=== PATIENT | male | born 1965 | race Caucasian/White ===

== ENCOUNTER → 2016-07-16 | Outpatient (CLI) | payer OTHER, MEDICARE ==
--- NOTE | 2016-07-16 16:39 | CT ---
EXAMINATION TYPE: CT abdomen w con DATE OF EXAM: 07/16/2016 4:11 PM COMPARISON: 02/06/2016 HISTORY: Pt states of cysts on liver. CT DLP: 3450.5 mGycm CONTRAST: CT scan of the abdomen and pelvis is performed without Oral Contrast and with IV Contrast, patient in jected with 100 mL of Omnipaque 300. FINDINGS: LUNG BASES-: No visible nodule. No infiltrate. LIVER/GB: 3 stable hepatic cysts are noted ranging in size from 1.2 cm to approximately 4 mm. No steve d lesions are detected. The gallbladder is contracted. Biliary tree is unremarkable. PANCREAS: No inflammation. No distinct mass. SPLEEN: No splenic enlargement. No lesion seen. ADRENALS: No nodule. No thickening. KIDNEYS/BLADDER: No hydronephrosis. No nephrolithiasis. No disctinct renal mass. Urinary bladder g rossly unremarkable. BOWEL: Normal appendix. Normal bowel caliber. No inflammation. LYMPH NODES: No greater than 1cm abdominal or pelvic lymph nodes are appreciated. AORTA: No significant abnormality. OSSEOUS STRUCTURES: No significant abnormality is seen. OTHER: No significant additional abnormality is seen. IMPRESSION: 1. Stable hepatic cysts.
== END | disposition home or self-care (01) ==
LOC: RADCTMAIN 15:39
PROVIDERS: ATTEND Pediatrics
DX: K76.89 Other specified diseases of liver (principal)
CPT/HCPCS: 74160; Q9967

== ENCOUNTER 2018-07-31 08:56 | Observation (INO) | payer OTHER, MEDICARE ==
[2018-07-31] MEDS ORDERED: SODIUM CHLORIDE 0.9% 1,000 ML IV STA (08:58)
--- NOTE | 2018-07-31 08:59 | ED ---
Weakness HPI - General Stated complaint: weakness/rash Time Seen by Provider: 07/31/18 08:57 Source: RN notes reviewed, old records reviewed - History of Present Illness Initial comments: This is a 52-year-old male the ER for evaluation. Patient presents ER for evaluation of rash. Patient is rash on his buttocks and some fever and chills. Also admits to secondary rash over rest of body. Symptoms began yesterday. Buttox rash is been going on for a few days. No travel history no sick contacts no history of similar presentation. No history of diabetes MD Complaint: generalized weakness -: days(s) Location: generalized Severity: mild Severity scale (1-10): 3 Consistency: constant Context: recent illness Associated Symptoms: other (Significant buttocks rash) - Related Data Home Medications Medication Instructions Recorded Confirmed Clopidogrel [Plavix] 75 mg PO DAILY 02/06/16 07/31/18 Aspirin [Adult Low Dose Aspirin EC] 81 mg PO DAILY 02/17/16 07/31/18 Atenolol 25 mg PO QAM 02/17/16 07/31/18 Lisinopril [Zestril] 10 mg PO DAILY 02/17/16 07/31/18 Atorvastatin Calcium [Lipitor] 10 mg PO HS 07/31/18 07/31/18 Cyclobenzaprine [Flexeril] 10 mg PO TID PRN 07/31/18 07/31/18 Loratadine [Claritin] 10 mg PO DAILY 07/31/18 07/31/18 Naproxen [Naprosyn] 500 mg PO Q12HR PRN 07/31/18 07/31/18 Allergies Allergy/AdvReac Type Severity Reaction Status Date / Time No Known Allergies Allergy Verified 07/31/18 09:34 Review of Systems ROS Statement: Those systems with pertinent positive or pertinent negative responses have been documented in the HPI. ROS Other: All systems not noted in ROS Statement are negative. Past Medical History Past Medical History: Atrial Fibrillation, CVA/TIA, Hyperlipidemia, Hypertension, Memory Impairment, Myocardial Infarction ([place]) Additional Past Medical History / Comment(s): STROKE APPROX 2011 AFFECTED RT SIDE HAS SOME WEAKNESS TO LEG USES A CANE WHEN UP AND WRITING A BIT SHAKY. ALSO HAS SHORT TERM MEMEORY PROBLEMS SINCE THEN. Last Myocardial Infarction Date:: 2005 History of Any Multi-Drug Resistant Organisms: None Reported Past Surgical History: Adenoidectomy, Cardiac Ablation, Heart Catheterization, Tonsillectomy Additional Past Surgical History / Comment(s): Cardiac ablation. LOOP RECORDER- SINCE REMOVED Past Anesthesia/Blood Transfusion Reactions: Previous Problems w/ Anesthesia Additional Past Anesthesia/Blood Transfusion Reaction / Comment(s): WOKE UP A BIT MEAN AFTER (MANY YRS AGO). CLAUSTERPHOBIA. Past Psychological History: No Psychological Hx Reported Smoking Status: Former smoker Past Alcohol Use History: Occasional Additional Past Alcohol Use History / Comment(s): SMOKED SINCE AGE 19 1 PACK PER WEK, QUIT 2005 Past Drug Use History: None Reported - Past Family History Father Family Medical History: COPD, Hyperlipidemia, Hypertension, Myocardial Infarction ([place]) Mother Family Medical History: Cancer, Dementia, Thyroid Disorder Additional Family Medical History / Comment(s): BREAST CANCER,DIVERTICULITIS General Exam - General Exam Comments Initial Comments: Significant fungal demarcated rash with cellulitis and surrounding erythema on buttocks no drainage no abscess General appearance: alert, in no apparent distress Head exam: Present: atraumatic, normocephalic, normal inspection Eye exam: Present: normal appearance, PERRL, EOMI. Absent: scleral icterus, conjunctival injection, periorbital swelling ENT exam: Present: normal exam, mucous membranes moist Neck exam: Present: normal inspection. Absent: tenderness, meningismus, lymphadenopathy Respiratory exam: Present: normal lung sounds bilaterally. Absent: respiratory distress, wheezes, rales, rhonchi, stridor Cardiovascular Exam: Present: regular rate, normal rhythm, normal heart sounds. Absent: systolic murmur, diastolic murmur, rubs, gallop, clicks GI/Abdominal exam: Present: soft, normal bowel sounds. Absent: distended, tenderness, guarding, rebound, rigid Extremities exam: Present: normal inspection, full ROM, normal capillary refill. Absent: tenderness, pedal edema, joint swelling, calf tenderness Back exam: Present: normal inspection Neurological exam: Present: alert, oriented X3, CN II-XII intact Psychiatric exam: Present: normal affect, normal mood Skin exam: Present: warm, dry, intact, normal color. Absent: rash Course Vital Signs 07/31/18 07/31/18 08:59 09:03 Temperature 98.4 F Pulse Rate 83 81 Respiratory 18 18 Rate Blood Pressure 164/110 163/87 O2 Sat by Pulse 98 97 Oximetry - Reevaluation(s) Reevaluation #1: 07/31/18 10:50 Medical record Reviewed Medical Decision Making - Medical Decision Making 52 male the ER for evaluation of rash rash on face as well as blood tox rash. Patient's pulse ox stressors appear to be East infection betsy infection with overlying secondary bacterial infection. We'll admit for IV antibiotics and treatment of cellulitis - Lab Data Result diagrams: 07/31/18 09:18 Lab Results 07/31/18 07/31/18 07/31/18 Range/Units 09:18 09:18 09:18 WBC 7.6 (3.8-10.6) k/uL RBC 5.62 (4.30-5.90) m/uL Hgb 16.5 (13.0-17.5) gm/dL Hct 49.3 (39.0-53.0) % MCV 87.8 (80.0-100.0) fL MCH 29.4 (25.0-35.0) pg MCHC 33.5 (31.0-37.0) g/dL RDW 13.8 (11.5-15.5) % Plt Count 266 (150-450) k/uL Neutrophils % 83 % Lymphocytes % 10 % Monocytes % 4 % Eosinophils % 2 % Basophils % 0 % Neutrophils # 6.3 (1.3-7.7) k/uL Lymphocytes # 0.7 L (1.0-4.8) k/uL Monocytes # 0.3 (0-1.0) k/uL Eosinophils # 0.1 (0-0.7) k/uL Basophils # 0.0 (0-0.2) k/uL PT 9.7 (9.0-12.0) sec INR 0.9 (<1.2) APTT 23.4 (22.0-30.0) sec Plasma Lactic Acid Mp 1.7 (0.7-2.0) mmol/L Troponin I (0.000-0.034) ng/mL 07/31/18 Range/Units 09:18 WBC (3.8-10.6) k/uL RBC (4.30-5.90) m/uL Hgb (13.0-17.5) gm/dL Hct (39.0-53.0) % MCV (80.0-100.0) fL MCH (25.0-35.0) pg MCHC (31.0-37.0) g/dL RDW (11.5-15.5) % Plt Count (150-450) k/uL Neutrophils % % Lymphocytes % % Monocytes % % Eosinophils % % Basophils % % Neutrophils # (1.3-7.7) k/uL Lymphocytes # (1.0-4.8) k/uL Monocytes # (0-1.0) k/uL Eosinophils # (0-0.7) k/uL Basophils # (0-0.2) k/uL PT (9.0-12.0) sec INR (<1.2) APTT (22.0-30.0) sec Plasma Lactic Acid Mp (0.7-2.0) mmol/L Troponin I <0.012 (0.000-0.034) ng/mL Disposition Clinical Impression: Cellulitis of buttock, Betsy infection Disposition: ADMITTED IP TO THIS HOSP Condition: Good Is patient prescribed a controlled substance at d/c from ED?: No Referrals: Jayme Baron MD [Primary Care Provider] - 1-2 days
[2018-07-31 09:40] LABS: Basophils % (A) 0 %; Eosinophils # (A) 0.1 k/uL (0-0.7); Eosinophils % (A) 2 %; HCT 49.3 % (39.0-53.0); HGB 16.5 gm/dL (13.0-17.5); Lymphocytes # (A) 0.7 k/uL (1.0-4.8); Lymphocytes % (A) 10 %; MCH 29.4 pg (25.0-35.0); MCHC 33.5 g/dL (31.0-37.0); MCV 87.8 fL (80.0-100.0); Mean Platelet Volume 7.5; Monocytes # (A) 0.3 k/uL (0-1.0); Monocytes % (A) 4 %; Neutrophils # (A) 6.3 k/uL (1.3-7.7); Neutrophils % (A) 83 %; Platelet Count 266 k/uL (150-450); RBC 5.62 m/uL (4.30-5.90); RDW 13.8 % (11.5-15.5); WBC 7.6 k/uL (3.8-10.6)
[2018-07-31] MEDS ORDERED: KETOROLAC 30 MG/ML 1 ML VIAL IVP STA (10:02)
[2018-07-31] MEDS ORDERED: VANCOMYCIN IV PER PHARMACY 1 EACH MISC MISCELLANE PRN (10:02)
[2018-07-31] MEDS ORDERED: methylPREDNISolone SOD SUCCI 125 MG/2 ML VIAL IV STA (10:02)
[2018-07-31] MEDS ORDERED: FAMOTIDINE 20 MG/2 ML VIAL IV STA (10:02)
[2018-07-31] MEDS ORDERED: diphenhydrAMINE 50 MG/ML 1 ML VIAL IVP STA (10:02)
[2018-07-31] MEDS ORDERED: VANCOMYCIN 2,500 MG in SODIUM CHLORIDE 0.9% 500 ML 500 ML IVPB STA (10:07)
[2018-07-31 10:26] LABS: INR 0.9 (<1.2); Partial Thromboplastin Time 23.4 sec (22.0-30.0); Prothrombin Time 9.7 sec (9.0-12.0)
[2018-07-31 10:26] LABS: Appearance,Urine Clear (Clear); Bilirubin,Urine Negative (Negative); Blood,Urine Negative (Negative); Color,Urine Yellow; Glucose,Urine (UA) Negative (Negative); Ketones,Urine Negative (Negative); Leukocyte Esterase,Urine Negative (Negative); Nitrite,Urine Negative (Negative); Protein,Urine Negative (Negative); Urobilinogen,Urine <2.0 mg/dL (<2.0)
[2018-07-31 11:02] LABS: ALT 41 U/L (21-72); AST 24 U/L (17-59); Alkaline Phosphatase 54 U/L (38-126); Anion Gap 9 mmol/L; Blood Urea Nitrogen 17 mg/dL (9-20); Calcium 9.3 mg/dL (8.4-10.2); Carbon Dioxide 25 mmol/L (22-30); Chloride 105 mmol/L (98-107); Glucose 135 mg/dL (74-99); Magnesium 1.8 mg/dL (1.6-2.3); Phosphorus 3.2 mg/dL (2.5-4.5); Potassium 4.6 mmol/L (3.5-5.1); Sodium 139 mmol/L (137-145); Total Bilirubin 0.6 mg/dL (0.2-1.3); Total Protein 6.8 g/dL (6.3-8.2)
[2018-07-31] MEDS ORDERED: SODIUM CHLORIDE 0.9% 1,000 ML IV ONE (11:34)
[2018-07-31] MEDS: KETOROLAC 30 MG/ML 1 ML VIAL IVP PRN (17:51)
[2018-07-31] MEDS ORDERED: CYCLOBENZAPRINE 10 MG TAB PO PRN (18:20)
[2018-07-31] MEDS ORDERED: NAPROXEN 250 MG TAB PO PRN (18:20)
[2018-07-31] MEDS ORDERED: MAG HYDROX/AL HYDROX/SIMETH 30 ML CUP PO PRN (18:23)
[2018-07-31] MEDS ORDERED: ONDANSETRON 4 MG/2 ML VIAL IVP PRN (18:23)
[2018-07-31] MEDS ORDERED: MAGNESIUM HYDROXIDE 2,400 MG/10 ML CUP PO PRN (18:23)
[2018-07-31] MEDS ORDERED: ACETAMINOPHEN TAB 325 MG TAB PO PRN (18:23)
[2018-07-31] MEDS ORDERED: NALOXONE 0.4 MG/ML 1 ML VIAL IV PRN (18:23)
[2018-07-31] MEDS ORDERED: CALCIUM CARBONATE 500 MG CHEWABLE PO PRN (18:23)
[2018-07-31] MEDS ORDERED: LACTULOSE 20 GM/30 ML CUP PO PRN (18:23)
[2018-07-31] MEDS ORDERED: VANCOMYCIN 2,000 MG in SODIUM CHLORIDE 0.9% 500 ML 500 ML IVPB SCH (21:00)
[2018-07-31] MEDS: NYSTATIN 100,000 UNIT/GM POWD 15 GM TOPICAL SCH ×2 (21:07→22:12)
[2018-07-31] MEDS: ATORVASTATIN 10 MG TAB PO SCH (21:07)
[2018-07-31] MEDS: ENOXAPARIN 40 MG/0.4 ML SYRINGE SQ SCH (21:08)
[2018-07-31] MEDS: ceFAZolin (PMX-bag) 1,000 MG in DEXTROSE/WATER 1 50ML.BAG IVPB SCH (21:20)
--- NOTE | 2018-07-31 21:43 | HP ---
HISTORY AND PHYSICAL DATE OF ADMISSION: 07/31/2018 DATE OF SERVICE: 07/31/2018. PRESENTING COMPLAINT: Severe rash, redness in the buttock. HISTORY OF PRESENTING COMPLAINT: This is a pleasant 52-year-old patient who follows with Dr. Baron. Chronic stable medical conditions include hypertension, hyperlipidemia, obstructive sleep apnea, previous ID, stroke with right-sided weakness, diverticulosis. Baseline uses a cane. The patient noted a rash in the butt cheek area just over 4 days ago, progressively getting worse, and it has spread quite a bit and he has also had noted some rash on the body forehead, itching. No fever. No chills. Also somewhat painful in the buttock area. The patient given IV antibiotics in the ER. Admitted for the same. REVIEW OF SYSTEMS: CONSTITUTIONAL: None. HEENT: None. RESPIRATORY: None. CARDIOVASCULAR: None. GASTROINTESTINAL: None. GENITOURINARY: None. MUSCULOSKELETAL: Arthritic pain in joints. DERMATOLOGICAL: As above. LYMPHATICS none. PSYCHIATRY none. NEUROLOGICAL: Right-sided weakness from prior stroke. PAST MEDICAL HISTORY: Hypertension, hyperlipidemia, obstructive sleep apnea, coronary artery disease with a ID, stroke with right-sided weakness, diverticulosis. Past medical history also numbness in the right and short-term memory loss, chronic low back pain, right shoulder and right ankle pain, seasonal allergies. PAST SURGICAL HISTORY: Adenoidectomy, cardiac ablation, cardiac cath, loop recorder x2, cyst removed from buttock anal area. SOCIAL HISTORY: . Does use a cane. The patient did smoke from age of 19, 1 pack a day till 2005. Alcohol occasionally. 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 FAMILY HISTORY: COPD, DVT, hypertension, hyperlipidemia, coronary artery disease. HOME MEDICATIONS: 1. Naproxen 500 mg q.12h p.r.n. 2. Flexeril 10 mg t.i.d. p.r.n. 3. Claritin 10 mg p.o. daily. 4. Lipitor 10 mg p.o. at bedtime. 5. Zestril 10 mg p.o. daily. 6. Plavix 25 p.o. daily. 7. Atenolol 25 p.o. daily. 8. Aspirin 81 mg p.o. daily. ALLERGIES: None. PHYSICAL EXAMINATION: VITAL SIGNS: Temperature 98.4. Pulse 82, respiratory 18, blood pressure 164/110, repeat , pulse ox 98% on room air. GENERAL APPEARANCE: Well built, BMI 38.7, sitting up, awake. EYES: Pupils equal. Conjunctivae normal. HEENT: External appearance of nose and ears normal. Oral cavity normal. NECK: JVD not raised. Mass not palpable. RESPIRATORY: Effort normal. LUNGS: Fair air entry. CARDIOVASCULAR: First and second sounds normal. No edema. ABDOMEN: Soft, nontender. Liver and spleen not palpable. LYMPHATICS: No lymph nodes palpable in the neck and axilla. PSYCHIATRY: Alert and oriented times three. Mood and affect normal. NEUROLOGICAL: Weakness on the right side. Power is 3 to 4 x 5 with decreased sensation. DERMATOLOGICAL: Patient has got an area of redness in the contiguous area of the buttock cheek with some satellite areas of redness around with some weeping. The patient also got a superficial red rash on the forehead and upper back. INVESTIGATIONS: White count 7.6, hemoglobin 16.5, potassium 4.6, BUN and creatinine is normal. UA negative. ASSESSMENT: 1. Acute severe contiguous Betsy infection of the buttock area with secondary severe cellulitis. 2. Essential hypertension. 3. Hyperlipidemia. 4. Obstructive sleep apnea. 5. Coronary artery disease with prior history of myocardial infarction. 6. Right hemiparesis secondary to prior stroke. 7. Chronic diverticulosis. 8. Chronic gait dysfunction uses a cane. 9. Obesity; BMI 38.7. PLAN: Home medications are resumed. We will add nystatin powder topically in the contiguous area and start the patient on IV Ancef. We will add some Benadryl for pruritus. Care was discussed with the patient's . Questions were answered. Copy to Dr. Baron. MMODL / IJN: [id number] /
[2018-08-01] MEDS: ceFAZolin (PMX-bag) 1,000 MG in DEXTROSE/WATER 1 50ML.BAG IVPB SCH ×3 (04:27→19:43)
[2018-08-01] MEDS: NYSTATIN 100,000 UNIT/GM POWD 15 GM TOPICAL SCH (08:00)
[2018-08-01] MEDS: LISINOPRIL 10 MG TAB PO SCH (08:01)
[2018-08-01] MEDS: ENOXAPARIN 40 MG/0.4 ML SYRINGE SQ SCH (08:01)
[2018-08-01] MEDS: CLOPIDOGREL 75 MG TAB PO SCH (08:01)
[2018-08-01] MEDS: ATENOLOL 25 MG TAB PO SCH (08:02)
[2018-08-01] MEDS: ASPIRIN 81 MG PO SCH (08:02)
[2018-08-01] MEDS: KETOROLAC 30 MG/ML 1 ML VIAL IVP PRN ×3 (08:04→19:33)
[2018-08-01] MEDS ORDERED: ENOXAPARIN 40 MG/0.4 ML SYRINGE SQ SCH (09:00)
[2018-08-01] MEDS ORDERED: NYSTAT-TRIAMCIN 100,000-0.1 UNIT/GM-% CREAM 30 GM TUBE TOPICAL SCH (15:17)
[2018-08-01] MEDS: NYSTATIN 100,000UNIT/GM CREAM 30 GM TUBE TOPICAL SCH ×2 (16:03→21:32)
[2018-08-01] MEDS: TRIAMCINOLONE 0.1% CREAM 80 GM TUBE TOPICAL SCH ×2 (16:03→21:32)
[2018-08-01] MEDS: ATORVASTATIN 10 MG TAB PO SCH (21:31)
--- NOTE | 2018-08-01 22:32 | CONS ---
CONSULTATION DATE OF SERVICE: DATE OF SERVICE: 08/01/2018. REASON FOR CONSULTATION: Gluteal flap cellulitis. HISTORY OF PRESENT ILLNESS: The patient is a 52 with male who apparently gave a history of a cyst removed from his sacral area. However, not specifically it was a pilonidal cyst. He did not have any ulcer. The patient did say occasionally he did have some drainage in the gluteal cleft area. Sometime it is smelly, some times it is not smelly. However, the last few days the patient has been having a extensive itching and irritation to the gluteal cleft area with progressive worsening of his symptoms with some dull aching pain 2-3 out of 10 and no radiation, he denies having any fever or chills. With these symptoms, the patient presented to the [facility] ER. The patient was evaluated by the ER physician. He was diagnosed with cellulitis, started on cefazolin. Infectious disease was consulted for further recommendations regarding antibiotic therapy. Currently with no rash any other part of the body. Denies any respiratory symptoms. No abdominal pain. No nausea, vomiting and no diarrhea. REVIEW OF SYSTEMS: Positive points have been mentioned in HPI. Rest of the systems are negative. PAST MEDICAL HISTORY: Atrial fibrillation, CVA, TIA, hyperlipidemia, hypertension, memory impairment, [place], stroke. PAST SURGICAL HISTORY: Adenoidectomy, cardiac ablation, heart catheterization, tonsillectomy, loop recorder placement and removal. SOCIAL HISTORY: Remote history of smoking. Rarely drinks. No drug use. FAMILY HISTORY: Mother with history of dementia, breast cancer and diverticulitis. ALLERGIES: No known drug allergies. MEDICATIONS: The patient is currently on Tylenol, Maalox, Xanax, Aspirin, Tenormin, Lipitor, Tums, cefazolin 1 g q.8h, Plavix, Flexeril, Lovenox, Toradol, lactulose, Zestril, Narcan, Zofran. PHYSICAL EXAMINATION: Blood pressure 131/80 with a pulse of 75, temperature 98.7. He is 97% on room air. General description: The patient is a middle-aged male lying in bed in no distress. No tachypnea or accessory muscles of respiration use. HEENT: Shows no pallor or scleral icterus. Oral mucosa membranes are dry. No pharyngeal erythema or thrush. NECK: Trachea central. No thyromegaly. Lungs unlabored breathing. Clear to auscultation anteriorly. No wheeze or crackles. Heart S1, S2. Regular rate and rhythm. ABDOMEN: Soft, no tenderness. Extremities are no edema of the feet. Examination of the gluteal cleft area: The patient did have a rash in the gluteal cleft with some superficial ulceration. No foul smelling drainage. No induration. Neurologically, the patient is awake, alert, oriented times three. Mood and affect normal. LABS: Hemoglobin is 16.5, white count 7.6 with a BUN of 13, creatinine 0.83. UA has been negative. DIAGNOSTIC IMPRESSION AND PLAN: Patient with gluteal cleft area fungal dermatitis plus-minus component of secondary bacterial cellulitis currently with no suspicious for underlying abscess or deep infection. PLAN: 1. Local care to the gluteal cleft rash area with Mycolog cream twice a day. 2. Continue with cefazolin 1 g q.8 hours. 3. Luis the area of redness. 4. We will follow up on clinical condition and culture to further adjust medication if needed. Thank you for this consultation. Will follow this patient along with you. MMODL / IJN: [id number] /
[2018-08-01] MEDS: MELATONIN 3 MG TABLET PO PRN (22:56)
[2018-08-01] MEDS: ALPRAZolam 0.25 MG TAB PO PRN (22:56)
--- NOTE | 2018-08-01 23:41 | PN ---
PROGRESS NOTE DATE OF SERVICE: 08/01/2018. PRESENTING COMPLAINT: Rash. INTERVAL HISTORY: This patient presented with severe fungal infection of the buttock area with secondary severe cellulitis. Still a bit painful, is on antifungals and IV antibiotics. Otherwise, tolerating a diet. Rather itchy. REVIEW OF SYSTEMS: Done for constitutional, cardiovascular, GI, pulmonary, dermatological; relevant findings as above. CURRENT MEDICATIONS: Reviewed, that include IV Ancef, nystatin cream and Kenalog. PHYSICAL EXAMINATION: Temperature 98.7, pulse 75, respirations 20, blood pressure 130/80, pulse ox 97% on room air. GENERAL APPEARANCE: Sitting up, awake. EYES: Pupils equal. Conjunctivae normal. NECK: JVD not raised. Mass not palpable. Respiratory effort normal. LUNGS: Lungs fair. CARDIOVASCULAR: 1st and 2nd heart sounds normal. No edema. ABDOMEN: Soft, nontender. Liver and spleen not palpable. PSYCHIATRY: Alert and oriented x3. Mood and affect normal. DERMATOLOGIC: Area of redness and bogginess and inflammation in the buttock cheek in the contiguous area. INVESTIGATIONS: No blood work from today. ASSESSMENT: 1. Acute severe contiguous Betsy infection of the buttock area with secondary severe cellulitis slow to respond. 2. Essential hypertension. 3. Hyperlipidemia. 4. Obstructive sleep apnea. 5. Coronary artery disease prior history of myocardial infarction. 6. Right hemiparesis secondary to prior stroke. 7. Chronic diverticulosis. 8. Chronic gait dysfunction uses a cane. 9. Obesity, BMI 38.7. PLAN: Care was discussed with the patient's at the bedside. Continue the antifungals, antibiotics. The patient told to put pillow support on the lateral half of the buttock to keep the pressure off the area. MMODL / IJN: [id number] /
[2018-08-02] MEDS: ceFAZolin (PMX-bag) 1,000 MG in DEXTROSE/WATER 1 50ML.BAG IVPB SCH ×3 (04:40→21:53)
[2018-08-02] MEDS: ATENOLOL 25 MG TAB PO SCH (09:19)
[2018-08-02] MEDS: LISINOPRIL 10 MG TAB PO SCH (09:19)
[2018-08-02] MEDS: ASPIRIN 81 MG PO SCH (09:19)
[2018-08-02] MEDS: CLOPIDOGREL 75 MG TAB PO SCH (09:19)
[2018-08-02] MEDS: NYSTATIN 100,000UNIT/GM CREAM 30 GM TUBE TOPICAL SCH ×2 (09:19→21:55)
[2018-08-02] MEDS: TRIAMCINOLONE 0.1% CREAM 80 GM TUBE TOPICAL SCH ×2 (09:19→21:55)
[2018-08-02] MEDS: KETOROLAC 30 MG/ML 1 ML VIAL IVP PRN ×3 (09:19→22:04)
[2018-08-02] MEDS: ENOXAPARIN 40 MG/0.4 ML SYRINGE SQ SCH (09:20)
--- NOTE | 2018-08-02 17:05 | PN ---
PROGRESS NOTE DATE OF SERVICE: 08/02/2018. REASON FOR FOLLOW UP: Gluteal cleft candidiasis with secondary bacterial cellulitis. INTERVAL HISTORY: The patient is currently afebrile. He is breathing comfortably. Overall drainage to the has decreased. The patient denies having any chest pain. No shortness of breath or cough. No abdominal pain. No diarrhea. PHYSICAL EXAMINATION: Blood pressure 127/77 with a pulse of 55, temperature 97.5. He is 98% on room air. General description is a middle-aged male lying in bed in no distress. Respiratory system: Unlabored breathing. Clear to auscultation anteriorly. Heart is S1, S2. Regular rate and rhythm. Abdomen soft, no tenderness. The sacral wound overall redness the gluteal cleft area rash has decreased intensity. No drainage. LABS: No new labs have been obtained today. DIAGNOSTIC IMPRESSION AND PLAN: Patient with gluteal cleft candidiasis with secondary bacterial cellulitis. Local care to continue with Mycolog cream, Cefazolin. Re-evaluate the patient tomorrow. If have overall improvement, hopefully finish therapy with oral antibiotics. Continue supportive care. MMODL / IJN: [id number] /
[2018-08-02] MEDS: ATORVASTATIN 10 MG TAB PO SCH (21:55)
[2018-08-02] MEDS: MELATONIN 3 MG TABLET PO PRN (21:55)
[2018-08-02] MEDS: ALPRAZolam 0.25 MG TAB PO PRN (21:55)
[2018-08-03] MEDS: ceFAZolin (PMX-bag) 1,000 MG in DEXTROSE/WATER 1 50ML.BAG IVPB SCH ×2 (06:12→12:53)
[2018-08-03] MEDS: CLOPIDOGREL 75 MG TAB PO SCH (08:55)
[2018-08-03] MEDS: LISINOPRIL 10 MG TAB PO SCH (08:55)
[2018-08-03] MEDS: ASPIRIN 81 MG PO SCH (08:55)
[2018-08-03] MEDS: ATENOLOL 25 MG TAB PO SCH (08:55)
[2018-08-03] MEDS: ENOXAPARIN 40 MG/0.4 ML SYRINGE SQ SCH (08:55)
[2018-08-03] MEDS: NYSTATIN 100,000UNIT/GM CREAM 30 GM TUBE TOPICAL SCH (08:56)
[2018-08-03] MEDS: TRIAMCINOLONE 0.1% CREAM 80 GM TUBE TOPICAL SCH (08:56)
[2018-08-03 09:36] LABS: Anion Gap 5 mmol/L; Blood Urea Nitrogen 19 mg/dL (9-20); Calcium 8.3 mg/dL (8.4-10.2); Carbon Dioxide 27 mmol/L (22-30); Chloride 107 mmol/L (98-107); Glucose 155 mg/dL (74-99); Potassium 4.3 mmol/L (3.5-5.1); Sodium 139 mmol/L (137-145)
[2018-08-03 09:43] LABS: Basophils % (A) 1 %; Eosinophils # (A) 0.3 k/uL (0-0.7); Eosinophils % (A) 4 %; HCT 43.8 % (39.0-53.0); HGB 14.2 gm/dL (13.0-17.5); Lymphocytes # (A) 0.9 k/uL (1.0-4.8); Lymphocytes % (A) 12 %; MCH 28.7 pg (25.0-35.0); MCHC 32.4 g/dL (31.0-37.0); MCV 88.6 fL (80.0-100.0); Mean Platelet Volume 7.5; Monocytes # (A) 0.4 k/uL (0-1.0); Monocytes % (A) 6 %; Neutrophils # (A) 5.7 k/uL (1.3-7.7); Neutrophils % (A) 77 %; Platelet Count 232 k/uL (150-450); RBC 4.94 m/uL (4.30-5.90); RDW 13.2 % (11.5-15.5); WBC 7.4 k/uL (3.8-10.6)
--- NOTE | 2018-08-03 11:41 | P.PN ---
Subjective Progress Note Date: 08/02/18 Principal diagnosis: Buttock cellulitis Covering for Dr. Calderón over the weekend 52-year-old male admitted for buttock cellulitis along with significant fungal infection. He states that the buttock area when he has the rash is still painful and Toradol is helping him with his pain. On ROS - Patient denies having any fevers chills or rigors. No cough or difficulty in breathing no chest pain or palpitations. No abdominal pain nausea vomiting or diarrhea. Previous labs reviewed. No new labs from this morning. Active Medications Acetaminophen (Tylenol Tab) 650 mg PO Q6HR PRN PRN Reason: Mild Pain or Fever > 100.5 Al Hydroxide/Mg Hydroxide (Maalox) 15 ml PO Q6HR PRN PRN Reason: Indigestion Alprazolam (Xanax) 0.25 mg PO Q6HR PRN PRN Reason: Anxiety Last Admin: 08/01/18 22:56 Dose: 0.25 mg Documented by: Aspirin (Aspirin) 81 mg PO DAILY [facility] Last Admin: 08/02/18 09:19 Dose: 81 mg Documented by: Atenolol (Tenormin) 25 mg PO QAM [facility] Last Admin: 08/02/18 09:19 Dose: 25 mg Documented by: Atorvastatin Calcium (Lipitor) 10 mg PO HS [facility] Last Admin: 08/01/18 21:31 Dose: 10 mg Documented by: Calcium Carbonate/Glycine (Tums) 1,000 mg PO Q4HR PRN PRN Reason: Dyspepsia Clopidogrel Bisulfate (Plavix) 75 mg PO DAILY [facility] Last Admin: 08/02/18 09:19 Dose: 75 mg Documented by: Cyclobenzaprine HCl (Flexeril) 10 mg PO TID PRN PRN Reason: Muscle Spasm Last Admin: 07/31/18 21:39 Dose: 10 mg Documented by: Enoxaparin Sodium (Lovenox) 40 mg SQ DAILY [facility] Last Admin: 08/02/18 09:20 Dose: 40 mg Documented by: Cefazolin Sodium/Dextrose 1, (000 mg/ IV Solution) 50 mls @ 100 mls/hr IVPB Q8H [facility] Last Admin: 08/02/18 04:40 Dose: 100 mls/hr Documented by: Ketorolac Tromethamine (Toradol) 30 mg IVP Q6HR PRN PRN Reason: pain Stop: 08/04/18 17:21 Last Admin: 08/02/18 09:19 Dose: 30 mg Documented by: Lactulose (Cephulac) 20 gm PO DAILY PRN PRN Reason: Constipation Lisinopril (Zestril) 10 mg PO DAILY [facility] Last Admin: 08/02/18 09:19 Dose: 10 mg Documented by: Magnesium Hydroxide (Milk Of Magnesia) 2,400 mg PO DAILY PRN PRN Reason: Constipation Melatonin (Melatonin) 3 mg PO HS PRN PRN Reason: Insomnia Last Admin: 08/01/18 22:56 Dose: 3 mg Documented by: Naloxone HCl (Narcan) 0.2 mg IV Q2M PRN PRN Reason: Opioid Reversal Nystatin (Mycostatin Cream) 1 applic TOPICAL BID [facility] Last Admin: 08/02/18 09:19 Dose: 1 applic Documented by: Ondansetron HCl (Zofran) 4 mg IVP Q8HR PRN PRN Reason: Nausea And Vomiting Triamcinolone Acetonide (Kenalog) 1 applic TOPICAL BID [facility] Last Admin: 08/02/18 09:19 Dose: 1 applic Documented by: Objective - Vital Signs Vital signs: Vital Signs Temp 97.9 F 08/02/18 05:00 Pulse 71 08/02/18 05:00 Resp 18 08/02/18 05:00 BP 108/68 08/02/18 05:00 Pulse Ox 100 08/02/18 05:00 Intake & Output 08/01/18 08/02/18 08/02/18 18:59 06:59 18:59 Other: Voiding Method Toilet Toilet # Voids 3 2 # Bowel Movements 0 - Exam On physical exam Gen. appearance-lying in bed comfortably Eyes-pupils equal and reactive to light. No pallor. Neck no JVD Respiratory-bilateral breath sounds are positive. No wheezes or crackles [id number] heard Abdomen-soft nontender. Examination of the back-patient has area of redness and bogginess with inflammation in between his buttock cheeks. The area still looks angry. 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 We will order labs for tomorrow morning. Continue with the current medication regimen. Advised the patient to take the pressure off the infected area, to change positions frequently every 2 hours, for better healing. Further recommendations depending on the progress of the patient.
[2018-08-03 13:23] VITALS: BP 124/71; PULSE 67; RESP 16; TEMP 97.6
--- NOTE | 2018-08-03 16:51 | PN ---
PROGRESS NOTE DATE OF SERVICE: 08/03/2018. REASON FOR FOLLOWUP: Gluteal cleft candidiasis and secondary cellulitis. INTERVAL HISTORY: The patient is currently afebrile. He is breathing comfortably. The patient's burning pain to the gluteal cleft area has decreased. Drainage has resolved. No chest pain, shortness of breath. No cough. No abdominal pain. No diarrhea. Anxious to go home. PHYSICAL EXAMINATION: Blood pressure 124/71 with a pulse of 57. Temperature 97.6. He is 97% on room air. General description is a middle-aged male lying in bed in no distress. Respiratory system: Unlabored breathing. Clear to auscultation anteriorly. Heart S1, S2. Regular rate and rhythm. Abdomen soft, no tenderness. Examination of the gluteal cleft rash redness has decreased in intensity. No drainage. LABS: Hemoglobin is 14, white count 7.4 with a BUN of 19, creatinine 0.83. DIAGNOSTIC IMPRESSION AND PLAN: Patient with gluteal cleft candidacies with secondary cellulitis local care to continue Mycolog cream twice a day for about a week followed by powder which the patient has. short course of oral Keflex and follow up in the office in 1 week. All questions, concerns were answered. MMODL / IJN: [id number] /
--- NOTE | 2018-08-03 23:10 | P.DS ---
Providers Date of admission: 07/31/18 11:34 Expected date of discharge: 08/03/18 Attending physician: William Calderón Consults: 07/31/18 18:24 Consult Physician Routine Consulting Provider: Marcio Connell Consult Reason/Comments: cellulitis Do you want consulting provider notified?: Yes Primary care physician: [facility] Course: 52-year-old male with history of a cyst removed from his sacral area coming in with a chief complaint of drainage from the gluteal Cleft for the past few days. Patient was also having extensive itching and irritation in the glut eal cleft area with progressive worsening of symptoms. Patient denied having any fevers or chills. On presentation to [facility] ER patient was diagnosed to have cellulitis and started on cefazolin. During the hospital stay the patient was continued on cefazolin along with Mycolog cream applied locally to the infected area as he was having fungal dermatitis. Patient showed significant improvement to the treatment and this morning he feels that he is ready to go home. Patient reports his pain is 0 out of 10. On physical exam Vital Signs - 24 hr 08/03/18 08/03/18 08/03/18 05:00 13:04 15:05 Temperature 96.8 F L 97.6 F Pulse Rate [ 75 67 Right] Respiratory 18 16 16 Rate Blood Pressure 123/77 124/71 [Right Arm] O2 Sat by Pulse 98 97 Oximetry Gen. appearance-lying in bed comfortably Eyes-pupils equal and reactive to light. No pallor. Neck no JVD Respiratory-bilateral breath sounds are positive. No wheezes or crackles [id number] heard Abdomen-soft nontender. Examination of the back-patient has area of redness and bogginess with inflammation in between his buttock cheeks. The area still looks angry. Extremities-no edema Laboratory Results - Last 24 Hours 08/03/18 08/03/18 08:37 08:37 WBC 7.4 RBC 4.94 Hgb 14.2 Hct 43.8 MCV 88.6 MCH 28.7 MCHC 32.4 RDW 13.2 Plt Count 232 Neutrophils % 77 Lymphocytes % 12 Monocytes % 6 Eosinophils % 4 Basophils % 1 Neutrophils # 5.7 Lymphocytes # 0.9 L Monocytes # 0.4 Eosinophils # 0.3 Basophils # 0.0 Sodium 139 Potassium 4.3 Chloride 107 Carbon Dioxide 27 Anion Gap 5 BUN 19 Creatinine 0.83 Est GFR (CKD-EPI)AfAm >90 Est GFR (CKD-EPI)NonAf >90 Glucose 155 H Calcium 8.3 L DISCHARGE DIAGNOSIS Acute severe cellulitis of the buttock area along with candidal infection Essential hypertension Obstructive sleep apnea Hyperlipidemia Coronary artery disease with history of FL in the past Right hemiparesis secondary to prior stroke Chronic diverticulosis 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 Connell to be discharged home on Keflex 500 mg every 8 hours for 7 days and Mycolog cream for topical application. He is advised to follow-up with his PCP in 3-4 days. More than 35 minutes spent was a discharge of the patient. Patient Condition at Discharge: Good Plan - Discharge Summary Discharge Rx Participant: No New Discharge Prescriptions: New Cephalexin [Keflex] 500 mg PO Q8HR #21 cap Nystatin/Triamcin Cream [Mycolog 100,000-0.1 Unit/gm-% Cream] 1 applic TOPICAL BID #30 gm Continue Clopidogrel [Plavix] 75 mg PO DAILY Aspirin [Adult Low Dose Aspirin EC] 81 mg PO DAILY Lisinopril [Zestril] 10 mg PO DAILY Atenolol 25 mg PO QAM Cyclobenzaprine [Flexeril] 10 mg PO TID PRN PRN Reason: Muscle Spasm Naproxen [Naprosyn] 500 mg PO Q12HR PRN PRN Reason: Pain Loratadine [Claritin] 10 mg PO DAILY Atorvastatin Calcium [Lipitor] 10 mg PO HS Discharge Medication List Clopidogrel [Plavix] 75 mg PO DAILY 02/06/16 [History] Aspirin [Adult Low Dose Aspirin EC] 81 mg PO DAILY 02/17/16 [History] Atenolol 25 mg PO QAM 02/17/16 [History] Lisinopril [Zestril] 10 mg PO DAILY 02/17/16 [History] Atorvastatin Calcium [Lipitor] 10 mg PO HS 07/31/18 [History] Cyclobenzaprine [Flexeril] 10 mg PO TID PRN 07/31/18 [History] Loratadine [Claritin] 10 mg PO DAILY 07/31/18 [History] Naproxen [Naprosyn] 500 mg PO Q12HR PRN 07/31/18 [History] Cephalexin [Keflex] 500 mg PO Q8HR #21 cap 08/03/18 [Rx] Nystatin/Triamcin Cream [Mycolog 100,000-0.1 Unit/gm-% Cream] 1 applic TOPICAL BID #30 gm 08/03/18 [Rx] Follow up Appointment(s)/Referral(s): Jayme Baron MD [Primary Care Provider] - 1-2 days Marcio Connell MD [STAFF PHYSICIAN] - 1 Week Patient Instructions/Handouts: Skin Yeast Infection (GEN)
== END 2018-08-03 16:33 ==
LOC: EC 08:56 → 4MS4W 11:34 → INTOOBSV 11:34 → 4MS4W 14:09
PROVIDERS: ADMIT Hospitalist; ATTEND Hospitalist
DX: L03.317 Cellulitis of buttock (principal); I10 Essential (primary) hypertension; G47.33 Obstructive sleep apnea (adult) (pediatric); E78.5 Hyperlipidemia, unspecified; I25.10 Atherosclerotic heart disease of native coronary artery without angina pectoris; I25.2 Old myocardial infarction; I69.351 Hemiplegia and hemiparesis following cerebral infarction affecting right dominant side; K57.90 Diverticulosis of intestine, part unspecified, without perforation or abscess without bleeding; Z68.38 Body mass index [BMI] 38.0-38.9, adult; E66.9 Obesity, unspecified; R26.9 Unspecified abnormalities of gait and mobility; B37.9 Candidiasis, unspecified; I69.398 Other sequelae of cerebral infarction; B37.2 Candidiasis of skin and nail; I48.91 Unspecified atrial fibrillation; R41.3 Other amnesia; M19.90 Unspecified osteoarthritis, unspecified site; G89.29 Other chronic pain; M54.9 Dorsalgia, unspecified; M25.511 Pain in right shoulder; M25.571 Pain in right ankle and joints of right foot; J30.2 Other seasonal allergic rhinitis; L29.9 Pruritus, unspecified; F41.9 Anxiety disorder, unspecified; G47.00 Insomnia, unspecified; K59.00 Constipation, unspecified; Z79.02 Long term (current) use of antithrombotics/antiplatelets; Z79.82 Long term (current) use of aspirin; Z79.899 Other long term (current) drug therapy; Z87.891 Personal history of nicotine dependence; Z80.3 Family history of malignant neoplasm of breast; Z82.5 Family history of asthma and other chronic lower respiratory diseases; Z81.8 Family history of other mental and behavioral disorders; Z83.49 Family history of other endocrine, nutritional and metabolic diseases
CPT/HCPCS: 96376 ×3; 96361 ×3; 96365 ×2; 96366 ×5; 96367 ×2; 96372 ×4; 96375; 99285; 36415; 94760; 80053; 80048; 83605; 83735; 84100; 84443; 84484; 85025 ×2; 85610; 85730; 81003; 87086; G0378 ×4; J3370; J2930; J0696; J1650 ×4; J1885 ×3; J0690 ×4

== ENCOUNTER 2018-12-23 19:32 | Inpatient (IN) | payer OTHER, MEDICARE ==
[2018-12-23] MEDS ORDERED: NALOXONE 0.4 MG/ML 1 ML VIAL IV PRN (21:08)
--- NOTE | 2018-12-23 21:08 | ED ---
Neuro HPI - General Chief Complaint: Neuro Symptoms/Deficit Stated Complaint: Poss CVA Time Seen by Provider: 12/23/18 19:45 Source: patient, EMS Mode of arrival: EMS Limitations: no limitations - History of Present Illness Is the patient presenting with stroke symptoms?: Yes Last Known Well Date: 12/23/18 Last Known Well Time: 11:30 Initial Comments: The patient is a 53-year-old male who presents to the emergency department as a transfer from [facility]. The patient does have a history of A. fib, CVA with residual right upper and lower extremity weakness. He reports that around noon today he began having loss of his peripheral vision in his right eye. His called the eye doctor and they did drive to his office. The patient's was seen and evaluated by the intake nurse. After he told her his symptoms, she called the doctor. The doctor then recommended that the patient go in to the emergency room for evaluation. He was near [facility] where his initial evaluation was performed. Transferring doctor states that his NIH was 6. This included his chronic deficits of right upper and lower extremity weakness. The patient also was positive for visual field deficit. He was immediately sent over for CT of his brain which demonstrated a hypodensity in the left THRESHING DEPARTMENT SUPERVISOR region. Neuro claim auditor who was involved recommended transfer to [place]. The patient was outside the TPA window. The patient did refuse transfer to [place]. He was made aware that he would not be able to undergo intervention if he was transferred to [place]. He states that he did follow with Dr. Sykes for his previous stroke. And therefore continued to refuse transfer to [place]. During EMS ride to our facility the patient did have complete resolution of this visual disturbance. He does arrive to me and has an NIH of 2, remarkable for his right-sided weakness which is baseline. Patient does not take any blood thinners. He is on Plavix. He denies any headaches, neck pain or stiffness. No fevers or chills. No chest pain or difficulty breathing. No new neurologic deficits. There are no other alleviating, precipitating or modifying factors - Related Data Home Medications: Home Medications Medication Instructions Recorded Confirmed Aspirin [Adult Low Dose Aspirin EC] 81 mg PO DAILY 02/17/16 12/23/18 Atenolol 25 mg PO DAILY 02/17/16 12/23/18 Lisinopril [Zestril] 10 mg PO DAILY 02/17/16 12/23/18 Cyclobenzaprine [Flexeril] 10 mg PO TID PRN 07/31/18 12/23/18 Ergocalciferol (Vitamin D2) 50,000 unit PO WICK 12/23/18 12/23/18 [Vitamin D2] Previous Rx's Medication Instructions Recorded Acetaminophen Tab [Tylenol] 650 mg PO Q6HR PRN tab 12/25/18 Apixaban [Eliquis] 5 mg PO BID #60 tab 12/25/18 Atorvastatin [Lipitor] 80 mg PO HS #30 tab 12/25/18 Allergies/Adverse Reactions: Allergies Allergy/AdvReac Type Severity Reaction Status Date / Time No Known Allergies Allergy Verified 12/23/18 20:02 Review of Systems ROS Statement: Those systems with pertinent positive or pertinent negative responses have been documented in the HPI. ROS Other: All systems not noted in ROS Statement are negative. General Exam General appearance: alert, in no apparent distress Head exam: Present: atraumatic, normocephalic, normal inspection Eye exam: Present: normal appearance, PERRL, EOMI. Absent: scleral icterus, conjunctival injection, periorbital swelling ENT exam: Present: normal exam, mucous membranes moist Neck exam: Present: normal inspection. Absent: tenderness, meningismus, lymphadenopathy Respiratory exam: Present: normal lung sounds bilaterally. Absent: respiratory distress, wheezes, rales, rhonchi, stridor Cardiovascular Exam: Present: regular rate, normal rhythm, normal heart sounds. Absent: systolic murmur, diastolic murmur, rubs, gallop, clicks GI/Abdominal exam: Present: soft, normal bowel sounds. Absent: distended, tenderness, guarding, rebound, rigid Extremities exam: Present: full ROM, normal capillary refill, other (4/5 muscle strength in the right arm and leg). Absent: tenderness, pedal edema, joint swelling, calf tenderness Back exam: Present: normal inspection Neurological exam: Present: alert, oriented X3, CN II-XII intact Psychiatric exam: Present: normal affect, normal mood Skin exam: Present: warm, dry, intact, normal color. Absent: rash Stroke MDM - Lab Data Result diagrams: 12/25/18 05:52 12/25/18 05:52 - Medical Decision Making Upon arrival the patient is placed in room 15. A thorough history and physical exam was performed. NIH was 2. I did review the patient's record. I did complete a thorough history and physical exam. I did call discuss case with Dr. Calderón who did accept admission for the patient. He recommend placement on the telemetry floor. I did call discuss case with Dr. Ribera who states that she will see the patient tomorrow. I informed the patient of this. He was in agreement with the treatment plan he was transferred to the floor in stable condition 12/23/18 22:22 EKG demonstrates a normal sinus rhythm with a ventricular rate of 86. HI interval 144. QRS 100. QTC of 428. There are no acute ST segment elevations Past Medical History Past Medical History: Atrial Fibrillation, CVA/TIA, Hyperlipidemia, Hypertension, Memory Impairment, Myocardial Infarction (ID) Additional Past Medical History / Comment(s): 2011 CVA with R sided weakness and numbness upper and lower extremities and short term memory loss, MIs x 2, chronic low back pain and R shoulder and R ankle pain, seasonal allergies, sinus problems. Last Myocardial Infarction Date:: 2005 History of Any Multi-Drug Resistant Organisms: None Reported Past Surgical History: Adenoidectomy, Cardiac Ablation, Heart Catheterization, Tonsillectomy Additional Past Surgical History / Comment(s): Cardiac ablation-unsuccessful per pt, loop recorders x2, colonoscopy/benign polypectomy, cyst removed from buttock/anal area. Past Anesthesia/Blood Transfusion Reactions: Previous Problems w/ Anesthesia Additional Past Anesthesia/Blood Transfusion Reaction / Comment(s): WOKE UP A BIT MEAN AFTER (MANY YRS AGO). CLAUSTERPHOBIA. Smoking Status: Former smoker - Past Family History Father Family Medical History: COPD, Deep Vein Thrombosis (DVT), Hyperlipidemia, Hypertension, Myocardial Infarction (ID) Additional Family Medical History / Comment(s): Father had MIs with the first one being when he was about 65 yrs old. He had coronary stents. He at the age of 83 yrs. Mother Family Medical History: Cancer, Dementia, Thyroid Disorder Additional Family Medical History / Comment(s): Mother had breast cancer, diverticulitis, thyroid disease and from dementia at the age of 80 yrs. Course Vital Signs 12/23/18 12/23/18 19:39 22:13 Temperature 98.6 F 98 F Pulse Rate 84 79 Respiratory 18 18 Rate Blood Pressure 155/83 133/84 O2 Sat by Pulse 94 L 96 Oximetry Disposition Clinical Impression: Cerebrovascular accident Disposition: ADMITTED IP TO THIS HOSP Condition: Stable Is patient prescribed a controlled substance at d/c from ED?: No Decision to Admit Reason: Admit from EC Decision Date: 12/23/18 Decision Time: 21:07
[2018-12-24 07:16] LABS: Basophils # (A) 0.1 k/uL (0-0.2); Basophils % (A) 2 %; Eosinophils # (A) 0.1 k/uL (0-0.7); Eosinophils % (A) 2 %; HCT 45.7 % (39.0-53.0); HGB 15.5 gm/dL (13.0-17.5); Lymphocytes % (A) 15 %; MCH 29.9 pg (25.0-35.0); MCHC 33.9 g/dL (31.0-37.0); MCV 88.2 fL (80.0-100.0); Mean Platelet Volume 7.4; Monocytes # (A) 0.4 k/uL (0-1.0); Monocytes % (A) 7 %; Neutrophils # (A) 4.9 k/uL (1.3-7.7); Neutrophils % (A) 74 %; Platelet Count 255 k/uL (150-450); RBC 5.18 m/uL (4.30-5.90); RDW 12.6 % (11.5-15.5); WBC 6.7 k/uL (3.8-10.6)
[2018-12-24 07:27] LABS: African American GFR (CKD) >90 (>60 ml/min/1.73 sqM); Anion Gap 8 mmol/L; Blood Urea Nitrogen 15 mg/dL (9-20); Calcium 9.2 mg/dL (8.4-10.2); Carbon Dioxide 29 mmol/L (22-30); Chloride 103 mmol/L (98-107); Glucose 130 mg/dL (74-99); Potassium 4.3 mmol/L (3.5-5.1); Sodium 140 mmol/L (137-145)
[2018-12-24] MEDS: ATENOLOL 25 MG TAB PO SCH (07:55)
[2018-12-24] MEDS: ACETAMINOPHEN TAB 325 MG TAB PO PRN ×2 (08:25→15:57)
[2018-12-24] MEDS ORDERED: LISINOPRIL 10 MG TAB PO SCH (09:00)
[2018-12-24] MEDS ORDERED: CYCLOBENZAPRINE 10 MG TAB PO PRN (10:13)
[2018-12-24] MEDS ORDERED: NAPROXEN 250 MG TAB PO PRN (10:13)
[2018-12-24] MEDS: CLOPIDOGREL 75 MG TAB PO SCH ×2 (12:40→12:47)
[2018-12-24] MEDS: ASPIRIN 81 MG PO SCH (12:47)
--- NOTE | 2018-12-24 13:36 | P.CNNES ---
History of Present Illness Consult date: 12/24/18 Reason for Consult: Possible Stroke Chief complaint: Right upper and lower weakness History of Present Illness: REFERRING PHYSICIAN: Dr. Lizabeth Sanon HISTORY OF PRESENT ILLNESS: Thank you for allowing me to evaluate Mr. Bony Hollingsworth. Mr. Hollingsworth is a 53 year-old man with PMhx of atrial fibrillation, stroke (in 2012 with right-sided weakness and numbness and short-term memory loss), hyperlipidemia, hypertension, memory impairment, WA x2, chronic back pain, who presented to an outside hospital for heavy loss of peripheral vision in his right eye. At that time patient's NIH stroke scale was 6 including his previous residual right-sided weakness. Patient had a CT brain that showed a hypodensity in the left PUBLIC ACCOUNTANT region. Patient's pain may have been offered a thrombectomy, but patient did not want to be transferred to the hospital than [facility]. Patient states that he was watching TV when he suddenly felt "off " and felt that his vision was not normal. He he could shake it off, but he continued to feel off, and he went to the closest hospital. Patient states that his vision has improved but still having vision deficits. He cannot see much of the right upper field in both eyes. Patient also reports that his head feels little full but not actually having a headache. Patient did get Tylenol this morning and it did help him some with his discomfort. Regarding patient's history of stroke, patient had a stroke to cause right-sided weakness and numbness and short-term memory loss, at which time patient was told it was due to A. fib. Patient states that he was never on any anticoagulating medications such as Coumadin, Rivaraxaban or Apixaban, but he has been on both aspirin and Plavix since his stroke in 2012. It appears the patient has gone through a review recorder placement twice since his stroke. There is no record here, and patient is not really able to provide exact result of the loop recorder and the reason for getting to place twice. Patient states that he had a heart attack at the time of his stroke. Patient does not have any stents PAST MEDICAL HISTORY: Atrial fibrillation, stroke (in 2012 with right-sided weakness and numbness and short-term memory loss), hyperlipidemia, hypertension, memory impairment, WA x2, chronic back pain PAST SURGICAL HISTORY: Adenoidectomy, cardiac ablation, heart catheterization, tonsillectomy, cyst removal from both took area, loop recorder 2 HOME MEDICATIONS: Plavix 75 mg daily, aspirin 81 mg daily, lisinopril 10 mg daily, atenolol 25 g daily, Flexeril when necessary, naproxen when necessary, loratadine 10 minutes daily, atorvastatin tablets daily at bedtime ALLERGIES: NO KNOWN DRUG ALLERGIES SOCIAL HISTORY: Former smoker FAMILY HISTORY: Father with COPD, DVT, hyperlipidemia, hypertension, WA. Mother with dementia, thyroid disorder, breast cancer, diverticulitis REVIEW OF SYSTEMS: The 14 systems are reviewed and no additional points are identified compared to the review of systems documented history and physical PHYSICAL EXAMINATION: VITAL SIGNS: Temperature 98.2 pulse rate 77 respiratory rate 16 blood pressure 120/80 O2 saturation 96% on room air GEN.: NAD, pleasant and cooperative HEENT: NCAT, sclera without icterus NECK: Supple SKIN AND EXTREMITIES: Warm to touch, no edema NEURO: MENTAL STATUS: Patient alert and oriented to self, place, time. Able to name the current president. Speech fluent, able to name and repeat, following all commands readily. Some word finding difficulty. No right and left disorientation, neglect. CRANIAL NERVES II THROUGH XII: II: Pupils are equal and reactive to light symmetrically. No afferent pupillary defect. Visual mukherjee deficit in the right upper quadrant in both eyes. Visual field III, IV, : No ptosis. Ext raocular movements full. No nystagmus. V: Facial sensation decreased in right V1-3. VII. right facial droop. VIII. hearing intact to finger rub bilaterally. IX, X: Symmetric palate elevation. XI: Shoulder shrug is symmetric, difficulty raising his right shoulder. XII: Tongue midline without fasciculation or atrophy. MOTOR: decreased tone in his left upper and lower extremity. Patient is able to lift his shoulder, proximal arm and distal arm against gravity but minimally. Right leg, patient is able to lift it up against gravity but minimally. Left upper extremity and lower extremity are 5/5 in strength. SENSORY: decreased to light touch, temperature, pinprick in right upper and lower extremities. Intact in left upper nausea bruits. REFLEXES: 2+ throughout. Toes are mute. COORDINATION: Finger to nose intact. No dysmetria. Rapid Tinel's limited by weakness but still no dysmetria GAIT: patient is able to walk with his cane.. DIAGNOSTIC TESTING: LABORATORY: WBC 6.7 hemoglobin 15.5 platelet 255 sodium 140 potassium 4.3 chloride 103 bi carb 29 BUN 15, Cr 0.83 glucose 130 IMAGING: CT head from outside hospital 12/23/2018: Showed left PUBLIC ACCOUNTANT hypodensity. Imaging none available at this time no other head imaging performed at this facility. ASSESSMENT/RECOMMENDATIONS: Mr. Hollingsworth is a 53 year-old man with PMhx of atrial fibrillation, stroke (in 2012 with right-sided weakness and numbness and short-term memory loss), hyperlipidemia, hypertension, memory impairment, WA x2, chronic back pain, who presented to an outside hospital for heavy loss of peripheral vision in his right eye, found with CT has finding of left PUBLIC ACCOUNTANT stroke, which most likely is causing patient's visual field deficit. EKG and cardiac monitoring so far with no A. fib. Patient states that he most definitely will not be going through a "tube" for imaging. He says he almost "" in the CT machine. It is unusual that patient is on dual antiplatelet therapy and not on anticoagulation. Patient's CHADsVASC score is at least 4 (even at the time of patient's initial stroke in 2012), so patient should be on anticoagulation. However, the size of patient's stroke unknown at this time, and patient at this time refusing to get another head imaging. There's definitely risk of hemorrhagic conversion for recent stroke getting started on anticoagulation, especially considering that there is no imaging available at this time. Spoke in depth with patient about telling his to obtain CT Head from the OSH and other medical records and to be seen by outpatient neurologist and correctional guard about getting started on anticoagulation. For now, patient should continue ASA and plavix (although this is not standard of care, patient has been on this regimen for years), and patient needs to be started on anticoagulation in the near future. Patient must be seen by an outpatient neurologist and correctional guard in the next 1-2 weeks. Will get TTE and Carotid US for now along with lab work. If TTE and carotid US done today with no significant findings, okay to be discharged from neuro perspective with the assumptions that patient will have established appointments with Neurology and Cardiology Past Medical History Past Medical History: Atrial Fibrillation, CVA/TIA, Hyperlipidemia, Hypertension, Memory Impairment, Myocardial Infarction (WA) Additional Past Medical History / Comment(s): 2011 CVA with R sided weakness and numbness upper and lower extremities and short term memory loss, MIs x 2, chronic low back pain and R shoulder and R ankle pain, seasonal allergies, sinus problems. Last Myocardial Infarction Date:: 2005 History of Any Multi-Drug Resistant Organisms: None Reported Past Surgical History: Adenoidectomy, Cardiac Ablation, Heart Catheterization, Tonsillectomy Additional Past Surgical History / Comment(s): Cardiac ablation-unsuccessful per pt, loop recorders x2, colonoscopy/benign polypectomy, cyst removed from buttock/anal area. Past Anesthesia/Blood Transfusion Reactions: Previous Problems w/ Anesthesia Additional Past Anesthesia/Blood Transfusion Reaction / Comment(s): WOKE UP A BIT MEAN AFTER (MANY YRS AGO). CLAUSTERPHOBIA. Smoking Status: Former smoker - Past Family History Father Family Medical History: COPD, Deep Vein Thrombosis (DVT), Hyperlipidemia, Hypertension, Myocardial Infarction (WA) Additional Family Medical History / Comment(s): Father had MIs with the first one being when he was about 65 yrs old. He had coronary stents. He at the age of 83 yrs. Mother Family Medical History: Cancer, Dementia, Thyroid Disorder Additional Family Medical History / Comment(s): Mother had breast cancer, diverticulitis, thyroid disease and from dementia at the age of 80 yrs. Medications and Allergies Home Medications Medication Instructions Recorded Confirmed Type Clopidogrel [Plavix] 75 mg PO DAILY 02/06/16 12/23/18 History Aspirin [Adult Low Dose Aspirin EC] 81 mg PO DAILY 02/17/16 12/23/18 History Atenolol 25 mg PO DAILY 02/17/16 12/23/18 History Lisinopril [Zestril] 10 mg PO DAILY 02/17/16 12/23/18 History Atorvastatin Calcium [Lipitor] 10 mg PO HS 07/31/18 12/23/18 History Cyclobenzaprine [Flexeril] 10 mg PO TID PRN 07/31/18 12/23/18 History Loratadine [Claritin] 10 mg PO DAILY 07/31/18 12/23/18 History Naproxen [Naprosyn] 500 mg PO Q12HR PRN 07/31/18 12/23/18 History Ergocalciferol (Vitamin D2) 50,000 unit PO WICK 12/23/18 12/23/18 History [Vitamin D2] Allergies Allergy/AdvReac Type Severity Reaction Status Date / Time No Known Allergies Allergy Verified 12/23/18 20:02 Physical Examination - Vital Signs Vital Signs: Vital Signs Temp Pulse Pulse Resp BP BP Pulse Ox 12/24/18 07:55 98.2 F 77 16 128/80 96 12/24/18 04:00 93 16 150/96 97 12/24/18 00:00 83 17 124/61 99 12/23/18 22:31 97.9 F 79 17 155/86 96 12/23/18 22:13 98 F 79 18 133/84 96 12/23/18 19:39 98.6 F 84 18 155/83 94 L Intake and Output 12/23/18 12/24/18 12/24/18 22:59 06:59 14:59 Intake Total 360 Balance 360 Intake: Oral 360 Other: # Voids 2 Weight 129.274 kg 138 kg Results - Laboratory Findings CBC and BMP: 12/24/18 06:29 12/24/18 06:29 Abnormal Lab Findings: Abnormal Labs 12/24/18 06:29 Glucose 130 H
--- NOTE | 2018-12-24 15:57 | US ---
EXAMINATION TYPE: US carotid duplex BILAT DATE OF EXAM: 12/24/2018 COMPARISON: CT head , US CLINICAL HISTORY: stroke. Right eye loss of vision EXAM MEASUREMENTS: RIGHT: Peak Systolic Velocity (PSV) cm/sec ----- Right CCA: 80.7 ----- Right ICA: 87.3 ----- Right ECA: 101.6 ICA/CCA ratio: 1.1 RIGHT: End Diastole cm/sec ----- Right CCA: 16.8 ----- Right ICA: 10.3 ----- Right ECA: 15.5 LEFT: Peak Systolic Velocity (PSV) cm/sec ----- Left CCA: 57.0 ----- Left ICA: 69.7 ----- Left ECA: 111.3 ICA/CCA ratio: 1.2 LEFT: End Diastole cm/sec ----- Left CCA: 14.2 ----- Left ICA: 13.0 ----- Left ECA: 24.1 VERTEBRALS (direction of flow): Right Vertebral: Antegrade Left Vertebral: Antegrade Rhythm: Normal Mild intimal wall thickening is noted at bilateral ICA, and PSV is wnl bilaterally. Applications Consultant notes difficulty of the examination secondary to neck habitus and claustrophobia. IMPRESSION: Mild degree of grayscale atheromatous plaquing with no sonographically evident hemodynam ically significant stenosis within either visualized carotid arterial system. Criteria for Assigning % of Stenosis / Diameter reduction (Estimation based on the indirect measurements of the internal carotid artery velocities (ICA PSV). 1. Normal (no stenosis)=ICA PSV < 125 cm/s: ratio < 2.0: ICA EDV<40 cm/s. 2. Less than 50% stenosis=ICA PSV < 125 cm/s: ratio < 2.0: ICA EDV<40 cm/s. 3. 50 to 69% stenosis=ICA PSV of 125 to 230 cm/s: ration 2.0 ? 4.0: ICA EDV 40-100 cm/s. 4. Greater than 70% stenosis to near occlusion= ICA PSV > 230 cm/s: ratio > 4.0: ICA EDV > 100 cm/s. 5. Near occlusion= ICA PSV velocities may be low or undetectable: variable ratio and ICA EDV. 6. Total occlusion=unable to detect flow.
--- NOTE | 2018-12-24 18:52 | P.HPIM ---
History of Present Illness H&P Date: 12/24/18 Chief Complaint: Decreased vision on the right side History of presenting complaint: This is a 53-year-old patient of Dr. Baron. 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 Patient stopped smoking 2005. Yesterday after lunch when he is sitting down to watch television he suddenly noticed that she was unable to see on the right side of the vision field. Does no headache. No change in speech. No change in swallowing. No change in weakness on the right side which is her baseline from prior stroke. Patient went to the local hospital where he was told to go to a tertiary center for intervention. Patient declined the same and wanted to come to [facility] variant seen his neurologist Dr. Sykes previously. Patient did go out of the stroke window for intervention. When I saw this patient this afternoon does some improvement. Was still significant deficit on the right side. Patient did have a computed tomography scan at the outside facility that did show hypodensity in the left NIPPING MACHINE OPERATOR region. Initial NIH stroke scale was 6. His has a loop recorder placed. And doesn't seem to be in any anticoagulation. is at the bedside. Review of systems: GEN.: None EYES: As above HEENT: None NECK: None RESPIRATORY: None CARDIOVASCULAR: None GASTROINTESTINAL: None GENITOURINARY: None MUSCULOSKELETAL: Some pain in the joints LYMPHATICS: None HEMATOLOGICAL: None PSYCHIATRY: None NEUROLOGICAL: As above Past medical history: Atrophic fibrillation, hypertension, hyperlipidemia, chronic right-sided weakness from a prior stroke, by 2, crit low back pain and right shoulder and right ankle pain. Social history: Patient was a light smoker in the past. . Does use a cane. He is on disability. Alcohol occasionally. Family history: DVT, COPD, hyperlipidemia, hypertension, heart attack. Physical examination: VITAL SIGNS: 98.6, 84, 18, 1 5583, 94% room air GENERAL: BMI 42.4, laying in bed awake. EYES: Pupils equal. Conjunctiva normal. HEENT: External appearance of nose and ears normal, oral cavity grossly normal. NECK: JVD not raised; masses not palpable. HEART: First and second heart sounds are normal; no edema. LUNGS: Respiratory rate normal; clear to auscultation. ABDOMEN: Soft, nontender, liver spleen not palpable, no masses palpable. PSYCH: Alert and oriented x3; mood and affect normal. NEUROLOGICAL: Decreased field of vision on the right side, weakness in both the right upper and lower extremity.. LYMPHATICS: No lymph nodes palpable in the axilla and neck Investigations: White count 6.7 hemoglobin 15.5 platelets 255 potassium 4.3 creatinine 0.83 LDL 68 TSH 1.5 Computed tomography scan brain from the outside facility showed left NIPPING MACHINE OPERATOR territory infarct Carotid Doppler-no evidence of any significant stenosis EKG tracing-personally reviewed by me shows normal sinus rhythm Assessment: -Acute stroke in the left posterior cerebral artery circulation, causing right field of vision deficit. -Chronic right hemiparesis from an old stroke -History of atrial fibrillation but currently patient is normal sinus rhythm. -Essential hypertension -Hyperlipidemia -Obstructive sleep apnea -Coronary artery disease with a prior history of NV -Chronic colonic down to closer -Morbid obesity BMI 42.4 -Chronic gait dysfunction from stroke uses a cane Plan: Patient is on aspirin and Plavix. Also was started patient on Lipitor 80 mg daily at bedtime. Home medications resumed. Lovenox for DVT prophylaxis. Care was discussed with the patient and . Neurology is following the patient. We'll do a coronary G consultation to get a LYNSEY to rule out cardiac embolic source for a stroke. Past Medical History Past Medical History: Atrial Fibrillation, CVA/TIA, Hyperlipidemia, Hypertension, Memory Impairment, Myocardial Infarction (NV) Additional Past Medical History / Comment(s): 2011 CVA with R sided weakness and numbness upper and lower extremities and short term memory loss, MIs x 2, chronic low back pain and R shoulder and R ankle pain, seasonal allergies, sinus problems. Last Myocardial Infarction Date:: 2005 History of Any Multi-Drug Resistant Organisms: None Reported Past Surgical History: Adenoidectomy, Cardiac Ablation, Heart Catheterization, Tonsillectomy Additional Past Surgical History / Comment(s): Cardiac ablation-unsuccessful per pt, loop recorders x2, colonoscopy/benign polypectomy, cyst removed from buttock/anal area. Past Anesthesia/Blood Transfusion Reactions: Previous Problems w/ Anesthesia Additional Past Anesthesia/Blood Transfusion Reaction / Comment(s): WOKE UP A BIT MEAN AFTER (MANY YRS AGO). CLAUSTERPHOBIA. Smoking Status: Former smoker - Past Family History Father Family Medical History: COPD, Deep Vein Thrombosis (DVT), Hyperlipidemia, Hypertension, Myocardial Infarction (NV) Additional Family Medical History / Comment(s): Father had MIs with the first one being when he was about 65 yrs old. He had coronary stents. He at the age of 83 yrs. Mother Family Medical History: Cancer, Dementia, Thyroid Disorder Additional Family Medical History / Comment(s): Mother had breast cancer, diverticulitis, thyroid disease and from dementia at the age of 80 yrs. Medications and Allergies Home Medications Medication Instructions Recorded Confirmed Type Clopidogrel [Plavix] 75 mg PO DAILY 02/06/16 12/23/18 History Aspirin [Adult Low Dose Aspirin EC] 81 mg PO DAILY 02/17/16 12/23/18 History Atenolol 25 mg PO DAILY 02/17/16 12/23/18 History Lisinopril [Zestril] 10 mg PO DAILY 02/17/16 12/23/18 History Atorvastatin Calcium [Lipitor] 10 mg PO HS 07/31/18 12/23/18 History Cyclobenzaprine [Flexeril] 10 mg PO TID PRN 07/31/18 12/23/18 History Loratadine [Claritin] 10 mg PO DAILY 07/31/18 12/23/18 History Naproxen [Naprosyn] 500 mg PO Q12HR PRN 07/31/18 12/23/18 History Ergocalciferol (Vitamin D2) 50,000 unit PO WICK 12/23/18 12/23/18 History [Vitamin D2] Allergies Allergy/AdvReac Type Severity Reaction Status Date / Time No Known Allergies Allergy Verified 12/23/18 20:02 Physical Exam Vitals: Vital Signs Temp Pulse Pulse Resp BP BP Pulse Ox 12/24/18 11:49 16 12/24/18 08:00 16 12/24/18 07:55 98.2 F 77 16 128/80 96 12/24/18 04:00 93 16 150/96 97 12/24/18 00:00 83 17 124/61 99 12/23/18 22:31 97.9 F 79 17 155/86 96 12/23/18 22:13 98 F 79 18 133/84 96 12/23/18 19:39 98.6 F 84 18 155/83 94 L Intake and Output 12/24/18 12/24/18 12/24/18 06:59 14:59 22:59 Intake Total 360 Balance 360 Intake: Oral 360 Other: # Voids 2 Weight 138 kg Results CBC & Chem 7: 12/24/18 06:29 12/24/18 06:29 Labs: Abnormal Lab Results - Last 24 Hours (Table) 12/24/18 12/24/18 Range/Units 06:29 06:29 Glucose 130 H (74-99) mg/dL Triglycerides 230 H (<150) mg/dL Thrombosis Risk Factor Assmnt - Choose All That Apply Each Factor Represents 1 point: Age 41-60 years, Obesity (BMI >25) Thrombosis Risk Factor Assessment Total Risk Factor Score: 2 Thrombosis Risk Factor Assessment Level: Low Risk
[2018-12-24] MEDS: ENOXAPARIN 40 MG/0.4 ML SYRINGE SQ SCH (20:36)
[2018-12-24] MEDS: ATORVASTATIN 80 MG TAB PO SCH (20:36)
[2018-12-24] MEDS ORDERED: ATORVASTATIN 10 MG TAB PO SCH (21:00)
[2018-12-25 00:14] LABS: Appearance,Urine Clear (Clear); Bilirubin,Urine Negative (Negative); Blood,Urine Negative (Negative); Color,Urine Light Yellow; Glucose,Urine (UA) Negative (Negative); Ketones,Urine Negative (Negative); Leukocyte Esterase,Urine Negative (Negative); Nitrite,Urine Negative (Negative); Protein,Urine Negative (Negative); Specific Gravity,Urine 1.008 (1.001-1.035); Urobilinogen,Urine <2.0 mg/dL (<2.0)
[2018-12-25 06:33] LABS: HCT 47.7 % (39.0-53.0); HGB 15.6 gm/dL (13.0-17.5); MCH 29.2 pg (25.0-35.0); MCHC 32.7 g/dL (31.0-37.0); MCV 89.4 fL (80.0-100.0); Mean Platelet Volume 7.5; Platelet Count 245 k/uL (150-450); RBC 5.34 m/uL (4.30-5.90); RDW 14.4 % (11.5-15.5); WBC 6.3 k/uL (3.8-10.6)
[2018-12-25 06:45] LABS: African American GFR (CKD) >90 (>60 ml/min/1.73 sqM); Anion Gap 9 mmol/L; Blood Urea Nitrogen 17 mg/dL (9-20); Carbon Dioxide 28 mmol/L (22-30); Chloride 104 mmol/L (98-107); Glucose 134 mg/dL (74-99); Potassium 4.5 mmol/L (3.5-5.1); Sodium 141 mmol/L (137-145)
--- NOTE | 2018-12-25 07:31 | ECHOF ---
Referral Reason:new stroke MEASUREMENTS -------- HEIGHT: 180.3 cm WEIGHT: 137.9 kg BP: 128/80 RVIDd: 3.4 cm (< 3.3) IVSd: 1.6 cm (0.6 - 1.1) LVIDd: 3.8 cm (3.9 - 5.3) LVPWd: 1.9 cm (0.6 - 1.1) IVSs: 2.4 cm LVIDs: 2.0 cm LVPWs: 2.3 cm LAESV Index (A-L): 31.74 ml/m Ao Diam: 3.8 cm (2.0 - 3.7) AV Cusp: 2.3 cm (1.5 - 2.6) LA Diam: 3.0 cm (2.7 - 3.8) MV E Rmasey: 0.83 m/s MV DecT: 253 ms MV A Ramsey: 0.75 m/s MV E/A Ratio: 1.12 RAP: 5.00 mmHg RVSP: 20.18 mmHg FINDINGS -------- Sinus rhythm. This was a technically difficult study with suboptimal views. The left ventricular size is normal. There is moderate concentric left ventricular hypertrophy. O verall left ventricular systolic function is low-normal with, an EF between 50 - 55 %. The diastoli c filling pattern is normal for the age of the patient 10.24. The right ventricle is mildly enlarged. LA is midly dilated 29-33ml/m2. RA appears enlarged. xx ml of Lumason was utilized for enhancement of images. Interatrial and interventricular septum intact. The aortic valve was not well visualized. There is no evidence of aortic regurgitation. There is no evidence of aortic stenosis. Mild mitral regurgitation is present. Mild tricuspid regurgitation present. There is no evidence of pulmonary hypertension. The right v entricular systolic pressure, as measured by Doppler, is 20.18mmHg. There is no pulmonic regurgitation present. The aortic root size is normal. IVC Not well visulized. There is no pericardial effusion. CONCLUSIONS -------- 1. Sinus rhythm. 2. This was a technically difficult study with suboptimal views. 3. The left ventricular size is normal. 4. There is moderate concentric left ventricular hypertrophy. 5. Overall left ventricular systolic function is low-normal with, an EF between 50 - 55 %. 6. The right ventricle is mildly enlarged. 7. LA is midly dilated 29-33ml/m2. 8. RA appears enlarged. 9. xx ml of Lumason was utilized for enhancement of images. 10. Interatrial and interventricular septum intact. 11. The aortic valve was not well visualized. 12. There is no evidence of aortic regurgitation. 13. There is no evidence of aortic stenosis. 14. Mild mitral regurgitation is present. 15. Mild tricuspid regurgitation present. 16. There is no evidence of pulmonary hypertension. 17. The right ventricular systolic pressure, as measured by Doppler, is 20.18mmHg. 18. There is no pulmonic regurgitation present. 19. The aortic root size is normal. 20. IVC Not well visulized. 21. There is no pericardial effusion. STAFF NURSE ANESTHETIST: Maria Antonia Au RDCS
[2018-12-25] MEDS: ACETAMINOPHEN TAB 325 MG TAB PO PRN ×2 (08:54→18:08)
[2018-12-25] MEDS: CLOPIDOGREL 75 MG TAB PO SCH (08:54)
--- NOTE | 2018-12-25 08:54 | P.CRDCN ---
History of Present Illness Consult date: 12/25/18 Requesting physician: William Calderón Reason for Consult (text): cva Chief complaint: Right sided visual disturbance History of present illness: This is a 53-year-old gentleman with history of hypertension, hyperlipidemia, prior CVA, prior myocardial infarction, exact details unclear, he states he used to follow with Dr. Chandler in the office. He also has a history of prior atrial fibrillation and ablation procedure according to him. Patient was not on anticoagulation in spite of the fact that he has a history of A. fib as well as history of stroke. He was taking aspirin and Plavix at home. Patient presents to the hospital on this occasion with symptoms of visual disturbance in the right eye where he states he could not see out of his right eye at all, he does have right arm and right leg weakness which is residual from his prior stroke. The patient also states that on Saturday he had a fall as he was walking out of the barn, he tripped and fell, no syncope, he did hurt his left ankle which became very swollen and bruised at that time. He has peripheral edema in that left lower extremity this morning. A cardiology consultation was requested to perform a LYNSEY. Patient however did have a full breakfast this morning. His EKG on presentation here showed a normal sinus rhythm with inferior Q waves noted. An echocardiogram with Doppler study was also performed which revealed an ejection fraction of 50-55%. Carotid Doppler study revealed a mild degree of kam scale atheromatous plaquing with no sonographically evident hemodynamically significant stenosis in either carotid. Blood pressure on arrival here 155/83, heart rate in the 80s, 94% on room air. Laboratory data, white blood cell count 6.3, hemoglobin 15.6, platelet count 245. Sodium 141, potassium 4.5, BUN 17, creatinine 0.8. Cholesterol 154, LDL 68, HDL 40, TSH 1.5. Past Medical History Past Medical History: Atrial Fibrillation, CVA/TIA, Hyperlipidemia, Hypertension, Memory Impairment, Myocardial Infarction (OR) Additional Past Medical History / Comment(s): 2011 CVA with R sided weakness and numbness upper and lower extremities and short term memory loss, MIs x 2, chronic low back pain and R shoulder and R ankle pain, seasonal allergies, sinus problems. Last Myocardial Infarction Date:: 2005 History of Any Multi-Drug Resistant Organisms: None Reported Past Surgical History: Adenoidectomy, Cardiac Ablation, Heart Catheterization, Tonsillectomy Additional Past Surgical History / Comment(s): Cardiac ablation-unsuccessful per pt, loop recorders x2, colonoscopy/benign polypectomy, cyst removed from buttock/anal area. Past Anesthesia/Blood Transfusion Reactions: Previous Problems w/ Anesthesia Additional Past Anesthesia/Blood Transfusion Reaction / Comment(s): WOKE UP A BIT MEAN AFTER (MANY YRS AGO). CLAUSTERPHOBIA. Smoking Status: Former smoker - Past Family History Father Family Medical History: COPD, Deep Vein Thrombosis (DVT), Hyperlipidemia, Hypertension, Myocardial Infarction (OR) Additional Family Medical History / Comment(s): Father had MIs with the first one being when he was about 65 yrs old. He had coronary stents. He at the age of 83 yrs. Mother Family Medical History: Cancer, Dementia, Thyroid Disorder Additional Family Medical History / Comment(s): Mother had breast cancer, diverticulitis, thyroid disease and from dementia at the age of 80 yrs. Medications and Allergies Home Medications Medication Instructions Recorded Confirmed Type Clopidogrel [Plavix] 75 mg PO DAILY 02/06/16 12/23/18 History Aspirin [Adult Low Dose Aspirin EC] 81 mg PO DAILY 02/17/16 12/23/18 History Atenolol 25 mg PO DAILY 02/17/16 12/23/18 History Lisinopril [Zestril] 10 mg PO DAILY 02/17/16 12/23/18 History Atorvastatin Calcium [Lipitor] 10 mg PO HS 07/31/18 12/23/18 History Cyclobenzaprine [Flexeril] 10 mg PO TID PRN 07/31/18 12/23/18 History Loratadine [Claritin] 10 mg PO DAILY 07/31/18 12/23/18 History Naproxen [Naprosyn] 500 mg PO Q12HR PRN 07/31/18 12/23/18 History Ergocalciferol (Vitamin D2) 50,000 unit PO WICK 12/23/18 12/23/18 History [Vitamin D2] Allergies Allergy/AdvReac Type Severity Reaction Status Date / Time No Known Allergies Allergy Verified 12/23/18 20:02 Physical Exam Vitals: Vital Signs Temp Pulse Resp BP Pulse Ox 12/25/18 07:28 97.4 F L 83 17 129/81 12/25/18 04:00 82 17 128/80 95 12/25/18 00:00 79 16 122/68 99 12/24/18 20:00 71 16 122/70 97 12/24/18 16:00 69 16 129/85 96 12/24/18 12:00 70 16 136/90 98 12/24/18 11:49 16 Intake and Output 12/24/18 12/25/18 12/25/18 22:59 06:59 14:59 Intake Total 480 360 Balance 480 360 Intake: Oral 480 360 Other: # Voids 1 1 1 Weight 136.8 kg PHYSICAL EXAMINATION: GENERAL: 53-year-old gentleman in no acute distress at the time of my examination HEENT: Head is atraumatic, normocephalic. Pupils equal, round. Sclera anict beto. Conjunctiva are clear. Mucous membranes of the mouth are moist. Neck is supple. There is no elevated jugular venous pressure. No carotid bruit is heard. HEART EXAMINATION: Heart S1, S2 normal. No murmur or gallop heard. CHEST EXAMINATION: Lungs are clear to auscultation and precussion. No chest wall tenderness is noted on palpation or with deep breathing. ABDOMEN: Soft, nontender. Bowel sounds are heard. No organomegaly noted. EXTREMITIES: 2+ peripheral pulses with evidence of peripheral edema in the left lower extremity, bruising noted to the left ankle . no calf tenderness noted]. NEUROLOGIC [paient is awake, alert and oriented X3. Patient does have noted weakness in his right arm and right leg . Results 12/25/18 05:52 12/25/18 05:52 Lipids 12/24/18 Range/Units 06:29 Triglycerides 230 H (<150) mg/dL Cholesterol 154 (<200) mg/dL HDL Cholesterol 40 (40-60) mg/dL CBC 12/25/18 Range/Units 05:52 WBC 6.3 (3.8-10.6) k/uL RBC 5.34 (4.30-5.90) m/uL Hgb 15.6 (13.0-17.5) gm/dL Hct 47.7 (39.0-53.0) % Plt Count 245 (150-450) k/uL Comprehensive Metabolic Panel 12/25/18 Range/Units 05:52 Sodium 141 (137-145) mmol/L Potassium 4.5 (3.5-5.1) mmol/L Chloride 104 (98-107) mmol/L Carbon Dioxide 28 (22-30) mmol/L BUN 17 (9-20) mg/dL Creatinine 0.86 (0.66-1.25) mg/dL Glucose 134 H (74-99) mg/dL Calcium 9.0 (8.4-10.2) mg/dL Current Medications Generic Name Dose Route Start Last Admin Trade Name Freq PRN Reason Stop Dose Admin Acetaminophen 650 mg 12/24/18 08:11 12/24/18 15:57 Tylenol Tab PO 650 mg Q6HR PRN Administration Fever and/ or Mild Pain Aspirin 81 mg 12/24/18 10:15 12/24/18 12:47 Aspirin PO 81 mg DAILY YUE Administration Atenolol 25 mg 12/24/18 09:00 12/24/18 07:55 Tenormin PO 25 mg DAILY YUE Administration Atorvastatin Calcium 80 mg 12/24/18 21:00 12/24/18 20:36 Lipitor PO 80 mg HS YUE Administration Clopidogrel Bisulfate 75 mg 12/24/18 10:15 12/24/18 12:47 Plavix PO 75 mg DAILY YUE Administration Cyclobenzaprine HCl 10 mg 12/24/18 10:13 Flexeril PO TID PRN Muscle Spasm Enoxaparin Sodium 40 mg 12/24/18 19:00 12/24/18 20:36 Lovenox SQ 40 mg DAILY YUE Administration Naloxone HCl 0.2 mg 12/23/18 21:08 Narcan IV Q2M PRN Opioid Reversal Naproxen 500 mg 12/24/18 10:13 Naprosyn PO Q12HR PRN Pain Intake and Output 12/24/18 12/25/18 12/25/18 22:59 06:59 14:59 Intake Total 480 360 Balance 480 360 Intake: Oral 480 360 Other: # Voids 1 1 1 Weight 136.8 kg 12/25/18 05:52 12/25/18 05:52 EKG Interpretations (text) EKG shows normal sinus rhythm with inferior Q waves. Assessment and Plan Plan: Assessment and plan #1 symptoms of right eye visual disturbance, rule out TIA , patient did have a CAT scan at [facility] however the report is not available 8 is documented however that the radiologist confirmed an acute infarct in the left occipital/temporal region clinically symptoms were consistent with a left CVA #2 history of CVA with residual right arm and right leg weakness 2006 #3 hypertension #4 history of atrial fibrillation #5 hyperlipidemia #6 sleep apnea #7 recent fall with left ankle ecchymosis and leg swelling Plan An echocardiogram with Doppler study was performed which revealed an ejection fraction of 50-55%, we will continue the patient's statin, we will order a venous duplex study of the left lower extremity to rule out the possibility of DVT. Patient does have history of atrial fibrillation in the past as well as prior stroke, hypertension, we would recommend the patient to be on anticoagulation for stroke prevention. We will discontinue the patient's Plavix and aspirin and start the patient on Eliquis if okay with neurology. I did speak with Dr. Ribera who agreed for the patient was started on anticoagulation today. The rationale as well as the risks and benefits were explained to the patient in detail. We have been requested also to perform a LYNSEY, neurology does not feel that at LYNSEY is necessary at this time, the plan is to discharge the patient home and have an outpatient open MRI. We will make him a follow-up appointment with post discharge. DNP note has been reviewed, I agree with a documented findings and plan of care. Patient was seen and examined.
[2018-12-25] MEDS: ENOXAPARIN 40 MG/0.4 ML SYRINGE SQ SCH (08:55)
[2018-12-25] MEDS: ASPIRIN 81 MG PO SCH (08:55)
[2018-12-25] MEDS: ATENOLOL 25 MG TAB PO SCH (08:55)
[2018-12-25] MEDS: APIXABAN 5 MG TAB PO SCH ×2 (10:34→20:02)
[2018-12-25 11:40] LABS: Glucose,Whole Blood 111 mg/dL (75-99)
--- NOTE | 2018-12-25 12:26 | P.PN ---
Progress Note - Text Progress Note Date: 12/25/18 SUBJECTIVE/INTERVAL EVENTS: No acute overnight events. No significant change since vision. Spoke to patient about how his vision can affect his driving. 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 Spoke in length about how he will put himself and others around him in danger on the road with his vision deficit. PHYSICAL EXAMINATION: VITAL SIGNS: Temperature 97.4 pulse rate 83 respiratory 17 blood pressure 129/81 O2 saturation 97% on room air GEN.: NAD, pleasant and cooperative HEENT: NCAT, sclera without icterus NECK: Supple SKIN AND EXTREMITIES: Warm to touch, no edema NEURO: MENTAL STATUS: Patient alert and oriented to self, place, time. Able to name the current president. Speech fluent, able to name and repeat, following all commands readily. Some word finding difficulty. No right and left disorientation, neglect. CRANIAL NERVES II THROUGH XII: II: Pupils are equal and reactive to light symmetrically. No afferent pupillary defect. Visual mukherjee deficit in the right upper quadrant in both eyes. Visual field III, IV, : No ptosis. Extraocular movements full. No nystagmus. V: Facial sensation decreased in right V1-3. VII. right facial droop. VIII. hearing intact to finger rub bilaterally. IX, X: Symmetric palate elevation. XI: Shoulder shrug is symmetric, difficulty raising his right shoulder. XII: Tongue midline without fasciculation or atrophy. MOTOR: decreased tone in his left upper and lower extremity. Patient is able to lift his shoulder, proximal arm and distal arm against gravity but minimally. Right leg, patient is able to lift it up against gravity but minimally. Left upper extremity and lower extremity are 5/5 in strength. SENSORY: decreased to light touch, temperature, pinprick in right upper and lower extremities. Intact in left upper nausea bruits. An open MRI as we start anticoagulation for not as she wants seeking REFLEXES: 2+ throughout. Toes are mute. COORDINATION: Finger to nose intact. No dysmetria. Rapid Tinel's limited by weakness but still no dysmetria GAIT: patient is able to walk with his cane. DIAGNOSTIC TESTING: LABORATORY: WBC 6.7 hemoglobin 15.5 platelet 255 sodium 140 potassium 4.3 chloride 103 bicarb 29 BUN 15, Cr 0.83 glucose 130 Total cholesterol 154 LDL 68 HDL 40 TSH 1.590 triglycerides 2:30 A1c 6.0 IMAGING: CT head from outside hospital 12/23/2018: Showed left QUALITY CONTROL CHECKER hypodensity. Imaging none available at this time no other head imaging performed at this facility. Transthoramic Echocardiogram 12/24/2018: LV size normal. RV is mildly enlarged. LA is mildly dilated. RA appears enlarged. Ejection fraction 50-55%. Carotid ultrasound 12/24/2018: Mild degree of kam scale atheromatous plaquing with no practically evident hemodynamically significant stenosis within either visualized carotid arterial system. ASSESSMENT/RECOMMENDATIONS: Mr. Hollingsworth is a 53 year-old man with PMhx of atrial fibrillation, stroke (in 2012 with right-sided weakness and numbness and short-term memory loss), hyperlipidemia, hypertension, memory impairment, [place] x2, chronic back pain, who presented to an outside hospital for heavy loss of peripheral vision in his right eye, found with CT has finding of left QUALITY CONTROL CHECKER stroke, which most likely is causing patient's visual field deficit. EKG and cardiac monitoring so far with no A. fib. Patient states that he most definitely will not be going through a "tube" for imaging. He says he almost "" in the CT machine. It is unusual that patient is on dual antiplatelet therapy and not on anticoagulation. Patient's CHADsVASC score is at least 4 (even at the time of patient's initial stroke in 2011), so patient should be on anticoagulation. However, the size of patient's stroke unknown at this time, and patient at this time refusing to get another head imaging. There's definitely risk of hemorrhagic conversion for recent stroke getting started on anticoagulation, especially considering that there is no imaging available at this time. CT head from [facility] is available in our system. Showing left QUALITY CONTROL CHECKER stroke. Transthoracic echocardiogram and carotid ultrasound unremarkable. Patient must be seen by an outpatient neurologist and operations forester in the next 1-2 weeks. Appreciate Cardiology recs. Okay to start Eliquis for stroke prevention. Discussed with patient about stroke prevention guidelines. Medication compliance, hypertension/diabetes control, lifestyle changes including no smoking, drinking in moderation, losing weight, exercising, eating healthier. Patient with a right upper visual deficit, which is concerning for when he is driving. His vision deficit will need to be reported to the health department. Patient also needs to be formally evaluated by ophthalmology for vision test. Neurology will sign off at this time. Please feel free to contact Neurology again if with additional questions or concerns.
--- NOTE | 2018-12-25 12:41 | US ---
EXAMINATION TYPE: US venous doppler duplex LE LT DATE OF EXAM: 12/25/2018 10:30 AM COMPARISON: NONE CLINICAL HISTORY: r/o dvt. SIDE PERFORMED: Left TECHNIQUE: The lower extremity deep venous system is examined utilizing real time linear array sonog tomy with graded compression, doppler sonography and color-flow sonography. VESSELS IMAGED: External Iliac Vein (EIV) Common Femoral Vein Deep Femoral Vein Greater Saphenous Vein * Femoral Vein Popliteal Vein Small Saphenous Vein * Proximal Calf Veins (* superficial vessels) Patient of large body habitus, technically difficult. Left Leg: Negative for DVT. Grayscale, color doppler, spectral doppler imaging performed of the deep veins of the left lower extr emity. There is normal flow, compressibility, vascular waveforms. IMPRESSION: No sonographic evidence of deep venous thrombosis within the left lower extremity.
[2018-12-25 17:36] LABS: Glucose,Whole Blood 138 mg/dL (75-99)
[2018-12-25] MEDS: ATORVASTATIN 80 MG TAB PO SCH (20:02)
--- NOTE | 2018-12-25 22:58 | P.PN ---
Progress Note - Text Progress Note Date: 12/25/18 Chief Complaint: Decreased vision on the right side Interval history: This is a 53-year-old patient of Dr. Baron. 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 Patient stopped smoking 2005. Yesterday after lunch when he is sitting down to watch television he suddenly noticed that she was unable to see on the right side of the vision field. Does no headache. No change in speech. No change in swallowing. No change in weakness on the right side which is her baseline from prior stroke. Patient went to the local hospital where he was told to go to a tertiary center for intervention. Patient declined the same and wanted to come to [facility] variant seen his neurologist Dr. Sykes previously. Patient did go out of the stroke window for intervention. When I saw this patient this afternoon does some improvement. Was still significant deficit on the right side. Patient did have a computed tomography scan at the outside facility that did show hypodensity in the left [employer] region. Initial NIH stroke scale was 6. His has a loop recorder placed. And doesn't seem to be in any anticoagulation. is at the bedside. Today-some improvement in the right side field of vision. No other new issues. I had ordered a LYNSEY yesterday. I was informed by the nurse that cardiology and neurology is discussed and felt there is no need for the same. As the most of the patient eliquis. Patient was a bit upset when he was informed by neurologist that he should not be able to drive. I did explain to him that was about his safety and he needs to get that ophthalmology clearance as an outpatient. Review of systems: Was done for constitutional, cardiovascular, GI, pulmonary. Neurology relevant finding as above Active Medications Acetaminophen (Tylenol Tab) 650 mg PO Q6HR PRN PRN Reason: Fever and/ or Mild Pain Last Admin: 12/25/18 18:08 Dose: 650 mg Documented by: Apixaban (Eliquis) 5 mg PO BID [facility] Last Admin: 12/25/18 20:02 Dose: 5 mg Documented by: Atenolol (Tenormin) 25 mg PO DAILY [facility] Last Admin: 12/25/18 08:55 Dose: 25 mg Documented by: Atorvastatin Calcium (Lipitor) 80 mg PO [facility] Last Admin: 12/25/18 20:02 Dose: 80 mg Documented by: Cyclobenzaprine HCl (Flexeril) 10 mg PO TID PRN PRN Reason: Muscle Spasm Naloxone HCl (Narcan) 0.2 mg IV Q2M PRN PRN Reason: Opioid Reversal Naproxen (Naprosyn) 500 mg PO Q12HR PRN PRN Reason: Pain Physical examination: VITAL SIGNS: 97.9, 65, 17, 122/80, 96% on room air GENERAL: Sitting up in a chair comfortable EYES: Pupils equal. Conjunctiva normal. HEENT: External appearance of nose and ears normal, oral cavity grossly normal. NECK: JVD not raised; masses not palpable. HEART: First and second heart sounds are normal; no edema. LUNGS: Respiratory rate normal; clear to auscultation. ABDOMEN: Soft, nontender, liver spleen not palpable, no masses palpable. PSYCH: Alert and oriented x3; mood and affect normal. NEUROLOGICAL: Decreased field of vision on the right side, weakness in both the right upper and lower extremity.. Investigations: White count 6.7 hemoglobin 15.5 platelets 255 potassium 4.3 creatinine 0.83 LDL 68 TSH 1.5 Computed tomography scan brain from the outside facility showed left [employer] territory infarct Carotid Doppler-no evidence of any significant stenosis EKG tracing-personally reviewed by me shows normal sinus rhythm Assessment: -Acute stroke in the left posterior cerebral artery circulation, causing right field of vision deficit. -Chronic right hemiparesis from an old stroke -History of atrial fibrillation but currently patient is normal sinus rhythm. -Essential hypertension -Hyperlipidemia -Obstructive sleep apnea -Coronary artery disease with a prior history of [place] -Chronic colonic down to closer -Morbid obesity BMI 42.4 -Chronic gait dysfunction from stroke uses a cane Plan: Cardiology and neurology decided not to proceed with a LYNSEY. This started the patient eliquis. I discussed with Dr. Ribera afterwards. Also discussed with the patient. Did explain the importance of not driving until his vision is improved he will seen ophthalmology as an outpatient. Discussed with the nurse at length. Total time spent today was about 40 minutes with over 25 minutes of discussion.
[2018-12-26 05:25] VITALS: RESP 16; TEMP 97.7
[2018-12-26] MEDS: APIXABAN 5 MG TAB PO SCH (09:01)
[2018-12-26] MEDS: ATENOLOL 25 MG TAB PO SCH (09:01)
[2018-12-26 09:06] VITALS: BP 135/74; PULSE 84
--- NOTE | 2018-12-26 23:00 | P.DS ---
Providers Date of admission: 12/23/18 21:08 Expected date of discharge: 12/26/18 Attending physician: William Calderón Consults: 12/23/18 21:09 Consult Physician Urgent Consulting Provider: Courtney Ribera Consult Reason/Comments: aute cva Do you want consulting provider notified?: Yes 12/24/18 18:52 Consult Physician Routine Consulting Provider: Fernando Vo Consult Reason/Comments: LYNSEY to rule out cardiac embolic source Do you want consulting provider notified?: Yes Primary care physician: Jayme Baron Hospital Course: Chief Complaint: Decreased vision on the right side Hospital course: This is a 53-year-old patient of Dr. aBron. 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 Patient stopped smoking 2005. Yesterday after lunch when he is sitting down to watch television he suddenly noticed that she was unable to see on the right side of the vision field. Does no headache. No change in speech. No change in swallowing. No change in weakness on the right side which is her baseline from prior stroke. Patient went to the local hospital where he was told to go to a tertiary center for intervention. Patient declined the same and wanted to come to [facility] variant seen his neurologist Dr. Sykes previously. Patient did go out of the stroke window for intervention. When I saw this patient this afternoon does some improvement. Was still significant deficit on the right side. Patient did have a computed tomography scan at the outside facility that did show hypodensity in the left [employer]END[employer] region. Initial NIH stroke scale was 6. His has a loop recorder placed. And doesn't seem to be in any anticoagulation. is at the bedside. Significant improvement in the right side field of vision. No other new issues. I had ordered a LYNSEY yesterday. I was informed by the nurse that cardiology and neurology is discussed and felt there is no need for the same. Patient was started on eliquis. Discussed with the patient today. He'll follow-up with ophthalmology today. He needs to get a clearance from him before he can drive. Discussed with the to. Consultation: Dr. VC Vo from cardiology Dr. Ribera from neurology Physical examination: VITAL SIGNS: 97.7, 70, 16, 125/73, 98% room air GENERAL: Sitting up in a chair comfortable EYES: Pupils equal. Conjunctiva normal. HEENT: External appearance of nose and ears normal, oral cavity grossly normal. NECK: JVD not raised; masses not palpable. HEART: First and second heart sounds are normal; no edema. LUNGS: Respiratory rate normal; clear to auscultation. ABDOMEN: Soft, nontender, liver spleen not palpable, no masses palpable. PSYCH: Alert and oriented x3; mood and affect normal. NEUROLOGICAL: Chronic weakness in both the right upper and lower extremity.. I mproving right field vision Investigations: White count 6.7 hemoglobin 15.5 platelets 255 potassium 4.3 creatinine 0.83 LDL 68 TSH 1.5 Computed tomography scan brain from the outside facility showed left [employer] territory infarct Carotid Doppler-no evidence of any significant stenosis EKG tracing-personally reviewed by me shows normal sinus rhythm Discharge diagnosis: -Acute stroke in the left posterior cerebral artery circulation, causing right field of vision deficit. Improving -Chronic right hemiparesis from an old stroke -History of atrial fibrillation but currently patient is normal sinus rhythm. -Essential hypertension -Hyperlipidemia -Obstructive sleep apnea -Coronary artery disease with a prior history of PR -Chronic colonic down to closer -Morbid obesity BMI 42.4 -Chronic gait dysfunction from stroke uses a cane Disposition: Home Patient Condition at Discharge: Stable Plan - Discharge Summary Discharge Rx Participant: No New Discharge Prescriptions: New Apixaban [Eliquis] 5 mg PO BID #60 tab Atorvastatin [Lipitor] 80 mg PO HS #30 tab Acetaminophen Tab [Tylenol] 650 mg PO Q6HR PRN tab PRN Reason: Fever and/ or Mild Pain Continue Aspirin [Adult Low Dose Aspirin EC] 81 mg PO DAILY Lisinopril [Zestril] 10 mg PO DAILY Atenolol 25 mg PO DAILY Cyclobenzaprine [Flexeril] 10 mg PO TID PRN PRN Reason: Muscle Spasm Ergocalciferol (Vitamin D2) [Vitamin D2] 50,000 unit PO WICK Discontinued Clopidogrel [Plavix] 75 mg PO DAILY Naproxen [Naprosyn] 500 mg PO Q12HR PRN PRN Reason: Pain Loratadine [Claritin] 10 mg PO DAILY Atorvastatin Calcium [Lipitor] 10 mg PO HS Discharge Medication List Aspirin [Adult Low Dose Aspirin EC] 81 mg PO DAILY 02/17/16 [History] Atenolol 25 mg PO DAILY 02/17/16 [History] Lisinopril [Zestril] 10 mg PO DAILY 02/17/16 [History] Cyclobenzaprine [Flexeril] 10 mg PO TID PRN 07/31/18 [History] Ergocalciferol (Vitamin D2) [Vitamin D2] 50,000 unit PO WICK 12/23/18 [History] Acetaminophen Tab [Tylenol] 650 mg PO Q6HR PRN tab 12/25/18 [Rx] Apixaban [Eliquis] 5 mg PO BID #60 tab 12/25/18 [Rx] Atorvastatin [Lipitor] 80 mg PO HS #30 tab 12/25/18 [Rx] Follow up Appointment(s)/Referral(s): Danyel Arreaga MD [STAFF PHYSICIAN] - 01/02/19 9:00 am (Saturday with RN MANAGER) All Salinas MD [STAFF PHYSICIAN] - 1 Week (Per office, please call and schedule appoointment yourself) Vladimir Johnson MD [STAFF PHYSICIAN] - 12/26/18 2:45 pm (Saturday please bring ID and insurance information. Dr. Johnson is out of state, you will be seeing his associate) Jayme Baron MD [Primary Care Provider] - 12/29/18 4:30 pm (Saturday) Fernando Vo MD [STAFF PHYSICIAN] - 01/05/19 10:00 am (Saturday) Patient Instructions/Handouts: Ischemic Stroke (DC), Safe Use of Anticoagulants (DC) Activity/Diet/Wound Care/Special Instructions: no driving till cleared by opthalmology - pt informed Discharge Disposition: HOME SELF-CARE
== END 2018-12-26 13:19 | disposition home or self-care (01) | DRG 65 ==
LOC: EC 19:32 → 3SCARD 21:08
PROVIDERS: ADMIT Hospitalist; ATTEND Hospitalist
DX: I63.532 Cerebral infarction due to unspecified occlusion or stenosis of left posterior cerebral artery (principal); I69.351 Hemiplegia and hemiparesis following cerebral infarction affecting right dominant side; Z68.41 Body mass index [BMI] 40.0-44.9, adult; E66.01 Morbid (severe) obesity due to excess calories; H53.40 Unspecified visual field defects; R29.702 NIHSS score 2; R40.2362 Coma scale, best motor response, obeys commands, at arrival to emergency department; R40.2142 Coma scale, eyes open, spontaneous, at arrival to emergency department; R40.2252 Coma scale, best verbal response, oriented, at arrival to emergency department; I10 Essential (primary) hypertension; I25.10 Atherosclerotic heart disease of native coronary artery without angina pectoris; G47.33 Obstructive sleep apnea (adult) (pediatric); E78.5 Hyperlipidemia, unspecified; G89.29 Other chronic pain; M54.5 Low back pain; I25.2 Old myocardial infarction; S90.02XA Contusion of left ankle, initial encounter; Z79.82 Long term (current) use of aspirin; Z79.02 Long term (current) use of antithrombotics/antiplatelets; Z79.899 Other long term (current) drug therapy; Z87.891 Personal history of nicotine dependence; Z86.010 Personal history of colon polyps; Z98.890 Other specified postprocedural states; Z91.048 Other nonmedicinal substance allergy status; W01.0XXA Fall on same level from slipping, tripping and stumbling without subsequent striking against object, initial encounter; Y93.01 Activity, walking, marching and hiking; Z82.5 Family history of asthma and other chronic lower respiratory diseases; Z82.49 Family history of ischemic heart disease and other diseases of the circulatory system; Z83.49 Family history of other endocrine, nutritional and metabolic diseases; Z83.2 Family history of diseases of the blood and blood-forming organs and certain disorders involving the immune mechanism; Z80.3 Family history of malignant neoplasm of breast; Z81.8 Family history of other mental and behavioral disorders; Z83.79 Family history of other diseases of the digestive system
CPT/HCPCS: 80048; 80061; 81003; 83036; 84443; 85025; 85027; 93005; 93306; 93880; 99285

== ENCOUNTER → 2019-01-15 | Day surgery (SDC) | payer OTHER, MEDICARE ==
[2019-01-13 14:36] VITALS: BMI 38.3
[~2019-01-15] MED LIST: LIDOCAINE 1% INJ 10MG/ML (20 ML MDV) SQ ONE; MIDAZOLAM (PF) 2 MG/2 ML VIAL IV ONE; SODIUM CHLORIDE 0.9% 1,000 ML IV ONE; SODIUM CHLORIDE 0.9% 1,000 ML IV SCH
[2019-01-15 12:12] VITALS: BP 140/75; PULSE 67; RESP 16; TEMP 97.6
--- NOTE | 2019-01-15 14:39 | P.PCN ---
Preoperative Diagnosis: Loop monitor implant Primary physicians: Jayme Baron Junior Analyst: Dr. Arreaga Operators: Dr. rAreaga and Diane Doherty PA-C Indication: Recurrent infrequent syncope, cryptogenic stroke Patient was brought to the EP lab in a fasting state. Written informed consent was obtained prior to the procedure. The left pectoral area was prepped and draped per protocol. Intravenous antibiotic was administered preoperatively. A subcutaneous Loop monitor was implanted successfully and the wound was closed per protocol. The device was programmed to detect significant paul- arrhythmic and tachy-arrhythmic events, per protocol. Device and programming details: Programmed syncope protocol
--- NOTE | 2019-01-15 14:40 | P.PCN ---
Preoperative Diagnosis: Patient underwent EP procedure under conscious sedation/moderate sedation under Dr. Arreaga's supervision, monitoring of the level of consciousness and physiologic parameters including but not limited to vital signs and oxygenation. Patient tolerated the procedure well without any acute complications. Start time: 1414 Stop time: 1433
== END ==
LOC: CATHEP 11:18
PROVIDERS: ATTEND Internal Medicine Clinical Cardiac Electrophysiology
DX: R55 Syncope and collapse (principal); I63.9 Cerebral infarction, unspecified; I45.4 Nonspecific intraventricular block; I10 Essential (primary) hypertension; E78.5 Hyperlipidemia, unspecified; Z79.82 Long term (current) use of aspirin; Z79.899 Other long term (current) drug therapy; Z79.01 Long term (current) use of anticoagulants; Z79.02 Long term (current) use of antithrombotics/antiplatelets
CPT/HCPCS: 33285; C1764; J0690; J2001; J2250

== ENCOUNTER 2019-02-22 09:06 | Inpatient (IN) | payer OTHER, MEDICARE ==
[2019-02-22] MEDS ORDERED: LORazepam 2 MG/ML INJ IV STA (09:50)
--- NOTE | 2019-02-22 09:53 | ED ---
General Adult HPI - General Chief complaint: Weakness Stated complaint: Weak, Syncope Time Seen by Provider: 02/22/19 09:10 Source: patient, RN notes reviewed, old records reviewed Mode of arrival: wheelchair Limitations: no limitations - History of Present Illness Initial comments: This is a 52-year-old male who presents emergency Department complaining of increased weakness bilaterally in his legs and slight increased weakness bilaterally in his arms. Patient also states he's had some more muffled speech and a little bit of expressive aphasia which the agreed with. Patient states she's had a stroke before and had right-sided residual weakness and he states that weakness is now greater since this occurred. Patient states that started last night about 6:30 PM at which point in time he tried to stand and was unable without assistance which is unusual for him. Patient states he normally has no weakness on the left side. Patient states he thought he would go home and sleep it off his CO2 did not morning but he states the weakness pe rsists. Patient states his weakness on the right is worse than normal and this weakness on the left is completely new. Patient states his upper extremity is also feels slightly weak but nowhere near to the degree the lower extremities are. Patient's states his speech is different than normal. Patient denies any fever chills or cough per patient denies any chest pain palpitations difficulty breathing shortness of breath per patient denies any headache. Patient denies abdominal pain patient denies nausea vomiting diarrhea. Patient denies any recent injury or trauma. - Related Data Home Medications Medication Instructions Recorded Confirmed Aspirin [Adult Low Dose Aspirin EC] 81 mg PO DAILY 02/17/16 02/22/19 Atenolol 25 mg PO DAILY 02/17/16 02/22/19 Lisinopril [Zestril] 10 mg PO DAILY 02/17/16 02/22/19 Ergocalciferol (Vitamin D2) 50,000 unit PO WICK 12/23/18 02/22/19 [Vitamin D2] ALPRAZolam [Xanax] 0.5 - 1 mg PO ONCE PRN 02/22/19 02/22/19 Acetaminophen Tab [Tylenol] 650 mg PO Q8H PRN 02/22/19 02/22/19 Gabapentin [Neurontin] 100 mg PO TID 02/22/19 02/22/19 Lorcaserin HCl [Belviq] 10 mg PO BID 02/22/19 02/22/19 Previous Rx's Medication Instructions Recorded Apixaban [Eliquis] 5 mg PO BID #60 tab 12/25/18 Atorvastatin [Lipitor] 80 mg PO HS #30 tab 12/25/18 Allergies Allergy/AdvReac Type Severity Reaction Status Date / Time No Known Allergies Allergy Verified 02/22/19 10:04 Review of Systems ROS Statement: Those systems with pertinent positive or pertinent negative responses have been documented in the HPI. ROS Other: All systems not noted in ROS Statement are negative. Past Medical History Past Medical History: Atrial Fibrillation, CVA/TIA, Hearing Disorder / Deafness, Hyperlipidemia, Hypertension, Memory Impairment, Myocardial Infarction (AK), Pneumonia Additional Past Medical History / Comment(s): 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 "?Sleep Apnea, needs to have a Sleep Study." Hx Pneumonia X3. Slightly Hard of Hearing. Last Myocardial Infarction Date:: 2005, 2010,2011 History of Any Multi-Drug Resistant Organisms: None Reported Past Surgical History: Adenoidectomy, Cardiac Ablation, Heart Catheterization, Tonsillectomy Additional Past Surgical History / Comment(s): Cardiac ablation-unsuccessful per pt, loop recorders X2, colonoscopy/benign polypectomy, cyst removed from buttock/anal area. Past Anesthesia/Blood Transfusion Reactions: Previous Problems w/ Anesthesia Additional Past Anesthesia/Blood Transfusion Reaction / Comment(s): WOKE UP A BIT MEAN AFTER (MANY YRS AGO). CLAUSTERPHOBIA. Past Psychological History: No Psychological Hx Reported Smoking Status: Former smoker Past Alcohol Use History: Occasional Past Drug Use History: None Reported - Past Family History Father Family Medical History: COPD, Deep Vein Thrombosis (DVT), Hyperlipidemia, Hypertension, Myocardial Infarction ([place]) Additional Family Medical History / Comment(s): Father had MIs with the first one being when he was about 65 yrs old. He had coronary stents. He at the age of 83 yrs. Mother Family Medical History: Cancer, Dementia, Thyroid Disorder Additional Family Medical History / Comment(s): Mother had breast cancer, diverticulitis, thyroid disease and from dementia at the age of 80 yrs. Sister(s) Family Medical History: Cancer Additional Family Medical History / Comment(s): Pancreatic cancer. General Exam - General Exam Comments Initial Comments: GENERAL: Patient is well-developed and well-nourished. Patient is nontoxic and well-hydrated and is in mild distress. ENT: Neck is soft and supple. No significant lymphadenopathy is noted. Oropharynx is clear. Moist mucous membranes. Neck has full range of motion without eliciting any pain. EYES: The sclera were anicteric and conjunctiva were pink and moist. Extraocular movements were intact and pupils were equal round and reactive to light. Eyelids were unremarkable. PULMONARY: Unlabored respirations. Good breath sounds bilaterally. No audible rales rhonchi or wheezing was noted. CARDIOVASCULAR: There is a regular rate and rhythm without any murmurs gallops or rubs. ABDOMEN: Soft and nontender with normal bowel sounds. SKIN: Skin is clear with no lesions or rashes and otherwise unremarkable. NEUROLOGIC: Patient is alert and oriented x3. Cranial nerves II through XII are grossly intact. Patient has significant weakness in the right and left leg. Patient has no plantar or dorsiflexion. Patient can only lift the left leg off the bed about an inch and cannot lift the right leg off the bed at all. Patient had no decreased sensation in the legs or perineum. MUSCULOSKELETAL: Normal extremities with adequate strength and full range of motion. No lower extremity swelling or edema. No calf tenderness. LYMPHATICS: No significant lymphadenopathy is noted PSYCHIATRIC: Normal psychiatric evaluation. Limitations: no limitations Course Vital Signs 02/22/19 02/22/19 02/22/19 09:10 09:34 09:49 Temperature 99.1 F Pulse Rate 85 80 80 Respiratory 16 18 19 Rate Blood Pressure 131/85 101/90 142/111 O2 Sat by Pulse 98 97 96 Oximetry 02/22/19 02/22/19 02/22/19 10:04 10:15 10:30 Temperature Pulse Rate 76 71 72 Respiratory 16 17 24 Rate Blood Pressure 130/71 135/86 119/68 O2 Sat by Pulse 97 95 95 Oximetry 02/22/19 10:45 Temperature Pulse Rate 67 Respiratory 20 Rate Blood Pressure 124/75 O2 Sat by Pulse 94 L Oximetry Medical Decision Making - Medical Decision Making Patient was sent for CAT scan and CT of the head neck however patient refused to get on the CAT scan table. So he had to get some Ativan to calm him down so he can do the scans. EKG shows a normal sinus rhythm at 69 bpm MD interval 158 QRS is 96 QT interval 382 QTC is 49. Patient's EKG shows no ST segment elevation or depression or T wave abnormalities are noted. After evaluating the patient I called a code stroke I spoke with the neurointerventionalist . Patient was well outside the TPA window so no TPA was considered. CT of the brain shows no acute abnormality. CTA head and neck shows no significant stenosis. I will back into the room to speak with the family and the patient and told him that we had no neurology coverage and to get neurology coverage today we would need to transfer them out they did not want to be transferred they wanted to sta y here even though we do not have neurology and they would see a neurologist tomorrow. I told him there was risks to them stinging without neurology and they were fine taking those risks they did not want to be transferred under no circumstances. I spoke with Dr. Calderón agreed to accept the patient. I wrote admitting orders. - Lab Data Result diagrams: 02/22/19 10:00 02/22/19 10:00 Lab Results 02/22/19 02/22/19 02/22/19 Range/Units 10:00 10:00 10:00 WBC 7.4 (3.8-10.6) k/uL RBC 5.29 (4.30-5.90) m/uL Hgb 15.7 (13.0-17.5) gm/dL Hct 45.4 (39.0-53.0) % MCV 86.0 (80.0-100.0) fL MCH 29.6 (25.0-35.0) pg MCHC 34.5 (31.0-37.0) g/dL RDW 12.1 (11.5-15.5) % Plt Count 288 (150-450) k/uL Neutrophils % 73 % Lymphocytes % 16 % Monocytes % 6 % Eosinophils % 2 % Basophils % 1 % Neutrophils # 5.4 (1.3-7.7) k/uL Lymphocytes # 1.2 (1.0-4.8) k/uL Monocytes # 0.5 (0-1.0) k/uL Eosinophils # 0.1 (0-0.7) k/uL Basophils # 0.1 (0-0.2) k/uL PT 10.1 (9.0-12.0) sec INR 0.9 (<1.2) APTT 27.9 (22.0-30.0) sec Sodium 140 (137-145) mmol/L Potassium 4.6 (3.5-5.1) mmol/L Chloride 103 (98-107) mmol/L Carbon Dioxide 28 (22-30) mmol/L Anion Gap 9 mmol/L BUN 19 (9-20) mg/dL Creatinine 1.05 (0.66-1.25) mg/dL Est GFR (CKD-EPI)AfAm >90 (>60 ml/min/1.73 sqM) Est GFR (CKD-EPI)NonAf 81 (>60 ml/min/1.73 sqM) Glucose 127 H (74-99) mg/dL Calcium 9.3 (8.4-10.2) mg/dL Total Bilirubin 0.8 (0.2-1.3) mg/dL AST 32 (17-59) U/L ALT 45 (21-72) U/L Alkaline Phosphatase 68 (38-126) U/L Troponin I (0.000-0.034) ng/mL Total Protein 7.2 (6.3-8.2) g/dL Albumin 4.1 (3.5-5.0) g/dL 02/22/19 Range/Units 10:00 WBC (3.8-10.6) k/uL RBC (4.30-5.90) m/uL Hgb (13.0-17.5) gm/dL Hct (39.0-53.0) % MCV (80.0-100.0) fL MCH (25.0-35.0) pg MCHC (31.0-37.0) g/dL RDW (11.5-15.5) % Plt Count (150-450) k/uL Neutrophils % % Lymphocytes % % Monocytes % % Eosinophils % % Basophils % % Neutrophils # (1.3-7.7) k/uL Lymphocytes # (1.0-4.8) k/uL Monocytes # (0-1.0) k/uL Eosinophils # (0-0.7) k/uL Basophils # (0-0.2) k/uL PT (9.0-12.0) sec INR (<1.2) APTT (22.0-30.0) sec Sodium (137-145) mmol/L Potassium (3.5-5.1) mmol/L Chloride (98-107) mmol/L Carbon Dioxide (22-30) mmol/L Anion Gap mmol/L BUN (9-20) mg/dL Creatinine (0.66-1.25) mg/dL Est GFR (CKD-EPI)AfAm (>60 ml/min/1.73 sqM) Est GFR (CKD-EPI)NonAf (>60 ml/min/1.73 sqM) Glucose (74-99) mg/dL Calcium (8.4-10.2) mg/dL Total Bilirubin (0.2-1.3) mg/dL AST (17-59) U/L ALT (21-72) U/L Alkaline Phosphatase (38-126) U/L Troponin I <0.012 (0.000-0.034) ng/mL Total Protein (6.3-8.2) g/dL Albumin (3.5-5.0) g/dL Critical Care Time Critical Care Time: Yes Total Critical Care Time: 35 Disposition Clinical Impression: Cerebrovascular accident Disposition: ADMITTED IP TO THIS HOSP Referrals: Jayme Baron MD [Primary Care Provider] - 1-2 days Time of Disposition: 11:40
[2019-02-22] MEDS ORDERED: HYDROmorphone 1 MG/ML 1 ML SYRINGE IVP STA (09:59)
[2019-02-22] MEDS ORDERED: ONDANSETRON 4 MG/2 ML VIAL IVP STA (09:59)
[2019-02-22 10:14] LABS: Basophils # (A) 0.1 k/uL (0-0.2); Basophils % (A) 1 %; Eosinophils # (A) 0.1 k/uL (0-0.7); Eosinophils % (A) 2 %; HCT 45.4 % (39.0-53.0); HGB 15.7 gm/dL (13.0-17.5); Lymphocytes # (A) 1.2 k/uL (1.0-4.8); Lymphocytes % (A) 16 %; MCH 29.6 pg (25.0-35.0); MCHC 34.5 g/dL (31.0-37.0); Mean Platelet Volume 6.6; Monocytes # (A) 0.5 k/uL (0-1.0); Monocytes % (A) 6 %; Neutrophils # (A) 5.4 k/uL (1.3-7.7); Neutrophils % (A) 73 %; Platelet Count 288 k/uL (150-450); RBC 5.29 m/uL (4.30-5.90); RDW 12.1 % (11.5-15.5); WBC 7.4 k/uL (3.8-10.6)
--- NOTE | 2019-02-22 10:20 | CT ---
EXAMINATION TYPE: CT brain wo con for TPA DATE OF EXAM: 02/22/2019 COMPARISON: NONE HISTORY: Right-sided weakness. Automated exposure control for dose reduction was used. FINDINGS: Central structures are midline. There is no evidence of hydrocephalus. No acute focal lesion, mass ef fect or midline shift is seen. I do not see evidence of intracranial blood. There is mucoperiosteal thickening involving the right maxillary and ethmoidal air cells. The mastoid s are clear. The bony calvarium is intact. IMPRESSION: 1. NO ACUTE INTRACRANIAL ABNORMALITY. 2. CHRONIC MUCOPERIOSTEAL THICKENING INVOLVING THE RIGHT MAXILLARY AND ETHMOID AIR CELLS.
[2019-02-22 10:24] LABS: ALT 45 U/L (21-72); AST 32 U/L (17-59); African American GFR (CKD) >90 (>60 ml/min/1.73 sqM); Albumin 4.1 g/dL (3.5-5.0); Alkaline Phosphatase 68 U/L (38-126); Anion Gap 9 mmol/L; Blood Urea Nitrogen 19 mg/dL (9-20); Calcium 9.3 mg/dL (8.4-10.2); Carbon Dioxide 28 mmol/L (22-30); Chloride 103 mmol/L (98-107); Glucose 127 mg/dL (74-99); INR 0.9 (<1.2); Partial Thromboplastin Time 27.9 sec (22.0-30.0); Potassium 4.6 mmol/L (3.5-5.1); Prothrombin Time 10.1 sec (9.0-12.0); Sodium 140 mmol/L (137-145); Total Bilirubin 0.8 mg/dL (0.2-1.3); Total Protein 7.2 g/dL (6.3-8.2)
--- NOTE | 2019-02-22 10:52 | CT ---
EXAMINATION TYPE: CT angio head neck DATE OF EXAM: 02/22/2019 HISTORY: Right sided weakness COMPARISON: Previous study of earlier today. CT DLP: 1832 mGycm. Automated Exposure Control for Dose Reduction was Utilized. TECHNIQUE: CTA scan of the neck is performed with IV Contrast, patient injected with 65 mL of Isovue 370, axial images are obtained, coronal and sagittal reformatted images are reviewed. Three-D recons tructed images are created on an independent workstation and reviewed. FINDINGS: Visualized portions of the lungs are clear. There is chronic mucoperiosteal thickening involving the right maxillary and ethmoid air cells. The m astoid air cells are clear. Vertebral body height and alignment are maintained. Atlantoaxial relationships are normal. There is d iffuse disc space loss and hypertrophic spondylosis with relative sparing of C2-C3. There is uncovert ebral joint disease throughout the visualized skeleton. The facets are reasonably well-maintained. There is asymmetry in the parapharyngeal soft tissues with slight prominence on the left. There lara nues be some prominence in the oropharynx on the left. Prevertebral soft tissues are otherwise unrema rkable. There is a normal origin of the great vessels. The vertebral arteries are codominant. There is no significant atheromatous calcification at the carotid bulbs. There is no significant sten osis in either proximal internal carotid artery. Posterior to indicating arteries are present bilaterally. Both anterior cerebral arteries are present . There is normal arborization of the middle cerebral arteries noted definite occlusions are seen. No sizable aneurysm is demonstrated. IMPRESSION: 1. NO SIGNIFICANT STENOSIS IN EITHER CAROTID SYSTEM. 2. NORMAL MRA OF THE [place].
[2019-02-22] MEDS ORDERED: ASPIRIN 325 MG TAB PO STA (11:41)
[2019-02-22] MEDS ORDERED: ERGOCALCIFEROL 50,000 UNIT CAP PO SCH (18:00)
[2019-02-22] MEDS: ATORVASTATIN 80 MG TAB PO SCH (20:46)
[2019-02-22] MEDS: APIXABAN 5 MG TAB PO SCH (20:46)
[2019-02-22] MEDS: LORCASERIN HCL 10 MG PO SCH (20:46)
[2019-02-22] MEDS: ACETAMINOPHEN TAB 325 MG TAB PO PRN (20:46)
[2019-02-22] MEDS ORDERED: GABAPENTIN 100 MG CAP PO SCH (21:00)
--- NOTE | 2019-02-22 22:48 | P.HPIM ---
History of Present Illness H&P Date: 02/22/19 Chief Complaint: Left-sided weakness Chief Complaint: Decreased vision on the right side History of presenting complaint: This is a 53-year-old patient of Dr. Baron. 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 Patient was here in January of this year and suffered an acute stroke in the left posterior cerebral artery circulation. Patient was at her family dinner sitting on a chair. Last night. When he tried to get up his legs felt weak. He already has right leg weakness and right arm weakness at the bedside. He will the left leg in the left often week. He also noticed that his speech was slowed cane. He had to be helped to his jeep. There was taken a hotel the and to the floor got all the clothes came down and the patient came home. Patient had to be helped from the garage to the room. Patient only uses cane to get about. Patient still weak on the left side. Patient's computed tomography scan of the brain and CT angiogram of the brain both unremarkable this morning. No change in vision. No change in swallowing. Review of systems: GEN.: None EYES: As above HEENT: None NECK: None RESPIRATORY: None CARDIOVASCULAR: None GASTROINTESTINAL: None GENITOURINARY: None MUSCULOSKELETAL: Some pain in the joints LYMPHATICS: None HEMATOLOGICAL: None PSYCHIATRY: None NEUROLOGICAL: As above Past medical history: Atrophic fibrillation, hypertension, hyperlipidemia, chronic right-sided weakness from a prior stroke, by 2, crit low back pain and right shoulder and right ankle pain. Stroke in January 2019 in the left posterior cerebral artery circulation Social history: Patient was a light smoker in the past. . Does use a cane. He is on disability. Alcohol occasionally. Family history: DVT, COPD, hyperlipidemia, hypertension, heart attack. Physical examination: VITAL SIGNS: 97.6, 70, 18, 96/56, 96% room air GENERAL: BMI 38.2, sitting upon a chair, EYES: Pupils equal. Conjunctiva normal. HEENT: External appearance of nose and ears normal, oral cavity grossly normal. NECK: JVD not raised; masses not palpable. HEART: First and second heart sounds are normal; no edema. LUNGS: Respiratory rate normal; clear to auscultation. ABDOMEN: Soft, nontender, liver spleen not palpable, no masses palpable. PSYCH: Alert and oriented x3; mood and affect normal. NEUROLOGICAL: No facial asymmetry. Speech is slightly slow. Power in both the arms and both the leg is 4/5. LYMPHATICS: No lymph nodes palpable in the axilla and neck Investigations: White count 7.4 hemoglobin 15.7 platelets 288 potassium 4.6 creatinine 1.05 Troponin I less than 0.012 CT brain-nil acute CT angiogram of the brain-no significant stenosis in the carotid system, normal MRA of the [place] EKG tracing personally reviewed by me-normal sinus rhythm Assessment: -Clinically suspect stroke in the right middle cerebral artery area, affecting the speech in the left side, with a negative computed tomography scan. -Chronic right hemiparesis from an old stroke -History of atrial fibrillation but currently patient is normal sinus rhythm. -Essential hypertension -Hyperlipidemia -Obstructive sleep apnea -Coronary artery disease with a prior history of VT -Chronic colonic down to closer -Morbid obesity BMI 42.4 -Chronic gait dysfunction from stroke uses a cane Plan: Patient will need a MRI of the brain. He is claustrophobic. We'll give Valium before the study. Discussed with the patient. Patient will also need a LYNSEY has the strokes are in different hemisphere. This was also entertained on the last admission. We'll consult cardiology for the same. Patient already eliquis, aspirin, Lipitor. PTOT to be consulted. Neurology is consulted. Accu-Cheks in place. Past Medical History Past Medical History: Atrial Fibrillation, CVA/TIA, Hearing Disorder / Deafness, Hyperlipidemia, Hypertension, Memory Impairment, Myocardial Infarction (VT), Pneumonia Additional Past Medical History / Comment(s): 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 "Sleep Apnea, needs to have a Sleep Study." Slightly Hard of Hearing. Last Myocardial Infarction Date:: 2005, 2010,2011 History of Any Multi-Drug Resistant Organisms: None Reported Past Surgical History: Adenoidectomy, Cardiac Ablation, Heart Catheterization, Tonsillectomy Additional Past Surgical History / Comment(s): Cardiac ablation-unsuccessful per pt, loop recorders X3 one in currenty-02/22/2019, colonoscopy/benign polypectomy, cyst removed from buttock/anal area. Past Anesthesia/Blood Transfusion Reactions: Previous Problems w/ Anesthesia Additional Past Anesthesia/Blood Transfusion Reaction / Comment(s): WOKE UP A BIT MEAN AFTER (MANY YRS AGO). CLAUSTERPHOBIA. Past Psychological History: No Psychological Hx Reported Additional Psychological History / Comment(s): Pt resides with his spouse. He uses a cane to ambulate. He drives. Smoking Status: Former smoker Past Alcohol Use History: Occasional Additional Past Alcohol Use History / Comment(s): SMOKED SINCE AGE 19 1 PACK PER WEEK, QUIT IN 2005. Past Drug Use History: None Reported - Past Family History Father Family Medical History: COPD, Deep Vein Thrombosis (DVT), Hyperlipidemia, Hypertension, Myocardial Infarction (VT) Additional Family Medical History / Comment(s): Father had MIs with the first one being when he was about 65 yrs old. He had coronary stents. He at the age of 83 yrs. Mother Family Medical History: Cancer, Dementia, Thyroid Disorder Additional Family Medical History / Comment(s): Mother had breast cancer, diverticulitis, thyroid disease and from dementia at the age of 80 yrs. Sister(s) Family Medical History: Cancer Additional Family Medical History / Comment(s): Pancreatic cancer. Medications and Allergies Home Medications Medication Instructions Recorded Confirmed Type Aspirin [Adult Low Dose Aspirin EC] 81 mg PO DAILY 02/17/16 02/22/19 History Atenolol 25 mg PO DAILY 02/17/16 02/22/19 History Lisinopril [Zestril] 10 mg PO DAILY 02/17/16 02/22/19 History Ergocalciferol (Vitamin D2) 50,000 unit PO WICK 12/23/18 02/22/19 History [Vitamin D2] Apixaban [Eliquis] 5 mg PO BID #60 tab 12/25/18 02/22/19 Rx Atorvastatin [Lipitor] 80 mg PO HS #30 tab 12/25/18 02/22/19 Rx ALPRAZolam [Xanax] 0.5 - 1 mg PO ONCE PRN 02/22/19 02/22/19 History Acetaminophen Tab [Tylenol] 650 mg PO Q8H PRN 02/22/19 02/22/19 History Gabapentin [Neurontin] 200 mg PO HS 02/22/19 02/22/19 History Lorcaserin HCl [Belviq] 10 mg PO BID 02/22/19 02/22/19 History Allergies Allergy/AdvReac Type Severity Reaction Status Date / Time No Known Allergies Allergy Verified 02/22/19 10:04 Physical Exam Vitals: Vital Signs Temp Pulse Pulse Resp BP BP Pulse Ox 02/22/19 20:03 98 02/22/19 15:08 97.6 F 70 18 96/56 96 02/22/19 12:58 98.3 F 67 18 115/73 98 02/22/19 12:30 68 10 L 104/72 97 02/22/19 12:15 64 18 115/72 96 02/22/19 12:00 69 15 112/71 97 02/22/19 11:45 68 16 121/67 95 02/22/19 11:30 73 22 128/83 97 02/22/19 11:15 70 22 102/67 96 02/22/19 11:00 73 22 121/79 94 L 02/22/19 10:45 67 20 124/75 94 L 02/22/19 10:30 72 24 119/68 95 02/22/19 10:15 71 17 135/86 95 02/22/19 10:04 76 16 130/71 97 02/22/19 09:49 80 19 142/111 96 02/22/19 09:34 80 18 101/90 97 02/22/19 09:10 99.1 F 85 16 131/85 98 Intake and Output 02/22/19 02/22/19 02/22/19 06:59 14:59 22:59 Intake Total 360 580 Balance 360 580 Intake: Oral 360 580 Other: Voiding Method Toilet Weight 127.7 kg Results CBC & Chem 7: 02/22/19 10:00 02/22/19 10:00 Labs: Abnormal Lab Results - Last 24 Hours (Table) 02/22/19 Range/Units 10:00 Glucose 127 H (74-99) mg/dL Thrombosis Risk Factor Assmnt - Choose All That Apply Any of the Below Risk Factors Present?: Yes Each Factor Represents 1 point: Age 41-60 years, Obesity (BMI >25) Other Risk Factors: No Other congenital or acquired thrombophilia - If yes, enter type in comment: No Thrombosis Risk Factor Assessment Total Risk Factor Score: 2 Thrombosis Risk Factor Assessment Level: Low Risk
[2019-02-22] MEDS ORDERED: DIAZEPAM 5 MG/ML 2 ML INJ IM ONE (22:49)
[2019-02-23 06:30] LABS: Cholesterol 103 mg/dL (<200); HDL Cholesterol 28 mg/dL (40-60); LDL Cholesterol,Calculated 22 mg/dL (0-99); Triglycerides 263 mg/dL (<150)
[2019-02-23] MEDS ORDERED: ASPIRIN 325 MG TAB PO SCH (09:00)
[2019-02-23] MEDS ORDERED: ASPIRIN 81 MG PO SCH (09:00)
[2019-02-23] MEDS: LISINOPRIL 10 MG TAB PO SCH (09:46)
[2019-02-23] MEDS: ATENOLOL 25 MG TAB PO SCH (09:46)
[2019-02-23] MEDS: APIXABAN 5 MG TAB PO SCH ×2 (09:46→21:01)
[2019-02-23] MEDS: LORCASERIN HCL 10 MG PO SCH (09:48)
--- NOTE | 2019-02-23 11:48 | CONS ---
CONSULTATION CHIEF COMPLAINT: Weakness of the legs. REASON FOR CONSULTATION: To perform LYNSEY. HISTORY OF PRESENT ILLNESS: Bony is a 53-year-old gentleman with history of paroxysmal atrial fibrillation, hypertension, dyslipidemia, prior CVA, history of ablation, who had not been taking any anticoagulation at home prior to December of 2018. Came in with an episode of visual disturbance at that time. He also had weakness of the right arm and right leg. It was thought to be secondary to a TIA and patient was started on Eliquis and underwent extensive workup including a neurological evaluation and was discharged home. He had an echo that showed normal LV systolic function. A carotid duplex study that revealed mild carotid stenosis and he also had a loop recorder inserted. He comes back into hospital complaining of sudden weakness involving actually both his lower extremities. 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 He again comes back in and this time we were asked to consider a transesophageal echo on him. The patient had a CT scan of the brain that was negative for any intracranial abnormality had a CT angiogram that was negative for any abnormality and the EKG shows normal sinus rhythm. LDL cholesterol is 22, hemoglobin is 15.7 at his last admission. The neurologist did not feel patient needed a transesophageal echo and I am going to wait until the neurologist evaluates the patient. If they think a LYNSEY is necessary, we will go ahead and perform one. If not, we can continue with the rest of his workup. PAST MEDICAL HISTORY: Significant for paroxysmal atrial fibrillation, hypertension and dyslipidemia. CURRENT MEDICATIONS: Include Neurontin, Lipitor 80 daily, Xanax, Zestril 10 daily, atenolol 25 daily, aspirin and Eliquis. ALLERGIES: There are no known drug allergies. FAMILY HISTORY: Negative for premature coronary artery disease. SOCIAL HISTORY: Negative for current smoking, EtOH abuse, or drug abuse. REVIEW OF SYSTEMS: HEENT is unremarkable. Cardiac as described above. Respiratory as described above. GI negative. Genitourinary negative. Allergy/Immunology: Negative. SKIN: Negative. MUSCULOSKELETAL: Significant for arthritis. Psychosocial negative. Endocrine none. Derm negative. Constitutional negative. Oncological negative. CIRCULATION ANALYST as described above. Rest of the system review is not relevant. EXAM: Afebrile. Heart rate is 69 beats per minute. Blood pressure is 104/72. Respirations 18. O2 sat is 95% on room air. There is no jugular venous distention. Carotid upstroke is normal. There is no bruit. Chest exam reveals good air entry bilaterally. Heart exam reveals first and second heart sounds. No gallop. No murmur. Abdomen is soft, nontender. Exam of extremities did not reveal any edema. Peripheral pulses are felt. CIRCULATION ANALYST exam: Detailed CIRCULATION ANALYST exam had not been performed. ASSESSMENT: 1. Recurrent transient ischemic attack, rule out cardiac source of thromboembolic phenomenon. 2. Paroxysmal atrial fibrillation. 3. Hypertension. 4. Dyslipidemia. PLAN: So far further cardiac workup is negative. His prior stroke workup had been negative. I am going to wait for neurologist's input. If they need a LYNSEY, I will be happy to perform one and we will schedule and do it tomorrow. ZEINAB / ISMA: [id number] /
--- NOTE | 2019-02-23 13:37 | P.CNNES ---
History of Present Illness Consult date: 02/23/19 Reason for Consult: Stroke/TIA Chief complaint: Increased weakness bilaterally in his legs and arms and muffled speech History of Present Illness: HISTORY OF PRESENT ILLNESS: Thank you for allowing me to evaluate Mr. Bony Hollingsworth. Mr. Hollingsworth is a 53-year-old male with past medical history of atrial fibrillation, stroke (in December 2018 with right-sided weakness and vision loss and in 2009 with numbness and right and lower extremities and weakness), hearing deficit, hyperlipidemia, hypertension, memory impairment, [place], who presented to [facility] for lower extremity weakness. patient is with his at bedside. 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 He states that ever since he was started on gabapentin about 1 week ago for peripheral neuropathy (given by a Neurologist who did EEG and EMG/NCS that showed peripheral neuropathy). Patient reports that he feels significantly better today than yesterday in terms of his LE weakness, but patient feels that he has more weakness in his trunk area where he has difficult sitting up from a lying down position although once he sits down, he is stable, able to stand up on his own with a walker and able to walk. patient was also able to walk with a cane which patient usually walks with at home and drags his R leg. Pt denies any recent sickness, fever, headache, n ausea, vomiting, numbness/tingling, double/blurry vision. Patient has been compliant with all his meds. Pt was admitted here in early December, but he has not gotten his open MRI yet. Patient has difficult with extreme claustrophia where CT Head is intolerable to the patient. PAST MEDICAL HISTORY: atrial fibrillation, stroke (in December 2018 with right-sided weakness and v ision loss and in 2009 with numbness and right and lower extremities and weakness), hearing deficit, hyperlipidemia, hypertension, memory impairment, [place] PAST SURGICAL HISTORY: Adenoidectomy, cardiac ablation, heart catheterization, tonsillectomy, loop recorder placement HOME MEDICATIONS: Aspirin, lisinopril, atenolol, vitamin D, atorvastatin, gabapentin, Lorcaserin, Eliquis ALLERGIES: NKDA SOCIAL HISTORY: Former Smoker. Social drinker FAMILY HISTORY: Father with COPD, DVT, hyperlipidemia, hypertension, NE. Mother with breast cancer, thyroid disease, dementia. Sister with pancreatic cancer REVIEW OF SYSTEMS: The 14 systems are reviewed and no additional points are identified compared to the review of systems documented history and physical PHYSICAL EXAMINATION: VITAL SIGNS: T 98.3 HR 69 RR 18 BP 104/70 O2 sat 95% on RA GEN.: NAD, pleasant and cooperative HEENT: NCAT, sclera without icterus NECK: Supple SKIN AND EXTREMITIES: Warm to touch, no edema NEURO: MENTAL STATUS: Patient alert and oriented to self, place, time. Able to name the current president. Speech fluent, able to name and repeat, following all commands readily. Some word finding difficulty. No right and left disorientation, neglect. CRANIAL NERVES II THROUGH XII: II: Pupils are equal and reactive to light symmetrically. No afferent pupillary defect. Visual mukherjee deficit in the right upper quadrant in both eyes. Visual field III, IV, : No ptosis. Extraocular movements full. No nystagmus. V: Facial sensation intact V1-3. VII. no facial asymmetry. VIII. hearing intact to finger rub bilaterally. IX, X: Symmetric palate elevation. XI: Shoulder shrug is symmetric, difficulty raising his right shoulder. XII: Tongue midline without fasciculation or atrophy. MOTOR: Normal tone. Patient is able to lift his R shoulder, proximal arm and distal arm against gravity. Right leg, patient is able to lift it up against gravity but drops almost immediately. Left upper extremity and lower extremity are 5/5 in strength. SENSORY: Intact to light touch in all 4 extremities. Intact in left upper nausea bruits. REFLEXES: 2+ throughout. Toes are mute. COORDINATION: Finger to nose intact. No dysmetria. GAIT: patient is able to walk with his cane.. DIAGNOSTIC TESTING: LABORATORY: WBC 7.4 hemoglobin 15.7 platelets 288 PTT 10.1 INR 0.9 sodium 140 potassium 4.6 chloride 103 bicarb 28 BUN 19 creatinine 1.05 glucose 127 AST 32 ALT 45 alk phos 68 troponin <0.012 Total cholesterol 103 LDL 22 HDL 28 triglycerides 263 IMAGING: CT head without contrast 02/22/2019: No acute intracranial pathology. Chronic mucoperiosteal thickening involving the right maxillary and ethmoid air cells. Possible old infarct in L Basal Ganglia area. CTA head and neck with contrast 02/22/2019: No significant stenosis in either carotid system. Normal CTA of the [place] Echocardiogram transthoracic 90 09/08/2018: Sinus rhythm. Left ventricular size normal. Right ventricle is mildly enlarged. Left atrium is mildly dilated. Right atrium appears enlarged. Ejection fraction 50-55%. Intra-atrial intraventricular septum intact ASSESSMENT: 53-year-old male with past medical history of atrial fibrillation, stroke (in December 2018 with right-sided weakness and vision loss and in 2009 with numbness and right and lower extremities and weakness), hearing deficit, hyperlipidemia, hypertension, memory impairment, [place], who presented to [facility] for lower extremity weakness. CT Head showing hypodensity in L BG area. Patient with no worsening focal deficit although it's unusual that he has difficulty sitting up and with truncal strength. Patient was recently started on gabapentin and since last visit, patient was also started on lorcaserin for weight loss. I would recommend discontinuing both medications. There is no specific side effect profile of truncal or extremity weakness in either medication, but there's no other etiology of this recent weakness patient is reporting. Not concerned about a new stroke, and patient is already on Eliquis. RECOMMENDATIONS: 1. c/w Eliquis 2. Patient needs to get an MRI brain (needs open MRI as patient unable to tolerate normal MRI; pt has never gotten an MRI) 3. Patient should bring records of his loop recorder result to confirm diagnosis of atrial fibrillation 4. Discontinue Gabapentin and Lorcaserin 5. Follow-up with outpatient Neurologist within 2-3 weeks of discharge 6. Neurology will sign off at this time. Please call with additional questions or concerns. Past Medical History Past Medical History: Atrial Fibrillation, CVA/TIA, Hearing Disorder / Deafness, Hyperlipidemia, Hypertension, Memory Impairment, Myocardial Infarction (NE), Pneumonia Additional Past Medical History / Comment(s): 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 "Sleep Apnea, needs to have a Sleep Study." Slightly Hard of Hearing. Last Myocardial Infarction Date:: 2005, 2010,2011 History of Any Multi-Drug Resistant Organisms: None Reported Past Surgical History: Adenoidectomy, Cardiac Ablation, Heart Catheterization, Tonsillectomy Additional Past Surgical History / Comment(s): Cardiac ablation-unsuccessful per pt, loop recorders X3 one in currenty-02/22/2019, colonoscopy/benign polypectomy, cyst removed from buttock/anal area. Past Anesthesia/Blood Transfusion Reactions: Previous Problems w/ Anesthesia Additional Past Anesthesia/Blood Transfusion Reaction / Comment(s): WOKE UP A BIT MEAN AFTER (MANY YRS AGO). CLAUSTERPHOBIA. Past Psychological History: No Psychological Hx Reported Additional Psychological History / Comment(s): Pt resides with his spouse. He uses a cane to ambulate. He drives. Smoking Status: Former smoker Past Alcohol Use History: Occasional Additional Past Alcohol Use History / Comment(s): SMOKED SINCE AGE 19 1 PACK PER WEEK, QUIT IN 2005. Past Drug Use History: None Reported - Past Family History Father Family Medical History: COPD, Deep Vein Thrombosis (DVT), Hyperlipidemia, Hypertension, Myocardial Infarction (NE) Additional Family Medical History / Comment(s): Father had MIs with the first one being when he was about 65 yrs old. He had coronary stents. He at the age of 83 yrs. Mother Family Medical History: Cancer, Dementia, Thyroid Disorder Additional Family Medical History / Comment(s): Mother had breast cancer, diverticulitis, thyroid disease and from dementia at the age of 80 yrs. Sister(s) Family Medical History: Cancer Additional Family Medical History / Comment(s): Pancreatic cancer. Medications and Allergies Home Medications Medication Instructions Recorded Confirmed Type Aspirin [Adult Low Dose Aspirin EC] 81 mg PO DAILY 02/17/16 02/22/19 History Atenolol 25 mg PO DAILY 02/17/16 02/22/19 History Lisinopril [Zestril] 10 mg PO DAILY 02/17/16 02/22/19 History Ergocalciferol (Vitamin D2) 50,000 unit PO WICK 12/23/18 02/22/19 History [Vitamin D2] Apixaban [Eliquis] 5 mg PO BID #60 tab 12/25/18 02/22/19 Rx Atorvastatin [Lipitor] 80 mg PO HS #30 tab 12/25/18 02/22/19 Rx ALPRAZolam [Xanax] 0.5 - 1 mg PO ONCE PRN 02/22/19 02/22/19 History Acetaminophen Tab [Tylenol] 650 mg PO Q8H PRN 02/22/19 02/22/19 History Gabapentin [Neurontin] 200 mg PO HS 02/22/19 02/22/19 History Lorcaserin HCl [Belviq] 10 mg PO BID 02/22/19 02/22/19 History Allergies Allergy/AdvReac Type Severity Reaction Status Date / Time No Known Allergies Allergy Verified 02/23/19 10:00 Physical Examination - Vital Signs Vital Signs: Vital Signs Temp Pulse Pulse Resp BP BP BP 02/23/19 04:00 98.3 F 69 18 104/70 02/22/19 23:39 98.1 F 71 18 112/76 02/22/19 23:34 71 18 02/22/19 20:03 02/22/19 20:00 98.2 F 74 18 117/61 02/22/19 15:08 97.6 F 70 18 96/56 02/22/19 12:58 98.3 F 67 18 115/73 02/22/19 12:30 68 10 L 104/72 02/22/19 12:15 64 18 115/72 02/22/19 12:00 69 15 112/71 02/22/19 11:45 68 16 121/67 02/22/19 11:30 73 22 128/83 02/22/19 11:15 70 22 102/67 02/22/19 11:00 73 22 121/79 02/22/19 10:45 67 20 124/75 02/22/19 10:30 72 24 119/68 02/22/19 10:15 71 17 135/86 02/22/19 10:04 76 16 130/71 02/22/19 09:49 80 19 142/111 02/22/19 09:34 80 18 101/90 Pulse Ox 02/23/19 04:00 95 02/22/19 23:39 96 02/22/19 23:34 02/22/19 20:03 98 02/22/19 20:00 97 02/22/19 15:08 96 02/22/19 12:58 98 02/22/19 12:30 97 02/22/19 12:15 96 02/22/19 12:00 97 02/22/19 11:45 95 02/22/19 11:30 97 02/22/19 11:15 96 02/22/19 11:00 94 L 02/22/19 10:45 94 L 02/22/19 10:30 95 02/22/19 10:15 95 02/22/19 10:04 97 02/22/19 09:49 96 02/22/19 09:34 97 Intake and Output 02/22/19 02/23/19 02/23/19 22:59 06:59 14:59 Intake Total 580 480 Balance 580 480 Intake: Oral 580 480 Other: Voiding Method Toilet Toilet Urinal Urinal # Voids 1 # Bowel Movements 1 1 Weight 128.3 kg Results - Laboratory Findings CBC and BMP: 02/22/19 10:00 02/22/19 10:00 Abnormal Lab Findings: Abnormal Labs 02/22/19 02/22/19 10:00 10:00 Glucose 127 H Triglycerides 263 H HDL Cholesterol 28 L
[2019-02-23] MEDS: ACETAMINOPHEN TAB 325 MG TAB PO PRN (21:01)
[2019-02-23] MEDS: ATORVASTATIN 80 MG TAB PO SCH (21:01)
--- NOTE | 2019-02-23 22:09 | P.PN ---
Progress Note - Text Progress Note Date: 02/23/19 Chief Complaint: Slurred speech and weakness on the left side. History of presenting complaint: This is a 53-year-old patient of Dr. Baron. 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 Patient was here in January of this year and suffered an acute stroke in the left posterior cerebral artery circulation. Patient was at her family dinner sitting on a chair. Last night. When he tried to get up his legs felt weak. He already has right leg weakness and right arm weakness at the bedside. He will the left leg in the left often week. He also noticed that his speech was slowed cane. He had to be helped to his jeep. There was taken a hotel the and to the floor got all the clothes came down and the patient came home. Patient had to be helped from the garage to the room. Patient only uses cane to get about. Patient still weak on the left side. Patient's computed tomography scan of the brain and CT angiogram of the brain both unremarkable this morning. No change in vision. No change in swallowing. Today-speech is improved but not palpable baseline per the and patient's extension service specialist in charge who the room. Left-sided weakness much improved. LYNSEY was canceled by neurology. Review of systems: Was done for constitutional, cardiovascular, GI, pulmonary. Neurological, relevant finding as above Active Medications Acetaminophen (Tylenol Tab) 650 mg PO Q8H PRN PRN Reason: Fever and/ or Mild Pain Last Admin: 02/23/19 21:01 Dose: 650 mg Documented by: Apixaban (Eliquis) 5 mg PO BID [facility] Last Admin: 02/23/19 21:01 Dose: 5 mg Documented by: Atenolol (Tenormin) 25 mg PO DAILY [facility] Last Admin: 02/23/19 09:46 Dose: 25 mg Documented by: Atorvastatin Calcium (Lipitor) 80 mg PO HS [facility] Last Admin: 02/23/19 21:01 Dose: 80 mg Documented by: Ergocalciferol (Vitamin D2) 50,000 unit PO WICK [facility] Last Admin: 02/22/19 16:52 Dose: Not Given Documented by: Lisinopril (Zestril) 10 mg PO DAILY [facility] Last Admin: 02/23/19 09:46 Dose: 10 mg Documented by: Non-Formulary Medication (Lorcaserin Hcl [Belviq]) 10 mg PO BID [facility] Last Admin: 02/23/19 09:48 Dose: Not Given Documented by: Physical examination: VITAL SIGNS: 96.3, 60, 16, 93/51, 100% room air GENERAL: Sitting up in a chair, comfortable, EYES: Pupils equal. Conjunctiva normal. HEENT: External appearance of nose and ears normal, oral cavity grossly normal. NECK: JVD not raised; masses not palpable. HEART: First and second heart sounds are normal; no edema. LUNGS: Respiratory rate normal; clear to auscultation. ABDOMEN: Soft, nontender, liver spleen not palpable, no masses palpable. PSYCH: Alert and oriented x3; mood and affect normal. NEUROLOGICAL: No facial asymmetry. Speech is improved with minimal slowness. Power in both the arms and both the leg is 4/5. Investigations: LDL 22 White count 7.4 hemoglobin 15.7 platelets 288 potassium 4.6 creatinine 1.05 Troponin I less than 0.012 CT brain-nil acute CT angiogram of the brain-no significant stenosis in the carotid system, normal MRA of the [place] EKG tracing personally reviewed by me-normal sinus rhythm Assessment: -Clinically suspect stroke in the right middle cerebral artery area, affecting the speech and weakness in the left side, -Chronic right hemiparesis from an old stroke -History of atrial fibrillation but currently patient is normal sinus rhythm. -Essential hypertension -Hyperlipidemia -Obstructive sleep apnea -Coronary artery disease with a prior history of [place] -Chronic colonic down to closer -Morbid obesity BMI 42.4 -Chronic gait dysfunction from stroke uses a cane Plan: -Dr. spicer neurologist is arranging for an outpatient open MRI. Symptoms have significantly improved. Though not completely resolved. We'll do repeat computed tomography scan of the morning. Without contrast. Care was discussed the patient.
[2019-02-24] MEDS: LORCASERIN HCL 10 MG PO SCH ×2 (02:14→10:15)
[2019-02-24] MEDS: ACETAMINOPHEN TAB 325 MG TAB PO PRN ×2 (05:33→09:17)
[2019-02-24] MEDS: LISINOPRIL 10 MG TAB PO SCH (09:17)
[2019-02-24] MEDS: APIXABAN 5 MG TAB PO SCH (09:17)
[2019-02-24] MEDS: ATENOLOL 25 MG TAB PO SCH (09:17)
[2019-02-24 10:12] VITALS: BP 115/64; PULSE 80; RESP 18; TEMP 99
--- NOTE | 2019-02-24 12:05 | P.PN ---
Subjective Progress Note Date: 02/24/19 This is a 53-year-old gentleman with history of paroxysmal atrial fibrillation, hypertension, hyperlipidemia, prior CVA, history of prior ablation, presented to the hospital on this occasion with symptoms of visual disturbance as well as some weakness in the right arm and right leg. Patient has been on anticoagulation because of the paroxysmal atrial fibrillation and history of prior stroke. Initially cardiology consultation was requested for possible a LYNSEY. I did have a discussion with Dr. Ribera yesterday who is a neurologist, she does not recommend a LYNSEY at this time and does not feel that it is necessary. Her recommendation is that the patient be discharged home and have an outpatient open MRI. Patient is quite claustrophobic and is refusing to have any closed type of scans performed. Overall this morning the patient feels well, he has no complaints. Blood pressure 116/64, heart rate 80, 95% on room air. Objective - Vital Signs Vital signs: Vital Signs Temp 99 F 02/24/19 08:00 Pulse 80 02/24/19 08:00 Resp 18 02/24/19 08:00 BP 115/64 02/24/19 08:00 Pulse Ox 95 02/24/19 08:00 Intake & Output 02/23/19 02/24/19 02/24/19 18:59 06:59 18:59 Intake Total 1080 360 Balance 1080 360 Weight 136.8 kg Intake: Oral 1080 360 Other: Voiding Method Toilet Toilet Urinal Urinal # Voids 3 1 2 # Bowel Movements 1 - Exam PHYSICAL EXAMINATION: GENERAL: 53-year-old gentleman in no acute distress at the time of my examination HEENT: Head is atraumatic, normocephalic. Pupils equal, round. Sclera an icteric. Conjunctiva are clear. Mucous membranes of the mouth are moist. Neck is supple. There is no elevated jugular venous pressure. No carotid bruit is heard. HEART EXAMINATION: Heart S1, S2 normal. No murmur or gallop heard. CHEST EXAMINATION: Lungs are clear to auscultation and precussion. No chest wall tenderness is noted on palpation or with deep breathing. ABDOMEN: Soft, nontender. Bowel sounds are heard. No organomegaly noted. EXTREMITIES: 2+ peripheral pulses with no evidence of peripheral edema and no calf tenderness noted. NEUROLOGIC patient is awake, alert and oriented 3 . . - Labs CBC & Chem 7: 02/22/19 10:00 02/22/19 10:00 Assessment and Plan Plan: Assessment and plan #1 recurrent TIA, history of CVA and TIAs in the past #2 paroxysmal atrial fibrillation, on anticoagulation #3 hypertension #4 hyperlipidemia Plan From cardiology's perspective, it is felt by neurology that the patient does not require having a LYNSEY at this time, he is on anticoagulation for his atrial f ibrillation for stroke prevention. Recommendation from neurology the patient is scheduled for an outpatient open MRI. He will likely be discharged home today. DNP note has been reviewed, I agree with a documented findings and plan of care. Patient was seen and examined.
--- NOTE | 2019-02-24 23:29 | P.DS ---
Providers Date of admission: 02/22/19 11:41 Expected date of discharge: 02/24/19 Attending physician: William Calderón Consults: 02/22/19 11:41 Consult Physician Routine Consulting Provider: Courtney Ribera Consult Reason/Comments: CVA Do you want consulting provider notified?: Yes 02/22/19 22:51 Consult Physician Routine Consulting Provider: Merna Hoover Consult Reason/Comments: LYNSEY for embolic strokes suspected underlying A. fib Do you want consulting provider notified?: Yes Primary care physician: Jayme Walkermley [facility] Course: Chief Complaint: Slurred speech and weakness on the left side. Interval history: This is a 53-year-old patient of Dr. Baron. 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 Patient was here in January of this year and suffered an acute stroke in the left posterior cerebral artery circulation. Patient was at her family dinner sitting on a chair. Last night. When he tried to get up his legs felt weak. He already has right leg weakness and right arm weakness at the bedside. He will the left leg in the left often week. He also noticed that his speech was slowed cane. He had to be helped to his jeep. There was taken a hotel the and to the floor got all the clothes came down and the patient came home. Patient had to be helped from the garage to the room. Patient only uses cane to get about. Patient still weak on the left side. Patient's computed tomography scan of the brain and CT angiogram of the brain both unremarkable this morning. No change in vision. No change in swallowing. Patient's symptoms greatly improved. Discussed with Dr. ribera from neurology. She did not feel the need for LYNSEY. It was canceled. Because of claustrophobia patient have an open MRI as an outpatient. Patient did not want to get a repeat computed tomography scan this morning. Otherwise doing well. Discussion and discharge planning more than 35 minutes Consultation: Dr. ribera from neurology Dr. Kameron Goff from cardiology Physical examination: VITAL SIGNS: 99, 80, 18, 11 5/64, 95% room air GENERAL: Sitting up in a chair, comfortable, EYES: Pupils equal. Conjunctiva normal. HEENT: External appearance of nose and ears normal, oral cavity grossly normal. NECK: JVD not raised; masses not palpable. HEART: First and second heart sounds are normal; no edema. LUNGS: Respiratory rate normal; clear to auscultation. ABDOMEN: Soft, nontender, liver spleen not palpable, no masses palpable. PSYCH: Alert and oriented x3; mood and affect normal. NEUROLOGICAL: No facial asymmetry. Speech is back to baseline. Patient is c hronically weak on the right side. Left side, nearly back to normal. Investigations: LDL 22 White count 7.4 hemoglobin 15.7 platelets 288 potassium 4.6 creatinine 1.05 Troponin I less than 0.012 CT brain-nil acute CT angiogram of the brain-no significant stenosis in the carotid system, normal MRA of the [place] EKG tracing personally reviewed by me-normal sinus rhythm Assessment: -Possible TIA, affecting the speech and and the left side of the body. -Chronic right hemiparesis from an old stroke -History of atrial fibrillation but currently patient is normal sinus rhythm. -Essential hypertension -Hyperlipidemia -Obstructive sleep apnea -Coronary artery disease with a prior history of [place] -Chronic colonic down to closer -Morbid obesity BMI 42.4 -Chronic gait dysfunction from stroke uses a cane Disposition: Home Patient Condition at Discharge: Stable Plan - Discharge Summary Discharge Rx Participant: Yes New Discharge Prescriptions: Continue Aspirin [Adult Low Dose Aspirin EC] 81 mg PO DAILY Atenolol 25 mg PO DAILY Ergocalciferol (Vitamin D2) [Vitamin D2] 50,000 unit PO WICK Apixaban [Eliquis] 5 mg PO BID #60 tab Atorvastatin [Lipitor] 80 mg PO HS #30 tab Lorcaserin HCl [Belviq] 10 mg PO BID Gabapentin [Neurontin] 200 mg PO HS ALPRAZolam [Xanax] 0.5 - 1 mg PO ONCE PRN PRN Reason: PRIOR TO PROCEDURE/TESTING Acetaminophen Tab [Tylenol] 650 mg PO Q8H PRN PRN Reason: Fever and/ or Mild Pain Changed Lisinopril [Zestril] 10 mg PO HS #0 Discharge Medication List Aspirin [Adult Low Dose Aspirin EC] 81 mg PO DAILY 02/17/16 [History] Atenolol 25 mg PO DAILY 02/17/16 [History] Ergocalciferol (Vitamin D2) [Vitamin D2] 50,000 unit PO WICK 12/23/18 [History] Apixaban [Eliquis] 5 mg PO BID #60 tab 12/25/18 [Rx] Atorvastatin [Lipitor] 80 mg PO HS #30 tab 12/25/18 [Rx] ALPRAZolam [Xanax] 0.5 - 1 mg PO ONCE PRN 02/22/19 [History] Acetaminophen Tab [Tylenol] 650 mg PO Q8H PRN 02/22/19 [History] Gabapentin [Neurontin] 200 mg PO HS 02/22/19 [History] Lorcaserin HCl [Belviq] 10 mg PO BID 02/22/19 [History] Lisinopril [Zestril] 10 mg PO HS #0 02/24/19 [Rx] Follow up Appointment(s)/Referral(s): Danyel Arreaga MD [STAFF PHYSICIAN] - 03/10/19 10:00 am (Saturday with PA) Jayme Baron MD [Primary Care Provider] - 03/03/19 9:00 am (Saturday) Eric Oliveros MD [STAFF PHYSICIAN] - 1 Week (Spoke to secretary receptionist. Office to call with appointment time. ) Patient Instructions/Handouts: Ischemic Stroke (DC) Activity/Diet/Wound Care/Special Instructions: SET UP OUT PATIENT OPEN MRI PRIOR TO DISCHARGE - I will fax paperwork and order (when received) to [facility]. However, a prior auth is needed. Dr. Oliveros/PCP will have to handle this for you to establish an appointment time Discharge Disposition: HOME SELF-CARE
== END 2019-02-24 13:00 | disposition home or self-care (01) | DRG 69 ==
LOC: EC 09:06 → 3SCARD 11:41
PROVIDERS: ADMIT Hospitalist; ATTEND Hospitalist
DX: G45.9 Transient cerebral ischemic attack, unspecified (principal); I69.351 Hemiplegia and hemiparesis following cerebral infarction affecting right dominant side; Z68.41 Body mass index [BMI] 40.0-44.9, adult; R47.01 Aphasia; I65.29 Occlusion and stenosis of unspecified carotid artery; I10 Essential (primary) hypertension; E66.01 Morbid (severe) obesity due to excess calories; I48.0 Paroxysmal atrial fibrillation; H91.90 Unspecified hearing loss, unspecified ear; E78.5 Hyperlipidemia, unspecified; G47.33 Obstructive sleep apnea (adult) (pediatric); F40.240 Claustrophobia; I25.10 Atherosclerotic heart disease of native coronary artery without angina pectoris; Z95.818 Presence of other cardiac implants and grafts; Z79.82 Long term (current) use of aspirin; Z79.01 Long term (current) use of anticoagulants; Z79.899 Other long term (current) drug therapy; I25.2 Old myocardial infarction; Z87.01 Personal history of pneumonia (recurrent); Z90.89 Acquired absence of other organs; Z98.890 Other specified postprocedural states; Z87.891 Personal history of nicotine dependence; Z82.49 Family history of ischemic heart disease and other diseases of the circulatory system; Z82.5 Family history of asthma and other chronic lower respiratory diseases; Z80.0 Family history of malignant neoplasm of digestive organs; Z80.3 Family history of malignant neoplasm of breast
CPT/HCPCS: 36415; 70450; 70496; 70498; 80053; 80061; 84484; 85025; 85610; 85730; 93005; 94760; 96374; 99291

== ENCOUNTER → 2021-09-13 | Outpatient (CLI) | payer OTHER, MEDICARE ==
--- NOTE | 2021-09-13 13:31 | US ---
EXAMINATION TYPE: US venous doppler duplex LE RT DATE OF EXAM: 09/13/2021 1:13 PM COMPARISON: NONE CLINICAL HISTORY: Pain in right knee M25.561, I80.9 PHLEBITIS AND TH. pain and edema right leg. patie nt on blood thinner, history of A-FIB and CVA SIDE PERFORMED: right TECHNIQUE: The lower extremity deep venous system is examined utilizing real time linear array sonog tomy with graded compression, doppler sonography and color-flow sonography. VESSELS IMAGED: Common Femoral Vein Deep Femoral Vein Greater Saphenous Vein * Femoral Vein Popliteal Vein Small Saphenous Vein * Proximal Calf Veins (* superficial vessels) Right Leg: no evidence of DVT IMPRESSION: 1. Right lower extremity ultrasound negative for deep venous thrombosis.
== END | disposition home or self-care (01) ==
LOC: RADUSWWP 12:46
PROVIDERS: ATTEND Orthopaedic Surgery Sports Medicine
DX: M25.561 Pain in right knee (principal); I80.9 Phlebitis and thrombophlebitis of unspecified site; I48.91 Unspecified atrial fibrillation; Z86.73 Personal history of transient ischemic attack (TIA), and cerebral infarction without residual deficits

== ENCOUNTER 2022-04-03 05:45 | Day surgery (SDC) | payer OTHER, MEDICARE ==
[2022-03-29 15:30] VITALS: BMI 37.3
[2022-04-03] MEDS: SODIUM CHLORIDE 0.9% 1,000 ML IV SCH (06:23)
[2022-04-03 06:54] LABS: Potassium 4.6 mmol/L (3.5-5.1)
[2022-04-03 06:57] LABS: ALT 38 U/L (4-49); AST 29 U/L (17-59); African American GFR (CKD) >90 (>60 ml/min/1.73 sqM); Albumin 3.9 g/dL (3.5-5.0); Alkaline Phosphatase 73 U/L (38-126); Anion Gap 6 mmol/L; Blood Urea Nitrogen 20 mg/dL (9-20); Calcium 8.6 mg/dL (8.4-10.2); Carbon Dioxide 29 mmol/L (22-30); Chloride 104 mmol/L (98-107); Glucose 161 mg/dL (74-99); Non-African American GFR(CKD) >90 (>60 ml/min/1.73 sqM); Sodium 139 mmol/L (137-145); Total Bilirubin 0.8 mg/dL (0.2-1.3); Total Protein 6.5 g/dL (6.3-8.2)
[2022-04-03] MEDS ORDERED: fentaNYL (PF) 50 MCG/ML 2 ML AMP ONE (07:18)
[2022-04-03] MEDS ORDERED: PHENYLEPHRINE-0.9% NACL SYG 1,000 MCG/10 ML SYRINGE ONE (07:18)
[2022-04-03] MEDS ORDERED: MIDAZOLAM 2 MG/2 ML VIAL ONE (07:18)
[2022-04-03] MEDS ORDERED: ePHEDrine 50 MG/ML 1 ML VIAL ONE (07:18)
[2022-04-03] MEDS ORDERED: PROPOFOL 10 MG/ML 20 ML VIAL IV ONE (07:18)
[2022-04-03] MEDS ORDERED: ISOPROTERENOL 250 MCG/1.25 ML SYR IV ONE (07:18)
[2022-04-03] MEDS ORDERED: HYDROmorphone (PF) 1 MG/ML ONE (07:18)
[2022-04-03] MEDS ORDERED: PROTAMINE SULFATE 10 MG/ML 5 ML VIAL IV ONE (07:18)
[2022-04-03] MEDS ORDERED: SUCCINYLCHOLINE CHLORIDE 200 MG/10 ML VIAL IV ONE (07:18)
[2022-04-03] MEDS ORDERED: WATER FOR INJECTION, STERILE 10 ML VIAL IV ONE (07:18)
[2022-04-03] MEDS ORDERED: HEPARIN SODIUM,PORCINE 10,000 UNIT/ML 1 ML VIAL ONE (07:18)
[2022-04-03] MEDS ORDERED: HEPARIN SOD,PORK IN 0.45% NACL 25,000 UNIT in 0.45% NACL 1 250ML.BAG IV ONE (08:03)
[2022-04-03] MEDS ORDERED: LIDOCAINE 1% INJ 10MG/ML (30 ML VIAL-PF) SQ ONE ×2 (08:06→08:07)
[2022-04-03] MEDS ORDERED: ISOPROTERENOL 200 MCG/ML 5 ML AMP IV ONE (10:04)
[2022-04-03] MEDS ORDERED: IOPAMIDOL-370 100ML BTL INJ ONE (10:05)
[2022-04-03] MEDS ORDERED: ACETAMINOPHEN TAB 325 MG TAB PO PRN (11:03)
--- NOTE | 2022-04-03 11:09 | P.HPCAR ---
History of Present Illness This is Dr. Arreaga dictating an H/P on this patient The patient was interviewed and examined IMPRESSION / ASSESSMENT: Paroxysmal atrial fibrillation, symptomatic Hypertension Increased BMI Dyslipidemia PLAN: A. fib ablation with pulmonary vein isolation and linear ablation of left atrial septum HPI Patient experiences recurrent episodes of palpitations He is documented atrial fibrillation with RVR He is a loop monitor inserted which shows increased frequency of atrial fibrillation ROS: No fever chills or rigors, no cough, phlegm or expectoration, no nausea, vomiting or diarrhea, no hematuria, dysuria, no musculoskeletal complaints, no strokes or seizures, no skin lesions. EXAMINATION: Blood pressure 142/67 mmHg afebrile 98.9F pulse rate in the 60s Normal heart sounds no murmurs or gallop Clear lungs to rhonchi no crackles No JVD No lower extremity edema Increased BMI REVIEW OF LABS, ECG & MEDICAL DATA Medications include lisinopril atorvastatin atenolol aspirin ELIQUIS Physical Exam Vitals: Vital Signs Temp Pulse Pulse Resp BP BP Pulse Ox 04/03/22 11:00 78 18 103/63 96 04/03/22 10:45 97.0 F L 81 16 103/63 99 04/03/22 06:22 98.9 F 67 18 142/67 99 Intake and Output 04/02/22 04/03/22 04/03/22 22:59 06:59 14:59 Intake Total 20 813 Balance 20 813 Intake: IV 20 813 Past Medical History Past Medical History: Atrial Fibrillation, CVA/TIA, Hearing Disorder / Deafness, Hyperlipidemia, Hypertension, Memory Impairment, Myocardial Infarction ([place]), Pneumonia Additional Past Medical History / Comment(s): 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 "Sleep Apnea, needs to have a Sleep Study." Slightly Hard of Hearing. Last Myocardial Infarction Date:: 2005, 2010,2011 History of Any Multi-Drug Resistant Organisms: None Reported Past Surgical History: Adenoidectomy, Cardiac Ablation, Heart Catheterization, Tonsillectomy Additional Past Surgical History / Comment(s): Cardiac ablation-unsuccessful per pt, loop recorders X3 one in currenty-02/22/2019, colonoscopy/benign polypectomy, cyst removed from buttock/anal area. Past Anesthesia/Blood Transfusion Reactions: Previous Problems w/ Anesthesia Additional Past Anesthesia/Blood Transfusion Reaction / Comment(s): WOKE UP A BIT MEAN AFTER (MANY YRS AGO). CLAUSTERPHOBIA. Smoking Status: Former smoker - Past Family History Father Family Medical History: COPD, Deep Vein Thrombosis (DVT), Hyperlipidemia, Hypertension, Myocardial Infarction ([place]) Additional Family Medical History / Comment(s): Father had MIs with the first one being when he was about 65 yrs old. He had coronary stents. He at the age of 83 yrs. Mother Family Medical History: Cancer, Dementia, Thyroid Disorder Additional Family Medical History / Comment(s): Mother had breast cancer, diverticulitis, thyroid disease and from dementia at the age of 80 yrs. Sister(s) Family Medical History: Cancer Additional Family Medical History / Comment(s): Pancreatic cancer. Physical Examination Vital Signs Temp Pulse Pulse Resp BP BP Pulse Ox 04/03/22 11:00 78 18 103/63 96 04/03/22 10:45 97.0 F L 81 16 103/63 99 04/03/22 06:22 98.9 F 67 18 142/67 99 Intake and Output 04/02/22 04/03/22 04/03/22 22:59 06:59 14:59 Intake Total 20 813 Balance 20 813 Intake: IV 20 813 Results 04/03/22 06:25 Cardiac Enzymes 04/03/22 Range/Units 06:25 AST 29 (17-59) U/L Comprehensive Metabolic Panel 04/03/22 Range/Units 06:25 Sodium 139 (137-145) mmol/L Potassium 4.6 (3.5-5.1) mmol/L Chloride 104 (98-107) mmol/L Carbon Dioxide 29 (22-30) mmol/L BUN 20 (9-20) mg/dL Creatinine 0.85 (0.66-1.25) mg/dL Glucose 161 H (74-99) mg/dL Calcium 8.6 (8.4-10.2) mg/dL AST 29 (17-59) U/L ALT 38 (4-49) U/L Alkaline Phosphatase 73 (38-126) U/L Total Protein 6.5 (6.3-8.2) g/dL Albumin 3.9 (3.5-5.0) g/dL Current Medications Generic Name Dose Route Start Last Admin Trade Name Sal PRN Reason Stop Dose Admin Acetaminophen 650 mg 04/03/22 11:03 Acetaminophen Tab 325 Mg Tab PO 05/03/22 11:04 Q6HR PRN Mild Pain (Scale 1 to 3) Apixaban 5 mg 04/03/22 21:00 Apixaban 5 Mg Tab PO 05/03/22 21:01 BID [facility] Protocol Atenolol 50 mg 04/04/22 09:00 Atenolol 50 Mg Tab PO 05/04/22 09:01 DAILY [facility] Atorvastatin Calcium 80 mg 04/03/22 21:00 Atorvastatin 80 Mg Tab PO 05/03/22 21:01 HS [facility] Gabapentin 200 mg 04/03/22 16:00 Gabapentin 100 Mg Cap PO 05/03/22 16:01 TID YUE Lactated Ringer's 1,000 mls @ 20 mls/hr 04/03/22 05:54 Lactated Ringers IV 05/03/22 05:55 .Q24H [facility] Sodium Chloride 1,000 mls @ 20 mls/hr 04/03/22 05:54 04/03/22 06:23 Saline 0.9% IV 05/03/22 05:55 800 mls .Q24H YUE Administration Acetaminophen 1,000 mg/ IV 100 mls @ 400 mls/hr 04/03/22 11:03 Solution IVPB 04/03/22 11:17 ONCE ONE Lisinopril 10 mg 04/03/22 21:00 Lisinopril 10 Mg Tab PO 05/03/22 21:01 HS [facility] Non-Formulary Medication 81 mg 04/04/22 09:00 Aspirin [Adult Low Dose Aspirin Ec] PO 05/04/22 09:01 DAILY YUE Sodium Chloride 12 ml 04/03/22 11:03 Sodium Chloride 0.9% Flush 10 Ml Syringe IV 05/03/22 11:04 Q12HR PRN Line Flush Intake and Output 04/02/22 04/03/22 04/03/22 22:59 06:59 14:59 Intake Total 20 813 Balance 20 813 Intake: IV 20 813 04/03/22 06:25
--- NOTE | 2022-04-03 11:28 | P.EPPROC ---
- EP Procedure Note Electrophysiology Procedure Note: PROCEDURE A. fib ablation DIAGNOSIS Paroxysmal Atrial fibrillation, symptomatic, refractory to therapy History of Mobitz 2 AV block, hence avoid class I antiarrhythmic drugs Hypertension, preserved systolic function RESULT No left atrial appendage mass seen on intracardiac echo Increased echogenicity of the pericardium consistent with chronic pericarditis, on intracardiac echo Successful A. fib ablation/pulmonary vein isolation of all veins using cryo- ablation Complete entrance block in all 4 veins confirmed Left atrial septal ablation, successful Phrenic nerve function normal Esophageal deflection YES, left-sided esophagus, difficult to deflected PROCEDURE DETAILS Patient was brought to the EP lab in a fasting state after obtaining written informed consent. Procedure performed under general anesthesia Esophagus was intubated. Esophageal temperature monitoring with circa catheter. Esophageal deflection with an endoscope to avoid hypothermia of the esophagus. After initial muscle relaxant use, muscle relaxants were not given thereafter in order to assess phrenic nerve during procedure. Patient prepped and draped as per protocol Cryo ablation-set up with standard preparation of the cryoablation tools done. Femoral Venous access obtained on the right and left groins and sheaths placed Diagnostic catheters for the high right atrium, phrenic nerve stimulation and pacing, His bundle, coronary sinus placed Intracardiac echo catheter placed. Long sheath placed in the right atrium Left and right transseptal catheterization performed under intracardiac echo guidance. Intravenous heparin with aCT above 300 Later, catheter positioning and balloon positioning in the left atrium and pulmonary veins, under intracardiac echo guidance Diagnostic EP study with coronary sinus pacing and recording Baseline measurements: Sinus cycle length 851 ms, RI interval 106 ms, QRS 108 and QT interval 434 ms AH 67 ms and HV interval 35 ms Sinus node recovery times at 600, 504 100 ms were 1199, 1258 and 1231 ms. Corrected sinus recovery times normal Burst stimulation in the coronary sinus from 400 ms down to 200 ms No atrial fibrillation Transseptal catheterization performed RA pressure 13/7/10 LA pressure 22/11/8 Transseptal catheterization performed with standard sheath. The cryoablation sheath was then placed with an over the wire exchange without any acute complications. The cryoablation balloon was placed in the office of each pulmonary vein and all 4 pulmonary veins were isolated. IV dye was injected to confirm occlusion. Goal: achieve complete occlusion of the pulmonary vein, achieve -30 degrees C at 30 seconds and achieve -40 degrees C at 60 seconds and a time to effect of less than 60 seconds. If not, the balloon was repositioned to obtain this result After completion of Cryoblation with durations from 180-240 seconds, entrance block was confirmed with the Attain circular catheter in a roving fashion around the antrum of the pulmonary veins Phrenic nerve pacing was performed from the SVC, right innominate vein area and diaphragm voltage was monitored. Diaphragmatic contractions were also monitored manually for strength of contraction. Left atrial septal ablation performed with complete ablation of electrograms Ablation in the area of the left atrial septum resulted in very subtle weakness of the phrenic nerve. Positive phrenic nerve stimulation within the lower branch of the RS PV This lesion was terminated, the balloon was repositioned and a complete lesion was delivered for 3 minutes with ablation of the electrograms in the septum Stimulation positive in the lower branch of the right superior pulmonary vein At the end of the procedure the Achieve catheter was once again used to check for entrance block Phrenic nerve stimulation was performed to confirm diaphragmatic stimulation the end of the procedure Cine fluoroscopy was performed at the very end of the procedure to confirm movement of both diaphragms with inspiration and expiration At the end of the procedure the patient was extubated Venous sheaths were removed and hemostasis assured with a closure device PROCEDURES PERFORMED Diagnostic EP study CS pacing and recording Left and right transseptal catheterization Catheter the mapping of the tachycardia Intracardiac echocardiography Pulmonary vein isolation with transseptal and comprehensive EPS, [id number] Drug infusion, +[id number] Linear ablation, left atrium, +[id number]
[2022-04-03] MEDS ORDERED: ACETAMINOPHEN IV (For NPO) 1,000 MG in EMPTY BAG 1 BAG IVPB ONE (13:30)
[2022-04-03] MEDS: LACTATED RINGERS 1,000 ML IV SCH (13:59)
[2022-04-03] MEDS: GABAPENTIN 100 MG CAP PO SCH ×2 (15:27→20:08)
[2022-04-03 17:24] LABS: Basophils % (A) 0 %; Eosinophils # (A) 0.1 k/uL (0-0.7); Eosinophils % (A) 1 %; HCT 40.7 % (39.0-53.0); HGB 14.2 gm/dL (13.0-17.5); Lymphocytes # (A) 1.2 k/uL (1.0-4.8); Lymphocytes % (A) 11 %; MCHC 34.8 g/dL (31.0-37.0); MCV 88.9 fL (80.0-100.0); Mean Platelet Volume 8.1; Monocytes # (A) 0.4 k/uL (0-1.0); Monocytes % (A) 3 %; Neutrophils # (A) 8.7 k/uL (1.3-7.7); Neutrophils % (A) 83 %; Platelet Count 223 k/uL (150-450); RBC 4.57 m/uL (4.30-5.90); RDW 12.8 % (11.5-15.5); WBC 10.5 k/uL (3.8-10.6)
[2022-04-03] MEDS: HYDROcodone/APAP 5-325MG 1 EACH TAB PO PRN (20:08)
[2022-04-03] MEDS: APIXABAN 5 MG TAB PO SCH (20:08)
[2022-04-03] MEDS ORDERED: lisinopriL 10 MG TAB PO SCH (21:00)
[2022-04-03] MEDS ORDERED: ATORVASTATIN 80 MG TAB PO SCH (21:00)
[2022-04-04] MEDS: HYDROcodone/APAP 5-325MG 1 EACH TAB PO PRN (03:37)
[2022-04-04] MEDS: LACTATED RINGERS 1,000 ML IV SCH (04:49)
[2022-04-04] MEDS: SODIUM CHLORIDE 0.9% 1,000 ML IV SCH (04:49)
--- NOTE | 2022-04-04 07:55 | P.DS ---
Providers Attending physician: Danyel Arreaga Primary care physician: Jayme Walkermley [place] [facility] Course: Patient is resting comfortably in bed. He's been ambulating around the room He had low back pain yesterday and given some pain medications for that He also has a sore throat No chest pain no undue shortness of breath Right groin is mildly tender but there is no hematoma On examination But pressure on examination is within normal range Afebrile Normal heart rates Heart sounds are normal and regular no murmurs Breath sounds are clear Twelve-lead EKG shows sinus mechanism normal ST segments Impression Paroxysmal atrial fibrillation, symptomatic Status post pulmonary vein isolation/A. fib ablation, with complete isolation of all pulmonary veins and left atrial septum History of Mobitz 2 AV block in the past, patient has a loop monitor inserted Avoid antiarrhythmic drug therapy especially sodium channel blockers Dyslipidemia Normal TSH Increased BMI BMI 37 Hypertension Dyslipidemia Plan Ambulate If hemodynamic stable then discharged home Follow Dr. Arreaga in 1 week Reduce atenolol to 50 mg by mouth daily Continue all other medications including anticoagulation Follow-up with Dr. Baron Patient Condition at Discharge: Stable Plan - Discharge Summary Discharge Rx Participant: Yes New Discharge Prescriptions: Continue Aspirin [Adult Low Dose Aspirin EC] 81 mg PO DAILY atenoloL 25 mg PO DAILY Ergocalciferol (Vitamin D2) [Vitamin D2] 50,000 unit PO WICK Apixaban [Eliquis] 5 mg PO BID #60 tab Atorvastatin [Lipitor] 80 mg PO HS #30 tab Gabapentin [Neurontin] 200 mg PO TID ALPRAZolam [Xanax] 0.5 - 1 mg PO ONCE PRN PRN Reason: PRIOR TO PROCEDURE/TESTING Acetaminophen Tab [Tylenol] 650 mg PO Q8H PRN PRN Reason: Fever and/ or Mild Pain lisinopriL [Zestril] 10 mg PO HS #0 atenoloL [Tenormin] 50 mg PO DAILY Discharge Medication List Aspirin [Adult Low Dose Aspirin EC] 81 mg PO DAILY 02/17/16 [History] atenoloL 25 mg PO DAILY 02/17/16 [History] Ergocalciferol (Vitamin D2) [Vitamin D2] 50,000 unit PO WICK 12/23/18 [History] Apixaban [Eliquis] 5 mg PO BID #60 tab 12/25/18 [Rx] Atorvastatin [Lipitor] 80 mg PO HS #30 tab 12/25/18 [Rx] ALPRAZolam [Xanax] 0.5 - 1 mg PO ONCE PRN 02/22/19 [History] Acetaminophen Tab [Tylenol] 650 mg PO Q8H PRN 02/22/19 [History] Gabapentin [Neurontin] 200 mg PO TID 02/22/19 [History] lisinopriL [Zestril] 10 mg PO HS #0 02/24/19 [Rx] atenoloL [Tenormin] 50 mg PO DAILY 03/29/22 [History] Follow up Appointment(s)/Referral(s): Danyel Arreaga MD [STAFF PHYSICIAN] - 1 Week Patient Instructions/Handouts: Cardiac Ablation (DC) Activity/Diet/Wound Care/Special Instructions: Post EP study - Ablation instructions 1. Keep access sites dry for 2 days. 2. No heavy lifting or straining for 2 days. 3. Avoid bending the hips repeatedly for 2 days. 4. You may go up and down stairs slowly Call if the following is noted 1. Bleeding, increasing swelling or pain at the access sites. 2. Increasing chest discomfort, especially upon taking a deep breath. 3. Increasing shortness of breath, at rest or with exertion. 4. Undue cough / phlegm 5. Difficulty or pain while swallowing. 6. Pain or change in color in the extremities. 7. Fever, chills, rigors. 8. Increasing headache or neurologic symptoms. 9. Dizziness, fainting, palpitations Continue ELIQUIS all other cardiac medications unchanged Follow-up with Dr. Arreaga/Soo Brennan in 7 days Discharge Disposition: HOME SELF-CARE
[2022-04-04] MEDS ORDERED: atenoloL 50 MG TAB PO SCH (09:00)
[2022-04-04] MEDS ORDERED: ASPIRIN 81 MG PO SCH (09:00)
[2022-04-04 09:07] VITALS: BP 102/67; PULSE 83; RESP 16; TEMP 98.4
[2022-04-04] MEDS: APIXABAN 5 MG TAB PO SCH (09:18)
[2022-04-04] MEDS: GABAPENTIN 100 MG CAP PO SCH (09:18)
== END 2022-04-04 10:28 | disposition home or self-care (01) ==
LOC: CATHEP 05:45 → 6NMEDSUR 10:15 → CATHEP 04-04 10:28
PROVIDERS: ATTEND Internal Medicine Clinical Cardiac Electrophysiology
DX: I48.0 Paroxysmal atrial fibrillation (principal); E78.5 Hyperlipidemia, unspecified; G47.30 Sleep apnea, unspecified; I10 Essential (primary) hypertension; I25.2 Old myocardial infarction; R07.89 Other chest pain; Z68.37 Body mass index [BMI] 37.0-37.9, adult; Z79.01 Long term (current) use of anticoagulants; Z79.82 Long term (current) use of aspirin; Z79.899 Other long term (current) drug therapy; Z80.3 Family history of malignant neoplasm of breast; Z82.49 Family history of ischemic heart disease and other diseases of the circulatory system; Z83.49 Family history of other endocrine, nutritional and metabolic diseases; Z83.79 Family history of other diseases of the digestive system; Z86.73 Personal history of transient ischemic attack (TIA), and cerebral infarction without residual deficits; Z87.891 Personal history of nicotine dependence
CPT/HCPCS: 80053; 84443; 85025; 93657; C1894 ×2; C1769 ×4; C1760; C1730 ×2; C1759; C1893; C1733; C1766; J2001; J0131; Q9967; J1644; 93656; 93662

== ENCOUNTER 2022-04-05 09:22 | Emergency (ER) | payer OTHER, MEDICARE ==
--- NOTE | 2022-04-05 09:43 | ED ---
General Adult HPI - General Chief complaint: Recheck/Abnormal Lab/Rx Stated complaint: incision bleeding Time Seen by Provider: 04/05/22 09:27 Source: EMS, RN notes reviewed Mode of arrival: EMS Limitations: no limitations - History of Present Illness Initial comments: 56-year-old male with significant past medical history of attrial fibrillation, [place], hypertension presenting to the emergency department via EMS for postop problem. Patient had cardiac ablation at this facility on Saturday04/03/2022. She was discharged and instructed that is noted any bleeding at the incision site to return to the emergency department. Morning he woke up and noticed a small amount of blood on the bandage which prompted him to call EMS. He denies any activities that could've provoked this. Denies chest pain, palpitations, shortness of breath, weakness, dizziness. Pt admits to taking eliquis. - Related Data Home Medications Medication Instructions Recorded Confirmed Aspirin [Adult Low Dose Aspirin EC] 81 mg PO DAILY 02/17/16 03/29/22 Gabapentin [Neurontin] 200 mg PO TID 02/22/19 03/29/22 atenoloL [Tenormin] 50 mg PO DAILY 03/29/22 03/29/22 Ergocalciferol (Vitamin D2) 1,250 mcg PO WICK 04/05/22 04/05/22 [Drisdol (50,000 Iu)] Fluticasone Nasal [place] [Flonase 1 spray EA NOSTRIL DAILY 04/05/22 04/05/22 Nasal [place]] Saw Uehling 500 mg PO BID 04/05/22 04/05/22 Previous Rx's Medication Instructions Recorded Apixaban [Eliquis] 5 mg PO BID #60 tab 12/25/18 Atorvastatin [Lipitor] 80 mg PO HS #30 tab 12/25/18 lisinopriL [Zestril] 10 mg PO HS #0 02/24/19 Allergies Allergy/AdvReac Type Severity Reaction Status Date / Time No Known Allergies Allergy Verified 04/05/22 10:59 Review of Systems ROS Statement: Those systems with pertinent positive or pertinent negative responses have been documented in the HPI. ROS Other: All systems not noted in ROS Statement are negative. 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 "Sleep Apnea, needs to have a Sleep Study." Slightly Hard of Hearing. Last Myocardial Infarction Date:: 2005, 2010,2011 History of Any Multi-Drug Resistant Organisms: None Reported Past Surgical History: Adenoidectomy, Cardiac Ablation, Heart Catheterization, Tonsillectomy Additional Past Surgical History / Comment(s): Cardiac ablation-unsuccessful per pt, loop recorders X3 one in currenty-02/22/2019, colonoscopy/benign polypectomy, cyst removed from buttock/anal area. Past Anesthesia/Blood Transfusion Reactions: Previous Problems w/ Anesthesia Additional Past Anesthesia/Blood Transfusion Reaction / Comment(s): WOKE UP A BIT MEAN AFTER (MANY YRS AGO). CLAUSTERPHOBIA. Past Psychological History: Anxiety Smoking Status: Former smoker Past Alcohol Use History: Occasional Past Drug Use History: None Reported - Past Family History Father Family Medical History: COPD, Deep Vein Thrombosis (DVT), Hyperlipidemia, Hypertension, Myocardial Infarction ([place]) Additional Family Medical History / Comment(s): Father had MIs with the first one being when he was about 65 yrs old. He had coronary stents. He at the age of 83 yrs. Mother Family Medical History: Cancer, Dementia, Thyroid Disorder Additional Family Medical History / Comment(s): Mother had breast cancer, diverticulitis, thyroid disease and from dementia at the age of 80 yrs. Sister(s) Family Medical History: Cancer Additional Family Medical History / Comment(s): Pancreatic cancer. General Exam Limitations: no limitations Course Vital Signs 04/05/22 04/05/22 09:23 10:56 Temperature 98.1 F Pulse Rate 71 69 Respiratory 19 20 Rate Blood Pressure 131/78 106/64 O2 Sat by Pulse 97 97 Oximetry - Reevaluation(s) Reevaluation #1: 04/05/22 11:45: Spoke with Dr. Pool animal biologist on-call who believes patient is okay for discharge. He advised to have patient follow-up with Dr. Arreaga in the office. Medical Decision Making - Medical Decision Making 56-year-old male 2 days status post endometrial ablation for postoperative problem. PT was seen and evaluated in the emergency department. Physical exam is essentially unremarkable, R groin an incision without active bleeding throughout the course of his evaluation in the ED. Ultrasound negative for pseudoaneurysm. Discussed in detail the results with the patient patient verbalized understanding and discharged in stable condition. Return precautions discussed in detail. Patient verbalized understanding. I discussed the case with Dr. Trujillo who agrees plan to discharge. Disposition Clinical Impression: Encounter for wound re-check Disposition: HOME SELF-CARE Condition: Stable Instructions (If sedation given, give patient instructions): Hematoma (ED), Heart Catheterization (DC) Additional Instructions: Return to the nearest ER if worsening symptoms, uncontrolled bleeding increased, swelling at the surgical site, increased pain. Is patient prescribed a controlled substance at d/c from ED?: No Referrals: Jayme Baron MD [Primary Care Provider] - 1-2 days
[2022-04-05 10:57] VITALS: BP 106/64; PULSE 69; RESP 20
--- NOTE | 2022-04-05 11:44 | US ---
EXAMINATION TYPE: US lower ext pseudo artery RT DATE OF EXAM: 04/05/2022 COMPARISON: NONE CLINICAL HISTORY: bleeding at site. Rt groin pain with bleeding had ablation done on Saturday. EXAM PERFORMED: Grayscale and color Doppler duplex imaging performed of the groin, post cardiac lucia ter to assess for pseudoaneurysm. SIDE PERFORMED: Right Color and Waveform Doppler performed to assess for the presence of pseudoaneurysm; Is there ultrasound evidence of a pseudoaneurysm: no Is there evidence of AV shunting: no Is there a fluid collection present: no IMPRESSION: 1. No pseudocyst formation evident at this time in the right inguinal region
[2022-04-05 11:58] VITALS: TEMP 98.2
== END 2022-04-05 11:52 | disposition home or self-care (01) ==
LOC: EC 09:22
DX: Z48.00 Encounter for change or removal of nonsurgical wound dressing (principal); I48.91 Unspecified atrial fibrillation; G45.9 Transient cerebral ischemic attack, unspecified; I10 Essential (primary) hypertension; I25.2 Old myocardial infarction; F41.9 Anxiety disorder, unspecified; Z87.891 Personal history of nicotine dependence; Z79.82 Long term (current) use of aspirin; Z79.899 Other long term (current) drug therapy; Z79.01 Long term (current) use of anticoagulants
CPT/HCPCS: 93975; 99284

== ENCOUNTER 2022-07-15 07:51 | Emergency (ER) | payer OTHER, MEDICARE ==
[2022-07-15 07:56] VITALS: TEMP 98.1
[2022-07-15] MEDS ORDERED: SODIUM CHLORIDE 0.9% 500 ML 500 ML IV STA (08:09)
[2022-07-15] MEDS ORDERED: MORPHINE SULFATE 4 MG/ML SYRINGE IV STA (08:09)
--- NOTE | 2022-07-15 08:13 | ED ---
Skin/Abscess/FB HPI - General Chief complaint: Skin/Abscess/Foreign Body Stated complaint: Perianal Abscess Time Seen by Provider: 07/15/22 08:03 Source: patient, family, RN notes reviewed, old records reviewed Mode of arrival: ambulatory Limitations: no limitations - History of Present Illness Initial comments: This is a nontoxic-appearing 56-year-old male who presents to the emergency room with complaints of a perianal abscess that started on . States developed fever and chills last night with temperature of 101 with generalized malaise. Does have a history of perianal abscess 6 years ago, was hospitalized and incised and drained by Dr. Rivero. complaint: abscess/boil -: days(s) (4) Tetanus Up to Date: yes Location: buttocks Severity scale (1-10): 10 Quality: constant Consistency: constant Improves with: none Associated symptoms: fever, chills - Related Data Home Medications Medication Instructions Recorded Confirmed Aspirin [Adult Low Dose Aspirin EC] 81 mg PO DAILY 02/17/16 04/05/22 Gabapentin [Neurontin] 200 mg PO TID 02/22/19 04/05/22 atenoloL [Tenormin] 50 mg PO DAILY 03/29/22 04/05/22 Ergocalciferol (Vitamin D2) 1,250 mcg PO WICK 04/05/22 04/05/22 [Drisdol (50,000 Iu)] Fluticasone Nasal [place] [Flonase 1 spray EA NOSTRIL DAILY 04/05/22 04/05/22 Nasal [place]] [place] 500 mg PO BID 04/05/22 04/05/22 Previous Rx's Medication Instructions Recorded Apixaban [Eliquis] 5 mg PO BID #60 tab 12/25/18 Atorvastatin [Lipitor] 80 mg PO HS #30 tab 12/25/18 lisinopriL [Zestril] 10 mg PO HS #0 02/24/19 Ciprofloxacin HCl [Cipro] 500 mg PO Q12HR #20 tablet 07/15/22 metroNIDAZOLE [Flagyl] 500 mg PO TID 10 Days #30 tab 07/15/22 Allergies Allergy/AdvReac Type Severity Reaction Status Date / Time No Known Allergies Allergy Verified 07/15/22 07:56 Review of Systems ROS Statement: Those systems with pertinent positive or pertinent negative responses have been documented in the HPI. ROS Other: All systems not noted in ROS Statement are negative. 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 "Sleep Apnea, needs to have a Sleep Study." Slightly Hard of Hearing. Last Myocardial Infarction Date:: 2005, 2010,2011 History of Any Multi-Drug Resistant Organisms: None Reported Past Surgical History: Adenoidectomy, Cardiac Ablation, Heart Catheterization, Tonsillectomy Additional Past Surgical History / Comment(s): Cardiac ablation-unsuccessful per pt, loop recorders X3 one in currenty-02/22/2019, colonoscopy/benign polypectomy, cyst removed from buttock/anal area. Past Anesthesia/Blood Transfusion Reactions: Previous Problems w/ Anesthesia Additional Past Anesthesia/Blood Transfusion Reaction / Comment(s): WOKE UP A BIT MEAN AFTER (MANY YRS AGO). CLAUSTERPHOBIA. Past Psychological History: Anxiety Smoking Status: Former smoker Past Alcohol Use History: Occasional Past Drug Use History: None Reported - Past Family History Father Family Medical History: COPD, Deep Vein Thrombosis (DVT), Hyperlipidemia, Hypertension, Myocardial Infarction ([place]) Additional Family Medical History / Comment(s): Father had MIs with the first one being when he was about 65 yrs old. He had coronary stents. He at the age of 83 yrs. Mother Family Medical History: Cancer, Dementia, Thyroid Disorder Additional Family Medical History / Comment(s): Mother had breast cancer, diverticulitis, thyroid disease and from dementia at the age of 80 yrs. Sister(s) Family Medical History: Cancer Additional Family Medical History / Comment(s): Pancreatic cancer. General Exam Limitations: no limitations General appearance: alert, in no apparent distress Head exam: Present: atraumatic Eye exam: Absent: scleral icterus, conjunctival injection, periorbital swelling Neck exam: Absent: tenderness, meningismus Respiratory exam: Absent: respiratory distress, accessory muscle use GI/Abdominal exam: Present: soft. Absent: rigid Rectal exam: Present: tenderness (right of anus, no drainable abscess noted , previous excision scar noted). Absent: mass Extremities exam: Present: normal capillary refill Neurological exam: Present: alert, oriented X3 Psychiatric exam: Present: normal affect, normal mood Skin exam: Present: warm, dry, normal color. Absent: cyanosis, diaphoretic, petechiae, pallor Course Vital Signs 07/15/22 07/15/22 07:52 11:35 Temperature 98.1 F Pulse Rate 114 H 77 Respiratory 20 18 Rate Blood Pressure 141/79 130/88 O2 Sat by Pulse 97 96 Oximetry Medical Decision Making - Medical Decision Making Previous incision and drainage performed 02/06/[address] Rivero. States t his is his third recurrence in this area. Today on physical exam there is no evidence of a abscess. There is perianal tenderness near previous incision site. No evidence of rectal mass. Patient is afebrile. Patient was given pain medication Labs show no evidence of leukocytosis. CT performed showing a subtle thickening along the left perianal region of the perineum. Phlegmon could be considered. I did speak with Dr. Roberts who recommended if stable, outpatient antibiotics and follow up this week with surgeon. Patient is agreeable to this plan of care. Patient was prescribed Cipro and Flagyl directed to use sitz baths and follow-up with Dr. Yo tomorrow. Return with any new or concerning symptoms. He is agreeable to this plan of care. Case discussed with Dr. Sanon. Was pt. sent in by a medical professional or institution (, PA, SCIENTIFIC LINGUIST, urgent care, hospital, or [facility]...) When possible be specific @ -No Did you speak to anyone other than the patient for history (EMS, parent, family, police, friend...)? What history was obtained from this source @ -No Did you review nursing and triage notes (agree or disagree)? Why? @ -I reviewed and agree with nursing and triage notes Were old charts reviewed (outside hosp., previous admission, EMS record, old EKG, old radiological studies, urgent care reports/EKG's, [facility] records)? Report findings @ -yes previous CT report from perianal abscess Differential Diagnosis (chest pain, altered mental status, abdominal pain women, abdominal pain men, vaginal bleeding, weakness, fever, dyspnea, syncope, headache, dizziness, GI bleed, back pain, seizure, CVA, palpatations, mental health, musculoskeletal)? @ -Perianal abscess, hemorrhoid, pilonidal cyst, rectal prolapse this is not an all inclusive list EKG interpreted by me (3pts min.). @ -n/a X-rays interpreted by me (1pt min.). @ -None done CT interpreted by me (1pt min.). @ -yes evidence of perianal lesion left U/S interpreted by me (1pt. min.). @ -None done What testing was considered but not performed or refused? (CT, X-rays, U/S, labs)? Why? @ -None What meds were considered but not given or refused? Why? @ -None Did you discuss the management of the patient with other professionals (professionals i.e. , PA, SCIENTIFIC LINGUIST, lab, RT, psych nurse, director of social media marketing, pawn broker, teacher, accounts officer, director case)? Give summary @ -Dr. Roberts with surgery Was smoking cessation discussed for >3mins.? @ -No Was critical care preformed (if so, how long)? @ -No Were there social determinants of health that impacted care today? How? (Homelessness, low income, unemployed, alcoholism, drug addiction, milan sportation, low edu. Level, literacy, decrease access to med. care, senior living, rehab)? @ -No Was there de-escalation of care discussed even if they declined (Discuss DNR or withdrawal of care, Hospice)? DNR status @ -No What co-morbidities impacted this encounter? (DM, HTN, Smoking, COPD, CAD, Cancer, CVA, ARF, Chemo, Hep., AIDS, mental health diagnosis, sleep apnea, morbid obesity)? @ -A. fib, CVA, hypertension, obesity, CAD Was patient admitted / discharged? Hospital course, mention meds given and route, prescriptions, significant lab abnormalities, going to OR and other pertinent info. @ -discharged Undiagnosed new problem with uncertain prognosis? @ -No Drug Therapy requiring intensive monitoring for toxicity (Heparin, Nitro, Insulin, Cardizem)? @ -No Were any procedures done? @ -No Diagnosis/symptom? @ - perianal mass, phlegmon Acute, or Chronic, or Acute on Chronic? @ -acute on chronic Uncomplicated (without systemic symptoms) or Complicated (systemic symptoms)? @ -Uncomplicated Side effects of treatment? @ -No Exacerbation, Progression, or Severe Exacerbation? @ -No Poses a threat to life or bodily function? How? (Chest pain, [place], [place], pneumonia, PE, COPD, DKA, ARF, appy, cholecystitis, CVA, Diverticulitis, Homicidal, Suic idal, threat to staff... and all critical care pts) @ -No - Lab Data Result diagrams: 07/15/22 08:20 07/15/22 08:20 Lab Results 07/15/22 07/15/22 Range/Units 08:20 08:20 WBC 8.5 (3.8-10.6) k/uL RBC 5.45 (4.30-5.90) m/uL Hgb 16.1 (13.0-17.5) gm/dL Hct 46.7 (39.0-53.0) % MCV 85.6 (80.0-100.0) fL MCH 29.6 (25.0-35.0) pg MCHC 34.6 (31.0-37.0) g/dL RDW 12.1 (11.5-15.5) % Plt Count 271 (150-450) k/uL MPV 7.4 Neutrophils % 78 % Lymphocytes % 12 % Monocytes % 7 % Eosinophils % 2 % Basophils % 0 % Neutrophils # 6.6 (1.3-7.7) k/uL Lymphocytes # 1.0 (1.0-4.8) k/uL Monocytes # 0.6 (0-1.0) k/uL Eosinophils # 0.1 (0-0.7) k/uL Basophils # 0.0 (0-0.2) k/uL Sodium 137 (137-145) mmol/L Potassium 4.9 (3.5-5.1) mmol/L Chloride 103 (98-107) mmol/L Carbon Dioxide 28 (22-30) mmol/L Anion Gap 6 mmol/L BUN 18 (9-20) mg/dL Creatinine 0.84 (0.66-1.25) mg/dL Est GFR (CKD-EPI)AfAm >90 (>60 ml/min/1.73 sqM) Est GFR (CKD-EPI)NonAf >90 (>60 ml/min/1.73 sqM) Glucose 149 H (74-99) mg/dL Calcium 8.7 (8.4-10.2) mg/dL Total Bilirubin 0.8 (0.2-1.3) mg/dL AST 38 (17-59) U/L ALT 32 (4-49) U/L Alkaline Phosphatase 68 (38-126) U/L Total Protein 7.2 (6.3-8.2) g/dL Albumin 4.0 (3.5-5.0) g/dL Disposition Clinical Impression: Phlegmon Disposition: HOME SELF-CARE Condition: Good Instructions (If sedation given, give patient instructions): Abscess (ED) Additional Instructions: Sitz baths, antibiotics and pain medications as prescribed. Follow-up with Dr. Rivero tomorrow. Return to the emergency room with any new or concerning symptoms. Prescriptions: Ciprofloxacin HCl [Cipro] 500 mg PO Q12HR #20 tablet metroNIDAZOLE [Flagyl] 500 mg PO TID 10 Days #30 tab Is patient prescribed a controlled substance at d/c from ED?: No Referrals: Jayme Baron MD [Primary Care Provider] - 1-2 days Dylan Rivero MD [STAFF PHYSICIAN] - 1-2 days Renee Arguello DO [Doctor of Osteopathic Medicine] - 1-2 days Time of Disposition: 11:22
[2022-07-15 08:45] LABS: Basophils % (A) 0 %; Eosinophils # (A) 0.1 k/uL (0-0.7); Eosinophils % (A) 2 %; HCT 46.7 % (39.0-53.0); HGB 16.1 gm/dL (13.0-17.5); Lymphocytes % (A) 12 %; MCH 29.6 pg (25.0-35.0); MCHC 34.6 g/dL (31.0-37.0); MCV 85.6 fL (80.0-100.0); Mean Platelet Volume 7.4; Monocytes # (A) 0.6 k/uL (0-1.0); Monocytes % (A) 7 %; Neutrophils # (A) 6.6 k/uL (1.3-7.7); Neutrophils % (A) 78 %; Platelet Count 271 k/uL (150-450); RBC 5.45 m/uL (4.30-5.90); RDW 12.1 % (11.5-15.5); WBC 8.5 k/uL (3.8-10.6)
[2022-07-15 09:21] LABS: ALT 32 U/L (4-49); African American GFR (CKD) >90 (>60 ml/min/1.73 sqM); Anion Gap 6 mmol/L; Blood Urea Nitrogen 18 mg/dL (9-20); Calcium 8.7 mg/dL (8.4-10.2); Carbon Dioxide 28 mmol/L (22-30); Chloride 103 mmol/L (98-107); Glucose 149 mg/dL (74-99); Non-African American GFR(CKD) >90 (>60 ml/min/1.73 sqM); Sodium 137 mmol/L (137-145); Total Bilirubin 0.8 mg/dL (0.2-1.3)
[2022-07-15 09:27] LABS: AST 38 U/L (17-59); Potassium 4.9 mmol/L (3.5-5.1); Total Protein 7.2 g/dL (6.3-8.2)
[2022-07-15 09:28] LABS: Alkaline Phosphatase 68 U/L (38-126)
--- NOTE | 2022-07-15 10:41 | CT ---
EXAMINATION TYPE: CT abdomen pelvis w con DATE OF EXAM: 07/15/2022 COMPARISON: 07/16/2016 INDICATION: Left sided perianal pain. DLP: 3411.4 mGycm, Automated exposure control for dose reduction was used. CONTRAST: 100ml mL of Isovue 300. Study performed without Oral Contrast TECHNIQUE: Axial images were obtained from above the diaphragm to the pubic rami in the axial plane a t 5 mm thick sections. Reconstructed images are reviewed on the computer in the coronal plane. FINDINGS: Limited CT sections are obtained the lung bases. The lung bases are clear. CT ABDOMEN: Liver: There is a hepatic cyst right lobe liver. Spleen: Normal Pancreas: Normal Adrenal glands: The adrenal glands are normal. Gallbladder: Normal Kidneys: No masses are evident. No hydronephrosis is present. No cysts are present. Delayed images were obtained through the kidneys, which remain unremarkable. Aorta: Normal Inferior vena cava: Normal. CT PELVIS: At the level of the anus some subtle thickening may be present. This is estimated to measu re thickness of 1.7 cm. Example image 201 and 2007. No underlying abscess is identified. Minimal infl ammatory change may be adjacent. Loops of bowel within the abdomen and pelvis are normal. The study is lateral contrast limiting b owel evaluation. Appendix: Normal as visualized. Urinary bladder: Normal. Genitourinary structures: Prostate is normal. Osseous structures: No suspicious lytic or sclerotic lesions. IMPRESSIONS: 1. Subtle thickening along the left perianal region in the perineum. Phlegmon could be considered. F ollow-up is recommended.
[2022-07-15] MEDS ORDERED: traMADol 50 MG STARTER PACK 3 TAB BTL PO STA (11:22)
[2022-07-15] MEDS ORDERED: HYDROcodone/APAP 5-325MG 1 EACH TAB PO STA (11:23)
[2022-07-15 11:36] VITALS: BP 130/88; PULSE 77; RESP 18
== END 2022-07-15 11:36 | disposition home or self-care (01) ==
LOC: EC 07:51
DX: L02.91 Cutaneous abscess, unspecified (principal); I48.91 Unspecified atrial fibrillation; I10 Essential (primary) hypertension; I25.2 Old myocardial infarction; F41.9 Anxiety disorder, unspecified; Z87.891 Personal history of nicotine dependence; Z86.73 Personal history of transient ischemic attack (TIA), and cerebral infarction without residual deficits; Z79.82 Long term (current) use of aspirin; Z79.899 Other long term (current) drug therapy
CPT/HCPCS: 36415; 80053; 85025; 87040; 74177; 99284; 96374; 96361; J2270; Q9967

== ENCOUNTER 2022-08-13 11:13 | Day surgery (SDC) | payer OTHER, MEDICARE ==
[~2022-08-13 11:13] MED LIST changes: +LACTATED RINGERS 1,000 ML IV SCH; +LIDOCAINE 1% (10MG/ML) FOR IV START INTRADERMA PRN; -LIDOCAINE 1% INJ 10MG/ML (20 ML MDV) SQ ONE; -MIDAZOLAM (PF) 2 MG/2 ML VIAL IV ONE; -SODIUM CHLORIDE 0.9% 1,000 ML IV ONE; -SODIUM CHLORIDE 0.9% 1,000 ML IV SCH
[2022-08-13 11:58] VITALS: TEMP 97.4
[2022-08-13] MEDS ORDERED: PROPOFOL 10 MG/ML 20 ML VIAL IV ONE (12:21)
--- NOTE | 2022-08-13 12:35 | P.OP ---
Date of Procedure: 08/13/22 Preoperative Diagnosis: History of colon polyps Postoperative Diagnosis: External hemorrhoids Diverticulosis Procedure(s) Performed: Colonoscopy Anesthesia: MAC Surgeon: Dylan Rivero Pathology: none sent Condition: stable Disposition: PACU Description of Procedure: The patient's placed on the endoscopy table in the lateral position. She received IV sedation. The digital rectal exam performed which revealed a few external hemorrhoids. Possible colonoscope was then placed patient anus and passed throughout the entire colon. The ileocecal valve was visualized. The cecum, ascending and transverse colon pleural. In the descending; there is mild diverticular changes. The scope was then brought back the rectum this appeared normal. Scope withdrawn to anus. There were some minimal internal hemorrhoids. Scope withdrawn for patient.
[2022-08-13 13:36] VITALS: BP 129/71; PULSE 55; RESP 95
== END 2022-08-13 13:35 | disposition home or self-care (01) ==
LOC: ORWHC2ENDO 11:13
PROVIDERS: ATTEND Surgery
DX: Z12.11 Encounter for screening for malignant neoplasm of colon (principal); K57.30 Diverticulosis of large intestine without perforation or abscess without bleeding; K64.4 Residual hemorrhoidal skin tags; K64.8 Other hemorrhoids; I25.10 Atherosclerotic heart disease of native coronary artery without angina pectoris; I10 Essential (primary) hypertension; E78.5 Hyperlipidemia, unspecified; I48.91 Unspecified atrial fibrillation; G47.33 Obstructive sleep apnea (adult) (pediatric); F41.9 Anxiety disorder, unspecified; I69.351 Hemiplegia and hemiparesis following cerebral infarction affecting right dominant side; H91.90 Unspecified hearing loss, unspecified ear; K61.0 Anal abscess; Z79.01 Long term (current) use of anticoagulants; Z79.899 Other long term (current) drug therapy; Z79.82 Long term (current) use of aspirin
CPT/HCPCS: 45378; J2704

== ENCOUNTER 2022-12-05 13:52 | Observation (INO) | payer OTHER, MEDICARE ==
[2022-12-05] MEDS ORDERED: SODIUM CHLORIDE 0.9% 1,000 ML IV STA (14:21)
--- NOTE | 2022-12-05 14:22 | ED ---
Weakness HPI - General Chief complaint: Weakness Stated complaint: post op comp Time Seen by Provider: 12/05/22 14:16 Source: patient, EMS Mode of arrival: EMS Limitations: no limitations - History of Present Illness Initial comments: This is a 56-year-old male to the emergency department for evaluation of fever today. Patient developed fever after abscess incision and drainage yesterday. Left upper back abscess with active drainage was opened patient was sent home. Patient developed fever today with worsening symptoms. Patient has no complex medical history and history of recurrent abscess, nondiabetic but does have high blood pressure high cholesterol. MD Complaint: generalized weakness (Fever back pain) -: days(s) Location: other (Severe shoulder pain left with history of abscess removal in that area) Consistency: constant Improves with: none Worsens with: none Context: recent illness, recent surgery, history of similar Associated Symptoms: shortness of breath - Related Data Home Medications Medication Instructions Recorded Confirmed Aspirin [Adult Low Dose Aspirin EC] 81 mg PO DAILY 02/17/16 12/05/22 Gabapentin [Neurontin] 200 mg PO BID@0800,1400 02/22/19 12/05/22 Ergocalciferol (Vitamin D2) 1,250 mcg PO WICK 04/05/22 12/05/22 [Drisdol (50,000 Iu)] Saw [place] 500 mg PO BID 04/05/22 12/05/22 lisinopriL [Zestril] 15 mg PO DAILY 08/08/22 12/05/22 Atorvastatin [Lipitor] 80 mg PO DAILY 12/05/22 12/05/22 Gabapentin [Neurontin] 300 mg PO HS@2000 12/05/22 12/05/22 Sulfamethox-Tmp 800-160Mg [Bactrim 1 tab PO DIRECTED 12/05/22 12/05/22 DS 800-160 mg] atenoloL [Tenormin] 25 mg PO DAILY 12/05/22 12/05/22 Previous Rx's Medication Instructions Recorded Apixaban [Eliquis] 5 mg PO BID #60 tab 12/25/18 Cephalexin [Keflex] 500 mg PO Q8HR 7 Days #21 cap 12/07/22 Allergies Allergy/AdvReac Type Severity Reaction Status Date / Time No Known Allergies Allergy Verified 12/05/22 17:14 Review of Systems ROS Statement: Those systems with pertinent positive or pertinent negative responses have been documented in the HPI. ROS Other: All systems not noted in ROS Statement are negative. 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 VISION LOSS RESOLVED. Hx CVA 2009 with R sided weakness and numbness upper and lower extremities and short term memory loss, MIs X3, chronic low back pain, R shoulder and R ankle pain, seasonal allergies, sinus problems. "Sleep Apnea, needs to have a Sleep Study." Slightly Hard of Hearing. Last Myocardial Infarction Date:: 2005, 2010,2011 History of Any Multi-Drug Resistant Organisms: None Reported Past Surgical History: Adenoidectomy, Cardiac Ablation, Heart Catheterization, Tonsillectomy Additional Past Surgical History / Comment(s): Cardiac ablation-unsuccessful per pt, loop recorders X3 one in currenty-02/22/2019, colonoscopy/benign polypectomy, cyst removed from buttock/anal area 2018;left shoulder 12/04/2022. Past Anesthesia/Blood Transfusion Reactions: Previous Problems w/ Anesthesia Additional Past Anesthesia/Blood Transfusion Reaction / Comment(s): WOKE UP A BIT MEAN AFTER (MANY YRS AGO). CLAUSTERPHOBIA. Past Psychological History: No Psychological Hx Reported Smoking Status: Former smoker Past Alcohol Use History: Occasional Past Drug Use History: None Reported - Past Family History Father Family Medical History: COPD, Deep Vein Thrombosis (DVT), Hyperlipidemia, Hypertension, Myocardial Infarction (SC) Additional Family Medical History / Comment(s): Father had MIs with the first one being when he was about 65 yrs old. He had coronary stents. He at the age of 83 yrs. Mother Family Medical History: Cancer, Dementia, Thyroid Disorder Additional Family Medical History / Comment(s): Mother had breast cancer, diverticulitis, thyroid disease and from dementia at the age of 80 yrs. Sister(s) Family Medical History: Cancer Additional Family Medical History / Comment(s): Pancreatic cancer. General Exam - General Exam Comments Initial Comments: Patient does have healed abscess with 2 sutures placed on his left back Limitations: no limitations General appearance: alert, in no apparent distress Head exam: Present: atraumatic, normocephalic, normal inspection Eye exam: Present: normal appearance, PERRL, EOMI. Absent: scleral icterus, conjunctival injection, periorbital swelling ENT exam: Present: normal exam, mucous membranes moist Neck exam: Present: normal inspection. Absent: tenderness, meningismus, lymphadenopathy Respiratory exam: Present: normal lung sounds bilaterally. Absent: respiratory distress, wheezes, rales, rhonchi, stridor Cardiovascular Exam: Present: regular rate, normal rhythm, normal heart sounds. Absent: systolic murmur, diastolic murmur, rubs, gallop, clicks GI/Abdominal exam: Present: soft, normal bowel sounds. Absent: distended, tenderness, guarding, rebound, rigid Extremities exam: Present: normal inspection, full ROM, normal capillary refill. Absent: tenderness, pedal edema, joint swelling, calf tenderness Back exam: Present: normal inspection Neurological exam: Present: alert, oriented X3, CN II-XII intact Psychiatric exam: Present: normal affect, normal mood Skin exam: Present: warm, dry, intact, normal color. Absent: rash Course Vital Signs 12/05/22 12/05/22 12/05/22 13:54 15:22 16:36 Temperature 99.7 F H 98.8 F 99.1 F Pulse Rate 83 84 80 Respiratory 18 18 16 Rate Blood Pressure 134/70 131/77 130/75 O2 Sat by Pulse 97 96 97 Oximetry 12/05/22 18:10 Temperature 99.7 F H Pulse Rate 78 Respiratory 19 Rate Blood Pressure 133/83 O2 Sat by Pulse 98 Oximetry - Reevaluation(s) Reevaluation #1: 12/05/22 15:44 Medical records reviewed Reevaluation #2: 12/05/22 15:45 Patient symptoms relatively unchanged Still with fever, again sutures are removed here in the ER Reevaluation #3: 12/05/22 18:24 Sutures for abscess were removed Patient informed of results and questions answered patient still feels lightheaded dizzy and weak and can be admitted for hydration monitoring of sepsis Reevaluation #4: 12/05/22 15:45 Was pt. sent in by a medical professional or institution (, PA, LICENSING ANALYST, urgent care, hospital, or long term...) When possible be specific @ -no Did you speak to anyone other than the patient for history (EMS, parent, family, police, friend...)? What history was obtained from this source @ -no Did you review nursing and triage notes (agree or disagree)? Why? @ -agree Are old charts reviewed (outside hosp., previous admission, EMS record, old EKG, old radiological studies, urgent care reports/EKG's, long term records)? Report findings @ -yes Differential Diagnosis (chest pain, altered mental status, abdominal pain women, abdominal pain men, vaginal bleeding, weakness, fever, dyspnea, syncope, headache, dizziness, GI bleed, back pain, seizure, CVA, palpatations, mental health, musculoskeletal)? @ -prior EKG interpreted by me (3pts min.). @ -yes X-rays interpreted by me (1pt min.). @ -no CT interpreted by me (1pt min.). @ -no U/S interpreted by me (1pt. min.). @ -no What testing was considered but not performed or refused? (CT, X-rays, U/S, labs)? Why? @ -none What meds were considered but not given or refused? Why? @ -none Did you discuss the management of the patient with other professionals (professionals i.e. , PA, LICENSING ANALYST, lab, RT, psych nurse, social worker masters, hog cutter, teacher, amphibious operations officer, rn case manager)? Give summary @ -no Was smoking cessation discussed for >3mins.? @ -no Was critical care preformed (if so, how long)? @ -no Were there social determinants of health that impacted care today? How? (Homelessness, low income, unemployed, alcoholism, drug addiction, transpo rtation, low edu. Level, literacy, decrease access to med. care, intermediate, rehab)? @ -none Was there de-escalation of care discussed even if they declined (Discuss DNR or withdrawal of care, Hospice)? DNR status @ -no What co-morbidities impacted this encounter? (DM, HTN, Smoking, COPD, CAD, Cancer, CVA, ARF, Chemo, Hep., AIDS, mental health diagnosis, sleep apnea, morbid obesity)? @ -none Was patient admitted / discharged? Hospital course, mention meds given and route, prescriptions, significant lab abnormalities, going to OR and other pertinent info. @ - 56 male to the emergency department for evaluation of abscess back abscess which was I&D in patient is placed on antibiotics. Patient initially had abscesses opened and drained and closed with 2 sutures which are removed here in the ER, Patient is having persistent fever here in the ER severe pain he will be admitted for IV antibiotics and surgical evaluation of wound Admitted Undiagnosed new problem with uncertain prognosis? @ -no Drug Therapy requiring intensive monitoring for toxicity (Heparin, Nitro, Insulin, Cardizem)? @ -no Were any procedures done? @ -no Diagnosis/symptom? @ -Recurrent abscess rule out sepsis Acute, or Chronic, or Acute on Chronic? @ -Acute Uncomplicated (without systemic symptoms) or Complicated (systemic symptoms)? @ -Complicated Side effects of treatment? @ -no Exacerbation, Progression, or Severe Exacerbation? @ -exacerbation Poses a threat to life or bodily function? How? (Chest pain, USA, SC, pneumonia, PE, COPD, DKA, ARF, appy, cholecystitis, CVA, Diverticulitis, Homicidal, Suicidal, threat to staff... and all critical care pts) @ -yes with sepsis Reevaluation #5: 12/05/22 15:45 Differential Fever: Pneumonia, viral URI, endocarditis, myocarditis, pericarditis, otitis, sinusitis, peritonsillar Abscess, retropharyngeal Abscess, epiglottitis, peritonitis, appendicitis, [place] cystitis, diverticulitis, hepatitis, colitis, UTI, PID, TOA, pyelonephritis, prostatitis, epididymitis, meningitis, encephalitis, pulmonary embolism, CVA, thyroid storm, pancreatitis, adrenal crisis, cavernous sinus thrombosis, this is not meant to be an all-inclusive list. EKG Findings - EKG Comments: EKG Findings:: EKG sinus 80 OK 161 QRS 92 QTC 391 - EKG Results: EKG: interpreted by MORIAH Medical Decision Making - Medical Decision Making 56 male to the emergency department for evaluation of abscess back abscess which was I&D in patient is placed on antibiotics. Patient initially had abscesses opened and drained and closed with 2 sutures which are removed here in the ER, Patient is having persistent fever here in the ER severe pain he will be admitted for IV antibiotics and surgical evaluation of wound - Lab Data Result diagrams: 12/07/22 06:37 12/07/22 06:37 Lab Results 12/05/22 12/05/22 12/05/22 Range/Units 14:30 14:30 14:30 WBC 6.1 (3.8-10.6) k/uL RBC 4.99 (4.30-5.90) m/uL Hgb 15.2 (13.0-17.5) gm/dL Hct 43.5 (39.0-53.0) % MCV 87.1 (80.0-100.0) fL MCH 30.4 (25.0-35.0) pg MCHC 34.9 (31.0-37.0) g/dL RDW 12.2 (11.5-15.5) % Plt Count 185 (150-450) k/uL MPV 8.5 Neutrophils % 81 % Lymphocytes % 11 % Monocytes % 5 % Eosinophils % 3 % Basophils % 0 % Neutrophils # 5.0 (1.3-7.7) k/uL Lymphocytes # 0.7 L (1.0-4.8) k/uL Monocytes # 0.3 (0-1.0) k/uL Eosinophils # 0.2 (0-0.7) k/uL Basophils # 0.0 (0-0.2) k/uL PT 9.9 (9.0-12.0) sec INR 0.9 (<1.2) APTT 23.0 (22.0-30.0) sec Sodium 133 L (137-145) mmol/L Potassium 4.3 (3.5-5.1) mmol/L Chloride 102 (98-107) mmol/L Carbon Dioxide 23 (22-30) mmol/L Anion Gap 8 mmol/L BUN 15 (9-20) mg/dL Creatinine 0.68 (0.66-1.25) mg/dL Est GFR (CKD-EPI)AfAm >90 (>60 ml/min/1.73 sqM) Est GFR (CKD-EPI)NonAf >90 (>60 ml/min/1.73 sqM) Glucose 125 H (74-99) mg/dL Plasma Lactic Acid Mp (0.7-2.0) mmol/L Calcium 8.4 (8.4-10.2) mg/dL Phosphorus 3.6 (2.5-4.5) mg/dL Magnesium 1.8 (1.6-2.3) mg/dL Total Bilirubin 0.6 (0.2-1.3) mg/dL AST 27 (17-59) U/L ALT 28 (4-49) U/L Alkaline Phosphatase 81 (38-126) U/L Troponin I (0.000-0.034) ng/mL NT-Pro-B Natriuret Pep 176 pg/mL Total Protein 6.5 (6.3-8.2) g/dL Albumin 3.6 (3.5-5.0) g/dL TSH 0.510 (0.465-4.680) mIU/L Urine Color Urine Appearance (Clear) Urine pH (5.0-8.0) Ur Specific [place] (1.001-1.035) Urine Protein (Negative) Urine Glucose (UA) (Negative) Urine Ketones (Negative) Urine Blood (Negative) Urine Nitrite (Negative) Urine Bilirubin (Negative) Urine Urobilinogen (<2.0) mg/dL Ur Leukocyte Esterase (Negative) 12/05/22 12/05/22 12/05/22 Range/Units 14:30 14:30 16:00 WBC (3.8-10.6) k/uL RBC (4.30-5.90) m/uL Hgb (13.0-17.5) gm/dL Hct (39.0-53.0) % MCV (80.0-100.0) fL MCH (25.0-35.0) pg MCHC (31.0-37.0) g/dL RDW (11.5-15.5) % Plt Count (150-450) k/uL MPV Neutrophils % % Lymphocytes % % Monocytes % % Eosinophils % % Basophils % % Neutrophils # (1.3-7.7) k/uL Lymphocytes # (1.0-4.8) k/uL Monocytes # (0-1.0) k/uL Eosinophils # (0-0.7) k/uL Basophils # (0-0.2) k/uL PT (9.0-12.0) sec INR (<1.2) APTT (22.0-30.0) sec Sodium (137-145) mmol/L Potassium (3.5-5.1) mmol/L Chloride (98-107) mmol/L Carbon Dioxide (22-30) mmol/L Anion Gap mmol/L BUN (9-20) mg/dL Creatinine (0.66-1.25) mg/dL Est GFR (CKD-EPI)AfAm (>60 ml/min/1.73 sqM) Est GFR (CKD-EPI)NonAf (>60 ml/min/1.73 sqM) Glucose (74-99) mg/dL Plasma Lactic Acid Mp 1.4 (0.7-2.0) mmol/L Calcium (8.4-10.2) mg/dL Phosphorus (2.5-4.5) mg/dL Magnesium (1.6-2.3) mg/dL Total Bilirubin (0.2-1.3) mg/dL AST (17-59) U/L ALT (4-49) U/L Alkaline Phosphatase (38-126) U/L Troponin I <0.012 (0.000-0.034) ng/mL NT-Pro-B Natriuret Pep pg/mL Total Protein (6.3-8.2) g/dL Albumin (3.5-5.0) g/dL TSH (0.465-4.680) mIU/L Urine Color Yellow Urine Appearance Clear (Clear) Urine pH 6.0 (5.0-8.0) Ur Specific [place] 1.024 (1.001-1.035) Urine Protein Negative (Negative) Urine Glucose (UA) Negative (Negative) Urine Ketones Negative (Negative) Urine Blood Negative (Negative) Urine Nitrite Negative (Negative) Urine Bilirubin Negative (Negative) Urine Urobilinogen <2.0 (<2.0) mg/dL Ur Leukocyte Esterase Negative (Negative) - EKG Data -: EKG Interpreted by Me Disposition Clinical Impression: Fever, Dehydration, Abscess, Abscess of left shoulder Disposition: ADMITTED IP TO THIS HOSP Condition: Fair Is patient prescribed a controlled substance at d/c from ED?: No Time of Disposition: 17:00
[2022-12-05] MEDS ORDERED: VANCOMYCIN IV PER PHARMACY 1 EACH MISC MISCELLANE PRN (14:46)
[2022-12-05 14:54] LABS: Basophils % (A) 0 %; Eosinophils # (A) 0.2 k/uL (0-0.7); Eosinophils % (A) 3 %; HCT 43.5 % (39.0-53.0); HGB 15.2 gm/dL (13.0-17.5); Lymphocytes # (A) 0.7 k/uL (1.0-4.8); Lymphocytes % (A) 11 %; MCH 30.4 pg (25.0-35.0); MCHC 34.9 g/dL (31.0-37.0); MCV 87.1 fL (80.0-100.0); Mean Platelet Volume 8.5; Monocytes # (A) 0.3 k/uL (0-1.0); Monocytes % (A) 5 %; Neutrophils % (A) 81 %; Platelet Count 185 k/uL (150-450); RBC 4.99 m/uL (4.30-5.90); RDW 12.2 % (11.5-15.5); WBC 6.1 k/uL (3.8-10.6)
[2022-12-05 15:02] LABS: INR 0.9 (<1.2); Prothrombin Time 9.9 sec (9.0-12.0)
[2022-12-05 15:13] LABS: ALT 28 U/L (4-49); AST 27 U/L (17-59); African American GFR (CKD) >90 (>60 ml/min/1.73 sqM); Albumin 3.6 g/dL (3.5-5.0); Alkaline Phosphatase 81 U/L (38-126); Anion Gap 8 mmol/L; Blood Urea Nitrogen 15 mg/dL (9-20); Calcium 8.4 mg/dL (8.4-10.2); Carbon Dioxide 23 mmol/L (22-30); Chloride 102 mmol/L (98-107); Glucose 125 mg/dL (74-99); Magnesium 1.8 mg/dL (1.6-2.3); Non-African American GFR(CKD) >90 (>60 ml/min/1.73 sqM); Potassium 4.3 mmol/L (3.5-5.1); Sodium 133 mmol/L (137-145); Total Bilirubin 0.6 mg/dL (0.2-1.3); Total Protein 6.5 g/dL (6.3-8.2)
[2022-12-05 15:22] LABS: NT-Pro-B-Type Natriuretic Pept 176 pg/mL
[2022-12-05] MEDS ORDERED: VANCOMYCIN 2,500 MG in SODIUM CHLORIDE 0.9% 500 ML 500 ML IVPB ONE (15:30)
[2022-12-05 15:36] LABS: Phosphorus 3.6 mg/dL (2.5-4.5)
[2022-12-05 16:15] LABS: Appearance,Urine Clear (Clear); Bilirubin,Urine Negative (Negative); Blood,Urine Negative (Negative); Color,Urine Yellow; Glucose,Urine (UA) Negative (Negative); Ketones,Urine Negative (Negative); Leukocyte Esterase,Urine Negative (Negative); Nitrite,Urine Negative (Negative); Protein,Urine Negative (Negative); Specific Gravity,Urine 1.024 (1.001-1.035); Urobilinogen,Urine <2.0 mg/dL (<2.0)
[2022-12-05] MEDS ORDERED: ACETAMINOPHEN TAB 325 MG TAB PO PRN (16:58)
[2022-12-05] MEDS ORDERED: NALOXONE 0.4 MG/ML 1 ML VIAL IV PRN (16:58)
[2022-12-05] MEDS ORDERED: IBUPROFEN 400 MG TAB PO PRN (16:58)
[2022-12-05] MEDS: SODIUM CHLORIDE 0.9% 1,000 ML IV SCH (18:08)
[2022-12-05] MEDS: APIXABAN 5 MG TAB PO SCH (22:26)
[2022-12-05] MEDS: GABAPENTIN 300 MG CAP PO SCH (22:26)
[2022-12-05] MEDS: VANCOMYCIN 2,000 MG in SODIUM CHLORIDE 0.9% 500 ML 500 ML IVPB SCH (23:55)
[2022-12-06] MEDS: SODIUM CHLORIDE 0.9% 1,000 ML IV SCH ×2 (03:47→11:30)
[2022-12-06 06:27] LABS: African American GFR (CKD) >90 (>60 ml/min/1.73 sqM); Non-African American GFR(CKD) >90 (>60 ml/min/1.73 sqM)
[2022-12-06] MEDS: ASPIRIN 81 MG PO SCH (08:15)
[2022-12-06] MEDS: VANCOMYCIN 2,000 MG in SODIUM CHLORIDE 0.9% 500 ML 500 ML IVPB SCH ×2 (08:15→15:19)
[2022-12-06] MEDS: ATORVASTATIN 80 MG TAB PO SCH (08:15)
[2022-12-06] MEDS: lisinopriL 5 MG TAB PO SCH (08:15)
[2022-12-06] MEDS: GABAPENTIN 100 MG CAP PO SCH ×2 (08:15→13:58)
[2022-12-06] MEDS: atenoloL 25 MG TAB PO SCH (08:15)
[2022-12-06] MEDS: APIXABAN 5 MG TAB PO SCH ×2 (08:15→20:42)
[2022-12-06] MEDS: MORPHINE SULFATE 4 MG/ML SYRINGE IV PRN ×2 (13:58→20:42)
--- NOTE | 2022-12-06 14:04 | P.GSCN ---
History of Present Illness Consult date: 12/06/22 Reason for Consult: Infected sebaceous cyst History of present illness: 56-year-old male here for complaints of fevers and left upper back pain. Patient was seen by his primary care doctor 2 days ago and had a sebaceous cyst that was infected lanced. Apparently 2 sutures were left in place. These were removed by the ER physicians yesterday. Patient came back into the ER complaining of pain and difficulty with fevers and redness. T-max 100.0. White blood cell count normal. Apparently has not been draining for the last day or so. 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 VISION LOSS RESOLVED. Hx CVA 2009 with R sided weakness and numbness upper and lower extremities and short term memory loss, MIs X3, chronic low back pain, R shoulder and R ankle pain, seasonal allergies, sinus problems. "Sleep Apnea, needs to have a Sleep Study." Slightly Hard of Hearing. Last Myocardial Infarction Date:: 2005, 2010,2011 History of Any Multi-Drug Resistant Organisms: None Reported Past Surgical History: Adenoidectomy, Cardiac Ablation, Heart Catheterization, Tonsillectomy Additional Past Surgical History / Comment(s): Cardiac ablation-unsuccessful per pt, loop recorders X3 one in currenty-02/22/2019, colonoscopy/benign polypectomy, cyst removed from buttock/anal area 2018;left shoulder 12/04/2022. Past Anesthesia/Blood Transfusion Reactions: Previous Problems w/ Anesthesia Additional Past Anesthesia/Blood Transfusion Reaction / Comm: WOKE UP A BIT MEAN AFTER (MANY YRS AGO). CLAUSTERPHOBIA. Past Psychological History: No Psychological Hx Reported Additional Psychological History / Comment(s): Pt resides with his spouse. He uses a cane to ambulate. He drives. Smoking Status: Former smoker Past Alcohol Use History: Occasional Additional Past Alcohol Use History / Comment(s): SMOKED SINCE AGE 19 1 PACK PER WEEK, QUIT IN 2005. Past Drug Use History: None Reported - Past Family History Father Family Medical History: COPD, Deep Vein Thrombosis (DVT), Hyperlipidemia, Hypertension, Myocardial Infarction (MD) Additional Family Medical History / Comment(s): Father had MIs with the first one being when he was about 65 yrs old. He had coronary stents. He at the age of 83 yrs. Mother Family Medical History: Cancer, Dementia, Thyroid Disorder Additional Family Medical History / Comment(s): Mother had breast cancer, diverticulitis, thyroid disease and from dementia at the age of 80 yrs. Sister(s) Family Medical History: Cancer Additional Family Medical History / Comment(s): Pancreatic cancer. Medications and Allergies Home Medications Medication Instructions Recorded Confirmed Type Aspirin [Adult Low Dose Aspirin EC] 81 mg PO DAILY 02/17/16 12/05/22 History Apixaban [Eliquis] 5 mg PO BID #60 tab 12/25/18 12/05/22 Rx Gabapentin [Neurontin] 200 mg PO BID@0800,1400 02/22/19 12/05/22 History Ergocalciferol (Vitamin D2) 1,250 mcg PO WICK 04/05/22 12/05/22 History [Drisdol (50,000 Iu)] Saw [place] 500 mg PO BID 04/05/22 12/05/22 History lisinopriL [Zestril] 15 mg PO DAILY 08/08/22 12/05/22 History Atorvastatin [Lipitor] 80 mg PO DAILY 12/05/22 12/05/22 History Gabapentin [Neurontin] 300 mg PO HS@199912/05/22 12/05/22 History Sulfamethox-Tmp 800-160Mg [Bactrim 1 tab PO DIRECTED 12/05/22 12/05/22 History DS 800-160 mg] atenoloL [Tenormin] 25 mg PO DAILY 12/05/22 12/05/22 History Allergies Allergy/AdvReac Type Severity Reaction Status Date / Time No Known Allergies Allergy Verified 12/05/22 17:14 Surgical - Exam Vital Signs Temp Pulse Resp BP Pulse Ox 99.7 F H 83 18 134/70 97 12/05/22 13:54 12/05/22 13:54 12/05/22 13:54 12/05/22 13:54 12/05/22 13:54 Physical exam: General: Well-developed, well-nourished HEENT: Normocephalic, sclerae nonicteric Abdomen: Nontender, nondistended Extremities edema, left upper back with induration and erythema measuring 5 x 6 cm, small 1 cm incision vertically in the center which is closed, some fluctuance present, mild tenderness Neuro: Alert and oriented Results - Labs 12/05/22 14:30 12/06/22 05:43 Abnormal Lab Results - Last 24 Hours (Table) 12/05/22 12/05/22 Range/Units 14:30 14:30 Lymphocytes # 0.7 L (1.0-4.8) k/uL Sodium 133 L (137-145) mmol/L Glucose 125 H (74-99) mg/dL Diabetes panel 12/05/22 12/06/22 Range/Units 14:30 05:43 Sodium 133 L (137-145) mmol/L Potassium 4.3 (3.5-5.1) mmol/L Chloride 102 (98-107) mmol/L Carbon Dioxide 23 (22-30) mmol/L BUN 15 (9-20) mg/dL Creatinine 0.68 0.75 (0.66-1.25) mg/dL Glucose 125 H (74-99) mg/dL Calcium 8.4 (8.4-10.2) mg/dL AST 27 (17-59) U/L ALT 28 (4-49) U/L Alkaline Phosphatase 81 (38-126) U/L Total Protein 6.5 (6.3-8.2) g/dL Albumin 3.6 (3.5-5.0) g/dL Thyroid panel 12/05/22 Range/Units 14:30 TSH 0.510 (0.465-4.680) mIU/L Calcium panel 12/05/22 Range/Units 14:30 Calcium 8.4 (8.4-10.2) mg/dL Phosphorus 3.6 (2.5-4.5) mg/dL Albumin 3.6 (3.5-5.0) g/dL Pituitary panel 12/05/22 12/06/22 Range/Units 14:30 05:43 Sodium 133 L (137-145) mmol/L Potassium 4.3 (3.5-5.1) mmol/L Chloride 102 (98-107) mmol/L Carbon Dioxide 23 (22-30) mmol/L BUN 15 (9-20) mg/dL Creatinine 0.68 0.75 (0.66-1.25) mg/dL Glucose 125 H (74-99) mg/dL Calcium 8.4 (8.4-10.2) mg/dL TSH 0.510 (0.465-4.680) mIU/L Adrenal panel 12/05/22 12/06/22 Range/Units 14:30 05:43 Sodium 133 L (137-145) mmol/L Potassium 4.3 (3.5-5.1) mmol/L Chloride 102 (98-107) mmol/L Carbon Dioxide 23 (22-30) mmol/L BUN 15 (9-20) mg/dL Creatinine 0.68 0.75 (0.66-1.25) mg/dL Glucose 125 H (74-99) mg/dL Calcium 8.4 (8.4-10.2) mg/dL Total Bilirubin 0.6 (0.2-1.3) mg/dL AST 27 (17-59) U/L ALT 28 (4-49) U/L Alkaline Phosphatase 81 (38-126) U/L Total Protein 6.5 (6.3-8.2) g/dL Albumin 3.6 (3.5-5.0) g/dL Assessment and Plan (1) Abscess Narrative/Plan: 56-year-old male with infected left upper back sebaceous cyst. Area where the scar was from the previous I&D was reopened at the bedside with blunt dissection. Serous sanguinous fluid was evacuated. Wound will be packed with iodophor gauze. Continue antibiotics. Current Visit: Yes Status: Acute Code(s): L02.91 - CUTANEOUS ABSCESS, UNSPECIFIED SNOMED Code(s): 703479193
[2022-12-06] MEDS: GABAPENTIN 300 MG CAP PO SCH (20:42)
[2022-12-06] MEDS ORDERED: SODIUM CHLORIDE 0.9% 1,000 ML IV SCH (23:45)
[2022-12-07] MEDS: VANCOMYCIN 2,000 MG in SODIUM CHLORIDE 0.9% 500 ML 500 ML IVPB SCH ×2 (00:05→08:19)
--- NOTE | 2022-12-07 00:06 | P.HPIM ---
History of Present Illness H&P Date: 12/06/22 Chief Complaint: Back abscess Patient is a 56-year-old man with a known history of hypertension, hyperlipidemia, hearing disorder/deafness, memory impairment, history of [place] s/p cardiac cath and atrial fibrillation on anticoagulation with Eliquis and history of cardiac ablation and prior history of smoking as well as chronic back pain presents to ER with complaints of fever, worsening pain in the I&D site. Patient states that he was seen by his primary care physician due to left upper back abscess with active drainage. I&D was done by his primary care physician and 2 sutures were placed. Patient was still having increasing pain and also developed a fever and presented to ER. Patient was Bactrim at home. On admission Tmax 100 F. Pulse ox 97% on room air. EKG showed sinus rhythm. Laboratory data showed WBC 6.1, hemoglobin 15.1 platelets 185 Sodium 133 potassium 4.3 chloride 102 bicarb is 23 BUN 59 creatinine 0.68 and blood sugar 125 magnesium 1.8 and liver Elevated and troponin x1 negative and proBNP 176 Urinalysis is negative for infection. Review of Systems Constitutional: Patient does have fever at home. No chills . no Generalized weakness. Abdomen: Patient denied any nausea or vomiting or abd. pain Cardiovascular: Patient denies any chest pain or short of breath no palpitations. Respiratory: patient denied any cough . no sputum production. No shortness of breath Neurologic: Patient denied any numbness or tingling headache. Musculoskeletal: Patient denies any complaints of joint swelling or deformity. Back abscess and pain. Skin: No rash Psychiatric: Negative Endocrine: No heat or cold intolerance. No recent weight gain. Genitourinary: No dysuria or hematuria. 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 VISION LOSS RESOLVED. Hx CVA 2009 with R sided weakness and numbness upper and lower extremities and short term memory loss, MIs X3, chronic low back pain, R shoulder and R ankle pain, seasonal allergies, sinus problems. "Sleep Apnea, needs to have a Sleep Study." Slightly Hard of Hearing. Last Myocardial Infarction Date:: 2005, 2010 History of Any Multi-Drug Resistant Organisms: None Reported Past Surgical History: Adenoidectomy, Cardiac Ablation, Heart Catheterization, T onsillectomy Additional Past Surgical History / Comment(s): Cardiac ablation-unsuccessful per pt, loop recorders X3 one in currenty-02/22/2019, colonoscopy/benign polypectomy, cyst removed from buttock/anal area 2018;left shoulder 12/04/2022. Past Anesthesia/Blood Transfusion Reactions: Previous Problems w/ Anesthesia Additional Past Anesthesia/Blood Transfusion Reaction / Comment(s): WOKE UP A BIT MEAN AFTER (MANY YRS AGO). CLAUSTERPHOBIA. Past Psychological History: No Psychological Hx Reported Additional Psychological History / Comment(s): Pt resides with his spouse. He uses a cane to ambulate. He drives. Smoking Status: Former smoker Past Alcohol Use History: Occasional Additional Past Alcohol Use History / Comment(s): SMOKED SINCE AGE 19 1 PACK PER WEEK, QUIT IN 2005. Past Drug Use History: None Reported - Past Family History Father Family Medical History: COPD, Deep Vein Thrombosis (DVT), Hyperlipidemia, Hypertension, Myocardial Infarction ([place]) Additional Family Medical History / Comment(s): Father had MIs with the first one being when he was about 65 yrs old. He had coronary stents. He at the age of 83 yrs. Mother Family Medical History: Cancer, Dementia, Thyroid Disorder Additional Family Medical History / Comment(s): Mother had breast cancer, diverticulitis, thyroid disease and from dementia at the age of 80 yrs. Sister(s) Family Medical History: Cancer Additional Family Medical History / Comment(s): Pancreatic cancer. Medications and Allergies Home Medications Medication Instructions Recorded Confirmed Type Aspirin [Adult Low Dose Aspirin EC] 81 mg PO DAILY 02/17/16 12/05/22 History Apixaban [Eliquis] 5 mg PO BID #60 tab 12/25/18 12/05/22 Rx Gabapentin [Neurontin] 200 mg PO BID@0800,1400 02/22/19 12/05/22 History Ergocalciferol (Vitamin D2) 1,250 mcg PO WICK 04/05/22 12/05/22 History [Drisdol (50,000 Iu)] Saw [place] 500 mg PO BID 04/05/22 12/05/22 History lisinopriL [Zestril] 15 mg PO DAILY 08/08/22 12/05/22 History Atorvastatin [Lipitor] 80 mg PO DAILY 12/05/22 12/05/22 History Gabapentin [Neurontin] 300 mg PO HS@2000 12/05/22 12/05/22 History Sulfamethox-Tmp 800-160Mg [Bactrim 1 tab PO DIRECTED 12/05/22 12/05/22 History DS 800-160 mg] atenoloL [Tenormin] 25 mg PO DAILY 12/05/22 12/05/22 History Allergies Allergy/AdvReac Type Severity Reaction Status Date / Time No Known Allergies Allergy Verified 12/05/22 17:14 Physical Exam Vitals: Vital Signs Temp Pulse Resp BP Pulse Ox 12/06/22 19:04 99.5 F 84 18 116/75 96 12/06/22 11:32 98.4 F 71 18 126/78 97 12/06/22 07:10 98.7 F 85 18 138/78 97 12/06/22 02:00 99 F 84 16 133/81 97 Intake and Output 12/06/22 12/06/22 12/07/22 14:59 22:59 06:59 Other: Voiding Method Toilet # Voids 1 PHYSICAL EXAMINATION: Patient is lying in the bed comfortably, no acute distress, awake alert and oriented.. HEENT: Normocephalic. Neck is supple. Pupils reactive. Nostrils clear. Oral cavity is moist. Neck reveals no JVD, carotid bruits, or thyromegaly. CHEST EXAMINATION: Trachea is central. Symmetrical expansion. Lung mukherjee clear to auscultation and percussion. CARDIAC: Normal S1, S2 with no gallops. No murmurs ABDOMEN: Soft. Bowel sounds present. Nontender. No organomegaly. No abdominal bruits. Extremities: reveal no edema. No clubbing or cyanosis Neurologically awake, alert, oriented x3 with well-coordinated movements. No focal deficits noted Skin: Left upper back abscess site is bandaged. No purulent discharge noted.. Psychiatric: Coperative. Nonsuicidal, Musculoskeletal: No joint swelling or deformity. Normal range of motion. Results CBC & Chem 7: 12/05/22 14:30 12/06/22 05:43 Thrombosis Risk Factor Assmnt - DVT/VTE Prophylaxis DVT/VTE Prophylaxis: Pharmacologic Prophylaxis ordered Assessment and Plan Assessment: Left upper back abscess with worsening pain and fever. Status post I&D 1 week ago.. Failed outpatient antibiotic therapy. Hypertension Hyperlipidemia History of CVA in 2009 with right-sided weakness and numbness and short-term memory loss. Paroxysmal atrial fibrillation on anticoagulation with Eliquis History of ablation History of [place] Hearing disorder/deafness Prior history of smoking Obesity with BMI 39.6 DVT prophylaxis patient is already on Eliquis Plan: Patient will be continued on antibiotics vancomycin. Was given dose of ceftriaxone in the ER. Patient was seen by general surgery and sutures were removed at bedside and noted to have serosanguineous discharge. Continue with home medications and follow-up closely. Time with Patient: Greater than 30
[2022-12-07] MEDS: MORPHINE SULFATE 4 MG/ML SYRINGE IV PRN ×2 (00:46→08:27)
[2022-12-07] MEDS: SODIUM CHLORIDE 0.9% 1,000 ML IV SCH ×2 (03:48→03:49)
[2022-12-07] MEDS ORDERED: VANCOMYCIN TROUGH DUE 1 EACH MISC MISCELLANE ONE (07:00)
[2022-12-07 07:08] LABS: African American GFR (CKD) >90 (>60 ml/min/1.73 sqM); Anion Gap 11 mmol/L; Blood Urea Nitrogen 8 mg/dL (9-20); Calcium 7.9 mg/dL (8.4-10.2); Carbon Dioxide 20 mmol/L (22-30); Chloride 104 mmol/L (98-107); Glucose 177 mg/dL (74-99); Non-African American GFR(CKD) >90 (>60 ml/min/1.73 sqM); Potassium 4.1 mmol/L (3.5-5.1); Sodium 135 mmol/L (137-145)
[2022-12-07] MEDS: GABAPENTIN 100 MG CAP PO SCH ×2 (08:18→13:55)
[2022-12-07] MEDS: lisinopriL 5 MG TAB PO SCH (08:18)
[2022-12-07] MEDS: APIXABAN 5 MG TAB PO SCH (08:19)
[2022-12-07] MEDS: ASPIRIN 81 MG PO SCH (08:19)
[2022-12-07] MEDS: atenoloL 25 MG TAB PO SCH (08:19)
[2022-12-07] MEDS: ATORVASTATIN 80 MG TAB PO SCH (08:19)
[2022-12-07 08:41] VITALS: RESP 16
[2022-12-07 11:04] LABS: Basophils # (A) 0.04 X 10*3/uL (0.00-0.10); Basophils % (A) 0.5 %; Eosinophils # (A) 0.18 X 10*3/uL (0.04-0.35); Eosinophils % (A) 2.3 %; HGB 14.5 d/dL (13.0-17.0); Lymphocytes # (A) 0.89 X 10*3/uL (0.90-5.00); Lymphocytes % (A) 11.5 %; MCH 29.5 pg (27.0-32.0); MCHC 33.7 d/dL (32.0-37.0); MCV 87.6 FL (80.0-97.0); Mean Platelet Volume 10.3 FL (9.5-12.2); Monocytes # (A) 0.57 X 10*3/uL (0.20-1.00); Monocytes % (A) 7.4 %; NRBC Per 100 WBC 0 X 10*3/uL (0.00-0.01); Neutrophils % (A) 77.9 %; Platelet Count 222 X 10*3/uL (140-440); RBC 4.91 X 10*6/uL (4.40-5.60); WBC 7.71 X 10*3/uL (4.50-10.00)
--- NOTE | 2022-12-07 12:08 | P.PN ---
Progress Note - Text Progress Note Date: 12/07/22 The patient feels well. He wishes to go home. He denies any significant pain in his back. His back abscesses has been drains 1. There is less output. On exam there is minimal cellulitis of his posterior left upper back abscess. There is minimal purulent drainage. Patient appears to be stable for outpatient treatment with antibiotics. He'll follow-up in the office in one week.
[2022-12-07 14:43] VITALS: BP 108/73; PULSE 87; TEMP 98.9
[2022-12-07] MEDS ORDERED: VANCOMYCIN 2,000 MG in SODIUM CHLORIDE 0.9% 500 ML 500 ML IVPB SCH (21:00)
== END 2022-12-07 15:25 | disposition home or self-care (01) ==
LOC: EC 13:52 → 4SSUR 16:58 → INTOOBSV 16:58 → 5NMEDONC 17:15
PROVIDERS: ADMIT Hospitalist; ATTEND Hospitalist
DX: L02.212 Cutaneous abscess of back [any part, except buttock and flank] (principal); E86.0 Dehydration; L02.31 Cutaneous abscess of buttock; R50.9 Fever, unspecified; I48.0 Paroxysmal atrial fibrillation; I10 Essential (primary) hypertension; E78.00 Pure hypercholesterolemia, unspecified; G89.29 Other chronic pain; M54.50 Low back pain, unspecified; H91.90 Unspecified hearing loss, unspecified ear; E66.9 Obesity, unspecified; I25.2 Old myocardial infarction; I69.351 Hemiplegia and hemiparesis following cerebral infarction affecting right dominant side; Z68.39 Body mass index [BMI] 39.0-39.9, adult; Z87.891 Personal history of nicotine dependence; Z79.01 Long term (current) use of anticoagulants; Z79.82 Long term (current) use of aspirin; Z79.899 Other long term (current) drug therapy
CPT/HCPCS: 96376 ×2; 96366 ×4; 96375; 96361; 96365; 96367; 99285; 36415; 94760; 93005; 83880; 80053; 80048; 82565; 83605; 83735; 84100; 84443; 84484; 85025 ×2; 80202; 85610; 85730; 81003; 87040; G0378 ×4; J3370 ×3; J2270 ×2; J0696

== ENCOUNTER 2023-01-01 08:19 | Emergency (ER) | payer OTHER, MEDICARE ==
[2023-01-01] MEDS ORDERED: LORazepam 2 MG/ML INJ IV STA (08:36)
[2023-01-01] MEDS ORDERED: SODIUM CHLORIDE 0.9% 1,000 ML IV STA (08:36)
--- NOTE | 2023-01-01 09:14 | ED ---
General Adult HPI - General Chief complaint: Syncope Stated complaint: Syncope Time Seen by Provider: 01/01/23 08:21 Source: patient, RN notes reviewed, old records reviewed Mode of arrival: EMS - History of Present Illness Initial comments: Patient is a 57-year-old male with past medical history remarkable for atrial fibrillation on blood thinners, multiple strokes with residual right-sided numbness and weakness ambulatory to the cane at baseline, hypertension who presents emergency Department following a syncopal episode. Pain the patient had a witnessed syncopal episode where he believes he was caught and lowered to the ground. He was feeling warm and lightheaded and then fainted. States he was standing when he was feeling warm. He knows he was on the ground and told to stay in the ground. Has been feeling weak lately. Has mildly increased overall fatigue. States symptoms are somewhat chronic but worse over the last few days. Denies any headaches. Denies any cough, fevers, chills, chest pain, shortness of breath, abdominal pain, nausea, vomiting, diarrhea. Presents for further evaluation of this time.Patient states he does chronically feel dizzy intermittently but seems to be a little bit more frequent over the last few days. Also feels lightheaded. States he stood up from a seated position and walked into the kitchen and's office where he then suffered his fainting spell after feeling warm while standing. He was within a few minutes after standing. - Related Data Home Medications Medication Instructions Recorded Confirmed Aspirin [Adult Low Dose Aspirin EC] 81 mg PO DAILY 02/17/16 01/01/23 Gabapentin [Neurontin] 200 mg PO BID@0800,1400 02/22/19 01/01/23 Ergocalciferol (Vitamin D2) 1,250 mcg PO WICK 04/05/22 01/01/23 [Drisdol (50,000 Iu)] Saw [place] 500 mg PO BID 04/05/22 01/01/23 lisinopriL [Zestril] 15 mg PO DAILY 08/08/22 01/01/23 Atorvastatin [Lipitor] 80 mg PO DAILY 12/05/22 01/01/23 Gabapentin [Neurontin] 300 mg PO HS@2000 12/05/22 01/01/23 atenoloL [Tenormin] 25 mg PO DAILY 12/05/22 01/01/23 metFORMIN HCL ER [Glucophage XR] 500 mg PO HS 01/01/23 01/01/23 Previous Rx's Medication Instructions Recorded Apixaban [Eliquis] 5 mg PO BID #60 tab 12/25/18 Allergies Allergy/AdvReac Type Severity Reaction Status Date / Time No Known Allergies Allergy Verified 01/01/23 10:57 Review of Systems ROS Statement: Those systems with pertinent positive or pertinent negative responses have been documented in the HPI. Review of Systems: CONST: Denies fever EYES: Denies blurry vision ENT: Denies nasal congestion C/V: Denies Chest pain RESP: Denies shortness of breath GI: Denies abdominal pain : Denies dysuria SKIN: Denies rash. MSK: Denies joint pain. NEURO: Denies headache ROS Other: All systems not noted in ROS Statement are negative. 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 VISION LOSS RESOLVED. Hx CVA 2009 with R sided weakness and numbness upper and lower extremities and short term memory loss, MIs X3, chronic low back pain, R shoulder and R ankle pain, seasonal allergies, sinus problems. "Sleep Apnea, needs to have a Sleep Study." Slightly Hard of Hearing. Last Myocardial Infarction Date:: 2005, 2010,2011 History of Any Multi-Drug Resistant Organisms: None Reported Past Surgical History: Adenoidectomy, Cardiac Ablation, Heart Catheterization, Tonsillectomy Additional Past Surgical History / Comment(s): Cardiac ablation-unsuccessful per pt, loop recorders X3 one in currenty-02/22/2019, colonoscopy/benign polypectomy, cyst removed from buttock/anal area 2018;left shoulder 12/04/2022. Past Anesthesia/Blood Transfusion Reactions: Previous Problems w/ Anesthesia Additional Past Anesthesia/Blood Transfusion Reaction / Comment(s): WOKE UP A BI T MEAN AFTER (MANY YRS AGO). CLAUSTERPHOBIA. Past Psychological History: No Psychological Hx Reported Smoking Status: Former smoker Past Alcohol Use History: Occasional Past Drug Use History: None Reported - Past Family History Father Family Medical History: COPD, Deep Vein Thrombosis (DVT), Hyperlipidemia, Hypertension, Myocardial Infarction ([place]) Additional Family Medical History / Comment(s): Father had MIs with the first one being when he was about 65 yrs old. He had coronary stents. He at the age of 83 yrs. Mother Family Medical History: Cancer, Dementia, Thyroid Disorder Additional Family Medical History / Comment(s): Mother had breast cancer, diverticulitis, thyroid disease and from dementia at the age of 80 yrs. Sister(s) Family Medical History: Cancer Additional Family Medical History / Comment(s): Pancreatic cancer. General Exam - General Exam Comments Initial Comments: General: Appears in no acute distress. HEAD: Normal with no signs of head trauma. EYES: PERRLA, EOMI, conjunctiva normal, no discharge. Pupils 3 mm and equal bilaterally. ENT: Hearing grossly intact, normal oropharynx. RESPIRATORY: Clear breath sounds bilaterally. No wheezes, rales, or rhonchi. C/V: Regular rate and rhythm. S1 and S2 auscultated, no edema, peripheral pulses 2+ and intact throughout ABD: Abd is soft, nontender, nondistended EXT: Normal range of motion, no obvious deformity SKIN: No rashes or lesions observed on exposed skin. NEURO: Alert and oriented x 4. Cranial nerves II-XII intact. GCS of 15. Nature 0 for new symptoms. Patient has residual strength and sensory deficits of the right upper and right lower extremities from prior stroke, which are baseline. Ambulates with a cane at baseline. Course Vital Signs 01/01/23 01/01/23 01/01/23 08:22 08:24 08:30 Temperature 99.1 F Pulse Rate 91 92 94 Respiratory 18 13 13 Rate Blood Pressure 131/95 131/95 O2 Sat by Pulse 97 98 Oximetry 01/01/23 01/01/23 01/01/23 09:00 09:57 10:00 Temperature Pulse Rate 76 75 75 Respiratory 11 L 20 Rate Blood Pressure 110/74 113/84 O2 Sat by Pulse 97 95 Oximetry 01/01/23 01/01/23 01/01/23 10:40 11:00 11:30 Temperature 97.9 F Pulse Rate 74 68 71 Respiratory 18 14 21 Rate Blood Pressure 134/80 134/80 O2 Sat by Pulse 98 Oximetry Medical Decision Making - Medical Decision Making Was pt. sent in by a medical professional or institution (, PA, SALES OPERATIONS, urgent care, hospital, or senior care...) When possible be specific @ -No Did you speak to anyone other than the patient for history (EMS, parent, family, police, friend...)? What history was obtained from this source @ -No Did you review nursing and triage notes (agree or disagree)? Why? @ -I reviewed and agree with nursing and triage notes Were old charts reviewed (outside hosp., previous admission, EMS record, old EKG, old radiological studies, urgent care reports/EKG's, senior care records)? Report findings @ -Old charts were reviewed. Differential Diagnosis (chest pain, altered mental status, abdominal pain women, abdominal pain men, vaginal bleeding, weakness, fever, dyspnea, syncope, headache, dizziness, GI bleed, back pain, seizure, CVA, palpatations, mental health, musculoskeletal)? @ -Differential Syncope: Valvular disease, hypertrophic cardiomyopathy, pulmonary embolism, tamponade, tachycardia, bradycardia, [place], hypovolemia, hemorrhage, dissection, anemia, intracranial hemorrhage, seizure, hypoglycemia, carbon monoxide poisoning, this is not meant to be an all-inclusive list. EKG interpreted by me (3pts min.). @ -As above X-rays interpreted by me (1pt min.). @ -Chest x-ray reveals no obvious acute cardiopulmonary process. CT interpreted by me (1pt min.). @ -Brain CT reveals no obvious acute intracranial injury or process at this time. U/S interpreted by me (1pt. min.). @ -None done What testing was considered but not performed or refused? (CT, X-rays, U/S, labs)? Why? @ -None What meds were considered but not given or refused? Why? @ -None Did you discuss the management of the patient with other professionals (professionals i.e. , PA, SALES OPERATIONS, lab, RT, psych nurse, social research assistant, reinforced steel placing supervisor, teacher, major gifts officer, family independence case manager)? Give summary @ -No Was smoking cessation discussed for >3mins.? @ -No Was critical care preformed (if so, how long)? @ -No Were there social determinants of health that impacted care today? How? (Homelessness, low income, unemployed, alcoholism, drug addiction, transportation, low edu. Level, literacy, decrease access to med. care, [facility], rehab)? @ -No Was there de-escalation of care discussed even if they declined (Discuss DNR or withdrawal of care, Hospice)? DNR status @ -No What co-morbidities impacted this encounter? (DM, HTN, Smoking, COPD, CAD, Cancer, CVA, ARF, Chemo, Hep., AIDS, mental health diagnosis, sleep apnea, morbid obesity)? @ -None Was patient admitted / discharged? Hospital course, mention meds given and route, prescriptions, significant lab abnormalities, going to OR and other p ertinent info. @ -Based on the patient's presentation and physical exam, I'm concerned for what sounds like vasovagal versus orthostatic syncopal episode earlier today. Currently asymptomatic. Has residual deficits from prior stroke. Exam otherwise unremarkable. Vital signs within acceptable limits. Does not sound like the patient had an head injury however he is on blood thinners and he syncopized and was not awake during the fall and therefore we will obtain CT brain. Patient was in agreement with this plan. We'll also obtain basic labs. Cardiac workup will be done. Patient was in agreement with this plan. He'll be given a 1 L fluid bolus at this time. EKG showed no signs of acute ischemia.Imaging unremarkable. Patient's labs are also unremarkable including undetectable troponin. I discussed results with the patient. Orthostatic vital signs within normal limits. He is feeling improved. No further syncopal episodes. Can ambulate at her baseline with cane without issue. We discussed his workup. I believe it is safe for him to be discharged home. We did discuss possible admission the patient also like to go home. Strict return precautions were discussed. Discussed he may have a viral syndrome but recommended follow-up with PCP jesus figueroa. He was in agreement with the plan. I instructed the patient to follow up with their PCP in the next 1-3 days. I explained that the patient should return to the emergency department if they experience any worsening symptoms. Strict return precautions were discussed with the patient. The patient expressed understanding of these instructions. I answered all questions that the patient had. The patient was discharged home in good condition with their prescriptions and follow up information. Undiagnosed new problem with uncertain prognosis? @ -No Drug Therapy requiring intensive monitoring for toxicity (Heparin, Nitro, Insulin, Cardizem)? @ -No Were any procedures done? @ -No Diagnosis/symptom? @ -Syncope, suspect vasovagal Acute, or Chronic, or Acute on Chronic? @ -Acute Uncomplicated (without systemic symptoms) or Complicated (systemic symptoms)? @ -Uncomplicated Side effects of treatment? @ -none Exacerbation, Progression, or Severe Exacerbation] @ -no Poses a threat to life or bodily function? @ -no - Lab Data Result diagrams: 01/01/23 09:02 01/01/23 10:19 Lab Results 01/01/23 01/01/23 01/01/23 Range/Units 09:02 09:02 09:44 WBC 7.9 (3.8-10.6) k/uL RBC 5.48 (4.30-5.90) m/uL Hgb 16.2 (13.0-17.5) gm/dL Hct 47.9 (39.0-53.0) % MCV 87.4 (80.0-100.0) fL MCH 29.6 (25.0-35.0) pg MCHC 33.9 (31.0-37.0) g/dL RDW 12.8 (11.5-15.5) % Plt Count 246 (150-450) k/uL MPV 8.5 Neutrophils % 79 % Lymphocytes % 12 % Monocytes % 6 % Eosinophils % 2 % Basophils % 0 % Neutrophils # 6.3 (1.3-7.7) k/uL Lymphocytes # 0.9 L (1.0-4.8) k/uL Monocytes # 0.4 (0-1.0) k/uL Eosinophils # 0.2 (0-0.7) k/uL Basophils # 0.0 (0-0.2) k/uL PT 9.9 (9.0-12.0) sec INR 0.9 (<1.2) APTT 26.9 (22.0-30.0) sec Sodium (137-145) mmol/L Potassium (3.5-5.1) mmol/L Chloride (98-107) mmol/L Carbon Dioxide (22-30) mmol/L Anion Gap mmol/L BUN (9-20) mg/dL Creatinine (0.66-1.25) mg/dL Est GFR (CKD-EPI)AfAm (>60 ml/min/1.73 sqM) Est GFR (CKD-EPI)NonAf (>60 ml/min/1.73 sqM) Glucose (74-99) mg/dL Calcium (8.4-10.2) mg/dL Magnesium (1.6-2.3) mg/dL Total Bilirubin (0.2-1.3) mg/dL AST (17-59) U/L ALT (4-49) U/L Alkaline Phosphatase (38-126) U/L Troponin I (0.000-0.034) ng/mL Total Protein (6.3-8.2) g/dL Albumin (3.5-5.0) g/dL Urine Color Urine Appearance (Clear) Urine pH (5.0-8.0) Ur Specific Mears (1.001-1.035) Urine Protein (Negative) Urine Glucose (UA) (Negative) Urine Ketones (Negative) Urine Blood (Negative) Urine Nitrite (Negative) Urine Bilirubin (Negative) Urine Urobilinogen (<2.0) mg/dL Ur Leukocyte Esterase (Negative) Influenza Type A (PCR) Not Detected (Not Detectd) Influenza Type B (PCR) Not Detected (Not Detectd) RSV (PCR) Not Detected (Not Detectd) SARS-CoV-2 (PCR) Not Detected (Not Detectd) 01/01/23 01/01/23 01/01/23 Range/Units 10:19 10:19 10:40 WBC (3.8-10.6) k/uL RBC (4.30-5.90) m/uL Hgb (13.0-17.5) gm/dL Hct (39.0-53.0) % MCV (80.0-100.0) fL MCH (25.0-35.0) pg MCHC (31.0-37.0) g/dL RDW (11.5-15.5) % Plt Count (150-450) k/uL MPV Neutrophils % % Lymphocytes % % Monocytes % % Eosinophils % % Basophils % % Neutrophils # (1.3-7.7) k/uL Lymphocytes # (1.0-4.8) k/uL Monocytes # (0-1.0) k/uL Eosinophils # (0-0.7) k/uL Basophils # (0-0.2) k/uL PT (9.0-12.0) sec INR (<1.2) APTT (22.0-30.0) sec Sodium 135 L (137-145) mmol/L Potassium 4.8 (3.5-5.1) mmol/L Chloride 106 (98-107) mmol/L Carbon Dioxide 24 (22-30) mmol/L Anion Gap 5 mmol/L BUN 23 H (9-20) mg/dL Creatinine 0.66 (0.66-1.25) mg/dL Est GFR (CKD-EPI)AfAm >90 (>60 ml/min/1.73 sqM) Est GFR (CKD-EPI)NonAf >90 (>60 ml/min/1.73 sqM) Glucose 125 H (74-99) mg/dL Calcium 8.4 (8.4-10.2) mg/dL Magnesium 1.6 (1.6-2.3) mg/dL Total Bilirubin 0.7 (0.2-1.3) mg/dL AST 35 (17-59) U/L ALT 32 (4-49) U/L Alkaline Phosphatase 60 (38-126) U/L Troponin I <0.012 (0.000-0.034) ng/mL Total Protein 6.5 (6.3-8.2) g/dL Albumin 3.5 (3.5-5.0) g/dL Urine Color Light Yellow Urine Appearance Clear (Clear) Urine pH 5.5 (5.0-8.0) Ur Specific Mears 1.019 (1.001-1.035) Urine Protein Negative (Negative) Urine Glucose (UA) Negative (Negative) Urine Ketones Negative (Negative) Urine Blood Negative (Negative) Urine Nitrite Negative (Negative) Urine Bilirubin Negative (Negative) Urine Urobilinogen <2.0 (<2.0) mg/dL Ur Leukocyte Esterase Negative (Negative) Influenza Type A (PCR) (Not Detectd) Influenza Type B (PCR) (Not Detectd) RSV (PCR) (Not Detectd) SARS-CoV-2 (PCR) (Not Detectd) - EKG Data -: EKG Interpreted by Me EKG Comments: 12-lead Electrocardiogram Interpretation Note EKG was reviewed and interpreted by myself. 12-lead ECG performed at 0829 is interpreted by me as revealing normal sinus rhythm at a rate of 89 beats per minute. Herman is normal. DC interval is 150 ms, QRS ration is 102 ms, QTc is 386 seconds.. There were no ST or T wave abnormalities to suggest myocardial ischemia or injury. R wave progression across the precordium was satisfactory. B y my interpretation this EKG is non-diagnostic for acute ischemia. Disposition Clinical Impression: Syncope Disposition: HOME SELF-CARE Condition: Good Instructions (If sedation given, give patient instructions): Syncope (ED) Is patient prescribed a controlled substance at d/c from ED?: No Referrals: Jayme Baron MD [Primary Care Provider] - 1-2 days Time of Disposition: 11:29
[2023-01-01 09:15] LABS: Basophils % (A) 0 %; Eosinophils # (A) 0.2 k/uL (0-0.7); Eosinophils % (A) 2 %; HCT 47.9 % (39.0-53.0); HGB 16.2 gm/dL (13.0-17.5); Lymphocytes # (A) 0.9 k/uL (1.0-4.8); Lymphocytes % (A) 12 %; MCH 29.6 pg (25.0-35.0); MCHC 33.9 g/dL (31.0-37.0); MCV 87.4 fL (80.0-100.0); Mean Platelet Volume 8.5; Monocytes # (A) 0.4 k/uL (0-1.0); Monocytes % (A) 6 %; Neutrophils # (A) 6.3 k/uL (1.3-7.7); Neutrophils % (A) 79 %; Platelet Count 246 k/uL (150-450); RBC 5.48 m/uL (4.30-5.90); RDW 12.8 % (11.5-15.5); WBC 7.9 k/uL (3.8-10.6)
--- NOTE | 2023-01-01 09:29 | CT ---
EXAMINATION TYPE: CT brain wo con DATE OF EXAM: 01/01/2023 COMPARISON: 02/22/2019 HISTORY: syncope CT DLP: 1248.[address] of the brain was performed. The ventricles, basal cisterns and sulci overlying the cerebral convexities demonstrate mild enlargem ent. There is no evidence for intracranial hemorrhage or sulcal effacement. There is decreased attenuation about the periventricular white matter and deep white matter of both c erebral hemispheres, compatible with chronic small vessel ischemia. Differential diagnosis does inclu de demyelination. No mass effects are seen.No midline shift. Osseous calvarium is intact. If symptoms persist consider MRI. IMPRESSION: 1. Age related atrophic and chronic small vessel ischemic change without acute intracranial process s een at this time.
[2023-01-01 09:33] LABS: INR 0.9 (<1.2); Partial Thromboplastin Time 26.9 sec (22.0-30.0); Prothrombin Time 9.9 sec (9.0-12.0)
--- NOTE | 2023-01-01 09:59 | XR ---
EXAMINATION TYPE: XR chest 2V DATE OF EXAM: 01/01/2023 COMPARISON: None HISTORY: 57 year old male syncope TECHNIQUE: PA and lateral views FINDINGS: Loop recorder device projecting over the left side of the heart. Heart upper limits of normal in size . Aorta and pulmonary vasculature within normal limits. No consolidation or pleural effusion. Endplat e spondylosis lower thoracic spine. IMPRESSION: No acute cardiopulmonary process.
[2023-01-01 10:42] VITALS: BP 134/80; TEMP 97.9
[2023-01-01 10:49] LABS: ALT 32 U/L (4-49); African American GFR (CKD) >90 (>60 ml/min/1.73 sqM); Albumin 3.5 g/dL (3.5-5.0); Anion Gap 5 mmol/L; Blood Urea Nitrogen 23 mg/dL (9-20); Calcium 8.4 mg/dL (8.4-10.2); Carbon Dioxide 24 mmol/L (22-30); Chloride 106 mmol/L (98-107); Glucose 125 mg/dL (74-99); Non-African American GFR(CKD) >90 (>60 ml/min/1.73 sqM); Sodium 135 mmol/L (137-145); Total Bilirubin 0.7 mg/dL (0.2-1.3); Total Protein 6.5 g/dL (6.3-8.2)
[2023-01-01 10:53] LABS: AST 35 U/L (17-59); Alkaline Phosphatase 60 U/L (38-126); Magnesium 1.6 mg/dL (1.6-2.3); Potassium 4.8 mmol/L (3.5-5.1)
[2023-01-01 10:54] LABS: Appearance,Urine Clear (Clear); Bilirubin,Urine Negative (Negative); Blood,Urine Negative (Negative); Color,Urine Light Yellow; Glucose,Urine (UA) Negative (Negative); Ketones,Urine Negative (Negative); Leukocyte Esterase,Urine Negative (Negative); Nitrite,Urine Negative (Negative); PH, Urine 5.5 (5.0-8.0); Protein,Urine Negative (Negative); Specific Gravity,Urine 1.019 (1.001-1.035); Urobilinogen,Urine <2.0 mg/dL (<2.0)
[2023-01-01 11:45] VITALS: PULSE 71; RESP 21
== END 2023-01-01 11:55 | disposition home or self-care (01) ==
LOC: EC 08:19
DX: R55 Syncope and collapse (principal); E78.5 Hyperlipidemia, unspecified; I48.91 Unspecified atrial fibrillation; I25.2 Old myocardial infarction; I10 Essential (primary) hypertension; Z86.73 Personal history of transient ischemic attack (TIA), and cerebral infarction without residual deficits; Z87.891 Personal history of nicotine dependence; Z79.82 Long term (current) use of aspirin; Z79.01 Long term (current) use of anticoagulants; Z79.84 Long term (current) use of oral hypoglycemic drugs; Z79.899 Other long term (current) drug therapy; Z20.822 Contact with and (suspected) exposure to COVID-19
CPT/HCPCS: 36415; 93005; 80053; 83735; 84484; 85025; 85610; 85730; 81003; 87636; 71046; 70450; 99285; 96374; J2060

== ENCOUNTER 2023-06-14 05:47 | Day surgery (SDC) | payer OTHER, MEDICARE ==
[2023-06-11 15:47] VITALS: BMI 37.1
[2023-06-14] MEDS ORDERED: SCOPOLAMINE 1 MG/72 HR PATCH TRANSDERM ONE (06:01)
[2023-06-14] MEDS: LACTATED RINGERS 1,000 ML IV SCH (06:58)
[2023-06-14] MEDS ORDERED: HYDROmorphone 0.5 MG/0.5 ML SYRINGE IVP PRN (07:00)
[2023-06-14] MEDS ORDERED: MIDAZOLAM 2 MG/2 ML VIAL IV PRN (07:00)
[2023-06-14] MEDS: ACETAMINOPHEN TAB 500 MG TAB PO PRN (07:03)
[2023-06-14] MEDS: ONDANSETRON 4 MG/2 ML VIAL IVP ONE (07:05)
[2023-06-14] MEDS: DEXAMETHASONE SOD PHOSPHATE 4 MG/ML 1 ML VIAL IV ONE (07:06)
[2023-06-14 07:07] LABS: Glucose,Whole Blood 141 mg/dL (70-110)
[2023-06-14] MEDS: HEPARIN SODIUM,PORCINE 5,000 UNIT/ML 1 ML VIAL SQ PRN (07:07)
[2023-06-14 07:14] VITALS: PULSE 76; TEMP 98.3
[2023-06-14] MEDS ORDERED: KETAMINE HCL IN 0.9 % NACL 50 MG/5 ML SYRINGE ONE (07:30)
[2023-06-14] MEDS ORDERED: LIDOCAINE 1% INJ 10MG/ML (20 ML MDV) ONE (07:30)
[2023-06-14] MEDS ORDERED: PROPOFOL 10 MG/ML 20 ML VIAL IV ONE (07:30)
[2023-06-14] MEDS ORDERED: MIDAZOLAM 2 MG/2 ML VIAL ONE (07:30)
[2023-06-14] MEDS ORDERED: fentaNYL (PF) 50 MCG/ML 2 ML AMP ONE (07:30)
[2023-06-14] MEDS: ceFAZolin 3 GM in SODIUM CHLORIDE 0.9% 100 ML IVPB PRN (07:35)
--- NOTE | 2023-06-14 07:38 | P.GSHP ---
History of Present Illness H&P Date: 06/14/23 Chief Complaint: Left back sebaceous cyst 57-year-old male with history of infected sebaceous cyst left upper back. In November underwent incision and drainage with wound packing. Gradually over time this area has improved and decreased in size. Still feels a small lump there. Sore at times. Patient is quite concerned this may happen again if not fully excised. 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 VISION LOSS RESOLVED. Hx CVA 2009 with R sided weakness and numbness upper and lower extremities and short term memory loss, MIs X3, chronic low back pain, R shoulder and R ankle pain, seasonal allergies, sinus problems. "Sleep Apnea, needs to have a Sleep Study." Slightly Hard of Hearing. CURRENTLY HAS SEBACEOUS CYST ON LT UPPER BACK AREA Last Myocardial Infarction Date:: 2005, 2010,2011 History of Any Multi-Drug Resistant Organisms: None Reported Past Surgical History: Adenoidectomy, Cardiac Ablation, Heart Catheterization, Tonsillectomy Additional Past Surgical History / Comment(s): Cardiac ablation-unsuccessful per pt, loop recorders X3 one in currenty-02/22/2019, colonoscopy/benign polypectomy, cyst removed from buttock/anal area 2018;left shoulder 12/04/2022. Past Anesthesia/Blood Transfusion Reactions: Previous Problems w/ Anesthesia Additional Past Anesthesia/Blood Transfusion Reaction / Comment(s): WOKE UP A BIT MEAN AFTER (MANY YRS AGO). CLAUSTROPHOBIA. Smoking Status: Former smoker - Past Family History Father Family Medical History: COPD, Deep Vein Thrombosis (DVT), Hyperlipidemia, Hypertension, Myocardial Infarction ([place]) Additional Family Medical History / Comment(s): Father had MIs with the first one being when he was about 65 yrs old. He had coronary stents. He at the age of 83 yrs. Mother Family Medical History: Cancer, Dementia, Thyroid Disorder Additional Family Medical History / Comment(s): Mother had breast cancer, diverticulitis, thyroid disease and from dementia at the age of 80 yrs. Sister(s) Family Medical History: Cancer Additional Family Medical History / Comment(s): Pancreatic cancer. Medications and Allergies Home Medications Medication Instructions Recorded Confirmed Type Aspirin [Adult Low Dose Aspirin EC] 81 mg PO DAILY 02/17/16 06/14/23 History Apixaban [Eliquis] 5 mg PO BID #60 tab 12/25/18 06/14/23 Rx Gabapentin [Neurontin] 200 mg PO BID@1400 02/22/19 06/14/23 History Ergocalciferol (Vitamin D2) 1,250 mcg PO WICK 04/05/22 06/14/23 History [Drisdol (50,000 Iu)] Saw [place] 500 mg PO BID 04/05/22 06/14/23 History lisinopriL [Zestril] 15 mg PO DAILY 08/08/22 06/14/23 History Atorvastatin [Lipitor] 80 mg PO DAILY 12/05/22 06/14/23 History Gabapentin [Neurontin] 300 mg PO DAILY@0800,2000 12/05/22 06/14/23 History atenoloL [Tenormin] 25 mg PO DAILY 12/05/22 06/14/23 History metFORMIN HCL ER [Glucophage XR] 500 mg PO HS 01/01/23 06/14/23 History Allergies Allergy/AdvReac Type Severity Reaction Status Date / Time No Known Allergies Allergy Verified 06/14/23 06:43 Surgical - Exam Vital Signs Temp Pulse Resp BP Pulse Ox 98.3 F 76 18 134/81 98 06/14/23 06:43 06/14/23 06:43 06/14/23 06:43 06/14/23 06:43 06/14/23 06:43 Physical exam: General: Well-developed, well-nourished HEENT: Normocephalic, sclerae nonicteric Abdomen: Nontender, nondistended Extremities: No edema, left upper back with 1 to 1.5 cm sebaceous cyst with adjacent scar Neuro: Alert and oriented Results - Labs Abnormal Lab Results - Last 24 Hours (Table) 06/14/23 Range/Units 07:05 POC Glucose (mg/dL) 141 H (70-110) mg/dL Assessment and Plan (1) Sebaceous cyst Narrative/Plan: 57-year-old male with sebaceous cyst left upper back. Will proceed with surgical excision left upper back sebaceous cyst. Follow-up in office 2 weeks. Current Visit: Yes Status: Acute Code(s): L72.3 - SEBACEOUS CYST SNOMED Code(s): 891863642
[2023-06-14] MEDS: BUPIVACAINE (PF) 0.25% 30 ML VIAL SQ ONE ×3 (07:54)
[2023-06-14] MEDS: BACITRACIN OINT 1 EACH PACKET TOPICAL ONE (08:13)
[2023-06-14 08:23] LABS: Glucose,Whole Blood 139 mg/dL (70-110)
[2023-06-14] MEDS ORDERED: NALOXONE 0.4 MG/ML 1 ML VIAL IV PRN (08:31)
--- NOTE | 2023-06-14 08:34 | P.OP ---
Date of Procedure: 06/14/23 Procedure(s) Performed: PREOPERATIVE DIAGNOSIS: Left upper back sebaceous cyst POSTOPERATIVE DIAGNOSIS: Same PROCEDURE: Excision left upper back sebaceous cyst with intermediate closure SURGEON: Jones EBL: 20 cc ANESTHESIA: Sedation and local COMPLICATIONS: None OPERATIVE PROCEDURE: Patient placed in the right decubitus position. The patient's left upper back was prepped and draped sterilely. An elliptical incision was made encompassing both the palpable cyst in the previous scar site. Dissection through the subcutaneous tissues to place mostly with sharp dissection. Scarring and residual cystic structures were included in our excision. No residual disease was left. Spot cautery was utilized. Area was irrigated with saline. Subcutaneous layer was closed using interrupted 3-0 Vicryl sutures. Length of intermediate closure 3 cm. Skin incision then closed using a running 4-0 nylon suture. Sterile dressings applied. DISPOSITION: Stable to recovery room
[2023-06-14 08:50] VITALS: BP 123/81; RESP 16
== END 2023-06-14 08:55 ==
LOC: OR 05:47
PROVIDERS: ATTEND Surgery
DX: L72.3 Sebaceous cyst (principal); E78.5 Hyperlipidemia, unspecified; G47.30 Sleep apnea, unspecified; G89.29 Other chronic pain; I10 Essential (primary) hypertension; I25.2 Old myocardial infarction; I48.91 Unspecified atrial fibrillation; Z79.01 Long term (current) use of anticoagulants; Z86.73 Personal history of transient ischemic attack (TIA), and cerebral infarction without residual deficits; Z87.891 Personal history of nicotine dependence; Z79.899 Other long term (current) drug therapy
CPT/HCPCS: 11403; 12032; J2250; J1644; J1100; J0690; J2405; J2001; J3010; J2704; J0665; 88304

== ENCOUNTER 2023-09-04 07:15 | Day surgery (SDC) | payer OTHER, MEDICARE ==
[2023-08-30 16:33] VITALS: BMI 38.0
[2023-09-04 08:20] LABS: Glucose,Whole Blood 124 mg/dL (70-110)
[2023-09-04] MEDS: SODIUM CHLORIDE 0.9% 500 ML 500 ML IV ONE (08:30)
[2023-09-04 08:58] VITALS: RESP 16; TEMP 98.1
[2023-09-04] MEDS ORDERED: fentaNYL (PF) 50 MCG/ML 2 ML AMP ONE ×2 (09:11→09:32)
[2023-09-04] MEDS: BENZOCAINE SPRAY 1 CAN TOPICAL ONE (09:22)
[2023-09-04] MEDS: fentaNYL (PF) 50 MCG/ML 2 ML AMP IVP ONE ×2 (09:24→09:32)
[2023-09-04] MEDS: MIDAZOLAM 2 MG/2 ML VIAL IVP ONE ×3 (09:24→09:32)
--- NOTE | 2023-09-04 10:16 | P.TEE ---
Description of Procedure(s): Procedure performed: Transesophageal Echocardiogram with color flow doppler, pulsed wave doppler and continuous wave doppler, moderate conscious sedation Moderate conscious sedation: Moderate conscious sedation was supplied with direct supervision of myself using Versed and Fentanyl. Complications: none Indications: CVA PROCEDURE: After the risks, benefits and alternatives of the above mentioned procedure was explained in detail with the patient, informed consent was obtained. Patient was brought to the lab in a fasting state. Patient was given IV Versed and Fentanyl for sedation. The throat was sprayed with Hurricane to anesthetize the throat. A lubricated Omni probe was then introduced into the esophagus and stomach and multiple views were obtained. 2D echo with color flow doppler, pulsed wave doppler and continuous wave doppler was utilized. Agitated saline bubbles were injected to assess for any intra-atrial shunt. The probe was then removed. Patient tolerated the procedure well. Patient was transferred to the post procedure area in stable and satisfactory condition. FINDINGS: 1. The aortic valve is bicuspid with fusion of the right and left cusp with no significant aortic stenosis and mild aortic regurgitation. 2. The mitral valve appears be normal with mild regurgitation. 3. Tricuspid valve appears to be normal. 4. The interatrial septum is intact. No evidence of PFO. 5. Left atrial appendage is free of clot. 6. Left ventricular ejection fraction 55% 7. Ascending aortic aneurysm measuring 4.1 cm
[2023-09-04 11:50] VITALS: BP 115/65; PULSE 55
== END 2023-09-04 11:23 | disposition home or self-care (01) ==
LOC: CATHCVL 07:15
PROVIDERS: ATTEND Internal Medicine
DX: I08.0 Rheumatic disorders of both mitral and aortic valves (principal); I71.21 Aneurysm of the ascending aorta, without rupture; I10 Essential (primary) hypertension; E78.5 Hyperlipidemia, unspecified; I48.0 Paroxysmal atrial fibrillation; Z98.890 Other specified postprocedural states; Z86.73 Personal history of transient ischemic attack (TIA), and cerebral infarction without residual deficits; Z79.01 Long term (current) use of anticoagulants; Z79.899 Other long term (current) drug therapy
CPT/HCPCS: 93312; 93320; 93325; J2250; J3010

== ENCOUNTER 2023-09-19 10:11 | Inpatient (IN) | payer OTHER, MEDICARE ==
--- NOTE | 2023-09-19 10:50 | ED ---
General Adult HPI - General Chief complaint: Neuro Symptoms/Deficit Stated complaint: Neuro Symptoms Time Seen by Provider: 09/19/23 10:34 Source: patient, family Mode of arrival: EMS - History of Present Illness Initial comments: Dictation was produced using [employer] dictation software. please excuse any grammatical, word or spelling errors. Chief Complaint: 57-year-old male with history of stroke and residual weakness to all of his extremities presents to the emergency department after waking up on the floor History of Present Illness: Patient 57-year-old male he has past medical history of A-fib stroke with chronic debility presents to the ER after he woke up on the floor. Patient states that he usually wakes up at around 5:00 to 5:30 AM. He had some orange juice and granola bar. He was playing with his pet all of a sudden he woke up on the floor. He has fallen nearby and called ambulance. Patient states he has a slight headache. Denies that his headache is worse headache of his life. Patient [place] any new weakness in his extremities. The ROS documented in this emergency department record has been reviewed and confirmed by me. Those systems with pertinent positive or negative responses have been documented in the HPI. All other systems are other negative and/or noncontributory. - Related Data Home Medications Medication Instructions Recorded Confirmed Ergocalciferol (Vitamin D2) 1,250 mcg PO WICK 04/05/22 09/19/23 [Drisdol (50,000 Iu)] Saw [place] 500 mg PO BID 04/05/22 09/19/23 lisinopriL [Zestril] 10 mg PO QAM 08/08/22 09/19/23 Atorvastatin [Lipitor] 80 mg PO QAM 12/05/22 09/19/23 Gabapentin [Neurontin] 300 mg PO TID 12/05/22 09/19/23 atenoloL [Tenormin] 25 mg PO QAM 12/05/22 09/19/23 metFORMIN HCL ER [Glucophage XR] 500 mg PO HS 01/01/23 09/19/23 Clopidogrel [Plavix] 75 mg PO QAM 08/30/23 09/19/23 Fenofibrate 145 mg PO QAM 08/30/23 09/19/23 EPINEPHrine (Auto Inject) [Epipen] 0.3 mg IM ONCE PRN 09/19/23 09/19/23 Tirzepatide [Mounjaro] 2.5 mg SQ WICK 09/19/23 09/19/23 Previous Rx's Medication Instructions Recorded Apixaban [Eliquis] 5 mg PO BID #60 tab 12/25/18 Allergies Allergy/AdvReac Type Severity Reaction Status Date / Time bee venom protein (honey bee) Allergy Swelling Verified 09/19/23 11:54 Review of Systems ROS Statement: Those systems with pertinent positive or pertinent negative responses have been documented in the HPI. ROS Other: All systems not noted in ROS Statement are negative. 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 VISION LOSS RESOLVED. Hx CVA 2009 with R sided weakness and numbness upper and lower extremities and short term memory loss, MIs X3, chronic low back pain, R shoulder and R ankle pain, seasonal allergies, sinus problems. "Sleep Apnea, needs to have a Sleep Study." Slightly Hard of Hearing. "I passed multiple times out years ago." Last Myocardial Infarction Date:: 2005, 2010,2011 History of Any Multi-Drug Resistant Organisms: None Reported Past Surgical History: Cardiac Ablation, Heart Catheterization, Tonsillectomy Additional Past Surgical History / Comment(s): Cardiac ablation-unsuccessful per pt, loop recorders X3 one in currenty-02/22/2019-pt states battery has , colonoscopy/benign polypectomy, cyst removed from buttock/anal area 2018;left shoulder cyst removed 12/04/2022. Had Sebaceous cyst removed from back. Last cardiac cath 2018. Past Anesthesia/Blood Transfusion Reactions: Previous Problems w/ Anesthesia Additional Past Anesthesia/Blood Transfusion Reaction / Comment(s): WOKE UP A BIT MEAN AFTER (MANY YRS AGO). VERY CLAUSTROPHOBIA. No hx of blood transfusion. Type of Cardiac Device: Loop Device Placement Date:: 03/10/2019 Past Psychological History: No Psychological Hx Reported Smoking Status: Former smoker Past Alcohol Use History: Occasional Past Drug Use History: None Reported - Past Family History Father Family Medical History: COPD, Deep Vein Thrombosis (DVT), Hyperlipidemia, H ypertension, Myocardial Infarction ([place]) Additional Family Medical History / Comment(s): Father had MIs with the first one being when he was about 65 yrs old. He had coronary stents. He at the age of 83 yrs. Mother Family Medical History: Cancer, Dementia, Thyroid Disorder Additional Family Medical History / Comment(s): Mother had breast cancer, diverticulitis, thyroid disease and from dementia at the age of 80 yrs. Sister(s) Family Medical History: Cancer Additional Family Medical History / Comment(s): Pancreatic cancer. General Exam - General Exam Comments Initial Comments: PHYSICAL EXAM: General Impression: Alert and oriented x3, not in acute distress HEENT: Normocephalic atraumatic, extra-ocular movements intact, pupils equal and reactive to light bilaterally, mucous membranes moist. Cardiovascular: Heart regular rate and rhythm Chest: Able to complete full sentences, no retractions, no tachypnea Abdomen: abdomen soft, non-tender, non-distended, no organomegaly Musculoskeletal: Pulses present and equal in all extremities, no peripheral edema Motor: no focal deficits noted Neurological: CN II-XII grossly intact, drift to all extremities worse on the right compared to the left Skin: Intact with no visualized rashes Psych: Normal affect and mood Course Vital Signs 09/19/23 09/19/23 10:19 10:31 Temperature 98.6 F Pulse Rate 73 74 Respiratory 18 18 Rate Blood Pressure 126/86 119/80 O2 Sat by Pulse 99 97 Oximetry Medical Decision Making - Medical Decision Making Was pt. sent in by a medical professional or institution (, [place], 411 DIRECTORY ASSISTANCE OPERATOR, urgent care, hospital, or shelter...) When possible be specific @ -No Did you speak to anyone other than the patient for history (EMS, parent, family, police, friend...)? What history was obtained from this source @ -No Did you review nursing and triage notes (agree or disagree)? Why? @ -I reviewed and agree with nursing and triage notes Were old charts reviewed (outside hosp., previous admission, EMS record, old EKG, old radiological studies, urgent care reports/EKG's, shelter records)? Report findings @ -No old charts were reviewed Differential Diagnosis (chest pain, altered mental status, abdominal pain women, abdominal pain men, vaginal bleeding, musculoskeletal, weakness, fever, dyspnea, syncope, headache, dizziness, GI bleed, back pain, seizure, CVA, palpatations, mental health)? @ -Differential Syncope: Valvular disease, hypertrophic cardiomyopathy, pulmonary embolism, tamponade, tachycardia, bradycardia, NE, hypovolemia, hemorrhage, dissection, anemia, intracranial hemorrhage, seizure, hypoglycemia, carbon monoxide poisoning, this is not meant to be an all-inclusive list. EKG interpreted by me (3pts min.). @ -See above X-rays interpreted by me (1pt min.). @ -X-ray shows no acute processes CT interpreted by me (1pt min.). @ -CT brain shows small area that appears new resembling watershed infarct U/S interpreted by me (1pt. min.). @ -None done What testing was considered but not performed or refused? (CT, X-rays, U/S, labs)? Why? @ -None What meds were considered but not given or refused? Why? @ -None Did you discuss the management of the patient with other professionals (professionals i.e. , PA, 411 DIRECTORY ASSISTANCE OPERATOR, lab, RT, psych nurse, social work administrator, sewing room supervisor, teacher, patrol officer, machine adjuster leader case trim)? Give summary @ -Case discussed with hospitalist for admission Was smoking cessation discussed for >3mins.? @ -No Was critical care preformed (if so, how long)? @ -No Were there social determinants of health that impacted care today? How? (Homelessness, low income, unemployed, alcoholism, drug addiction, transportation, low edu. Level, literacy, decrease access to med. care, residential, rehab)? @ -No Was there de-escalation of care discussed even if they declined (Discuss DNR or withdrawal of care, Hospice)? DNR status @ -No What co-morbidities impacted this encounter? (DM, HTN, Smoking, COPD, CAD, Cancer, CVA, ARF, Chemo, Hep., AIDS, mental health diagnosis, sleep apnea, morbid obesity)? @ -None Was patient admitted / discharged? Hospital course, mention meds given and route, prescriptions, significant lab abnormalities, going to OR and other pertinent info. @ -57-year-old male presents emergency department after fall versus syncope. Vital signs upon arrival are within acceptable limits. Patient extensive history of CVA. Signs upon arrival are within acceptable limits. Patient has a delta NIH of 0. Laboratory evaluation is unremarkable. CT imaging shows no area of watershed infarct. Patient be admitted with consultation to neurology. Undiagnosed new problem with uncertain prognosis? @ -No Drug Therapy requiring intensive monitoring for toxicity (Heparin, Nitro, Insulin, Cardizem)? @ -No Were any procedures done? @ -No Diagnosis/symptom? Acute, or Chronic, or Acute on Chronic? Uncomplicated (without systemic symptoms) or Complicated (systemic symptoms)? @ -Abnormal CT Side effects of treatment? @ -No Exacerbation, Progression, or Severe Exacerbation? @ -No Poses a threat to life or bodily function? How? (Chest pain, [place], NE, pneumonia, PE, COPD, DKA, ARF, appy, cholecystitis, CVA, Diverticulitis, Homicidal, Suicidal, threat to staff... and all critical care pts) @ -yes - Lab Data Result diagrams: 09/19/23 10:49 09/19/23 10:49 Lab Results 09/19/23 09/19/23 09/19/23 Range/Units 10:49 10:49 10:49 WBC 6.6 (3.8-10.6) k/uL RBC 5.44 (4.30-5.90) m/uL Hgb 15.7 (13.0-17.5) gm/dL Hct 48.2 (39.0-53.0) % MCV 88.5 (80.0-100.0) fL MCH 28.9 (25.0-35.0) pg MCHC 32.6 (31.0-37.0) g/dL RDW 12.4 (11.5-15.5) % Plt Count 265 (150-450) k/uL MPV 7.5 Neutrophils % 78 % Lymphocytes % 14 % Monocytes % 5 % Eosinophils % 1 % Basophils % 1 % Neutrophils # 5.2 (1.3-7.7) k/uL Lymphocytes # 0.9 L (1.0-4.8) k/uL Monocytes # 0.3 (0-1.0) k/uL Eosinophils # 0.1 (0-0.7) k/uL Basophils # 0.0 (0-0.2) k/uL PT 11.6 (10.0-12.5) sec INR 1.1 (<1.2) APTT 26.4 (22.0-30.0) sec Sodium 137 (137-145) mmol/L Potassium 4.2 (3.5-5.1) mmol/L Chloride 107 (98-107) mmol/L Carbon Dioxide 22 (22-30) mmol/L Anion Gap 8 mmol/L BUN 16 (9-20) mg/dL Creatinine 0.94 (0.66-1.25) mg/dL Est GFR (CKD-EPI)AfAm >90 (>60 ml/min/1.73 sqM) Est GFR (CKD-EPI)NonAf >90 (>60 ml/min/1.73 sqM) Glucose 129 H (74-99) mg/dL Plasma Lactic Acid Mp (0.7-2.0) mmol/L Calcium 8.8 (8.4-10.2) mg/dL Magnesium 1.9 (1.6-2.3) mg/dL Total Bilirubin 0.7 (0.2-1.3) mg/dL AST 36 (17-59) U/L ALT 39 (4-49) U/L Alkaline Phosphatase 43 (38-126) U/L Troponin I (0.000-0.034) ng/mL Total Protein 6.8 (6.3-8.2) g/dL Albumin 4.1 (3.5-5.0) g/dL 09/19/23 09/19/23 Range/Units 10:49 10:49 WBC (3.8-10.6) k/uL RBC (4.30-5.90) m/uL Hgb (13.0-17.5) gm/dL Hct (39.0-53.0) % MCV (80.0-100.0) fL MCH (25.0-35.0) pg MCHC (31.0-37.0) g/dL RDW (11.5-15.5) % Plt Count (150-450) k/uL MPV Neutrophils % % Lymphocytes % % Monocytes % % Eosinophils % % Basophils % % Neutrophils # (1.3-7.7) k/uL Lymphocytes # (1.0-4.8) k/uL Monocytes # (0-1.0) k/uL Eosinophils # (0-0.7) k/uL Basophils # (0-0.2) k/uL PT (10.0-12.5) sec INR (<1.2) APTT (22.0-30.0) sec Sodium (137-145) mmol/L Potassium (3.5-5.1) mmol/L Chloride (98-107) mmol/L Carbon Dioxide (22-30) mmol/L Anion Gap mmol/L BUN (9-20) mg/dL Creatinine (0.66-1.25) mg/dL Est GFR (CKD-EPI)AfAm (>60 ml/min/1.73 sqM) Est GFR (CKD-EPI)NonAf (>60 ml/min/1.73 sqM) Glucose (74-99) mg/dL Plasma Lactic Acid Mp 1.8 (0.7-2.0) mmol/L Calcium (8.4-10.2) mg/dL Magnesium (1.6-2.3) mg/dL Total Bilirubin (0.2-1.3) mg/dL AST (17-59) U/L ALT (4-49) U/L Alkaline Phosphatase (38-126) U/L Troponin I <0.012 (0.000-0.034) ng/mL Total Protein (6.3-8.2) g/dL Albumin (3.5-5.0) g/dL Disposition Clinical Impression: Syncope Disposition: ADMITTED IP TO THIS [facility] Condition: Fair Referrals: Jayme Baron MD [Primary Care Provider] - 1-2 days Decision Time: 13:14
[2023-09-19 11:23] LABS: INR 1.1 (<1.2); Partial Thromboplastin Time 26.4 sec (22.0-30.0); Prothrombin Time 11.6 sec (10.0-12.5)
[2023-09-19] MEDS: LORazepam 2 MG/ML INJ IV STA (11:23)
[2023-09-19 11:25] LABS: ALT 39 U/L (4-49); AST 36 U/L (17-59); African American GFR (CKD) >90 (>60 ml/min/1.73 sqM); Albumin 4.1 g/dL (3.5-5.0); Alkaline Phosphatase 43 U/L (38-126); Anion Gap 8 mmol/L; Blood Urea Nitrogen 16 mg/dL (9-20); Calcium 8.8 mg/dL (8.4-10.2); Carbon Dioxide 22 mmol/L (22-30); Chloride 107 mmol/L (98-107); Glucose 129 mg/dL (74-99); Magnesium 1.9 mg/dL (1.6-2.3); Non-African American GFR(CKD) >90 (>60 ml/min/1.73 sqM); Potassium 4.2 mmol/L (3.5-5.1); Sodium 137 mmol/L (137-145); Total Bilirubin 0.7 mg/dL (0.2-1.3); Total Protein 6.8 g/dL (6.3-8.2)
[2023-09-19 11:46] LABS: Basophils % (A) 1 %; Eosinophils # (A) 0.1 k/uL (0-0.7); Eosinophils % (A) 1 %; HCT 48.2 % (39.0-53.0); HGB 15.7 gm/dL (13.0-17.5); Lymphocytes # (A) 0.9 k/uL (1.0-4.8); Lymphocytes % (A) 14 %; MCH 28.9 pg (25.0-35.0); MCHC 32.6 g/dL (31.0-37.0); MCV 88.5 fL (80.0-100.0); Mean Platelet Volume 7.5; Monocytes # (A) 0.3 k/uL (0-1.0); Monocytes % (A) 5 %; Neutrophils # (A) 5.2 k/uL (1.3-7.7); Neutrophils % (A) 78 %; Platelet Count 265 k/uL (150-450); RBC 5.44 m/uL (4.30-5.90); RDW 12.4 % (11.5-15.5); WBC 6.6 k/uL (3.8-10.6)
--- NOTE | 2023-09-19 12:06 | CT ---
EXAMINATION TYPE: CT brain wo con DATE OF EXAM: 09/19/2023 COMPARISON: 01/01/2023 INDICATION: syncope, fall, hx of recent stroke DLP: 1154.4 mGycm, Automated exposure control for dose reduction was used. CONTRAST: None CT of the brain is performed utilizing 3 mm thick sections through the posterior fossa and 3 mm thick sections through the remaining calvarium. Study is performed within 24 hours of arrival to the hosp ital. No abnormal hyperdensity is present to suggest an acute intracranial hemorrhage. No mass lesion is evident. There is some hypodensity through the right watershed region. Correlate for acute infarct at this lev el. This is an interval change. Report was called to the emergency room physician at the time interpr etation. Ventricles and sulci are appropriate for the patient age. Paranasal sinuses and mastoid air cells within the [id number] are clear. IMPRESSION: 1. Hypodensity within the right watershed region. Correlate for acute infarct. Follow-up with MRI c an be performed as clinically indicated.
--- NOTE | 2023-09-19 12:14 | XR ---
EXAMINATION TYPE: XR chest 1V portable DATE OF EXAM: 09/19/2023 Comparison: 08/31/[address] 09/03/2023 Clinical History: 73-year-old male syncope, fall? Findings: Left heart margin obscured by adjacent pleural parenchymal opacity. There is now a moderate left pleu ral effusion. Trace on the right. Mild interstitial density. Right apical pleural parenchymal scarrin g unchanged from 08/31/2023. Impression: Increased now moderate left pleural effusion with adjacent atelectasis and/or consolidation. Trace ef fusion on the right. Right apical pleural-parenchymal scarring. See recommendation on CT of 09/03/2023. Known underlying adenopathy not well appreciated radiographically.
[2023-09-19] MEDS ORDERED: NALOXONE 0.4 MG/ML 1 ML VIAL IV PRN (13:11)
[2023-09-19] MEDS: ASPIRIN 81 MG PO STA (13:13)
[2023-09-19] MEDS: SODIUM CHLORIDE 0.9% 1,000 ML IV SCH (13:20)
[2023-09-19] MEDS: GABAPENTIN 300 MG CAP PO SCH (16:39)
[2023-09-19] MEDS ORDERED: DEXTROSE 50% SYRINGE 50 ML IVP PRN ×2 (17:23)
[2023-09-19 17:41] LABS: Glucose,Whole Blood 104 mg/dL (70-110)
[2023-09-19] MEDS: INSULIN ASPART (NovoLOG) 100 UNIT/ML VIAL SQ SCH (17:48)
[2023-09-19] MEDS ORDERED: LACTULOSE 20 GM/30 ML CUP PO PRN (18:06)
[2023-09-19] MEDS ORDERED: ONDANSETRON 4 MG/2 ML VIAL IVP PRN (18:06)
[2023-09-19] MEDS ORDERED: CALCIUM CARBONATE 500 MG CHEWABLE PO PRN (18:06)
[2023-09-19] MEDS ORDERED: MELATONIN 3 MG TABLET PO PRN (18:06)
--- NOTE | 2023-09-19 18:17 | P.HPIM ---
History of Present Illness H&P Date: 09/19/23 Chief Complaint: On the floor This is a pleasant 57-year-old patient who follows with Dr. Chad Baron. Chronic stable medical conditions include atrial fibrillation, hard of hearing, hypertension, hyperlipidemia some cognitive impairment. He has had loop recorde r's x 3 and also has had unsuccessful cardiac ablation. Patient had a stroke in 2009 that left him with some right arm and left leg weakness and some numbness. Some memory loss. Patient also had a stroke on July 24, 2023 where he was taken to [facility]. That left him with some weakness on the left side. Patient speech is also affected but had recovered to certain degree. Today at 5:30 in the morning patient got up took a shower had a great granola bar and some juice. Took the dog out and he went to the bathroom. Next thing he knew he found himself on the floor confused. His speech was worse than yesterday. He noticed some more weakness on the left arm which is already weak from recent stroke. The had recovered some. also noticed that mouth was drooping on the left side. Head felt foggy. Inside the house he holds onto things to walk or uses a cane. Outside he does use a rolling walker. Review of systems: GEN.: Tired EYES: None HEENT: Decreased hearing e NECK: None RESPIRATORY: None CARDIOVASCULAR: None GASTROINTESTINAL: None GENITOURINARY: None MUSCULOSKELETAL: Back and joint pains LYMPHATICS: None HEMATOLOGICAL: None PSYCHIATRY: None NEUROLOGICAL: As above Social history: Patient smoked since the age of 19, 1 pack a week stopped in 2005. Alcohol occasionally. Lives with . Physical examination: VITAL SIGNS: 98.6, 73, 18, 110/97, 98% room air GENERAL: BMI 38.3, reclining in bed awake a bit tired appearing. EYES: Pupils equal. Conjunctiva katharine l. HEENT: External appearance of nose and ears normal, oral cavity grossly normal. Decreased hearing NECK: JVD not raised; masses not palpable. HEART: First and second heart sounds are normal; no edema. LUNGS: Respiratory rate normal; distant breath sounds. ABDOMEN: Soft, nontender, liver spleen not palpable, no masses palpable. PSYCH: Alert and oriented x3; mood and affect katharine l. MUSCULOSKELETAL:No Clubbing/cyanosis;muscles-grossly intact NEUROLOGICAL: Some drooping of the left mouth angle. Decreased power both in the right arm and left arm. Power 4/5. Decreased parachute taper.. LYMPHATICS: No lymph nodes palpable in the axilla and neck INVESTIGATIONS, reviewed in the clinical context: September 19, 2023: White count 6.6 hemoglobin 15.7 platelets 265 sodium 137 potassium 4.2 creatinine 0.94 Troponin I less than 0.012 EKG tracing personally reviewed by me-normal sinus rhythm. Pulse 68 CT brain without contrast: Hypodensity within the right watershed region. Correlate for acute infarct. Chest x-ray film personally reviewed by me-some cardiomegaly Assessment plan: -Acute stroke manifesting with increased weakness on the left side. Affecting the speech. At baseline patient had a stroke in 2009 left him with some right-sided weakness both arm and leg some numbness. Also patient had a stroke on July 24, 2023 went to [facility]. With some residual left-sided weakness. The left-sided weakness especially in the arm is much weak now. Also patient speech is affected recently which is looking worse to the patient. Patient has been on Eliquis, Plavix. Will add baby aspirin PT OT, speech consult -Acute dysarthria from stroke Patient had a stroke in July. Speech was affected was getting better but not back to baseline. Now worsening of the same Consult speech therapy. Assess swallowing -Chronic right-sided weakness and chronic left-sided weakness from prior strokes At baseline uses a cane inside the house and four-wheel walker outside the house -Diabetes mellitus type 2 Metformin. Madiunpachecoro. -Hyperlipidemia Lipitor 80 mg a day fenofibrate. -Diabetic peripheral neuropathy and some chronic low back pain Neurontin 300 mg twice daily -Essential hypertension Zestril 10 mg a day atenolol 25 mg a day -Obesity BMI 38.3 Weight loss measures -Full code Care was discussed with the patient. Discussed. Neurology consulted. Past Medical History Past Medical History: Atrial Fibrillation, Chest Pain / Angina, CVA/TIA, Hearing Disorder / Deafness, Hyperlipidemia, Hypertension, Memory Impairment, Myocardial Infarction (NH), Pneumonia, Syncope Additional Past Medical History / Comment(s): Recent CVA- w/left sided weakness,weakness in hand and leg.CVA 12/23/18 with right side weakness. VISION LOSS RESOLVED. Hx CVA 2009 with R sided weakness and numbness upper and lower extremities and short term memory loss, MIs X3, chronic low back pain, R shoulder and R ankle pain, seasonal allergies, sinus problems. "Sleep Apnea, needs to have a Sleep Study." Slightly Hard of Hearing. "I passed multiple times out years ago." Last Myocardial Infarction Date:: 2005, 2010,2011 History of Any Multi-Drug Resistant Organisms: None Reported Past Surgical History: Cardiac Ablation, Heart Catheterization, Tonsillectomy Additional Past Surgical History / Comment(s): Cardiac ablation-unsuccessful per pt, loop recorders X3 one in currenty-02/22/2019-pt states battery has , colonoscopy/benign polypectomy, cyst removed from buttock/anal area 2018;left shoulder cyst removed 12/04/2022. Had Sebaceous cyst removed from back. Last cardiac cath 2018. Past Anesthesia/Blood Transfusion Reactions: Previous Problems w/ Anesthesia Additional Past Anesthesia/Blood Transfusion Reaction / Comment(s): WOKE UP A BIT MEAN AFTER (MANY YRS AGO). VERY CLAUSTROPHOBIA. No hx of blood transfusion. Type of Cardiac Device: Loop Device Placement Date:: 03/10/2019 Past Psychological History: No Psychological Hx Reported Smoking Status: Former smoker Past Alcohol Use History: Occasional Past Drug Use History: None Reported - Past Family History Father Family Medical History: COPD, Deep Vein Thrombosis (DVT), Hyperlipidemia, Hype rtension, Myocardial Infarction (NH) Additional Family Medical History / Comment(s): Father had MIs with the first one being when he was about 65 yrs old. He had coronary stents. He at the age of 83 yrs. Mother Family Medical History: Cancer, Dementia, Thyroid Disorder Additional Family Medical History / Comment(s): Mother had breast cancer, diverticulitis, thyroid disease and from dementia at the age of 80 yrs. Sister(s) Family Medical History: Cancer Additional Family Medical History / Comment(s): Pancreatic cancer. Medications and Allergies Home Medications Medication Instructions Recorded Confirmed Type Apixaban [Eliquis] 5 mg PO BID #60 tab 12/25/18 09/19/23 Rx Ergocalciferol (Vitamin D2) 1,250 mcg PO WICK 04/05/22 09/19/23 History [Drisdol (50,000 Iu)] Saw [place] 500 mg PO BID 04/05/22 09/19/23 History lisinopriL [Zestril] 10 mg PO QAM 08/08/22 09/19/23 History Atorvastatin [Lipitor] 80 mg PO QAM 12/05/22 09/19/23 History Gabapentin [Neurontin] 300 mg PO TID 12/05/22 09/19/23 History atenoloL [Tenormin] 25 mg PO QAM 12/05/22 09/19/23 History metFORMIN HCL ER [Glucophage XR] 500 mg PO HS 01/01/23 09/19/23 History Clopidogrel [Plavix] 75 mg PO QAM 08/30/23 09/19/23 History Fenofibrate 145 mg PO QAM 08/30/23 09/19/23 History EPINEPHrine (Auto Inject) [Epipen] 0.3 mg IM ONCE PRN 09/19/23 09/19/23 History Tirzepatide [Mounjaro] 2.5 mg SQ WICK 09/19/23 09/19/23 History Allergies Allergy/AdvReac Type Severity Reaction Status Date / Time bee venom protein (honey bee) Allergy Swelling Verified 09/19/23 11:54 Physical Exam Vitals: Vital Signs Temp Pulse Resp BP Pulse Ox 09/19/23 15:22 75 18 110/97 98 09/19/23 13:05 73 18 107/77 97 09/19/23 10:31 74 18 119/80 97 09/19/23 10:19 98.6 F 73 18 126/86 99 Intake and Output 09/19/23 09/19/23 09/19/23 06:59 14:59 22:59 Other: Weight 131.542 kg Results CBC & Chem 7: 09/19/23 10:49 09/19/23 10:49 Labs: Abnormal Lab Results - Last 24 Hours (Table) 09/19/23 09/19/23 Range/Units 10:49 10:49 Lymphocytes # 0.9 L (1.0-4.8) k/uL Glucose 129 H (74-99) mg/dL
[2023-09-19] MEDS: ASPIRIN 81 MG PO SCH (19:10)
[2023-09-19] MEDS: APIXABAN 5 MG TAB PO SCH (20:59)
[2023-09-19] MEDS: metFORMIN 500 MG TAB PO SCH (20:59)
[2023-09-19] MEDS: FAMOTIDINE 20 MG TAB PO SCH (20:59)
[2023-09-19] MEDS: ALPRAZolam 0.25 MG TAB PO PRN (20:59)
[2023-09-20 07:40] LABS: Glucose,Whole Blood 97 mg/dL (70-110)
[2023-09-20] MEDS: atenoloL 25 MG TAB PO SCH (08:19)
[2023-09-20] MEDS: lisinopriL 10 MG TAB PO SCH (08:19)
[2023-09-20] MEDS: ATORVASTATIN 80 MG TAB PO SCH (08:19)
[2023-09-20] MEDS: CLOPIDOGREL 75 MG TAB PO SCH (08:19)
[2023-09-20] MEDS: FENOFIBRATE 160 MG TAB PO SCH (08:20)
[2023-09-20] MEDS: ACETAMINOPHEN TAB 325 MG TAB PO PRN (10:15)
--- NOTE | 2023-09-20 12:22 | P.CNNES ---
History of Present Illness Consult date: 09/19/23 Requesting physician: Rehan Zarco Reason for Consult: Abnormal CT History of Present Illness: Patient is a 57-year-old right-handed male, with history of multiple strokes, came to the hospital by ambulance today at 10:11 AM. EMS flowsheet not available in the chart. Vital signs on arrival blood pressure 126/86, pulse of 73 temperature 98.6. Blood test shows normal CBC, PT PTT, normal CMP, troponin. CT head showed hypodensity within the right watershed region. Correlate for acute infarct. Follow-up MRI can be performed as clinically indicated. I personally reviewed CT head. Chest x-ray showed mild cardiomegaly and hypoventilatory change. Otherwise no definite acute process. EKG shows sinus rhythm. Neurology was consulted for abnormal CT head. I spoke to patient's on the phone as well and both of them provided with a history. Patient has history of stroke 15 years ago, which affected his eyes. He also had a small stroke in 2019, and was seen by Dr. Ribera at that time. Patient always had some weakness of the right side of the body. Patient had a third stroke on 07/24/2023 when he was admitted to [facility]. He had an MRI of the brain performed on 07/26/2023, which revealed acute area of ischemia involving the right posterior insular cortex, and also right posterior temporal region. Patient has a picture of DWI image from that MRI that was taken, and his neurologist in the hospital let him take picture of the MRI showing acute stroke. With the third stroke, he developed weakness of the left side as well, and is not as strong. 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 He did his normal routine after his went for work. He remembers that he did have some headache since the night prior, and also on waking up in the morning. He also was feeling slightly dizzy since he woke up in the morning. He was sitting in the chair watching TV. He wanted to take a pee, got up uses cane wobble to go to the bathroom and pass the urine. He turned around, heading to the living room when he without any warning, passed out. He woke up on the floor, unknown for how long he was out for. He states that he always carries his phone with him. The phone fell off next to him as well as his eyeglasses. He managed to call 911 and the next thing he remembers is being in the ambulance was brought to the hospital. Patient has noticed that his speech is slightly more worse since this event. Otherwise he denies any obvious new focal weakness numbness or tingling. He has significant focal findings related to his previous strokes. He denies any tongue bite, or loss of control of urine. No previous history of seizures. Patient states that he had undergone removal of the sebaceous cyst on 06/14/2023. He had stopped Eliquis for 2 days prior to the procedure, and he had a stroke on 07/24/2023. Patient states that he has been Eliquis for couple years. On 09/04/2023 he underwent LYNSEY. 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 Tilley had recommended to hold Eliquis for 1 day prior to the procedure. And now he has presented with this and he is expressing concerns, if holding Eliquis 2 weeks prior may have any contribution. Patient has history of diabetes, hypertension, hyperlipidemia. Patient has history of ascending aortic aneurysm 4.1 cm. Patient has smoked 1 pack/week for 5 years, quit 17 years ago. Denies any use of marijuana. No alcohol. Home medication clued Eliquis 5 mg twice daily, saw palmetto, vitamin D, lisinopril, atenolol, gabapentin 3 mg 3 times daily, Lipitor 80 mg, metformin, Plavix 75 mg, fenofibrate 145 mg every a.m. and Mounjaro. LYNSEY performed 09/04/2023 revealed aortic valve is bicuspid with fusion of the right and left cusp with no significant aortic stenosis and mild AR. Mitral valve appears normal. Interatrial septum is intact. No evidence of PFO. Left atrial appendage is free of clot. Left ventricular ejection fraction 55%. Ascending aortic aneurysm measuring 4.1 cm. He uses cane in the house for walking. Review of Systems Constitutional: Denies chills, Denies fever Eyes: bilateral loss of peripheral vision, denies diplopia Ears: right: tinnitus, bilateral: decreased hearing Ears, nose, mouth and throat: Reports headache (earler today not now), Denies vertigo Cardiovascular: Reports lightheadedness, Denies chest pain, Denies shortness of breath Respiratory: Denies cough, Denies excessive sputum Gastrointestinal: Denies abdominal pain, Denies diarrhea, Denies nausea, Denies vomiting Musculoskeletal: Denies low back pain, Denies neck pain Integumentary: Reports color changes, Reports darkening of skin, Denies pruritus, Denies rash Neurological: Reports as per HPI Psychiatric: Reports anxiety, Denies depression Hematologic/Lymphatic: Reports easy bleeding, Reports easy bruising Past Medical History Past Medical History: Atrial Fibrillation, Chest Pain / Angina, CVA/TIA, Hearing Disorder / Deafness, Hyperlipidemia, Hypertension, Memory Impairment, Myocardial Infarction (SD), Pneumonia, Syncope Additional Past Medical History / Comment(s): Recent CVA- w/left sided weakness,weakness in hand and leg.CVA 12/23/18 with right side weakness. VISION LOSS RESOLVED. Hx CVA 2009 with R sided weakness and numbness upper and lower extremities and short term memory loss, MIs X3, chronic low back pain, R shoulder and R ankle pain, seasonal allergies, sinus problems. "Sleep Apnea, needs to have a Sleep Study." Slightly Hard of Hearing. "I passed multiple times out years ago." Last Myocardial Infarction Date:: 2005, 2010,2011 History of Any Multi-Drug Resistant Organisms: None Reported Past Surgical History: Cardiac Ablation, Heart Catheterization, Tonsillectomy Additional Past Surgical History / Comment(s): Cardiac ablation-unsuccessful per pt, loop recorders X3 one in currenty-02/22/2019-pt states battery has , col onoscopy/benign polypectomy, cyst removed from buttock/anal area 2018;left shoulder cyst removed 12/04/2022. Had Sebaceous cyst removed from back. Last cardiac cath 2018. Past Anesthesia/Blood Transfusion Reactions: Previous Problems w/ Anesthesia Additional Past Anesthesia/Blood Transfusion Reaction / Comment(s): WOKE UP A BIT MEAN AFTER (MANY YRS AGO). VERY CLAUSTROPHOBIA. No hx of blood transfusion. Type of Cardiac Device: Loop Device Placement Date:: 03/10/2019 Past Psychological History: No Psychological Hx Reported Smoking Status: Former smoker Past Alcohol Use History: Occasional Past Drug Use History: None Reported - Past Family History Father Family Medical History: COPD, Deep Vein Thrombosis (DVT), Hyperlipidemia, Hypertension, Myocardial Infarction (SD) Additional Family Medical History / Comment(s): Father had MIs with the first one being when he was about 65 yrs old. He had coronary stents. He at the age of 83 yrs. Mother Family Medical History: Cancer, Dementia, Thyroid Disorder Additional Family Medical History / Comment(s): Mother had breast cancer, diverticulitis, thyroid disease and from dementia at the age of 80 yrs. Sister(s) Family Medical History: Cancer Additional Family Medical History / Comment(s): Pancreatic cancer. Medications and Allergies Home Medications Medication Instructions Recorded Confirmed Type Apixaban [Eliquis] 5 mg PO BID #60 tab 12/25/18 09/19/23 Rx Ergocalciferol (Vitamin D2) 1,250 mcg PO WICK 04/05/22 09/19/23 History [Drisdol (50,000 Iu)] Saw [place] 500 mg PO BID 04/05/22 09/19/23 History lisinopriL [Zestril] 10 mg PO QAM 08/08/22 09/19/23 History Atorvastatin [Lipitor] 80 mg PO QAM 12/05/22 09/19/23 History Gabapentin [Neurontin] 300 mg PO TID 12/05/22 09/19/23 History atenoloL [Tenormin] 25 mg PO QAM 12/05/22 09/19/23 History metFORMIN HCL ER [Glucophage XR] 500 mg PO HS 01/01/23 09/19/23 History Clopidogrel [Plavix] 75 mg PO QAM 08/30/23 09/19/23 History Fenofibrate 145 mg PO QAM 08/30/23 09/19/23 History EPINEPHrine (Auto Inject) [Epipen] 0.3 mg IM ONCE PRN 09/19/23 09/19/23 History Tirzepatide [Mounjaro] 2.5 mg SQ WICK 09/19/23 09/19/23 History Allergies Allergy/AdvReac Type Severity Reaction Status Date / Time bee venom protein (honey bee) Allergy Swelling Verified 09/19/23 11:54 Physical Examination - Vital Signs Vital Signs: Vital Signs Temp Pulse Resp BP Pulse Ox 09/19/23 19:15 82 18 139/70 96 09/19/23 15:22 75 18 110/97 98 09/19/23 13:05 73 18 107/77 97 05/30/24 10:31 74 18 119/80 97 09/19/23 10:19 98.6 F 73 18 126/86 99 Intake and Output 09/19/23 09/19/23 09/19/23 06:59 14:59 22:59 Other: Weight 131.542 kg Patient is a middle aged male, in no acute distress. Patient is alert awake oriented to time place and person. He knows it is August 2023 and that he is in [facility]. Speech is somewhat hesitant and some word finding problem. Questionable mild dysarthria. Patient can name and repeat very well, although with some hesitancy. Attention, concentration and fund of knowledge is slightly limited detailed cognitive function testing deferred.. On cranial nerve examination, pupils are equal, round and reacting to light. His visual mukherjee revealed bilateral lateral restricted visual mukherjee, almost like tunnel vision. Extraocular muscles are intact with no nystagmus. He has slight left-sided asymmetry of the face on active testing. His tongue protrudes to the midline. Palatal elevation and sensation normal, hearing is decreased and shoulder shrug normal, facial sensation normal. On muscle strength testing, he has prominent right pronator drift, and it hits the bed. On muscle strength testing (right/left) deltoid 3+/3+ biceps 3+/4, triceps 3+/4+, assistant account manager 3+/4. He has some jerky noticed in the arms. Weakness in the lower limbs hip flexion 3/3+4-, ankle dorsiflexion 1-2/3+ Deep tendon reflexes are symmetric 2 at the biceps, 2 brachioradialis, 2+ in the right knee, 2+3 left knee. Ankles are absent bilaterally and plantar is flat on the right, upgoing on the left. Sensory to touch is decreased in the entire right side of the body. Cerebellar function showed no ataxia for feukdm-io-fogn testing, although it was very difficult bilaterally, right more than left. Tone is slightly increased on the right and bulk of muscles normal. Gait deferred.. On general examination, there is no carotid bruit or murmur, S1-S2 audible. Chest is clear on consultation. Abdomen is soft nontender. No organomegaly, bowel sounds present. Patient has positive peripheral edema. Results - Laboratory Findings CBC and BMP: 09/19/23 10:49 05/30/24 10:49 Abnormal Lab Findings: Abnormal Labs 09/19/23 09/19/23 10:49 10:49 Lymphocytes # 0.9 L Glucose 129 H Assessment and Plan Assessment: * Acute syncopal spell, with difficulty getting up. Uncertain if vasovagal, orthostatic, seizure or CVA related. Patient has history of multiple strokes in the past, with evidence of residual focal deficits from previous CVA, therefore uncertain if new or old. Patient believes that his speech is slightly worse since this current event. Rule out stroke/TIA. * History of acute CVA, involving right posterior insular cortex and right po sterior temporal region 07/24/2023, treated at [facility]. * History of CVA 2018, with residual right-sided weakness. * History of left occipital CVA 2009, with residual right visual field deficit. * Atrial fibrillation, on anticoagulation. * Diabetes * Hypertension * Hyperlipidemia * Coronary artery disease Plan: * Patient will undergo full stroke workup as below. * MRI of the brain without contrast, evaluate for acute CVA * LYNSEY performed 09/04/2023 revealed aortic valve is bicuspid with fusion of the right and left cusp with no significant aortic stenosis and mild AR. Mitral valve appears normal. Interatrial septum is intact. No evidence of PFO. Left atrial appendage is free of clot. Left ventricular ejection fraction 55%. Ascending aortic aneurysm measuring 4.1 cm. * Obtain records of recent hospitalization at [facility]. * EEG rule out epileptiform activity * Orthostatics * B12, folate * Fasting a.m. lipid panel * Hemoglobin A1c * Permissive hypertension for next 24-48 hours * Continue Eliquis 5 mg twice daily and Plavix 75 mg daily. Avoid adding aspir in unless a new CVA confirmed. * Neuro checks every 2 hours * Telemetry monitoring rule out any arrhythmia * PT, OT, speech therapy * DVT prophylaxis: Patient on Eliquis. * Neurology will continue to follow. Thank you for the consult. Time with Patient: Greater than 30
[2023-09-20 16:19] LABS: Glucose,Whole Blood 96 mg/dL (70-110)
[2023-09-20 16:48] LABS: Chol/HDL Ratio 3.23 Ratio; LDL Cholesterol,Calculated 45.5 mg/dL (0.0-131.0)
--- NOTE | 2023-09-20 17:14 | P.PN ---
Progress Note - Text Progress Note Date: 09/20/23 Chief Complaint: On the floor This is a pleasant 57-year-old patient who follows with Dr. Chad Baron. Chronic stable medical conditions include atrial fibrillation, hard of hearing, hypertension, hyperlipidemia some cognitive impairment. He has had loop re angel's x 3 and also has had unsuccessful cardiac ablation. Patient had a stroke in 2009 that left him with some right arm and left leg weakness and some numbness. Some memory loss. Patient also had a stroke on July 24, 2023 where he was taken to [facility]. That left him with some weakness on the left side. Patient speech is also affected but had recovered to certain degree. Today at 5:30 in the morning patient got up took a shower had a great granola bar and some juice. Took the dog out and he went to the bathroom. Next thing he knew he found himself on the floor confused. His speech was worse than yesterday. He noticed some more weakness on the left arm which is already weak from recent stroke. The had recovered some. also noticed that mouth was drooping on the left side. Head felt foggy. Inside the house he holds onto things to walk or uses a cane. Outside he does use a rolling walker. September 19: Patient speech is slightly better left arm weakness slightly better than initial presentation. But still not back to where it was 2 days ago. Pending MRI to be done.. EEG results pending. Followed by PT OT. Active Medications Acetaminophen (Acetaminophen Tab 325 Mg Tab) 650 mg PO Q6HR PRN PRN Reason: Mild Pain or Fever > 100.5 Last Admin: 09/20/23 10:15 Dose: 650 mg Alprazolam (Alprazolam 0.25 Mg Tab) 0.25 mg PO Q6HR PRN PRN Reason: Anxiety Last Admin: 09/19/23 20:59 Dose: 0.25 mg Apixaban (Apixaban 5 Mg Tab) 5 mg PO BID [facility]; Protocol Last Admin: 09/20/23 08:19 Dose: 5 mg Aspirin (Aspirin 81 Mg) 81 mg PO DAILY [facility] Last Admin: 09/20/23 08:15 Dose: Not Given Atenolol (Atenolol 25 Mg Tab) 25 mg PO QAM [facility] Last Admin: 09/20/23 08:19 Dose: 25 mg Atorvastatin Calcium (Atorvastatin 80 Mg Tab) 80 mg PO [facility] Last Admin: 09/20/23 08:19 Dose: 80 mg Calcium Carbonate/Glycine (Calcium Carbonate 500 Mg Chewable) 1,000 mg PO Q4HR PRN PRN Reason: Dyspepsia Clopidogrel Bisulfate (Clopidogrel 75 Mg Tab) 75 mg PO [facility] Last Admin: 09/20/23 08:19 Dose: 75 mg Dextrose/Water (Dextrose 50% Syringe 50 Ml) 25 ml IVP PER PROTOCOL PRN; Protocol PRN Reason: Hypoglycemia Dextrose/Water (Dextrose 50% Syringe 50 Ml) 50 ml IVP PER PROTOCOL PRN; Protocol PRN Reason: Hypoglycemia Ergocalciferol (Ergocalciferol 1,250 Mcg (50,000 Iu) Capsule) 1,250 mcg PO [facility] Famotidine (Famotidine 20 Mg Tab) 20 mg PO BID [facility] Last Admin: 09/20/23 08:19 Dose: 20 mg Fenofibrate (Fenofibrate 160 Mg Tab) 160 mg PO [facility] Last Admin: 09/20/23 08:20 Dose: 160 mg Gabapentin (Gabapentin 300 Mg Cap) 300 mg PO TID [facility] Last Admin: 09/20/23 15:27 Dose: 300 mg Sodium Chloride (Saline 0.9%) 1,000 mls @ 20 mls/hr IV .Q24H [facility] Last Admin: 09/20/23 13:39 Dose: 20 mls/hr Insulin Aspart (Insulin Aspart (Novolog) 100 Unit/Ml Vial) 0 unit SQ AC-TID [facility]; Protocol Last Admin: 09/20/23 16:51 Dose: Not Given Lactulose (Lactulose 20 Gm/30 Ml Cup) 20 gm PO DAILY PRN PRN Reason: Constipation Lisinopril (Lisinopril 10 Mg Tab) 10 mg PO [facility] Last Admin: 09/20/23 08:19 Dose: 10 mg Melatonin (Melatonin 3 Mg Tablet) 3 mg PO HS PRN PRN Reason: Insomnia Metformin HCl (Metformin 500 Mg Tab) 500 mg PO HS [facility] Last Admin: 09/19/23 20:59 Dose: 500 mg Naloxone HCl (Naloxone 0.4 Mg/Ml 1 Ml Vial) 0.2 mg IV Q2M PRN PRN Reason: Opioid Reversal Tirzepatide [ Mounjaro] 2.5 Mg/0.5 Ml Pen.Injctr 2.5 mg SQ [facility] Ondansetron HCl (Ondansetron 4 Mg/2 Ml Vial) 4 mg IVP Q8HR PRN PRN Reason: Nausea And Vomiting Social history: Patient smoked since the age of 19, 1 pack a week stopped in 2005. Alcohol occasionally. Lives with . Physical examination: VITAL SIGNS: 98.2, 74, 20, 111/75, 98% room air GENERAL: BMI 38.3, reclining in bed EYES: Pupils equal. Conjunctiva katharine l. HEENT: External appearance of nose and ears normal, oral cavity grossly normal. Decreased hearing NECK: JVD not raised; masses not palpable. HEART: First and second heart sounds are normal; no edema. LUNGS: Respiratory rate normal; distant breath sounds. ABDOMEN: Soft, nontender, liver spleen not palpable, no masses palpable. PSYCH: Alert and oriented x3; mood and affect katharine l. MUSCULOSKELETAL:No Clubbing/cyanosis;muscles-grossly intact NEUROLOGICAL: Some drooping of the left mouth angle. Decreased power both in the right arm and left arm. Power 4/5. 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 Trouble finding words when speaking LYMPHATICS: No lymph nodes palpable in the axilla and neck INVESTIGATIONS, reviewed in the clinical context: LDL 45.5 September 19, 2023: White count 6.6 hemoglobin 15.7 platelets 265 sodium 137 potassium 4.2 creatinine 0.94 Troponin I less than 0.012 EKG tracing personally reviewed by me-normal sinus rhythm. Pulse 68 CT brain without contrast: Hypodensity within the right watershed region. Correlate for acute infarct. Chest x-ray film personally reviewed by me-some cardiomegaly Assessment plan: -Acute stroke manifesting with increased weakness on the left side. Affecting the speech. At baseline patient had a stroke in 2009 left him with some right-sided weakness both arm and leg some numbness. Also patient had a stroke on July 24, 2023 went to [facility]. With some residual left-sided weakness. The left-sided weakness especially in the arm is much weak now. Also patient speech is affected recently which is looking worse to the patient. Patient has been on Eliquis, Plavix. Will add baby aspirin PT OT, speech consult EEG results ending. MRI pending to be done -Acute dysarthria from stroke Patient had a stroke in July. Speech was affected was getting better but not back to baseline. Now worsening of the same Seen by peds therapist. Swallowing well. -Chronic right-sided weakness and chronic left-sided weakness from prior strokes At baseline uses a cane inside the house and four-wheel walker outside the house -Diabetes mellitus type 2 Metformin. Mounjaro. -Hyperlipidemia Lipitor 80 mg a day fenofibrate. -Diabetic peripheral neuropathy and some chronic low back pain Neurontin 300 mg twice daily -Essential hypertension Zestril 10 mg a day atenolol 25 mg a day -Obesity BMI 38.3 Weight loss measures -Full code Discussed with patient. Await results of EEG. MRI pending. Will need rehab. Past Medical History Past Medical History: Atrial Fibrillation, Chest Pain / Angina, CVA/TIA, Hearing Disorder / Deafness, Hyperlipidemia, Hypertension, Memory Impairment, Myocardial Infarction ([place]), Pneumonia, Syncope Additional Past Medical History / Comment(s): Recent CVA- w/left sided weakness,weakness in hand and leg.CVA 12/23/18 with right side weakness. VISION LOSS RESOLVED. Hx CVA 2009 with R sided weakness and numbness upper and lower extremities and short term memory loss, MIs X3, chronic low back pain, R shoulder and R ankle pain, seasonal allergies, sinus problems. "Sleep Apnea, needs to have a Sleep Study." Slightly Hard of Hearing. "I passed multiple times out years ago." Last Myocardial Infarction Date:: 2005, 2010,2011 History of Any Multi-Drug Resistant Organisms: None Reported Past Surgical History: Cardiac Ablation, Heart Catheterization, Tonsillectomy Additional Past Surgical History / Comment(s): Cardiac ablation-unsuccessful per pt, loop recorders X3 one in currenty-02/22/2019-pt states battery has , colonoscopy/benign polypectomy, cyst removed from buttock/anal area 2019;left shoulder cyst removed 12/04/2022. Had Sebaceous cyst removed from back. Last cardiac cath 2018. Past Anesthesia/Blood Transfusion Reactions: Previous Problems w/ Anesthesia Additional Past Anesthesia/Blood Transfusion Reaction / Comment(s): WOKE UP A BIT MEAN AFTER (MANY YRS AGO). VERY CLAUSTROPHOBIA. No hx of blood transfusion. Type of Cardiac Device: Loop Device Placement Date:: 03/10/2019 Past Psychological History: No Psychological Hx Reported Smoking Status: Former smoker Past Alcohol Use History: Occasional Past Drug Use History: None Reported
[2023-09-20] MEDS: LORazepam 1 MG/0.5 ML VIAL IV ONE (18:12)
[2023-09-20 20:09] LABS: Glucose,Whole Blood 122 mg/dL (70-110)
--- NOTE | 2023-09-21 02:53 | EEG ---
ELECTROENCEPHALOGRAM REPORT PREAMBLE: This is a 57-year-old male with history of multiple strokes, came with syncopal spell, rule out seizure. EEG FINDINGS: This is a 21-channel digital EEG recorded with video component, utilizing 10/20 international system with referential and bipolar montages. Background consists of well-developed, well-regulated moderate voltage activity in 9 hertz alpha. Background is posterior dominant and reactive to eye opening and closing. Photic driving response was seen with some flash frequencies. Hyperventilation was not done. Drowsiness was seen with appearance of some mixed theta frequency rhythm. Deeper stages of sleep were not seen. No focal or generalized epileptiform activity was seen. IMPRESSION: This is a normal awake and drowsy EEG. No focal, lateralized, or epileptiform activity was seen. MMODL / IJN: [id number] /
[2023-09-21 06:23] LABS: Glucose,Whole Blood 121 mg/dL (70-110)
[2023-09-21] MEDS: LORazepam 1 MG TAB PO STA (11:03)
[2023-09-21] MEDS: LORazepam 1 MG/0.5 ML VIAL IV STA (11:24)
[2023-09-21 11:40] LABS: Glucose,Whole Blood 145 mg/dL (70-110)
[2023-09-21] MEDS: diazePAM 5 MG TAB PO STA (11:41)
--- NOTE | 2023-09-21 12:35 | MR ---
MRI brain without contrast HISTORY: CVA. Comparison: None TECHNIQUE: Multiecho multiplanar images of brain were obtained without contrast. FINDINGS: On the T1-weighted sagittal images, the midline structures including the craniovertebral junction rel ationships are normal. The ventricles, basal cisterns and sulci over convexities are within normal limits and there is no ma ss effect or shift of the midline structures. On the FLAIR and T2-weighted images, there is moderate area of abnormal increased signal intensity in volving the cortex and subcortical white matter at the right temporoparietal junction/watershed regio n. There is mild increased signal intensity in this region on the diffusion-weighted image likely a c ombination of subacute infarct in T2 shine through. There is no mass effect or shift of the midline structures. The posterior fossa is normal. Intraorbital contents appear normal. There are mild inflammatory changes in the right maxillary sinus. There is a small amount of fluid in the mastoid air cells. IMPRESSION: 1. Subacute infarct in the right temporoparietal region as described above. 2. Mild fluid in the mastoid air cells and mild chronic inflammatory change in the right maxillary si nus. 3. No mass effect or shift of the midline structures.
--- NOTE | 2023-09-21 12:38 | P.PN ---
Subjective Progress Note Date: 09/20/23 Patient was seen for a follow-up. Patient is laying comfortably in the bed. He states that he walked a block and feeling good. Had headache in the morning on waking up but now gone. No new concerns. Objective - Vital Signs Vital signs: Vital Signs Temp 98.2 F 09/20/23 15:26 Pulse 74 09/20/23 15:26 Resp 20 09/20/23 15:26 BP 111/75 09/20/23 15:26 Pulse Ox 98 09/20/23 15:26 FiO2 Intake & Output 09/19/23 09/20/23 09/20/23 18:59 06:59 18:59 Weight 131.542 kg 131.542 kg Other: Voiding Method Toilet - Exam Unchanged. Detailed examination deferred. Mentation normal. Speech still hesitant. - Labs CBC & Chem 7: 09/19/23 10:49 09/19/23 10:49 Labs: Abnormal Lab Results - Last 24 Hours (Table) 09/20/23 09/20/23 Range/Units 10:27 10:27 Hemoglobin A1c 6.6 H (<=6.0) % Triglycerides 180.00 H (0.00-149.00) mg/dL HDL Cholesterol 36.50 L (40.00-60.00) mg/dL Assessment and Plan Assessment: * Acute syncopal spell, with difficulty getting up. Uncertain if vasovagal, orthostatic, seizure or CVA related. Patient has history of multiple strokes in the past, with evidence of residual focal deficits from previous CVA, therefore uncertain if new or old. Patient believes that his speech is slightly worse since this current event. Rule out stroke/TIA. * History of acute CVA, involving right posterior insular cortex and right posterior temporal region 07/24/2023, treated at [facility]. * History of CVA 2018, with residual right-sided weakness. * History of left occipital CVA 2009, with residual right visual field deficit. * Atrial fibrillation, on anticoagulation. * Diabetes * Hypertension * Hyperlipidemia * Coronary artery disease Plan: * Patient will undergo full stroke workup as below. * Await MRI of the brain without contrast, evaluate for acute CVA * LYNSEY performed 09/04/2023 revealed aortic valve is bicuspid with fusion of the right and left cusp with no significant aortic stenosis and mild AR. Mitral valve appears normal. Interatrial septum is intact. No evidence of PFO. Left atrial appendage is free of clot. Left ventricular ejection fraction 55%. Ascending aortic aneurysm measuring 4.1 cm. * Obtain records of recent hospitalization at [facility]. * EEG was normal awake and drowsy. No focal, lateralized or epileptiform activity was seen. * Orthostatics checked were negative. His supine blood pressure 1 /62, pulse rate 67, sitting up was 120/73 with pulse of 77 and standing 123/80 and pulse 72. * B12 five 2916.9, both normal, folate * Fasting a.m. lipid panel cholesterol 118, HDL 36, LDL 45, triglycerides 180. * Hemoglobin A1c 6.6. Diabetes controlled. * Optimize control of blood pressure. * Continue Eliquis 5 mg twice daily and Plavix 75 mg daily. Avoid adding aspirin unless a new CVA confirmed. * Neuro checks every 2 hours * Telemetry monitoring rule out any arrhythmia * PT, OT, speech therapy * DVT prophylaxis: Patient on Eliquis.
--- NOTE | 2023-09-21 12:57 | P.CRDCN ---
History of Present Illness Consult date: 09/21/23 Reason for Consult (text): Stroke, on anticoagulation History of present illness: This is Perry Aguilar NP, I'm dictating on behalf of Dr. Arreaga's H&P and A&P The patient was interviewed and examined. 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 Patient reports couple days ago he felt "funny" after getting up in the morning. Overall he states though he was normal otherwise. He states that his had left to go to the store, and after walking into the living room the next thing he remembers is waking up on the floor with his glasses and phone on the floor with him. He does not remember passing out or falling. He states at that time he called 911 and was transported to the hospital. CT scan of the brain at that time does show a acute infarct in the right watershed region. Patient has a significant history of multiple CVAs in the past. Patient has been on maximized anticoagulant therapy for some time now. Numerous amounts of workup have been done between neurology and cardiology without obvious reason for the patient having numerous strokes. Most recent evaluation by cardiology included a LYNSEY which did not demonstrate any abnormal findings including no left atrial appendage thrombus. The patient is well-known to us, and we requested to be consulted. This morning the patient reports that he feels okay. Per his he appears to be back to his usual baseline level of function, however he is experiencing an increase in expressive aphasia, stating that he is having a hard time getting his words out, and she reports that his memory is a little bit worse than normal. He otherwise denies chest pain, shortness of breath, heart palpitations, nausea, dizziness, syncope, or headache. The patient does report that he did have a headache a couple days ago, which was significant to him as he has had a headache with previous CVAs. ROS: [No fever, chills, or rigors] [no cough, phlegm, or expectoration] [no nausea, vomiting, or diarrhea] [no hematuria, dysuria] [no musculoskelatal complaints] [positive for acute stroke, no seizures] [no skin lesions] EXAMINATION: GENERAL: Well-appearing, well-nourished and in no acute distress. NECK: Supple without JVD or thyromegaly. LUNGS: Breath sounds clear to auscultation bilaterally. Respiration equal and unlabored. No wheezes, rales or rhonchi. HEART: Regular rate and rhythm without murmurs, rubs or gallops. S1 and S2 heard. EXTREMITIES: Normal range of motion, no edema. No clubbing or cyanosis. Peripheral pulses intact and strong. REVIEW OF LABS, ECG & MEDICAL DATA: LABS: White count 6.6, hemoglobin 15.7, platelets 265, sodium 137, potassium 4.2, BUN 16, creatinine 0.94, hemoglobin A1c 6.6, lactic acid 1.8, magnesium 1.9, troponin less than 0.012, triglycerides 180, cholesterol 118, LDL 45.5, HDL 36.5 EKG: IMAGING: CT scan of the brain without contrast dated 09/19/2023 demonstrates a hypodensity within the right watershed region, correlate for acute infarct, follow-up with MRI can be performed as clinically indicated. Chest x-ray dated 09/19/2023 demonstrates mild cardiomegaly and hypoventilatory changes, otherwise no definitive acute process. EEG dated 09/20/2023 demonstrates a normal awake and drowsy EEG, no focal, lateralized, or epileptiform activity was seen. MRI of the brain without contrast dated 09/21/2023 demonstrates a subacute infarct in the right temporoparietal region, mild fluid in the mastoid air cells and mild chronic inflammatory change in the right maxillary sinus, no mass effect or shift of the midline structures. VITALS: Temp 98.0, pulse 72, respirations 18, blood pressure 120/72, O2 saturation 97% on room air IMPRESSION: 1. Acute CVA, despite anticoagulation therapy PLAN: If no mechanism of stroke can be identified, we will change the patient's Eliquis to Pradaxa to change the mechanism of anticoagulation. Further recommendations based on patient's clinical course. Thank you for the consult and allowing us to participate in the care of this patient. Past Medical History Past Medical History: Atrial Fibrillation, Chest Pain / Angina, CVA/TIA, Hearing Disorder / Deafness, Hyperlipidemia, Hypertension, Memory Impairment, Myocardial Infarction (AR), Pneumonia, Syncope Additional Past Medical History / Comment(s): Recent CVA-July w/left sided weakness, weakness in hand and leg. CVA 12/23/18 with right side weakness. Hx CVA 2009 with R sided weakness and numbness upper and lower extremities and short term memory loss, MIs X3, chronic low back pain, R shoulder and R ankle pain, seasonal allergies, sinus problems. Slightly Hard of Hearing. "I passed multiple times out years ago." Last Myocardial Infarction Date:: 2005, 2010,2011 History of Any Multi-Drug Resistant Organisms: None Reported Past Surgical History: Cardiac Ablation, Heart Catheterization, Tonsillectomy Additional Past Surgical History / Comment(s): Cardiac ablation-unsuccessful per pt, loop recorders X3 one in currenty-02/22/2019-pt states battery has , colonoscopy/benign polypectomy, cyst removed from buttock/anal area 2018;left shoulder cyst removed 12/04/2022. Had Sebaceous cyst removed from back. Last cardiac cath 2018, LYNSEY August 2023 Past Anesthesia/Blood Transfusion Reactions: No Reported Reaction Additional Past Anesthesia/Blood Transfusion Reaction / Comment(s): No hx of transfusion. Type of Cardiac Device: Loop Device Placement Date:: 03/10/2019 Past Psychological History: Anxiety Smoking Status: Former smoker Past Alcohol Use History: Occasional Past Drug Use History: None Reported - Past Family History Father Family Medical History: COPD, Deep Vein Thrombosis (DVT), Hyperlipidemia, Hypertension, Myocardial Infarction (AR) Additional Family Medical History / Comment(s): Father had MIs with the first one being when he was about 65 yrs old. He had coronary stents. He at the age of 83 yrs. Mother Family Medical History: Cancer, Dementia, Thyroid Disorder Additional Family Medical History / Comment(s): Mother had breast cancer, diverticulitis, thyroid disease and from dementia at the age of 80 yrs. Sister(s) Family Medical History: Cancer Additional Family Medical History / Comment(s): Pancreatic cancer. Medications and Allergies Home Medications Medication Instructions Recorded Confirmed Type Apixaban [Eliquis] 5 mg PO BID #60 tab 12/25/18 09/19/23 Rx Ergocalciferol (Vitamin D2) 1,250 mcg PO WICK 04/05/22 09/19/23 History [Drisdol (50,000 Iu)] Saw [place] 500 mg PO BID 04/05/22 09/19/23 History lisinopriL [Zestril] 10 mg PO QAM 08/08/22 09/19/23 History Atorvastatin [Lipitor] 80 mg PO QAM 12/05/22 09/19/23 History Gabapentin [Neurontin] 300 mg PO TID 12/05/22 09/19/23 History atenoloL [Tenormin] 25 mg PO QAM 12/05/22 09/19/23 History metFORMIN HCL ER [Glucophage XR] 500 mg PO HS 01/01/23 09/19/23 History Clopidogrel [Plavix] 75 mg PO QAM 08/30/23 09/19/23 History Fenofibrate 145 mg PO QAM 08/30/23 09/19/23 History EPINEPHrine (Auto Inject) [Epipen] 0.3 mg IM ONCE PRN 09/19/23 09/19/23 History Tirzepatide [Mounjaro] 2.5 mg SQ WICK 09/19/23 09/19/23 History Allergies Allergy/AdvReac Type Severity Reaction Status Date / Time bee venom protein (honey bee) Allergy Swelling Verified 09/19/23 11:54 Physical Exam Vitals: Vital Signs Temp Pulse Pulse Pulse Pulse Pulse Resp 09/21/23 08:00 98.0 F 64 72 72 67 18 09/21/23 04:00 97.7 F 64 12 09/20/23 23:41 97.8 F 66 14 09/20/23 20:49 98 F 62 14 09/20/23 18:22 77 72 67 09/20/23 15:26 98.2 F 74 20 09/20/23 14:42 75 09/20/23 14:18 98.0 F 75 16 09/20/23 13:53 98.4 F 78 16 BP BP BP BP BP Pulse Ox 09/21/23 08:00 120/72 97 09/21/23 04:00 88/59 99 09/20/23 23:41 95/54 95 09/20/23 20:49 108/55 92 L 09/20/23 18:22 120/73 123/80 114/62 09/20/23 15:26 111/75 98 09/20/23 14:42 09/20/23 14:18 129/85 98 09/20/23 13:53 136/78 98 Intake and Output 09/20/23 09/21/23 09/21/23 22:59 06:59 14:59 Intake Total 480 Balance 480 Intake: Oral 480 Other: Voiding Method Toilet Toilet Toilet # Voids 1 Results 09/19/23 10:49 09/19/23 10:49 Lipids 09/20/23 Range/Units 10:27 Triglycerides 180.00 H (0.00-149.00) mg/dL Cholesterol 118.00 (0.00-200.00) mg/dL HDL Cholesterol 36.50 L (40.00-60.00) mg/dL Cholesterol/HDL Ratio 3.23 Ratio Current Medications Generic Name Dose Route Start Last Admin Trade Name Freq PRN Reason Stop Dose Admin Acetaminophen 650 mg 09/19/23 18:06 09/20/23 10:15 Acetaminophen Tab 325 Mg Tab PO 650 mg Q6HR PRN Administration Mild Pain or Fever > 100.5 Alprazolam 0.25 mg 09/19/23 18:06 09/20/23 20:56 Alprazolam 0.25 Mg Tab PO 0.25 mg Q6HR PRN Administration Anxiety Apixaban 5 mg 09/19/23 21:00 09/21/23 09:22 Apixaban 5 Mg Tab PO 5 mg BID YUE Administration Protocol Aspirin 81 mg 09/19/23 18:30 09/21/23 09:22 Aspirin 81 Mg PO 81 mg DAILY YUE Administration Atenolol 25 mg 09/20/23 09:00 09/21/23 09:22 Atenolol 25 Mg Tab PO 25 mg QAM YUE Administration Atorvastatin Calcium 80 mg 09/20/23 09:00 09/21/23 09:22 Atorvastatin 80 Mg Tab PO 80 mg QAM YUE Administration Calcium Carbonate/Glycine 1,000 mg 09/19/23 18:06 Calcium Carbonate 500 Mg Chewable PO Q4HR PRN Dyspepsia Clopidogrel Bisulfate 75 mg 09/20/23 09:00 09/21/23 09:22 Clopidogrel 75 Mg Tab PO 75 mg QAM YUE Administration Dextrose/Water 25 ml 09/19/23 17:23 Dextrose 50% Syringe 50 Ml IVP PER PROTOCOL PRN Hypoglycemia Protocol Dextrose/Water 50 ml 09/19/23 17:23 Dextrose 50% Syringe 50 Ml IVP PER PROTOCOL PRN Hypoglycemia Protocol Ergocalciferol 1,250 mcg 09/22/23 17:22 Ergocalciferol 1,250 Mcg (50,000 Iu) Capsule PO [facility] Famotidine 20 mg 09/19/23 21:00 09/21/23 09:22 Famotidine 20 Mg Tab PO 20 mg BID YUE Administration Fenofibrate 160 mg 09/20/23 09:00 09/21/23 09:22 Fenofibrate 160 Mg Tab PO 160 mg QAM YUE Administration Gabapentin 300 mg 09/19/23 16:15 09/21/23 09:22 Gabapentin 300 Mg Cap PO 300 mg TID YUE Administration Sodium Chloride 1,000 mls @ 20 mls/hr 09/19/23 13:15 09/20/23 13:39 Saline 0.9% IV 20 mls/hr .Q24H YUE Administration Insulin Aspart 0 unit 09/19/23 17:30 09/21/23 12:45 Insulin Aspart (Novolog) 100 Unit/Ml Vial SQ Not Given AC-TID [facility] Protocol Lactulose 20 gm 09/19/23 18:06 Lactulose 20 Gm/30 Ml Cup PO DAILY PRN Constipation Lisinopril 10 mg 09/20/23 09:00 09/21/23 09:22 Lisinopril 10 Mg Tab PO 10 mg QAM YUE Administration Melatonin 3 mg 09/19/23 18:06 Melatonin 3 Mg Tablet PO HS PRN Insomnia Metformin HCl 500 mg 09/19/23 21:00 09/20/23 20:56 Metformin 500 Mg Tab PO 500 mg HS YUE Administration Naloxone HCl 0.2 mg 09/19/23 13:11 Naloxone 0.4 Mg/Ml 1 Ml Vial IV Q2M PRN Opioid Reversal Tirzepatide [ 2.5 mg 09/22/23 17:22 Mounjaro] 2.5 Mg/0.5 SQ Ml Pen.Injctr [facility] Ondansetron HCl 4 mg 09/19/23 18:06 Ondansetron 4 Mg/2 Ml Vial IVP Q8HR PRN Nausea And Vomiting Intake and Output 09/20/23 09/21/23 09/21/23 22:59 06:59 14:59 Intake Total 480 Balance 480 Intake: Oral 480 Other: Voiding Method Toilet Toilet Toilet # Voids 1 09/19/23 10:49 09/19/23 10:49
--- NOTE | 2023-09-21 13:53 | P.CONS ---
History of Present Illness - Reason for Consult Consult date: 09/21/23 Recurrent CVAs - History of Present Illness The patient is a 57-year-old white male, recently seen in consultation in the office, on 09/13/2023. The patient has multiple medical problems, and a complicated past medical history.The patient has extensive cardiovascular history, positive for hypertension, borderline diabetes and hypercholesterolemia. He had MS about 17 to 18 years ago. He had a CVA with residual upper and lower right-sided weakness about 15 years before. He has a history of paroxysmal atrial fibrillation. He had another CVA about 2 to 3 years ago, at which time he was placed on Eliquis. The patient was also on aspirin. He had a cardiac ablation in 09/11. 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 At that time he was found to have a right MCA territory CVA. The patient's workup at that time included a CT angiogram of the head, which was negative, EKG that showed sinus rhythm, and echocardiogram showing preserved LV function with negative bubble study. The patient had held his anticoagulation for about 2 days for a back procedure, but that was about 2 to 3 weeks prior to the most recent CVA in 08/13. He had otherwise been very compliant according to him. After the most recent event, he was changed from aspirin to Plavix and fenofibrate was added to his regimen. He also had a LYNSEY that showed bicuspid aortic valve with no other major valvular abnormality, including no PFO. His left atrial appendage was free of clot. The patient has no history of venous thromboembolism. There is a possibility of DVTs in his father. On evaluation in the office, it was felt that the most likely cause of his recurrent CVA in 08/13 was his underlying cardiovascular risk factors. The patient had a hypercoagulable workup ordered , with results pending. The patient presented back to the hospital this time, with a recurrent syncopal episode. This happened, after he got up after sitting down. He was complaining of some possible dizziness prior to that. On presentation to the hospital, there was a possibility of his speech, subjectively being somewhat more slurred than usual. CT of the brain and MRI showed evidence of infarct in the right temporoparietal area. MRI noted a possible subacute infarct. Of note this is the same area found to be affected at the time of his CVA in 08/13. The MRI at that time was done at [facility]. Consult was therefore placed for further evaluation and recommendations. Review of Systems Constitutional: Reports weakness Eyes: denies blurred vision, denies pain Ears: deny: decreased hearing, ear discharge, earache, tinnitus Ears, nose, mouth and throat: Denies headache, Denies sore throat Cardiovascular: Reports as per HPI, Reports palpitations Respiratory: Denies cough Gastrointestinal: Denies abdominal pain, Denies diarrhea, Denies nausea, Denies vomiting Genitourinary: Reports as per HPI Musculoskeletal: Reports muscle weakness Integumentary: Denies pruritus, Denies rash Neurological: Reports as per HPI, Reports gait dysfunction, Reports weakness Psychiatric: Denies anxiety, Denies depression Endocrine: Reports high blood sugars Hematologic/Lymphatic: Reports as per HPI Past Medical History Past Medical History: Atrial Fibrillation, Chest Pain / Angina, CVA/TIA, Hearing Disorder / Deafness, Hyperlipidemia, Hypertension, Memory Impairment, Myocardial Infarction (MS), Pneumonia, Syncope Additional Past Medical History / Comment(s): Recent CVA-July w/left sided weakness, weakness in hand and leg. CVA 12/23/18 with right side weakness. Hx CVA 2009 with R sided weakness and numbness upper and lower extremities and short term memory loss, MIs X3, chronic low back pain, R shoulder and R ankle pain, seasonal allergies, sinus problems. Slightly Hard of Hearing. "I passed multiple times out years ago." Last Myocardial Infarction Date:: 2005, 2010,2011 History of Any Multi-Drug Resistant Organisms: None Reported Past Surgical History: Cardiac Ablation, Heart Catheterization, Tonsillectomy Additional Past Surgical History / Comment(s): Cardiac ablation-unsuccessful per pt, loop recorders X3 one in currenty-02/22/2019-pt states battery has , colonoscopy/benign polypectomy, cyst removed from buttock/anal area 2018;left shoulder cyst removed 12/04/2022. Had Sebaceous cyst removed from back. Last cardiac cath 2018, LYNSEY August 2023 Past Anesthesia/Blood Transfusion Reactions: No Reported Reaction Additional Past Anesthesia/Blood Transfusion Reaction / Comm: No hx of transfusion. Type of Cardiac Device: Loop Device Placement Date:: 03/10/2019 Past Psychological History: Anxiety Smoking Status: Former smoker Past Alcohol Use History: Occasional Past Drug Use History: None Reported - Past Family History Father Family Medical History: COPD, Deep Vein Thrombosis (DVT), Hyperlipidemia, Hypertension, Myocardial Infarction (MS) Additional Family Medical History / Comment(s): Father had MIs with the first one being when he was about 65 yrs old. He had coronary stents. He at the age of 83 yrs. Mother Family Medical History: Cancer, Dementia, Thyroid Disorder Additional Family Medical History / Comment(s): Mother had breast cancer, diverticulitis, thyroid disease and from dementia at the age of 80 yrs. Sister(s) Family Medical History: Cancer Additional Family Medical History / Comment(s): Pancreatic cancer. Medications and Allergies Home Medications Medication Instructions Recorded Confirmed Type Apixaban [Eliquis] 5 mg PO BID #60 tab 12/25/18 09/19/23 Rx Ergocalciferol (Vitamin D2) 1,250 mcg PO WICK 04/05/22 09/19/23 History [Drisdol (50,000 Iu)] Saw [place] 500 mg PO BID 04/05/22 09/19/23 History lisinopriL [Zestril] 10 mg PO QAM 08/08/22 09/19/23 History Atorvastatin [Lipitor] 80 mg PO QAM 12/05/22 09/19/23 History Gabapentin [Neurontin] 300 mg PO TID 12/05/22 09/19/23 History atenoloL [Tenormin] 25 mg PO QAM 12/05/22 09/19/23 History metFORMIN HCL ER [Glucophage XR] 500 mg PO HS 01/01/23 09/19/23 History Clopidogrel [Plavix] 75 mg PO QAM 08/30/23 09/19/23 History Fenofibrate 145 mg PO QAM 08/30/23 09/19/23 History EPINEPHrine (Auto Inject) [Epipen] 0.3 mg IM ONCE PRN 09/19/23 09/19/23 History Tirzepatide [Mounjaro] 2.5 mg SQ WICK 09/19/23 09/19/23 History Allergies Allergy/AdvReac Type Severity Reaction Status Date / Time bee venom protein (honey bee) Allergy Swelling Verified 09/19/23 11:54 Physical Exam Vitals: Vital Signs Temp Pulse Pulse Pulse Pulse Pulse Resp 09/21/23 08:00 98.0 F 72 18 09/21/23 04:00 97.7 F 64 12 09/20/23 23:41 97.8 F 66 14 09/20/23 20:49 98 F 62 14 09/20/23 18:22 77 72 67 09/20/23 15:26 98.2 F 74 20 09/20/23 14:42 75 09/20/23 14:18 98.0 F 75 16 09/20/23 13:53 98.4 F 78 16 BP BP BP BP BP Pulse Ox 09/21/23 08:00 120/72 97 09/21/23 04:00 88/59 99 09/20/23 23:41 95/54 95 09/20/23 20:49 108/55 92 L 09/20/23 18:22 120/73 123/80 114/62 09/20/23 15:26 111/75 98 09/20/23 14:42 09/20/23 14:18 129/85 98 09/20/23 13:53 136/78 98 Intake and Output 09/20/23 09/21/23 09/21/23 22:59 06:59 14:59 Intake Total 480 Balance 480 Intake: Oral 480 Other: Voiding Method Toilet Toilet # Voids 1 - Constitutional General appearance: no acute distress - EENT Eyes: EOMI, PERRLA ENT: hearing grossly normal, normal oropharynx - Neck Neck: no lymphadenopathy Thyroid: bilateral: normal size - Respiratory Respiratory: bilateral: CTA - Cardiovascular Rhythm: regular Heart sounds: normal: S1, S2 - Gastrointestinal General gastrointestinal: soft - Integumentary Integumentary: normal - Neurologic Neurologic: CNII-XII intact, focal deficits (Bilateral upper and lower extremity weakness, right worse than left) - Musculoskeletal Musculoskeletal: right sided weakness, left sided weakness - Psychiatric Psychiatric: A&O x's 3, appropriate affect Results CBC & Chem 7: 09/19/23 10:49 09/19/23 10:49 Labs: Abnormal Lab Results - Last 24 Hours (Table) 09/20/23 09/20/23 09/20/23 Range/Units 10:27 10:27 20:07 POC Glucose (mg/dL) 122 H (70-110) mg/dL Hemoglobin A1c 6.6 H (<=6.0) % Triglycerides 180.00 H (0.00-149.00) mg/dL HDL Cholesterol 36.50 L (40.00-60.00) mg/dL 09/21/23 09/21/23 Range/Units 06:22 11:38 POC Glucose (mg/dL) 121 H 145 H (70-110) mg/dL Hemoglobin A1c (<=6.0) % Triglycerides (0.00-149.00) mg/dL HDL Cholesterol (40.00-60.00) mg/dL Chest x-ray: report reviewed CT Scan - head: report reviewed MRI - head: report reviewed Assessment and Plan (1) Cerebrovascular accident Narrative/Plan: The patient presented to the hospital with recurrent syncopal episode. The main differential was another CVA, as the patient had had a similar presentation at the time of his CVA in 08/13. The MRI confirms infarct in the right temporoparietal area, which appears to be subacute. However this is the same area where the patient had documented infarct in 08/13, in the right MCA territory. That MRI was done at [facility]. Neurology notes were reviewed, and other possibilities, such as orthostatic syncope were also felt to be in the differential. It appears that the MRI from [facility] has been requested. Will therefore await comparison of the 2 studies and neurology evaluation as to whether there is definite evidence of a new event or not. The patient does note some change in speech from baseline. -The patient was referred to us, and seen as an outpatient, for concerns for a primary hypercoagulable state, given his history. Clinically there was definitely possibility of other causes, including his underlying, multiple cardiovascular risk factors. Given the family history of DVTs in his father, it was felt reasonable however, to order hypercoagulable workup. This is in proce ss, with results pending. Therefore additional testing during this admission is not required. -Defer to neurology and the admitting service for acute management. Case discussed with neurology Current Visit: No Status: Acute Code(s): I63.9 - CEREBRAL INFARCTION, UNSPECIFIED SNOMED Code(s): 721571736
[2023-09-21 16:44] LABS: Glucose,Whole Blood 103 mg/dL (70-110)
--- NOTE | 2023-09-21 18:10 | P.PN ---
Subjective Progress Note Date: 09/21/23 Chief complaint: Found on the floor This is a pleasant 57-year-old patient who follows with Dr. Chad Baron. Chronic stable medical conditions include atrial fibrillation, hard of hearing, hypertension, hyperlipidemia some cognitive impairment. He has had loop recorder's x 3 and also has had unsuccessful cardiac ablation. Patient had a stroke in 2009 that left him with some right arm and left leg weakness and some numbness. Some memory loss. Patient also had a stroke on July 24, 2023 where he was taken to [facility]. That left him with some weakness on the left side. Patient speech is also affected but had recovered to certain degree. Today at 5:30 in the morning patient got up took a shower had a great granola bar and some juice. Took the dog out and he went to the bathroom. Next thing he knew he found himself on the floor confused. His speech was worse than yesterday. He noticed some more weakness on the left arm which is already weak from recent stroke. The had recovered some. also noticed that mouth was drooping on the left side. Head felt foggy. Inside the house he holds onto things to walk or uses a cane. Outside he does use a rolling walker. September 19: Patient speech is slightly better left arm weakness slightly better than initial presentation. But still not back to where it was 2 days ago. Pending MRI to be done.. EEG results pending. Followed by PT OT. 09/21/2023 The patient is seen in follow-up today with neurology and cardiology following. Patient continues to have some left-sided weakness and currently awaiting an MRI. Patient has extreme difficulty with claustrophobia and was given a hefty dose of Ativan, will add Valium as well as patient reports he was sedated at [facility] on his previous MRI. MRI results of [place] requested as well. Hematology/oncology consulted regarding anticoagulation and coagulopathy workup. Patient is continued on Eliquis and aspirin and Plavix and will need to discuss further with neurology regarding treatment plan once MRI is resulted. Patient continues to report deficits and having overall generalized weakness. Patient is extremely anxious for the MRI. Review of systems: Constitutional: No reports of fatigue, fever, or chills Cardiovascular: No reports of chest pain or palpitations Respiratory: No reports of shortness of breath or cough GI: No reports of nausea, vomiting, or diarrhea : No reports of dysuria or retention Neurovascular: reports of left-sided weakness although slightly improved from yesterday All medications have been reviewed Physical examination: GENERAL: This is a 57-year-old male who is awake, alert and oriented x 3, well- developed, morbidly obese BMI 38.3, sitting up in the chair EYES: Pupils equal. Conjunctiva normal. HEENT: External appearance of nose and ears normal, oral cavity grossly normal. Decreased hearing NECK: JVD not raised; masses not palpable. HEART: S1, S2 are muffled LUNGS: Respiratory rate normal; distant breath sounds otherwise clear to auscultation with no rhonchi or wheezing noted. ABDOMEN: Soft, obese nontender, no masses palpable. PSYCH: Alert and oriented x3; mood and affect normal. MUSCULOSKELETAL:No Clubbing/cyanosis;muscles-grossly intact NEUROLOGICAL: Some drooping of the left mouth angle. Decreased strength both in the right arm and left arm. Strength 4/5 on the left decreased fiberglass grinder.. Anxious Assessment plan: -Acute stroke manifesting with increased weakness on the left side. Affecting the speech. At baseline patient had a stroke in 2009 left him with some right-sided weakness both arm and leg some numbness. Also patient had a stroke on July 24, 2023 went to [facility]. With some residual left-sided weakness. The left-sided weakness continues to be weak on the left although improved. Speech is improved Patient has been on Eliquis, Plavix. Will continue baby aspirin, repeat MRI brain ordered and pending with neurology following -Acute dysarthria from stroke, patient's most recent stroke was in July 2023 at [facility], continued residual effects of the speech. Patient was evaluated by speech with no swallowing issues noted -Chronic right-sided weakness and chronic left-sided weakness from prior strokes, patient uses a walker and/or cane for ambulation previous stroke deficits -Diabetes mellitus type 2, uncontrolled with hyperglycemia, continue Accu-Cheks before meals and at bedtime and will continue current regimen -Hyperlipidemia, continue statin therapy -Diabetic peripheral neuropathy and some chronic low back pain, continue home medications of Neurontin -Essential hypertension, continue blood pressure control, cardiology following. Recommend to discontinue lisinopril as blood pressures have been on the lower side. Monitor closely and will resume Once More Stable -Obesity BMI 38.3 -GI prophylaxis -DVT prophylaxis -Full code Plan: Patient scheduled to undergo MRI today and is extremely anxious and being given a dose of Ativan and will add Valium as patient reports he had to be sedated on his previous MRI at [facility]. Will await report and discuss further with neurology along with cardiology and hematology regarding discharge planning. Patient was continued on Eliquis, aspirin, Plavix Hold lisinopril for now Follow-up on repeat labs Recommend PT/OT therapy evaluation Possible discharge planning in the next 24 hours once cleared by consultations. Patient will need outpatient follow-up with his neurologist The impression and plan of care has been dictated by Aminata Aguilar, Nurse Practitioner as directed. Dr. Sravanthi MD I have performed a history and examination and MDM of this patient, discussed th e same with the dictator, and agree with the dictator's assessment and plan as written ,documented as a scribe. Based on total visit time, I have performed more than 50% of the visit. Objective - Vital Signs Vital signs: Vital Signs Temp 98.0 F 09/21/23 08:00 Pulse 72 09/21/23 08:00 Resp 18 09/21/23 08:00 BP 120/72 09/21/23 08:00 Pulse Ox 97 09/21/23 08:00 FiO2 Intake & Output 09/20/23 09/21/23 09/21/23 18:59 06:59 18:59 Intake Total 480 Balance 480 Weight 131.542 kg Intake: Oral 480 Other: Voiding Method Toilet Toilet # Voids 1 - Labs CBC & Chem 7: 09/19/23 10:49 09/19/23 10:49 Labs: Abnormal Lab Results - Last 24 Hours (Table) 09/20/23 09/20/23 09/20/23 Range/Units 10:27 10:27 20:07 POC Glucose (mg/dL) 122 H (70-110) mg/dL Hemoglobin A1c 6.6 H (<=6.0) % Triglycerides 180.00 H (0.00-149.00) mg/dL HDL Cholesterol 36.50 L (40.00-60.00) mg/dL 09/21/23 Range/Units 06:22 POC Glucose (mg/dL) 121 H (70-110) mg/dL Hemoglobin A1c (<=6.0) % Triglycerides (0.00-149.00) mg/dL HDL Cholesterol (40.00-60.00) mg/dL
[2023-09-21 20:16] LABS: Glucose,Whole Blood 107 mg/dL (70-110)
[2023-09-22 06:29] LABS: Glucose,Whole Blood 147 mg/dL (70-110)
--- NOTE | 2023-09-22 10:53 | P.PN ---
Subjective Progress Note Date: 09/22/23 This is Perry Aguilar NP, I'm dictating on behalf of Dr. Arreaga's H&P and A&P. Patient was interviewed and examined. Patient is a pleasant 57-year-old male who presented to the hospital with wea yulyess, abnormal CT findings indicative of a stroke. Patient underwent MRI evaluation yesterday which did not demonstrate any new CVA. Patient's symptoms fit with TIA. Despite being on good, maximal medical therapy the patient continues to have strokelike symptoms. Today he reports he is doing well. He is denying chest pain, shortness of breath, and heart palpitations. GENERAL: Well-appearing, well-nourished and in no acute distress. NECK: Supple without JVD or thyromegaly. LUNGS: Breath sounds clear to auscultation bilaterally. Respiration equal and unlabored. No wheezes, rales or rhonchi. HEART: Regular rate and rhythm without murmurs, rubs or gallops. S1 and S2 heard. EXTREMITIES: Normal range of motion, no edema. No clubbing or cyanosis. Peripheral pulses intact and strong. VITALS: Temp 98.4, pulse 78, respirations 14, blood pressure 126/68, O2 saturation 100% on room air TELEMETRY: Sinus mechanism LABS: No new labs. IMPRESSION: 1. TIA, despite anticoagulation therapy PLAN: Patient is currently on maximal, good medical therapy. He has had a TIA despite this. Patient will need to be changed to a anticoagulant with a different mechanism of action. Continue previously prescribed medications. Patient may be discharged from a cardiology standpoint. Objective - Vital Signs Vital signs: Vital Signs Temp 98.4 F 09/22/23 08:00 Pulse 78 09/22/23 08:00 Resp 14 09/22/23 08:00 BP 126/68 09/22/23 08:00 Pulse Ox 100 09/22/23 08:00 FiO2 Intake & Output 09/21/23 09/22/23 09/22/23 18:59 06:59 18:59 Intake Total 1710 240 Balance 1710 240 Intake: Oral 1710 240 Other: Voiding Method Toilet Toilet # Voids 2 - Labs CBC & Chem 7: 09/19/23 10:49 09/19/23 10:49 Labs: Abnormal Lab Results - Last 24 Hours (Table) 09/21/23 09/22/23 Range/Units 11:38 06:28 POC Glucose (mg/dL) 145 H 147 H (70-110) mg/dL
--- NOTE | 2023-09-22 11:26 | P.PN ---
Subjective Progress Note Date: 09/21/23 Patient was seen for a follow-up. Patient is laying comfortably in the bed. Patient states he is feeling much better. No new concerns. Objective - Vital Signs Vital signs: Vital Signs Temp 98.2 F 09/21/23 16:00 Pulse 78 09/21/23 16:00 Resp 16 09/21/23 16:00 BP 103/61 09/21/23 16:00 Pulse Ox 98 09/21/23 16:00 FiO2 Intake & Output 09/20/23 09/21/23 09/21/23 18:59 06:59 18:59 Intake Total 480 1238 Balance 480 1238 Weight 131.542 kg Intake: Oral 480 1238 Other: Voiding Method Toilet Toilet Toilet # Voids 1 - Exam Unchanged. Detailed examination deferred. Mentation normal. Speech much fluent. No obvious hesitancy. - Labs CBC & Chem 7: 09/19/23 10:49 09/19/23 10:49 Labs: Abnormal Lab Results - Last 24 Hours (Table) 09/20/23 09/21/23 09/21/23 Range/Units 20:07 06:22 11:38 POC Glucose (mg/dL) 122 H 121 H 145 H (70-110) mg/dL Assessment and Plan Assessment: * Acute syncopal spell, with difficulty getting up. Uncertain if vasovagal, orthostatic, seizure or CVA related. Patient has history of multiple strokes in the past, with evidence of residual focal deficits from previous CVA, ther efore uncertain if new or old. Patient believes that his speech is slightly worse since this current event. Rule out stroke/TIA. * History of acute CVA 07/24/2023, involving right posterior insular cortex and right posterior temporal region, treated at [facility]. * History of CVA 2018, with residual right-sided weakness. * History of left occipital CVA 2009, with residual right visual field deficit. * Atrial fibrillation, on anticoagulation. * Diabetes * Hypertension * Hyperlipidemia * Coronary artery disease Plan: * Patient will undergo full stroke workup as below. * MRI of the brain revealed subacute infarct in the right temporoparietal region. Mild fluid in the mastoid air cells and mild chronic inflammatory changes in the right maxillary sinus. No mass effect or shift of the midline structure. I personally reviewed MRI, and this abnormal signal on DWI is residual from the previous stroke on 07/24/2023. No acute stroke. * LYNSEY performed 09/04/2023 revealed aortic valve is bicuspid with fusion of the right and left cusp with no significant aortic stenosis and mild AR. Mitral valve appears normal. Interatrial septum is intact. No evidence of PFO. Left atrial appendage is free of clot. Left ventricular ejection fraction 55%. Ascending aortic aneurysm measuring 4.1 cm. * Await records of recent hospitalization at [facility]. * EEG was normal awake and drowsy. No focal, lateralized or epileptiform act ivity was seen. * Orthostatics checked were negative. His supine blood pressure 114/62, pulse rate 67, sitting up was 120/73 with pulse of 77 and standing 123/80 and pulse 72. * B12 five 2916.9, both normal, folate * Fasting a.m. lipid panel cholesterol 118, HDL 36, LDL 45, triglycerides 180. Continue Lipitor 80 mg. * Hemoglobin A1c 6.6. Diabetes controlled. * Optimize control of blood pressure. * Continue Eliquis 5 mg twice daily and Plavix 75 mg daily. No need for adding aspirin because no new CVA noted on the MRI. * Telemetry monitoring rule out any arrhythmia * PT, OT, speech therapy * DVT prophylaxis: Patient on Eliquis. * Neurologically clear for discharge. May follow up with neurologist outpatient.
[2023-09-22 11:45] VITALS: BP 137/74; PULSE 71; RESP 16; TEMP 98.1
--- NOTE | 2023-09-22 12:39 | P.PN ---
Progress Note - Text Patient presented with TIA-like symptoms once again despite being on excellent medical treatment Subacute infarct in the right temporoparietal region is noted Blood pressure is well-controlled 137/74 mmHg LDL is 45, HDL is 36 Triglycerides 186.6 Hemoglobin A1c 6.6 Plan Diabetes control. Will increase metformin to 500 mg twice daily and then subsequently 1000 mg twice daily as tolerated Consider switching from Eliquis to Pradaxa since he has had recurrent episodes of TIA and stroke despite being on appropriate anticoagulation including Eliquis 5 mg twice daily and Plavix 75 mg daily Blood pressure switching from Eliquis to Pradaxa is to change the mechanism of action of the anticoagulant drug transfer to Consider adding Zetia 10 mg daily in the future after diabetes control
[2023-09-22] MEDS ORDERED: Tirzepatide [Mounjaro] 2.5 MG/0.5 ML Pen.Injctr SQ SCH (17:22)
[2023-09-22] MEDS ORDERED: ERGOCALCIFEROL 1,250 MCG (50,000 IU) CAPSULE PO SCH (17:22)
[2023-09-22] MEDS ORDERED: metFORMIN 500 MG TAB PO SCH (21:00)
--- NOTE | 2023-09-24 21:58 | P.DS ---
Providers Date of admission: 09/19/23 13:11 Attending physician: William Calderón Consults: 09/19/23 12:37 Consult Physician Routine Consulting Provider: Piper Black Consult Reason/Comments: abnormal CT Do you want consulting provider notified?: Yes 09/21/23 10:37 Consult Physician Routine Consulting Provider: Danyel Arreaga Consult Reason/Comments: concern CVA Do you want consulting provider notified?: Yes 09/21/23 10:55 Consult Physician Routine Consulting Provider: Khadar Bella Consult Reason/Comments: Acute Stroke Do you want consulting provider notified?: Yes Primary care physician: Jayme Baron Hospital Course: Final Diagnosis -Acute dysarthria from stroke, patient's most recent stroke was in July 2023 at [facility], continued residual effects of the speech. Patient was evaluated by speech with no swallowing issues noted -Acute syncopal spell, with difficulty getting up. -Chronic right-sided weakness and chronic left-sided weakness from prior strokes, patient uses a walker and/or cane for ambulation previous stroke deficits -Diabetes mellitus type 2, uncontrolled with hyperglycemia, continue Accu-Cheks before meals and at bedtime and will continue current regimen -Hyperlipidemia, continue statin therapy -Diabetic peripheral neuropathy and some chronic low back pain, continue home medications of Neurontin -Essential hypertension, continue blood pressure control, cardiology following. Recommend to discontinue lisinopril as BP has been low Discharge Disposition Patient is stable for discharge home. Patient to follow up with neurology and recommending was given for Dr Brambila who is local and patient is also recommended to follow up with his neurologist out of [place]. Continue hematology/oncology follow up outpatient regarding anticoagulation and coagulopathy workup. Patient to continue on eliquis and plavix at this time as MRI is the same as his most recent MRI at [facility]. Patient has been started on metformin by manager of merchandising on discharge. Aspirin 81 mg daily has been added for triple therapy at this time. Follow up with PCP DR. Baron in 1 to 2 days. Hospital Course This is a pleasant 57-year-old patient who follows with Dr. Chad Baron. C hronic stable medical conditions include atrial fibrillation, hard of hearing, hypertension, hyperlipidemia some cognitive impairment. He has had loop recorder's x 3 and also has had unsuccessful cardiac ablation. Patient had a stroke in 2009 that left him with some right arm and left leg weakness and some numbness. Some memory loss. Patient also had a stroke on July 24, 2023 where he was taken to [facility]. That left him with some weakness on the left side. Patient speech is also affected but had recovered to certain degree. On the day of admission at 530 am patient got up took a shower had a great granola bar and some juice. Took the dog out and he went to the bathroom. Next thing he knew he found himself on the floor confused. His speech was worse than yesterday. He noticed some more weakness on the left arm which is already weak from recent stroke. The had recovered some. also noticed that mouth was drooping on the left side. Head felt foggy. Inside the house he holds onto things to walk or uses a cane. Outside he does use a rolling walker. He came to the hospital for evaluation. Neurology was consulted. LYNSEY performed 09/04/2023 revealed aortic valve is bicuspid with fusion of the right and left cusp with no significant aortic stenosis and mild AR. Mitral valve appears normal. Interatrial septum is intact. No evidence of PFO. Left atrial appendage is free of clot. Left ventricular ejection fraction 55%. Ascending aortic aneurysm measuring 4.1 cm. This admission EEG was normal awake and drowsy. No focal, lateralized or epileptiform activity was seen. Fasting a.m. lipid panel cholesterol 118, HDL 36, LDL 45, triglycerides 180. Continue Lipitor 80 mg. Hemoglobin A1c 6.6. Diabetes controlled. MRI of the brain revealed subacute infarct in the right temporoparietal region. Mild fluid in the mastoid air cells and mild chronic inflammatory changes in the right maxillary sinus. No mass effect or shift of the midline structure. Neurology reviewed the MRI and felt abnormal signal on DWI is residual from the previous stroke on 07/24/2023. No acute stroke. Patient evaluated in follow and feels all new symptoms are gone. At this time no chest pain no shortness of breath. He has undergone full stroke work up with current recommendations to continue eliquis and plavix. He was established with a neurologist in [place] would like to establish care out this way and referral was given. He will be discharged home. Please see medication reconciliation for a list of current medications. Thank you for allowing us to participate in the care of this patient. The impression and plan of care has been dictated by Chelo Bautista, Nurse Practitioner as directed. Dr. Sravanthi MD I have performed a history and examination and MDM of this patient, discussed the same with the dictator, and agree with the dictator's assessment and plan as written ,documented as a scribe. Based on total visit time, I have performed more than 50% of the visit. Patient Condition at Discharge: Fair Plan - Discharge Summary Discharge Rx Participant: No New Discharge Prescriptions: New metFORMIN HCL ER [Glucophage XR] 500 mg PO BID #180 tab Aspirin 81 mg PO DAILY #30 tab Continue Apixaban [Eliquis] 5 mg PO BID #60 tab [place] 500 mg PO BID atenoloL [Tenormin] 25 mg PO QAM Atorvastatin [Lipitor] 80 mg PO QAM EPINEPHrine (Auto Inject) [Epipen] 0.3 mg IM ONCE PRN PRN Reason: Anaphylaxis Ergocalciferol (Vitamin D2) [Drisdol (50,000 Iu)] 1,250 mcg PO WICK Gabapentin [Neurontin] 300 mg PO TID Clopidogrel [Plavix] 75 mg PO QAM Fenofibrate 145 mg PO QAM Tirzepatide [Mounjaro] 2.5 mg SQ WICK Discontinued lisinopriL [Zestril] 10 mg PO QAM metFORMIN HCL ER [Glucophage XR] 500 mg PO HS Discharge Medication List Apixaban [Eliquis] 5 mg PO BID #60 tab 12/25/18 [Rx] Ergocalciferol (Vitamin D2) [Drisdol (50,000 Iu)] 1,250 mcg PO WICK 04/05/22 [History] [place] 500 mg PO BID 04/05/22 [History] Atorvastatin [Lipitor] 80 mg PO QAM 12/05/22 [History] Gabapentin [Neurontin] 300 mg PO TID 12/05/22 [History] atenoloL [Tenormin] 25 mg PO QAM 12/05/22 [History] Clopidogrel [Plavix] 75 mg PO QAM 08/30/23 [History] Fenofibrate 145 mg PO QAM 08/30/23 [History] EPINEPHrine (Auto Inject) [Epipen] 0.3 mg IM ONCE PRN 09/19/23 [History] Tirzepatide [Mounjaro] 2.5 mg SQ WICK 09/19/23 [History] Aspirin 81 mg PO DAILY #30 tab 09/22/23 [Rx] metFORMIN HCL ER [Glucophage XR] 500 mg PO BID #180 tab 09/22/23 [Rx] Follow up Appointment(s)/Referral(s): Jayme Baron MD [Primary Care Provider] - 1-2 days Khadar Bella [STAFF PHYSICIAN] - 1 Week Jose Brambila DO [STAFF PHYSICIAN] - 1 Week Patient Instructions/Handouts: Transient Ischemic Attack (ED) Activity/Diet/Wound Care/Special Instructions: Follow up with your neurologist from [place] [address] Brambila is a local neurologist if you choose to establish care Follow up with Dr. Arreaga in the office regarding switching to pradaxa. Discharge Disposition: HOME SELF-CARE
== END 2023-09-22 13:46 | disposition home or self-care (01) | DRG 65 ==
LOC: EC 10:11 → 3SCARD 13:11
PROVIDERS: ADMIT Hospitalist; ATTEND Hospitalist
DX: I63.9 Cerebral infarction, unspecified (principal); I69.351 Hemiplegia and hemiparesis following cerebral infarction affecting right dominant side; Q23.1 Congenital insufficiency of aortic valve; I69.354 Hemiplegia and hemiparesis following cerebral infarction affecting left non-dominant side; R47.01 Aphasia; I71.21 Aneurysm of the ascending aorta, without rupture; R47.1 Dysarthria and anarthria; I25.2 Old myocardial infarction; I48.0 Paroxysmal atrial fibrillation; K59.00 Constipation, unspecified; R29.700 NIHSS score 0; E11.42 Type 2 diabetes mellitus with diabetic polyneuropathy; E78.5 Hyperlipidemia, unspecified; F40.240 Claustrophobia; I48.91 Unspecified atrial fibrillation; E78.00 Pure hypercholesterolemia, unspecified; G47.30 Sleep apnea, unspecified; J30.2 Other seasonal allergic rhinitis; M54.50 Low back pain, unspecified; H53.40 Unspecified visual field defects; G89.29 Other chronic pain; E66.01 Morbid (severe) obesity due to excess calories; Z68.38 Body mass index [BMI] 38.0-38.9, adult; I10 Essential (primary) hypertension; F41.9 Anxiety disorder, unspecified; G47.00 Insomnia, unspecified; H54.7 Unspecified visual loss; H91.90 Unspecified hearing loss, unspecified ear; Z79.84 Long term (current) use of oral hypoglycemic drugs; Z79.01 Long term (current) use of anticoagulants; Z79.899 Other long term (current) drug therapy; Z79.02 Long term (current) use of antithrombotics/antiplatelets; Z79.82 Long term (current) use of aspirin; Z87.891 Personal history of nicotine dependence; Z28.21 Immunization not carried out because of patient refusal; Z87.01 Personal history of pneumonia (recurrent)
CPT/HCPCS: 36415; 70450; 70551; 71045; 80053; 80061; 82607; 82746; 83036; 83605; 83735; 84484; 85025; 85610; 85730; 93005; 95816; 96374; 99285

== ENCOUNTER 2023-11-01 13:10 | Observation (INO) | payer OTHER, MEDICARE ==
[2023-11-01 13:22] LABS: Glucose,Whole Blood 134 mg/dL (70-110)
[2023-11-01] MEDS: LORazepam 2 MG/ML INJ IV STA (13:28)
--- NOTE | 2023-11-01 13:29 | ED ---
General Adult HPI - General Chief complaint: Neuro Symptoms/Deficit Stated complaint: Poss Stroke Time Seen by Provider: 11/01/23 13:11 Source: patient, family, EMS, RN notes reviewed, old records reviewed Mode of arrival: EMS Limitations: no limitations, physical limitation - History of Present Illness Initial comments: 57-year-old male presents for evaluation of possible CVA. Patient has previous history of CVA with residual deficits including significant right-sided deficits, dysarthria and recent stroke with residual left-sided deficits. Ben art states he was in his usual state of health this morning until approximately 11 AM when he developed some lightheadedness, home care nurse had checked his blood pressure and found that it was quite low and the patient had developed worsening weakness and difficulty ambulating. The was at bedside states that his speech is worse than typical but the patient denies any worsening of his extremity weakness at the time my evaluation. He states that he is feeling better. He is on Plavix and Eliquis. - Related Data Home Medications Medication Instructions Recorded Confirmed Ergocalciferol (Vitamin D2) 1,250 mcg PO WICK 04/05/22 11/01/23 [Drisdol (50,000 Iu)] Saw [place] 500 mg PO BID@0800,199904/05/22 11/01/23 Atorvastatin [Lipitor] 80 mg PO DAILY@0800 12/05/22 11/01/23 atenoloL [Tenormin] 25 mg PO DAILY@0812/05/22 11/01/23 Clopidogrel [Plavix] 75 mg PO DAILY@0800 08/30/23 11/01/23 EPINEPHrine (Auto Inject) [Epipen] 0.3 mg IM ONCE PRN 09/19/23 11/01/23 Apixaban [Eliquis] 5 mg PO BID@0800,199911/01/23 11/01/23 Aspirin 81 mg PO DAILY@79911/01/23 11/01/23 Fenofibrate Nanocrystallized 145 mg PO DAILY@79911/01/23 11/01/23 [Fenofibrate] Fluticasone Nasal [place] [Flonase 1 - 2 spr EA NOSTRIL BID PRN 11/01/23 11/01/23 Nasal [place]] Gabapentin 300 mg PO TID@0800,1400,199911/01/23 11/01/23 Magnesium Citrate 200mg 1 tab PO BID@0800,199911/01/23 11/01/23 Magnesium Oxide [Magnesium] 500 mg PO BID@0800,199911/01/23 11/01/23 Multivitamins, Thera [Multivitamin 1 tab PO DAILY@0800 11/01/23 11/01/23 (formulary)] Tirzepatide [Mounjaro] 5 mg SQ WICK 11/01/23 11/01/23 metFORMIN HCL ER [Glucophage XR] 500 mg PO BID@0800,199911/01/23 11/01/23 Allergies Allergy/AdvReac Type Severity Reaction Status Date / Time bee venom protein (honey bee) Allergy Swelling Verified 11/01/23 14:41 Review of Systems ROS Statement: Those systems with pertinent positive or pertinent negative responses have been documented in the HPI. ROS Other: All systems not noted in ROS Statement are negative. Past Medical History Past Medical History: Atrial Fibrillation, Chest Pain / Angina, CVA/TIA, Hearing Disorder / Deafness, Hyperlipidemia, Hypertension, Memory Impairment, Myocardial Infarction ([place]), Pneumonia, Syncope Additional Past Medical History / Comment(s): Recent CVA-July w/left sided weakness, weakness in hand and leg. CVA 12/23/18 with right side weakness. Hx CVA 2009 with R sided weakness and numbness upper and lower extremities and short term memory loss, MIs X3, chronic low back pain, R shoulder and R ankle pain, seasonal allergies, sinus problems. Slightly Hard of Hearing. "I passed multiple times out years ago." Last Myocardial Infarction Date:: 2005, 2010,2011 History of Any Multi-Drug Resistant Organisms: None Reported Past Surgical History: Cardiac Ablation, Heart Catheterization, Tonsillectomy Additional Past Surgical History / Comment(s): Cardiac ablation-unsuccessful per pt, loop recorders X3 one in currenty-02/22/2019-pt states battery has , colonoscopy/benign polypectomy, cyst removed from buttock/anal area 2018;left shoulder cyst removed 12/04/2022. Had Sebaceous cyst removed from back. Last cardiac cath 2018, [facility] August 2023 Past Anesthesia/Blood Transfusion Reactions: No Reported Reaction Additional Past Anesthesia/Blood Transfusion Reaction / Comment(s): No hx of transfusion. Type of Cardiac Device: Loop Device Placement Date:: 03/10/2019 Past Psychological History: Anxiety Smoking Status: Former smoker Past Alcohol Use History: Occasional Past Drug Use History: None Reported - Past Family History Father Family Medical History: COPD, Deep Vein Thrombosis (DVT), Hyperlipidemia, Hypertension, Myocardial Infarction ([place]) Additional Family Medical History / Comment(s): Father had MIs with the first one being when he was about 65 yrs old. He had coronary stents. He at the age of 83 yrs. Mother Family Medical History: Cancer, Dementia, Thyroid Disorder Additional Family Medical History / Comment(s): Mother had breast cancer, diverticulitis, thyroid disease and from dementia at the age of 80 yrs. Sister(s) Family Medical History: Cancer Additional Family Medical History / Comment(s): Pancreatic cancer. General Exam Limitations: physical limitation General appearance: alert, in no apparent distress Head exam: Present: atraumatic, normocephalic Eye exam: Present: normal appearance, PERRL Neck exam: Present: normal inspection. Absent: tenderness Respiratory exam: Present: normal lung sounds bilaterally. Absent: respiratory distress, wheezes Cardiovascular Exam: Present: regular rate, normal rhythm GI/Abdominal exam: Present: soft. Absent: distended, tenderness, guarding Neurological exam: Present: alert, oriented X3, motor sensory deficit (As mild dysarthria, right-sided weakness as well as residual left-sided weakness and ataxia of both upper extremities. The only new symptom according to the patient and his is a mild worsening of his dysarthria.) Skin exam: Present: warm, dry, intact. Absent: cyanosis, diaphoretic Course Vital Signs 11/01/23 11/01/23 11/01/23 13:12 13:24 13:39 Temperature 98.8 F Pulse Rate 75 78 Respiratory 18 16 18 Rate Blood Pressure 154/74 154/74 154/74 O2 Sat by Pulse 98 Oximetry 11/01/23 11/01/23 11/01/23 13:54 14:09 14:24 Temperature Pulse Rate 73 71 71 Respiratory 18 18 18 Rate Blood Pressure 141/73 122/89 124/82 O2 Sat by Pulse 98 98 98 Oximetry 11/01/23 11/01/23 14:39 14:54 Temperature Pulse Rate 72 74 Respiratory 18 18 Rate Blood Pressure 134/70 O2 Sat by Pulse 98 97 Oximetry Medical Decision Making - Medical Decision Making Was pt. sent in by a medical professional or institution (, PA, METER MAKER, urgent care, hospital, or group home...) When possible be specific @ -No Did you speak to anyone other than the patient for history (EMS, parent, family, police, friend...)? What history was obtained from this source @Medics, patient's and son Did you review nursing and triage notes (agree or disagree)? Why? @ -I reviewed and agree with nursing and triage notes Were old charts reviewed (outside hosp., previous admission, EMS record, old EKG, old radiological studies, urgent care reports/EKG's, group home records)? Report findings @ -No old charts were reviewed Differential CVA Ischemic stroke, hemorrhagic stroke, brain tumor, atypical migraine, Wernicke's encephalopathy, seizure, multiple sclerosis, meningitis, encephalitis, hypoglycemia, Guillain-Albarado, electrolytes disturbance, myasthenia gravis.... This is not meant to be an all-inclusive list EKG interpreted by me (3pts min.). @ -[Sinus rhythm rate of 76, MS interval 173, QRS duration 107, QTc [address] segment elevation. X-rays interpreted by me (1pt min.). @ -None done CT interpreted by me (1pt min.). @ -Brain and CT angiography ordered, CT brain negative for intracranial hemor rhage or mass effect, CT angiography negative for large vessel occlusion U/S interpreted by me (1pt. min.). @ -None done What testing was considered but not performed or refused? (CT, X-rays, U/S, la bs)? Why? @ -None What meds were considered but not given or refused? Why? @ -None Did you discuss the management of the patient with other professionals (professionals i.e. , KRISTEN, METER MAKER, lab, RT, psych nurse, mental health social worker, falsework builder, teacher, chief fundraising officer, manager rn case)? Give summary @Case discussed with Dr. Hinds who will admit. Was smoking cessation discussed for >3mins.? @ -No Was critical care preformed (if so, how long)? @ -No Were there social determinants of health that impacted care today? How? (Homelessness, low income, unemployed, alcoholism, drug addiction, transportation, low edu. Level, literacy, decrease access to med. care, detention, rehab)? @ -No Was there de-escalation of care discussed even if they declined (Discuss DNR or withdrawal of care, Hospice)? DNR status @ -No What co-morbidities impacted this encounter? (DM, HTN, Smoking, COPD, CAD, Cancer, CVA, ARF, Chemo, Hep., AIDS, mental health diagnosis, sleep apnea, morbid obesity)? @ -CAD, previous CVA with residual deficit Was patient admitted / discharged? Hospital course, mention meds given and route, prescriptions, significant lab abnormalities, going to OR and other pertinent info. @7-year-old male presenting with symptoms concerning for syncope versus acute CVA. Patient had worsening expressive aphasia and dysarthria and worsening generalized weakness which was associated with a low blood pressure according to home care nurse. Patient symptoms do improve while in the emergency department. He was a code stroke activation but not a tPA or thrombectomy candidate. Patient currently on Eliquis and Plavix. He will be observed on telemetry with consultation to neurology for further evaluation. He returns to baseline while in the emergency department. Undiagnosed new problem with uncertain prognosis? @ -No Drug Therapy requiring intensive monitoring for toxicity (Heparin, Nitro, Insulin, Cardizem)? @ -No Were any procedures done? @ -No Diagnosis/symptom? @TIA Acute, or Chronic, or Acute on Chronic? @ -Acute Uncomplicated (without systemic symptoms) or Complicated (systemic symptoms)? @ -Default Side effects of treatment? @ -No Exacerbation, Progression, or Severe Exacerbation? @ -No Poses a threat to life or bodily function? How? (Chest pain, [place], [place], pneumonia, PE, COPD, DKA, ARF, appy, cholecystitis, CVA, Diverticulitis, Homicidal, Suicidal, threat to staff... and all critical care pts) @ -yes, CVA - Lab Data Result diagrams: 11/01/23 13:47 11/01/23 13:47 Lab Results 11/01/23 11/01/23 11/01/23 Range/Units 13:20 13:47 13:47 WBC 5.1 (3.8-10.6) k/uL RBC 4.82 (4.30-5.90) m/uL Hgb 14.3 (13.0-17.5) gm/dL Hct 42.2 (39.0-53.0) % MCV 87.5 (80.0-100.0) fL MCH 29.8 (25.0-35.0) pg MCHC 34.0 (31.0-37.0) g/dL RDW 13.0 (11.5-15.5) % Plt Count 267 (150-450) k/uL MPV 8.2 Neutrophils % 69 % Lymphocytes % 20 % Monocytes % 7 % Eosinophils % 2 % Basophils % 0 % Neutrophils # 3.6 (1.3-7.7) k/uL Lymphocytes # 1.0 (1.0-4.8) k/uL Monocytes # 0.4 (0-1.0) k/uL Eosinophils # 0.1 (0-0.7) k/uL Basophils # 0.0 (0-0.2) k/uL PT 11.7 (10.0-12.5) sec INR 1.1 (<1.2) APTT 26.5 (22.0-30.0) sec Sodium (137-145) mmol/L Potassium (3.5-5.1) mmol/L Chloride (98-107) mmol/L Carbon Dioxide (22-30) mmol/L Anion Gap mmol/L BUN (9-20) mg/dL Creatinine (0.66-1.25) mg/dL Est GFR (CKD-EPI)AfAm (>60 ml/min/1.73 sqM) Est GFR (CKD-EPI)NonAf (>60 ml/min/1.73 sqM) Glucose (74-99) mg/dL POC Glucose (mg/dL) 134 H (70-110) mg/dL POC Glu [employer] ID Krupa Cobian Calcium (8.4-10.2) mg/dL Total Bilirubin (0.2-1.3) mg/dL AST (17-59) U/L ALT (4-49) U/L Alkaline Phosphatase (38-126) U/L Creatine Kinase (55-170) U/L Troponin I (0.000-0.034) ng/mL Total Protein (6.3-8.2) g/dL Albumin (3.5-5.0) g/dL 11/01/23 11/01/23 Range/Units 13:47 13:47 WBC (3.8-10.6) k/uL RBC (4.30-5.90) m/uL Hgb (13.0-17.5) gm/dL Hct (39.0-53.0) % MCV (80.0-100.0) fL MCH (25.0-35.0) pg MCHC (31.0-37.0) g/dL RDW (11.5-15.5) % Plt Count (150-450) k/uL MPV Neutrophils % % Lymphocytes % % Monocytes % % Eosinophils % % Basophils % % Neutrophils # (1.3-7.7) k/uL Lymphocytes # (1.0-4.8) k/uL Monocytes # (0-1.0) k/uL Eosinophils # (0-0.7) k/uL Basophils # (0-0.2) k/uL PT (10.0-12.5) sec INR (<1.2) APTT (22.0-30.0) sec Sodium 136 L (137-145) mmol/L Potassium 3.7 (3.5-5.1) mmol/L Chloride 108 H (98-107) mmol/L Carbon Dioxide 24 (22-30) mmol/L Anion Gap 4 mmol/L BUN 15 (9-20) mg/dL Creatinine 1.00 (0.66-1.25) mg/dL Est GFR (CKD-EPI)AfAm >90 (>60 ml/min/1.73 sqM) Est GFR (CKD-EPI)NonAf 83 (>60 ml/min/1.73 sqM) Glucose 94 (74-99) mg/dL POC Glucose (mg/dL) (70-110) mg/dL POC Glu [employer] ID Calcium 8.7 (8.4-10.2) mg/dL Total Bilirubin 0.7 (0.2-1.3) mg/dL AST 36 (17-59) U/L ALT 39 (4-49) U/L Alkaline Phosphatase 31 L (38-126) U/L Creatine Kinase 71 (55-170) U/L Troponin I <0.012 (0.000-0.034) ng/mL Total Protein 5.7 L (6.3-8.2) g/dL Albumin 3.5 (3.5-5.0) g/dL Disposition Clinical Impression: Transient cerebral ischemia Disposition: ADMITTED IP TO THIS HOSP Condition: Stable Is patient prescribed a controlled substance at d/c from ED?: No Referrals: Jayme Baron MD [Primary Care Provider] - 1-2 days Time of Disposition: 15:30
[2023-11-01] MEDS: SODIUM CHLORIDE 0.9% 500 ML 500 ML IV STA (13:42)
--- NOTE | 2023-11-01 13:45 | CT ---
EXAMINATION TYPE: CT brain wo con CT DLP: 1188.6 mGycm, Automated exposure control for dose reduction was used. DATE OF EXAM: 11/01/2023 1:39 PM COMPARISON: 09/19/2023. CLINICAL INDICATION:Male, 57 years old with history of Neuro deficit, acute, stroke suspected, Neuro deficit, acute, stroke suspected TECHNIQUE: Brain: Axial CT images of the brain were obtained with coronal and sagittal reformats created and rev iewed. Contrast used: None. Oral contrast used: None. FINDINGS: Brain: Extra-axial spaces: No abnormal extra-axial fluid collections. Ventricular system: Within normal limits Cerebral parenchyma: Right parietal kam-white matter loss of differentiation similar to prior 024. Cephalization of the left occipital lobe. No acute intraparenchymal hemorrhage or mass effect. The kam-white junction is well differentiated. Cerebellum: Unremarkable. Mass effect: No evidence of midline shift. Intracranial vasculature: unremarkable Soft tissues: Normal. Calvarium/osseous structures: No depressed skull fracture. Paranasal sinuses and mastoid air cells: Mild scattered paranasal sinus disease. Visualized orbits: Orbital contents are intact. IMPRESSION: 1. No acute intracranial process. 2. Similar right parietal area of loss of kam-white matter differentiation suggestive of prior inju ry seen on 09/19/2023. 3. Similar left occipital lobe encephalomalacia.
[2023-11-01 13:58] LABS: Basophils % (A) 0 %; Eosinophils # (A) 0.1 k/uL (0-0.7); Eosinophils % (A) 2 %; HCT 42.2 % (39.0-53.0); HGB 14.3 gm/dL (13.0-17.5); Lymphocytes % (A) 20 %; MCH 29.8 pg (25.0-35.0); MCV 87.5 fL (80.0-100.0); Mean Platelet Volume 8.2; Monocytes # (A) 0.4 k/uL (0-1.0); Monocytes % (A) 7 %; Neutrophils # (A) 3.6 k/uL (1.3-7.7); Neutrophils % (A) 69 %; Platelet Count 267 k/uL (150-450); RBC 4.82 m/uL (4.30-5.90); WBC 5.1 k/uL (3.8-10.6)
--- NOTE | 2023-11-01 14:04 | CT ---
EXAMINATION TYPE: CT angio head neck CT DLP: 1184.4 mGycm, Automated exposure control for dose reduction was used. DATE OF EXAM: 11/01/2023 1:56 PM COMPARISON: . CLINICAL INDICATION:Male, 57 years old with history of Neuro deficit, acute, stroke suspected; PHH, N euro deficits TECHNIQUE: Axially acquired helical CT angiogram of the head and neck was obtained with contrast. Axi al images are supplemented with 3D reconstructions and MIP images which were post-processed at an in dependent workstation. NASCET criteria used. Contrast used:65 mL of Isovue 370 with IV Contrast, Oral contrast used: None. FINDINGS: CTA HEAD: No evidence of acute intracranial hemorrhage, mass effect, or midline shift. The ventricles, sulci, a nd cisterns are unremarkable. The visualized portions of the internal carotid arteries, middle cerebral arteries, anterior cerebral arteries, and posterior cerebral arteries are patent. The basilar and vertebral arteries are patent. CTA NECK: Right Carotid System: The common carotid artery and external carotid artery are patent. The carotid bifurcation demonstrate s no evidence of hemodynamically significant stenosis. Tortuosity of the internal carotid artery cour sing posterior to the of oropharynx. The remaining portions of the internal carotid artery demonstra te normal size without significant narrowing. Left Carotid System: The common carotid artery and external carotid artery are patent. The carotid bifurcation demonstrate s no evidence of hemodynamically significant stenosis. Tortuosity of the internal carotid artery cour sing posterior to the of oropharynx. The remaining portions of the internal carotid artery demonstrat e normal size without significant narrowing. Vertebral arteries are patent without evidence hemodynamically significant stenosis. There is a three-vessel aortic arch. The origins of the great vessels are patent. No evidence of hemo dynamically significant stenosis. Upper thorax: Right high paratracheal 10 mm short axis prominent lymph node. IMPRESSION: 1. No evidence of dissection of the cervical internal carotid arteries or vertebral arteries or any e vidence of significant stenosis at the carotid bifurcations. 2. No evidence of intracranial high-grade stenosis or intracranial aneurysm.
[2023-11-01 14:08] LABS: INR 1.1 (<1.2); Partial Thromboplastin Time 26.5 sec (22.0-30.0); Prothrombin Time 11.7 sec (10.0-12.5)
[2023-11-01 14:09] LABS: ALT 39 U/L (4-49); AST 36 U/L (17-59); African American GFR (CKD) >90 (>60 ml/min/1.73 sqM); Albumin 3.5 g/dL (3.5-5.0); Alkaline Phosphatase 31 U/L (38-126); Anion Gap 4 mmol/L; Blood Urea Nitrogen 15 mg/dL (9-20); Calcium 8.7 mg/dL (8.4-10.2); Carbon Dioxide 24 mmol/L (22-30); Chloride 108 mmol/L (98-107); Creatine Kinase 71 U/L (55-170); Glucose 94 mg/dL (74-99); Non-African American GFR(CKD) 83 (>60 ml/min/1.73 sqM); Potassium 3.7 mmol/L (3.5-5.1); Sodium 136 mmol/L (137-145); Total Bilirubin 0.7 mg/dL (0.2-1.3); Total Protein 5.7 g/dL (6.3-8.2)
[2023-11-01 14:22] VITALS: RESP 18
[2023-11-01] MEDS: GABAPENTIN 300 MG CAP PO STA (14:54)
[2023-11-01] MEDS ORDERED: ACETAMINOPHEN TAB 325 MG TAB PO PRN (15:25)
[2023-11-01] MEDS: SODIUM CHLORIDE 0.9% 1,000 ML IV SCH (15:55)
[2023-11-01 18:11] VITALS: PULSE 78
--- NOTE | 2023-11-01 18:31 | P.CNNES ---
History of Present Illness Consult date: 11/01/23 Requesting physician: Thierno Andrews Reason for Consult: TIA History of Present Illness: Patient is a 57-year-old right-handed male came to the hospital by ambulance today at 1:10 PM for some confusion and speech problem. EMS flowsheet not available in the chart. Patient and his provided with a history. Patient states that he just had finished the lunch at around 10:30 AM, when the therapist came. She noticed that he looked pale, and patient felt weird. The therapist tried him walking, but he could not stand and he felt lightheaded. He was a little confused, slightly slurred speech. Patient's blood pressure dropped down, and then came back up. They called the ambulance and while he was in the ambulance, his symptoms started resolving. At present he is back to baseline. He believes that his symptoms resolved in about 1 to 1-1/2 hours. He has no symptoms at this time. Vital signs on arrival blood pressure 154/74, pulse 75 temperature 98.8. Blood test shows normal CBC PT PTT, sodium 136 potassium is normal normal renal functions, hepatic panel. Troponin negative. EKG showed sinus rhythm. CT head revealed no acute intracranial process. Similar right parietal area of loss of kam-white matter differentiation, suggestive of prior injury seen on 09/19/2023. Similar left occipital lobe encephalomalacia. I personally reviewed CT head agree with the findings. Patient was seen by myself on 09/19/2023 for acute syncopal episode with difficulty getting up. Patient underwent MRI of the brain, which revealed subacute infarct in the right temporoparietal region. On my review, it appears the abnormality was from previous stroke from 07/24/2023, with no acute ischemia. Patient was discharged on Eliquis 5 mg twice daily. Patient has history of stroke 15 years ago, which affected his eyes. He also had a small stroke in 2019, and was seen by Dr. Ribera at that time. Patient always had some weakness of the right side of the body. Patient had a third stroke on 07/24/2023 when he was admitted to [facility]. He had an MRI of the brain performed on 07/26/2023, which revealed acute area of ischemia involving the right posterior insular cortex, and also right posterior temporal region. Patient has a picture of DWI image from that MRI that was taken, and his neurologist in the hospital let him take picture of the MRI showing acute st roke. With the third stroke, he developed weakness of the left side as well, and is not as strong. Patient has history of diabetes, hypertension, hyperlipidemia. Patient has history of ascending aortic aneurysm 4.1 cm. Patient has smoked 1 pack/week for 5 years, quit 17 years ago. Denies any use of marijuana. No alcohol. Home medication clued Eliquis 5 mg twice daily, Plavix 75 mg, aspirin 81 mg, Lipitor 80 mg, besides other medications for blood pressure and diabetes. He also takes Mag-Ox 500 mg twice daily. Patient saw the brand engineer, and reported about having constipation therefore his brand engineer gave him magnesium citrate 200 mg twice daily. He was supposed to take 1 or the other form of magnesium, but since last night, he has been mistakenly taking both forms of magnesium twice a day. LYNSEY performed 09/04/2023 revealed aortic valve is bicuspid with fusion of the right and left cusp with no significant aortic stenosis and mild AR. Mitral valve appears normal. Interatrial septum is intact. No evidence of PFO. Left atrial appendage is free of clot. Left ventricular ejection fraction 55%. Ascending aortic aneurysm measuring 4.1 cm. He uses cane in the house for walking. * Workup on the last admission revealed: * MRI of the brain revealed subacute infarct in the right temporoparietal region. Mild fluid in the mastoid air cells and mild chronic inflammatory changes in the right maxillary sinus. No mass effect or shift of the midline structure. I personally reviewed MRI, and this abnormal signal on DWI is residual from the previous stroke on 07/24/2023. No acute stroke. * LYNSEY performed 09/04/2023 revealed aortic valve is bicuspid with fusion of the right and left cusp with no significant aortic stenosis and mild AR. Mitral valve appears normal. Interatrial septum is intact. No evidence of PFO. Left atrial appendage is free of clot. Left ventricular ejection fraction 55%. Ascending aortic aneurysm measuring 4.1 cm. * EEG was normal awake and drowsy. No focal, lateralized or epileptiform activity was seen. * Orthostatics checked were negative. His supine blood pressure 114/62, pulse rate 67, sitting up was 120/73 with pulse of 77 and standing 123/80 and pulse 72. * B12 five 2916.9, both normal, folate * Fasting a.m. lipid panel cholesterol 118, HDL 36, LDL 45, triglycerides 180. Continue Lipitor 80 mg. * Hemoglobin A1c 6.6. Diabetes controlled. Review of Systems Constitutional: Denies chills, Denies fever Eyes: bilateral loss of peripheral vision, denies diplopia Ears: right: tinnitus, bilateral: decreased hearing Ears, nose, mouth and throat: Denies headache, Denies vertigo Cardiovascular: Denies lightheadedness, Denies chest pain, Denies shortness of breath Respiratory: Denies cough, Denies excessive sputum Gastrointestinal: Denies abdominal pain, Denies diarrhea, Denies nausea, Denies vomiting Musculoskeletal: Denies low back pain, Denies neck pain Integumentary: Reports color changes, Reports darkening of skin, Denies pruritus, Denies rash Neurological: Reports as per HPI Psychiatric: Reports anxiety, Denies depression Hematologic/Lymphatic: Reports easy bleeding, Reports easy bruising Past Medical History Past Medical History: Atrial Fibrillation, Chest Pain / Angina, CVA/TIA, Hearing Disorder / Deafness, Hyperlipidemia, Hypertension, Memory Impairment, Myocardial Infarction ([place]), Pneumonia, Syncope Additional Past Medical History / Comment(s): Recent CVA-July w/left sided weakness, weakness in hand and leg. CVA 12/23/18 with right side weakness. Hx CVA 2009 with R sided weakness and numbness upper and lower extremities and short term memory loss, MIs X3, chronic low back pain, R shoulder and R ankle pain, seasonal allergies, sinus problems. Slightly Hard of Hearing. "I passed multiple times out years ago." Last Myocardial Infarction Date:: 2005, 2010,2011 History of Any Multi-Drug Resistant Organisms: None Reported Past Surgical History: Cardiac Ablation, Heart Catheterization, Tonsillectomy Additional Past Surgical History / Comment(s): Cardiac ablation-unsuccessful per pt, loop recorders X3 one in currenty-02/22/2019-pt states battery has , colonoscopy/benign polypectomy, cyst removed from buttock/anal area 2018;left shoulder cyst removed 12/04/2022. Had Sebaceous cyst removed from back. Last cardiac cath 2018, LYNSEY August 2023 Past Anesthesia/Blood Transfusion Reactions: No Reported Reaction Additional Past Anesthesia/Blood Transfusion Reaction / Comment(s): No hx of transfusion. Type of Cardiac Device: Loop Device Placement Date:: 03/10/2019 Past Psychological History: Anxiety Smoking Status: Former smoker Past Alcohol Use History: Occasional Past Drug Use History: None Reported - Past Family History Father Family Medical History: COPD, Deep Vein Thrombosis (DVT), Hyperlipidemia, Hypertension, Myocardial Infarction ([place]) Additional Family Medical History / Comment(s): Father had MIs with the first one being when he was about 65 yrs old. He had coronary stents. He at the age of 83 yrs. Mother Family Medical History: Cancer, Dementia, Thyroid Disorder Additional Family Medical History / Comment(s): Mother had breast cancer, diverticulitis, thyroid disease and from dementia at the age of 80 yrs. Sister(s) Family Medical History: Cancer Additional Family Medical History / Comment(s): Pancreatic cancer. Medications and Allergies Home Medications Medication Instructions Recorded Confirmed Type Ergocalciferol (Vitamin D2) 1,250 mcg PO WICK 04/05/22 11/01/23 History [Drisdol (50,000 Iu)] Saw [place] 500 mg PO BID@0800,199904/05/22 11/01/23 History Atorvastatin [Lipitor] 80 mg PO DAILY@79912/05/22 11/01/23 History atenoloL [Tenormin] 25 mg PO DAILY@79912/05/22 11/01/23 History Clopidogrel [Plavix] 75 mg PO DAILY@79908/30/23 11/01/23 History EPINEPHrine (Auto Inject) [Epipen] 0.3 mg IM ONCE PRN 09/19/23 11/01/23 History Apixaban [Eliquis] 5 mg PO BID@0800,199911/01/23 11/01/23 History Aspirin 81 mg PO DAILY@79911/01/23 11/01/23 History Fenofibrate Nanocrystallized 145 mg PO DAILY@79911/01/23 11/01/23 History [Fenofibrate] Fluticasone Nasal [place] [Flonase 1 - 2 spr EA NOSTRIL BID PRN 11/01/23 11/01/23 History Nasal [place]] Gabapentin 300 mg PO TID@0800,1400,199911/01/23 11/01/23 History Magnesium Citrate 200mg 1 tab PO BID@0800,199911/01/23 11/01/23 History Magnesium Oxide [Magnesium] 500 mg PO BID@799,199911/01/23 11/01/23 History Multivitamins, Thera [Multivitamin 1 tab PO DAILY@0800 11/01/23 11/01/23 History (formulary)] Tirzepatide [Mounjaro] 5 mg SQ WICK 11/01/23 11/01/23 History metFORMIN HCL ER [Glucophage XR] 500 mg PO BID@799,199911/01/23 11/01/23 History Allergies Allergy/AdvReac Type Severity Reaction Status Date / Time bee venom protein (honey bee) Allergy Swelling Verified 11/01/23 14:41 Physical Examination - Vital Signs Vital Signs: Vital Signs Temp Pulse Resp BP Pulse Ox 11/01/23 15:39 70 18 121/79 99 11/01/23 15:09 69 18 134/70 99 11/01/23 14:54 74 18 134/70 97 11/01/23 14:39 72 18 98 11/01/23 14:24 71 18 124/82 98 11/01/23 14:09 71 18 122/89 98 11/01/23 13:54 73 18 141/73 98 11/01/23 13:39 78 18 154/74 98 11/01/23 13:24 98.8 F 75 16 154/74 11/01/23 13:12 18 154/74 Intake and Output 11/01/23 11/01/23 11/01/23 06:59 14:59 22:59 Other: Weight 127.006 kg Patient is a middle aged male, in no acute distress. Patient is alert awake oriented to time place and person. He knows it is 11/01/2023 and that he is in [facility], and knows name of the current president Mr. Rizo. Speech and language functions are normal. No obvious dysarthria. Patient can name and repeat very well. Attention, concentration and fund of knowledge is adequate. On cranial nerve examination, pupils are equal, round and reacting to light. His visual mukherjee revealed bilateral mild lateral restricted visual mukherjee, almost like tunnel vision. Extraocular muscles are intact with no nystagmus. He has slight left-sided asymmetry of the face on active testing. His tongue protrudes to the midline. Palatal elevation and sensation normal, hearing is decreased and shoulder shrug normal, facial sensation normal. On muscle strength testing, he has prominent right pronator drift, and it hits the bed. On muscle strength testing (right/left) deltoid 3+/5-, biceps 4+/5, triceps 4+/5, revit drafter 3+/5. Weakness in the lower limbs hip flexion 3/4+, ankle dorsiflexion 1-2/5 Deep tendon reflexes are (right/left) biceps 2/1, brachioradialis 2+/1, knees 1+/2+, ankles 1/1. Plantar is flat on the right, upgoing on the left. Sensory to touch is decreased in the entire right side of the body. Cerebellar function showed no ataxia for [id number] testing, although it was slow bilaterally, right more than left. Tone and bulk of muscles normal. Gait deferred.. On general examination, there is no carotid bruit or murmur, S1-S2 audible. Chest is clear on consultation. Abdomen is soft nontender. No organomegaly, bowel sounds present. Patient has positive peripheral edema. Results - Laboratory Findings CBC and BMP: 11/01/23 13:47 11/01/23 13:47 Abnormal Lab Findings: Abnormal Labs 11/01/23 11/01/23 13:20 13:47 Sodium 136 L Chloride 108 H POC Glucose (mg/dL) 134 H Alkaline Phosphatase 31 L Total Protein 5.7 L Assessment and Plan Assessment: * Transient episode of some confusion, speech difficulty, difficulty walking, that resolved in about 1 to 1-1/2 hours. Patient claims that his blood pressure was low in 80s/40s at that time, then blood pressure came back up. Exact cause of this episode is uncertain, possible recrudescence of stroke symptoms due to hypotension. Doubt TIA, as patient is already taking Eliquis, Plavix and aspirin. Seizure in the differential, but patient had a normal EEG performed recently. Patient mistakenly has been taking 2 different forms of magnesium (magnesium oxide 500 mg, and magnesium citrate 200 mg), twice a day since yesterday. This may have resulted in this episode. Patient's examination is back to baseline. Patient feels back to baseline and wants to go home. * History of acute CVA 07/24/2023, involving right posterior insular cortex and right posterior temporal region, treated at [facility]. * History of CVA 2019, with residual right-sided weakness. * History of left occipital CVA 2009, with residual right visual field deficit. * Atrial fibrillation, on anticoagulation. * Diabetes * Hypertension * Hyperlipidemia * Coronary artery disease Plan: * Patient's symptoms are all resolved. He is back to baseline. * Stat magnesium level was checked, and came back normal 2.0. He was recommended to take either magnesium oxide or magnesium citrate, not both together. Preference would be for magnesium oxide. * Patient's episode was likely due to transient hypotension. I would recommend cardiology consultation to address his blood pressure medication. Patient states that he feels fine, wants to go home and will follow-up with Dr. Arreaga next week. * CTA of head and neck revealed no evidence of dissection of the cervical internal carotid arteries or vertebral arteries or any evidence of significant stenosis at the carotid bifurcations. No evidence of intracranial high-grade stenosis or intracranial aneurysm. * Neurologically clear for discharge. Thank you for the consult.
[2023-11-01 20:34] VITALS: BP 132/95; TEMP 98.3
--- NOTE | 2023-11-01 22:39 | P.HPIM ---
History of Present Illness H&P Date: 11/01/23 Past Medical History Past Medical History: Atrial Fibrillation, Chest Pain / Angina, CVA/TIA, Hearing Disorder / Deafness, Hyperlipidemia, Hypertension, Memory Impairment, Myocardial Infarction ([place]), Pneumonia, Syncope Additional Past Medical History / Comment(s): Recent CVA-July w/left sided weakness, weakness in hand and leg. CVA 12/23/18 with right side weakness. Hx CVA 2009 with R sided weakness and numbness upper and lower extremities and short term memory loss, MIs X3, chronic low back pain, R shoulder and R ankle pa in, seasonal allergies, sinus problems. Slightly Hard of Hearing. "I passed multiple times out years ago." Last Myocardial Infarction Date:: 2005, 2010,2011 History of Any Multi-Drug Resistant Organisms: None Reported Past Surgical History: Cardiac Ablation, Heart Catheterization, Tonsillectomy Additional Past Surgical History / Comment(s): Cardiac ablation-unsuccessful per pt, loop recorders X3 one in currenty-02/22/2019-pt states battery has , colonoscopy/benign polypectomy, cyst removed from buttock/anal area 2018;left shoulder cyst removed 12/04/2022. Had Sebaceous cyst removed from back. Last cardiac cath 2018, LYNSEY August 2023 Past Anesthesia/Blood Transfusion Reactions: No Reported Reaction Additional Past Anesthesia/Blood Transfusion Reaction / Comment(s): No hx of transfusion. Type of Cardiac Device: Loop Device Placement Date:: 03/10/2019 Past Psychological History: Anxiety Smoking Status: Former smoker Past Alcohol Use History: Occasional Past Drug Use History: None Reported - Past Family History Father Family Medical History: COPD, Deep Vein Thrombosis (DVT), Hyperlipidemia, Hypertension, Myocardial Infarction ([place]) Additional Family Medical History / Comment(s): Father had MIs with the first one being when he was about 65 yrs old. He had coronary stents. He at the age of 83 yrs. Mother Family Medical History: Cancer, Dementia, Thyroid Disorder Additional Family Medical History / Comment(s): Mother had breast cancer, dive rticulitis, thyroid disease and from dementia at the age of 80 yrs. Sister(s) Family Medical History: Cancer Additional Family Medical History / Comment(s): Pancreatic cancer. Medications and Allergies Home Medications Medication Instructions Recorded Confirmed Type Ergocalciferol (Vitamin D2) 1,250 mcg PO WICK 04/05/22 11/01/23 History [Drisdol (50,000 Iu)] Saw [place] 500 mg PO BID@0800,199904/05/22 11/01/23 History Atorvastatin [Lipitor] 80 mg PO DAILY@0812/05/22 11/01/23 History atenoloL [Tenormin] 25 mg PO DAILY@79912/05/22 11/01/23 History Clopidogrel [Plavix] 75 mg PO DAILY@79908/30/23 11/01/23 History EPINEPHrine (Auto Inject) [Epipen] 0.3 mg IM ONCE PRN 09/19/23 11/01/23 History Apixaban [Eliquis] 5 mg PO BID@0800,199911/01/23 11/01/23 History Aspirin 81 mg PO DAILY@0811/01/23 11/01/23 History Fenofibrate Nanocrystallized 145 mg PO DAILY@0811/01/23 11/01/23 History [Fenofibrate] Fluticasone Nasal [place] [Flonase 1 - 2 spr EA NOSTRIL BID PRN 11/01/23 11/01/23 History Nasal [place]] Gabapentin 300 mg PO TID@0800,1400,199911/01/23 11/01/23 History Magnesium Citrate 200mg 1 tab PO BID@0800,199911/01/23 11/01/23 History Magnesium Oxide [Magnesium] 500 mg PO BID@0800,199911/01/23 11/01/23 History Multivitamins, Thera [Multivitamin 1 tab PO DAILY@0811/01/23 11/01/23 History (formulary)] Tirzepatide [Mounjaro] 5 mg SQ WICK 11/01/23 11/01/23 History metFORMIN HCL ER [Glucophage XR] 500 mg PO BID@0800,199911/01/23 11/01/23 History Allergies Allergy/AdvReac Type Severity Reaction Status Date / Time bee venom protein (honey bee) Allergy Swelling Verified 11/01/23 14:41 Physical Exam Vitals: Vital Signs Temp Pulse Resp BP Pulse Ox 11/01/23 20:32 98.3 F 78 18 132/95 96 11/01/23 18:10 78 18 133/86 99 11/01/23 17:26 74 18 113/59 99 11/01/23 16:26 72 18 125/84 99 11/01/23 15:39 70 18 121/79 99 11/01/23 15:09 69 18 134/70 99 11/01/23 14:54 74 18 134/70 97 11/01/23 14:39 72 18 98 11/01/23 14:24 71 18 124/82 98 11/01/23 14:09 71 18 122/89 98 11/01/23 13:54 73 18 141/73 98 11/01/23 13:39 78 18 154/74 98 11/01/23 13:24 98.8 F 75 16 154/74 11/01/23 13:12 18 154/74 Intake and Output 11/01/23 11/01/23 11/01/23 06:59 14:59 22:59 Other: Weight 127.006 kg Results CBC & Chem 7: 11/01/23 13:47 11/01/23 13:47 Labs: Abnormal Lab Results - Last 24 Hours (Table) 11/01/23 11/01/23 Range/Units 13:20 13:47 Sodium 136 L (137-145) mmol/L Chloride 108 H (98-107) mmol/L POC Glucose (mg/dL) 134 H (70-110) mg/dL Alkaline Phosphatase 31 L (38-126) U/L Total Protein 5.7 L (6.3-8.2) g/dL
== END 2023-11-01 20:32 | disposition home or self-care (01) ==
LOC: EC 13:10 → 6NMEDSUR 15:26
PROVIDERS: ADMIT Internal Medicine; ATTEND Internal Medicine
DX: R29.818 Other symptoms and signs involving the nervous system (principal); I63.9 Cerebral infarction, unspecified; I48.91 Unspecified atrial fibrillation; I25.2 Old myocardial infarction; I25.10 Atherosclerotic heart disease of native coronary artery without angina pectoris; I10 Essential (primary) hypertension; E11.9 Type 2 diabetes mellitus without complications; E78.5 Hyperlipidemia, unspecified; F41.9 Anxiety disorder, unspecified; Z87.891 Personal history of nicotine dependence; Z82.5 Family history of asthma and other chronic lower respiratory diseases; Z82.49 Family history of ischemic heart disease and other diseases of the circulatory system; Z80.3 Family history of malignant neoplasm of breast; Z80.0 Family history of malignant neoplasm of digestive organs; Z79.899 Other long term (current) drug therapy; Z79.84 Long term (current) use of oral hypoglycemic drugs; Z79.82 Long term (current) use of aspirin; Z79.02 Long term (current) use of antithrombotics/antiplatelets; Z79.01 Long term (current) use of anticoagulants; I71.21 Aneurysm of the ascending aorta, without rupture
CPT/HCPCS: 96361; 96374; 99285; 36415; 93005; 80053; 82550; 83735; 84484; 85025; 85610; 85730; 70496; 70450; 70498; G0378; J2060; Q9967

== ENCOUNTER 2024-03-21 11:07 | Emergency (ER) | payer OTHER, MEDICARE ==
--- NOTE | 2024-03-21 11:39 | ED ---
General Adult HPI - General Source: patient, RN notes reviewed Mode of arrival: ambulatory Limitations: no limitations <Garret Ospina - Last Filed: 03/21/24 11:40> <Lizabeth Sanon - Last Filed: 03/24/24 06:46> - General Stated complaint: Urogenital Time Seen by Provider: 03/21/24 11:38 - History of Present Illness Initial comments: 58-year-old male presenting with chief complaint of of redness and pain near the testicles. Has been ongoing for 1 day. (Garret Ospina) 58-year-old male with past medical tree of CVA who presents emergency department reporting pain and redness in his groin. Noted that he woke up in the middle night in a cold sweat. He had significant tenderness to his right groin. Pain is in the perineal region. Denies any scrotal pain. He does have a history of multiple abscesses in the past and was concern for similar. Patient is a diabetic. Denies reported fevers. Has not taken anything for the pain yet. No concern for sexual transmitted infections. Denies dysuria, hematuria or difficulty voiding. Denies diarrhea, constipation, black or bloody stools. No penile discharge. No other alleviating, precipitating or modifying factors (Lizabeth Sanon) - Related Data Home Medications Medication Instructions Recorded Confirmed Ergocalciferol (Vitamin D2) 1,250 mcg PO WICK 04/05/22 11/01/23 [Drisdol (50,000 Iu)] Saw [place] 500 mg PO BID@08,199904/05/22 11/01/23 Atorvastatin [Lipitor] 80 mg PO DAILY@79912/05/22 11/01/23 atenoloL [Tenormin] 25 mg PO DAILY@79912/05/22 11/01/23 Clopidogrel [Plavix] 75 mg PO DAILY@79908/30/23 11/01/23 EPINEPHrine (Auto Inject) [Epipen] 0.3 mg IM ONCE PRN 09/19/23 11/01/23 Apixaban [Eliquis] 5 mg PO BID@08,199911/01/23 11/01/23 Aspirin 81 mg PO DAILY@79911/01/23 11/01/23 Fenofibrate Nanocrystallized 145 mg PO DAILY@0800 11/01/23 11/01/23 [Fenofibrate] Fluticasone Nasal [place] [Flonase 1 - 2 spr EA NOSTRIL BID PRN 11/01/23 11/01/23 Nasal [place]] Gabapentin 300 mg PO TID@0800,1399,199911/01/23 11/01/23 Magnesium Citrate 200mg 1 tab PO BID@0800,199911/01/23 11/01/23 Magnesium Oxide [Magnesium] 500 mg PO BID@0800,199911/01/23 11/01/23 Multivitamins, Thera [Multivitamin 1 tab PO DAILY@0800 11/01/23 11/01/23 (formulary)] Tirzepatide [Mounjaro] 5 mg SQ WICK 11/01/23 11/01/23 metFORMIN HCL ER [Glucophage XR] 500 mg PO BID@0800,199911/01/23 11/01/23 Previous Rx's Medication Instructions Recorded HYDROcodone/APAP 7.5-325MG [Kayenta 1 tab PO Q6HR PRN 3 Days #12 tab 03/21/24 7.5-325] Levofloxacin [Levaquin] 750 mg PO DAILY 1 Days #7 tab 03/21/24 metroNIDAZOLE [Flagyl] 500 mg PO TID #21 tab 03/21/24 Allergies Allergy/AdvReac Type Severity Reaction Status Date / Time bee venom protein (honey bee) Allergy Swelling Verified 03/24/24 05:50 Review of Systems ROS Other: All systems not noted in ROS Statement are negative. <Garret Ospina - Last Filed: 03/21/24 11:40> ROS Other: All systems not noted in ROS Statement are negative. <Lizabeth Sanon - Last Filed: 03/24/24 06:46> ROS Statement: Those systems with pertinent positive or pertinent negative responses have been documented in the HPI. Past Medical History Past Medical History: Atrial Fibrillation, Chest Pain / Angina, CVA/TIA, Hearing Disorder / Deafness, Hyperlipidemia, Hypertension, Memory Impairment, Myocardial Infarction (MT), Pneumonia, Syncope Additional Past Medical History / Comment(s): Recent CVA-July w/left sided weakness, weakness in hand and leg. CVA 12/23/18 with right side weakness. Hx CVA 2009 with R sided weakness and numbness upper and lower extremities and short term memory loss, MIs X3, chronic low back pain, R shoulder and R ankle pain, seasonal allergies, sinus problems. Slightly Hard of Hearing. "I passed multiple times out years ago." Last Myocardial Infarction Date:: 2005, 2010,2011 History of Any Multi-Drug Resistant Organisms: None Reported Past Surgical History: Cardiac Ablation, Heart Catheterization, Tonsillectomy Additional Past Surgical History / Comment(s): Cardiac ablation-unsuccessful per pt, loop recorders X3 one in currenty-02/22/2019-pt states battery has , colonoscopy/benign polypectomy, cyst removed from buttock/anal area 2018;left shoulder cyst removed 12/04/2022. Had Sebaceous cyst removed from back. Last cardiac cath 2018, [facility] August 2023 Past Anesthesia/Blood Transfusion Reactions: No Reported Reaction Additional Past Anesthesia/Blood Transfusion Reaction / Comment(s): No hx of transfusion. Type of Cardiac Device: Loop Device Placement Date:: 03/10/2019 Past Psychological History: Anxiety Smoking Status: Former smoker Past Alcohol Use History: Occasional Past Drug Use History: None Reported - Past Family History Father Family Medical History: COPD, Deep Vein Thrombosis (DVT), Hyperlipidemia, Hypertension, Myocardial Infarction (MT) Additional Family Medical History / Comment(s): Father had MIs with the first one being when he was about 65 yrs old. He had coronary stents. He at the age of 83 yrs. Mother Family Medical History: Cancer, Dementia, Thyroid Disorder Additional Family Medical History / Comment(s): Mother had breast cancer, diverticulitis, thyroid disease and from dementia at the age of 80 yrs. Sister(s) Family Medical History: Cancer Additional Family Medical History / Comment(s): Pancreatic cancer. <Garret Ospina - Last Filed: 03/21/24 11:40> General Exam <Garret Ospina - Last Filed: 03/21/24 11:40> General appearance: alert, in no apparent distress Head exam: Present: atraumatic, normocephalic, normal inspection Eye exam: Present: normal appearance, PERRL, EOMI. Absent: scleral icterus, conjunctival injection, periorbital swelling ENT exam: Present: normal exam, mucous membranes moist Neck exam: Present: normal inspection. Absent: tenderness, meningismus, lymphadenopathy Respiratory exam: Present: normal lung sounds bilaterally. Absent: respiratory distress, wheezes, rales, rhonchi, stridor Cardiovascular Exam: Present: regular rate, normal rhythm, normal heart sounds. Absent: systolic murmur, diastolic murmur, rubs, gallop, clicks GI/Abdominal exam: Present: soft, normal bowel sounds. Absent: distended, tenderness, guarding, rebound, rigid exam: Present: other (Patient has some indurated scrotal tissue noted on the right side. No erythema. No fluctuance. No crepitance.) Extremities exam: Present: normal inspection, full ROM, normal capillary refill. Absent: tenderness, pedal edema, joint swelling, calf tenderness Back exam: Present: normal inspection Neurological exam: Present: alert, oriented X3, CN II-XII intact Psychiatric exam: Present: normal affect, normal mood Skin exam: Present: warm, dry, intact, normal color. Absent: rash <Lizabeth Sanon - Last Filed: 03/24/24 06:46> - General Exam Comments Initial Comments: Visual Physical Exam Vital signs reviewed General: Well-appearing, nontoxic, no acute distress. Head: Normocephalic, atraumatic Eyes: PERRLA, EOMI ENT: Airway patent Chest: Nonlabored breathing Skin: No visual rash, normal skin tone Neuro: Alert and oriented 3 Musculoskeletal: No gross abnormalities (Garret Ospina) Course Vital Signs 03/21/24 03/21/24 11:34 16:13 Temperature 98.7 F 98.5 F Pulse Rate 85 80 Respiratory 22 18 Rate Blood Pressure 125/72 114/68 O2 Sat by Pulse 99 98 Oximetry Medical Decision Making <Garret Ospina - Last Filed: 03/21/24 11:40> - Lab Data Result diagrams: 03/21/24 11:55 03/21/24 11:55 <Lizabeth Sanon - Last Filed: 03/24/24 06:46> - Medical Decision Making I performed the quick note portion of this visit, electronically signed Garret Arango PA-C) Was pt. sent in by a medical professional or institution ([facility], [employer] AND [employer]ANGER ATTACHER, urgent care, hospital, or care home...) When possible be specific @ -No Did you speak to anyone other than the patient for history (EMS, parent, family, police, friend...)? What history was obtained from this source @ -Spoke with the for history Did you review nursing and triage notes (agree or disagree)? Why? @ -I reviewed and agree with nursing and triage notes Were old charts reviewed (outside hosp., previous admission, EMS record, old EKG, old radiological studies, urgent care reports/EKG's, care home records)? Report findings @ -No old charts were reviewed Differential Diagnosis (chest pain, altered mental status, abdominal pain women, abdominal pain men, vaginal bleeding, weakness, fever, dyspnea, syncope, headache, dizziness, GI bleed, back pain, seizure, CVA, palpatations, mental health, musculoskeletal)? @ -Cellulitis, abscess, necrotizing fasciitis EKG interpreted by me (3pts min.). @ -Not done X-rays interpreted by me (1pt min.). @ -None done CT interpreted by me (1pt min.). @ -Yes and demonstrates some thickened scrotal tissue concerning for cellulitis U/S interpreted by me (1pt. min.). @ -None done What testing was considered but not performed or refused? (CT, X-rays, U/S, labs)? Why? @ -None What meds were considered but not given or refused? Why? @ -IV antibiotics and admission were considered however patient does not want to be admitted to the hospital Did you discuss the management of the patient with other professionals (professionals i.e. , PA, CL[employer] AND HANGER ATTACHER, lab, RT, psych nurse, social work coordinator, tandem mill operator, teacher, debt recovery officer, showcase trimmer)? Give summary @ -No Was smoking cessation discussed for >3mins.? @ -No Was critical care preformed (if so, how long)? @ -No Were there social determinants of health that impacted care today? How? (Homelessness, low income, unemployed, alcoholism, drug addiction, transportation, low edu. Level, literacy, decrease access to med. care, detention, rehab)? @ -No Was there de-escalation of care discussed even if they declined (Discuss DNR or withdrawal of care, Hospice)? DNR status @ -No What co-morbidities impacted this encounter? (DM, HTN, Smoking, COPD, CAD, Cancer, CVA, ARF, Chemo, Hep., AIDS, mental health diagnosis, sleep apnea, morbid obesity)? @ -CVA Was patient admitted / discharged? Hospital course, mention meds given and route, prescriptions, significant lab abnormalities, going to OR and other pertinent info. @ -Upon arrival patient seen and evaluated in [facility]. Thorough history and physical exam was performed. IV access was established and laboratory studies were conducted. CT was performed because of the patient's history of perianal abscess. CT demonstrates some thickened scrotal tissue but no abscess. I did discuss results with the patient. I did discuss his multiple previous failed attempts at outpatient treatment when he has had an abscess. Patient wants to go home at this time. He does not demonstrate any signs of sepsis. No signs of necrotizing fasciitis. He was given a dose of antibiotics in the emergency department will be discharged home on antibiotics. His is to keep a close eye on the area. Return should he develop fevers, uncontrolled pain or any new or worsening symptoms. Patient is aware of his low threshold for return. He will be given a short course of pain medications for pain control. Follow-up with his doctor within 2 to 4 days for evaluation and return for any new or worsening symptoms. Patient discharged in stable condition Undiagnosed new problem with uncertain prognosis? @ -No Drug Therapy requiring intensive monitoring for toxicity (Heparin, Nitro, Insulin, Cardizem)? @ -No Were any procedures done? @ -No Diagnosis/symptom? @ -Acute scrotal cellulitis Acute, or Chronic, or Acute on Chronic? @ -Acute Uncomplicated (without systemic symptoms) or Complicated (systemic symptoms)? @ -Complicated Side effects of treatment? @ -No Exacerbation, Progression, or Severe Exacerbation? @ -No Poses a threat to life or bodily function? How? (Chest pain, [place], MT, pneumonia, PE, COPD, DKA, ARF, appy, cholecystitis, CVA, Diverticulitis, Homicidal, Suicidal, threat to staff... and all critical care pts) @ -No (Lizabeth Sanon) - Lab Data Lab Results 03/21/24 03/21/24 03/21/24 Range/Units 11:55 11:55 12:00 WBC 8.8 (3.8-10.6) k/uL RBC 5.34 (4.30-5.90) m/uL Hgb 15.5 (13.0-17.5) gm/dL Hct 47.1 (39.0-53.0) % MCV 88.1 (80.0-100.0) fL MCH 29.0 (25.0-35.0) pg MCHC 32.9 (31.0-37.0) g/dL RDW 14.2 (11.5-15.5) % Plt Count 318 (150-450) k/uL MPV 7.6 Neutrophils % 81 % Lymphocytes % 13 % Monocytes % 4 % Eosinophils % 1 % Basophils % 0 % Neutrophils # 7.1 (1.3-7.7) k/uL Lymphocytes # 1.1 (1.0-4.8) k/uL Monocytes # 0.4 (0-1.0) k/uL Eosinophils # 0.1 (0-0.7) k/uL Basophils # 0.0 (0-0.2) k/uL Sodium 137 (137-145) mmol/L Potassium 4.4 (3.5-5.1) mmol/L Chloride 104 (98-107) mmol/L Carbon Dioxide 26 (22-30) mmol/L Anion Gap 7 mmol/L BUN 15 (9-20) mg/dL Creatinine 1.08 (0.66-1.25) mg/dL Est GFR (CKD-EPI)AfAm 87 (>60 ml/min/1.73 sqM) Est GFR (CKD-EPI)NonAf 75 (>60 ml/min/1.73 sqM) Glucose 91 (74-99) mg/dL Calcium 9.2 (8.4-10.2) mg/dL Total Bilirubin 0.6 (0.2-1.3) mg/dL AST 28 (17-59) U/L ALT 25 (4-49) U/L Alkaline Phosphatase 38 (38-126) U/L Total Protein 6.7 (6.3-8.2) g/dL Albumin 4.1 (3.5-5.0) g/dL Urine Color Colorless Urine Appearance Clear (Clear) Urine pH 7.0 (5.0-8.0) Ur Specific [place] 1.005 (1.001-1.035) Urine Protein Negative (Negative) Urine Glucose (UA) Negative (Negative) Urine Ketones Negative (Negative) Urine Blood Negative (Negative) Urine Nitrite Negative (Negative) Urine Bilirubin Negative (Negative) Urine Urobilinogen <2.0 (<2.0) mg/dL Ur Leukocyte Esterase Negative (Negative) Disposition <Garret Ospina - Last Filed: 03/21/24 11:40> Is patient prescribed a controlled substance at d/c from ED?: Yes When asked, does pt state using other controlled substances?: No If prescribed controlled substance>3 days was MAPS reviewed?: Prescribed <3 Days If opioid is for acute pain is fill amount 7 days or less?: Yes Time of Disposition: 15:23 <Lizabeth Sanon - Last Filed: 03/24/24 06:46> Clinical Impression: Cellulitis of scrotum Disposition: HOME SELF-CARE Condition: Stable Instructions (If sedation given, give patient instructions): Cellulitis (ED) Additional Instructions: Please take the antibiotics starting tomorrow. Monitor the area very closely. Should you have any increasing pain or redness, or you develop a fever, return to the emergency department Prescriptions: metroNIDAZOLE [Flagyl] 500 mg PO TID #21 tab Levofloxacin [Levaquin] 750 mg PO DAILY 1 Days #7 tab HYDROcodone/APAP 7.5-325MG [Kayenta 7.5-325] 1 tab PO Q6HR PRN 3 Days #12 tab PRN Reason: Pain Referrals: Jayme Baron MD [Primary Care Provider] - 1-2 days
[2024-03-21 12:03] LABS: Basophils % (A) 0 %; Eosinophils # (A) 0.1 k/uL (0-0.7); Eosinophils % (A) 1 %; HCT 47.1 % (39.0-53.0); HGB 15.5 gm/dL (13.0-17.5); Lymphocytes # (A) 1.1 k/uL (1.0-4.8); Lymphocytes % (A) 13 %; MCHC 32.9 g/dL (31.0-37.0); MCV 88.1 fL (80.0-100.0); Mean Platelet Volume 7.6; Monocytes # (A) 0.4 k/uL (0-1.0); Monocytes % (A) 4 %; Neutrophils # (A) 7.1 k/uL (1.3-7.7); Neutrophils % (A) 81 %; Platelet Count 318 k/uL (150-450); RBC 5.34 m/uL (4.30-5.90); RDW 14.2 % (11.5-15.5); WBC 8.8 k/uL (3.8-10.6)
[2024-03-21 12:12] LABS: Appearance,Urine Clear (Clear); Bilirubin,Urine Negative (Negative); Blood,Urine Negative (Negative); Color,Urine Colorless; Glucose,Urine (UA) Negative (Negative); Ketones,Urine Negative (Negative); Leukocyte Esterase,Urine Negative (Negative); Nitrite,Urine Negative (Negative); Protein,Urine Negative (Negative); Specific Gravity,Urine 1.005 (1.001-1.035); Urobilinogen,Urine <2.0 mg/dL (<2.0)
[2024-03-21 12:23] LABS: ALT 25 U/L (4-49); AST 28 U/L (17-59); African American GFR (CKD) 87 (>60 ml/min/1.73 sqM); Albumin 4.1 g/dL (3.5-5.0); Alkaline Phosphatase 38 U/L (38-126); Anion Gap 7 mmol/L; Blood Urea Nitrogen 15 mg/dL (9-20); Calcium 9.2 mg/dL (8.4-10.2); Carbon Dioxide 26 mmol/L (22-30); Chloride 104 mmol/L (98-107); Glucose 91 mg/dL (74-99); Non-African American GFR(CKD) 75 (>60 ml/min/1.73 sqM); Potassium 4.4 mmol/L (3.5-5.1); Sodium 137 mmol/L (137-145); Total Bilirubin 0.6 mg/dL (0.2-1.3); Total Protein 6.7 g/dL (6.3-8.2)
--- NOTE | 2024-03-21 13:40 | US ---
EXAMINATION TYPE: US scrotum with doppler. DATE OF EXAM: 03/21/2024 COMPARISON: NONE CLINICAL INDICATION: Male, 58 years old with history of pain; TECHNIQUE: Grayscale, color Doppler and spectral Doppler imaging of the scrotum. FINDINGS: EXAM MEASUREMENTS: TESTICLES: Right Testicle: 4.4 x 2.2 x 2.9 cm Left Testicle: 4.6 x 2.5 x 3.1 cm EPIDIDYMIS HEAD: Right Epididymis: 1.6 cm Left Epididymis: 1.7 cm Doppler performed to assess for testicular vascularity; good bilateral color flow and spectral wavefo smita are seen. There is no evidence of testicular torsion. Presence of hydroceles: right - 2.7cm Presence of varicoceles: no Attempted to scan perineum at patient's area of pain, limited images due to patient in too much tammie n no mass or organizing fluid collection visualized. IMPRESSION: 1. Appropriate arterial and venous spectral waveforms to the testes. 2. No evidence for intratesticular mass. 3. Right hydrocele. [facility], , 03/21/2024 1:38 PM
[2024-03-21] MEDS: MORPHINE SULFATE 4 MG/ML SYRINGE IVP STA (14:28)
--- NOTE | 2024-03-21 15:00 | CT ---
EXAMINATION TYPE: CT pelvis w con DATE OF EXAM: 03/21/2024 2:53 PM COMPARISON: 07/15/2022 CLINICAL INDICATION: Male, 58 years old with history of pelvic pain; testicular pain and swelling TECHNIQUE: Axial CT pelvis w con;Sagittal and coronal reformats were created on a separate workstati on. Contrast used:100 mL of Isovue 300 with IV Contrast, (none if empty) Oral contrast used: without Oral Contrast (none if empty) CT DLP: 1424.1 mGycm, Automated exposure control for dose reduction was used. FINDINGS: BLADDER: No evidence for wall thickening or mass given limitations of exam. REPRODUCTIVE: Thickened scrotal skin with trace amount of fluid bilaterally. Bilateral tortuous vesse ls suggesting varicoceles. ABDOMEN & PELVIS STOMACH AND BOWEL: No evidence of bowel obstruction. PERITONEUM/RETROPERITONEUM: No evidence of pneumoperitoneum or free fluid. VASCULATURE: No evidence of aortic aneurysm. MUSCULOSKELETAL: No acute osseous abnormalities LYMPH NODES: No gross evidence for lymphadenopathy. Prominent bilateral inguinal lymph nodes similar to prior. SOFT TISSUE/ABDOMINAL WALL: Unremarkable IMPRESSION: 1. Thickened skin of the scrotum correlate for infection/cellulitis. 2. Bilateral tortuous vessels in the inguinal canals correlate for varicoceles. 3. Inguinal prominent lymphadenopathy bilaterally not significantly changed from 07/15/2022. [facility], , 03/21/2024 2:58 PM
[2024-03-21] MEDS: PIPERACILLIN-TAZOBACTAM 3.375 GM in SODIUM CHLORIDE 0.9% 100 ML IVPB STA (15:08)
[2024-03-21 16:15] VITALS: BP 114/68; PULSE 80; RESP 18; TEMP 98.5
== END 2024-03-21 16:15 | disposition home or self-care (01) ==
LOC: EC 11:07
DX: N49.2 Inflammatory disorders of scrotum (principal); Z86.73 Personal history of transient ischemic attack (TIA), and cerebral infarction without residual deficits; Z87.891 Personal history of nicotine dependence; Z91.030 Bee allergy status
CPT/HCPCS: 96365; 96375; 36415; 80053; 85025; 81003; 93975; 76870; 72193; 99284; J2543; J2270; Q9967

== ENCOUNTER 2024-03-24 05:39 | Inpatient (IN) | payer OTHER, MEDICARE ==
--- NOTE | 2024-03-24 06:42 | ED ---
Weakness HPI <Blake Ariasophe - Last Filed: 03/24/24 10:13> - General Source: patient Mode of arrival: EMS Limitations: no limitations <Lizabeth Sanon - Last Filed: 03/28/24 15:55> - General Chief complaint: Weakness Stated complaint: Infection Time Seen by Provider: 03/24/24 06:00 - History of Present Illness Initial comments: 58-year-old male with past medical history of CVA who presents emergency department with fever and worsening groin pain. Patient was seen in the emergency department on Saturday for this complaint. Was diagnosed with scrotal cellulitis. It was recommended that the patient be admitted to the hospital however he refused and went home on outpatient antibiotics. Patient states he has been taking them as directed. He has also been using [place] for pain contro l. The pain has been getting worse. He developed a fever. He was told that he absolutely had to return if he developed the symptoms. He does admit to new symptoms of nasal congestion and sore throat. Has a nonproductive cough. Also reports to dribbling of urine and some constipation. He did take a [place] around 3 AM. Fever got as high as 101 at home. Denies any chest pain. No abdominal pain. No other alleviating, precipitating or modifying factors (Lizabeth Sanon) - Related Data Home Medications Medication Instructions Recorded Confirmed Atorvastatin [Lipitor] 80 mg PO HS 12/05/22 03/24/24 atenoloL [Tenormin] 25 mg PO HS 12/05/22 03/24/24 Apixaban [Eliquis] 5 mg PO BID 11/01/23 03/24/24 Aspirin 81 mg PO DAILY 11/01/23 03/24/24 Fenofibrate Nanocrystallized 145 mg PO DAILY 11/01/23 03/24/24 [Fenofibrate] Fluticasone Nasal [place] [Flonase 1 spr EA NOSTRIL BID PRN 11/01/23 03/24/24 Nasal [place]] Magnesium Oxide [Magnesium] 500 mg PO DAILY 11/01/23 03/24/24 Multivitamins, Thera [Multivitamin 1 tab PO BID 11/01/23 03/24/24 (formulary)] metFORMIN HCL ER [Glucophage XR] 500 mg PO HS 11/01/23 03/24/24 Gabapentin [Neurontin] 400 mg PO TID 03/24/24 03/24/24 Psyllium Husk [Fiber Capsule] 0.4 gm PO BID 03/24/24 03/24/24 Tirzepatide [Mounjaro] 15 mg SQ WICK 03/24/24 03/24/24 Previous Rx's Medication Instructions Recorded HYDROcodone/APAP 7.5-325MG [[place] 1 tab PO Q6HR PRN 3 Days #12 tab 03/21/24 7.5-325] Amoxic-Pot Clav 875-125Mg 1 tab PO Q12HR #14 tab 03/27/24 [Augmentin 875-125] Allergies Allergy/AdvReac Type Severity Reaction Status Date / Time bee venom protein (honey bee) Allergy Swelling Verified 03/24/24 09:51 Review of Systems ROS Other: All systems not noted in ROS Statement are negative. <Luke Arias - Last Filed: 03/24/24 10:13> ROS Other: All systems not noted in ROS Statement are negative. <Lizabeth Sanon - Last Filed: 03/28/24 15:55> ROS Statement: Those systems with pertinent positive or pertinent negative responses have been documented in the HPI. Past Medical History Past Medical History: Atrial Fibrillation, Chest Pain / Angina, CVA/TIA, Hearing Disorder / Deafness, Hyperlipidemia, Hypertension, Memory Impairment, Myocardial Infarction ([place]), Pneumonia, Syncope Additional Past Medical History / Comment(s): Recent CVA-July w/left sided weakness, weakness in hand and leg. CVA 12/23/18 with right side weakness. Hx CVA 2009 with R sided weakness and numbness upper and lower extremities and short term memory loss, MIs X3, chronic low back pain, R shoulder and R ankle pain, seasonal allergies, sinus problems. Slightly Hard of Hearing. "I passed multiple times out years ago." Last Myocardial Infarction Date:: 2005, 2010,2011 History of Any Multi-Drug Resistant Organisms: None Reported Past Surgical History: Cardiac Ablation, Heart Catheterization, Tonsillectomy Additional Past Surgical History / Comment(s): Cardiac ablation-unsuccessful per pt, loop recorders X3 one in currenty-02/22/2019-pt states battery has , colonoscopy/benign polypectomy, cyst removed from buttock/anal area 2018;left shoulder cyst removed 12/04/2022. Had Sebaceous cyst removed from back. Last ca rdiac cath 2018, [facility] August 2023 Past Anesthesia/Blood Transfusion Reactions: No Reported Reaction Additional Past Anesthesia/Blood Transfusion Reaction / Comment(s): No hx of transfusion. Type of Cardiac Device: Loop Device Placement Date:: 03/10/2019 Past Psychological History: Anxiety Smoking Status: Former smoker Past Alcohol Use History: Occasional Past Drug Use History: None Reported - Past Family History Father Family Medical History: COPD, Deep Vein Thrombosis (DVT), Hyperlipidemia, Hypertension, Myocardial Infarction ([place]) Additional Family Medical History / Comment(s): Father had MIs with the first one being when he was about 65 yrs old. He had coronary stents. He at the age of 83 yrs. Mother Family Medical History: Cancer, Dementia, Thyroid Disorder Additional Family Medical History / Comment(s): Mother had breast cancer, diverticulitis, thyroid disease and from dementia at the age of 80 yrs. Sister(s) Family Medical History: Cancer Additional Family Medical History / Comment(s): Pancreatic cancer. <Lizabeth Sanon - Last Filed: 03/28/24 15:55> General Exam Limitations: no limitations General appearance: alert, in no apparent distress Head exam: Present: atraumatic, normocephalic, normal inspection Eye exam: Present: normal appearance, PERRL, EOMI. Absent: scleral icterus, conjunctival injection, periorbital swelling ENT exam: Present: normal exam, mucous membranes moist Neck exam: Present: normal inspection. Absent: tenderness, meningismus, lymphadenopathy Respiratory exam: Present: normal lung sounds bilaterally. Absent: respiratory distress, wheezes, rales, rhonchi, stridor Cardiovascular Exam: Present: regular rate, normal rhythm, normal heart sounds. Absent: systolic murmur, diastolic murmur, rubs, gallop, clicks GI/Abdominal exam: Present: soft, normal bowel sounds. Absent: distended, tenderness, guarding, rebound, rigid exam: Present: other (Mild induration to the right scrotum. No erythema. No fluctuance. No crepitance.) Extremities exam: Present: normal inspection, full ROM, normal capillary refill. Absent: tenderness, pedal edema, joint swelling, calf tenderness Back exam: Present: normal inspection Neurological exam: Present: alert, oriented X3, CN II-XII intact Psychiatric exam: Present: normal affect, normal mood Skin exam: Present: warm, dry, intact, normal color. Absent: rash <Lizabeth Sanon - Last Filed: 03/28/24 15:55> Course Vital Signs 03/24/24 03/24/24 03/24/24 05:46 10:38 12:26 Temperature 99.8 F H 100.3 F H 99.0 F Pulse Rate 99 98 96 Respiratory 18 18 18 Rate Blood Pressure 105/80 94/58 108/60 O2 Sat by Pulse 100 97 97 Oximetry 03/24/24 03/24/24 03/24/24 13:22 14:46 15:31 Temperature 101 F H 101.4 F H Pulse Rate 97 100 101 H Respiratory 18 18 18 Rate Blood Pressure 109/66 109/63 109/63 O2 Sat by Pulse 97 98 99 Oximetry 03/24/24 03/24/24 16:29 17:35 Temperature 100.6 F H Pulse Rate 68 99 Respiratory 18 18 Rate Blood Pressure 106/66 103/66 O2 Sat by Pulse 97 97 Oximetry Medical Decision Making - Lab Data Result diagrams: 03/24/24 06:50 03/24/24 06:50 <Luke Arias - Last Filed: 03/24/24 10:13> - Lab Data Result diagrams: 03/24/24 06:50 03/26/24 12:23 <Lizabeth Sanon - Last Filed: 03/28/24 15:55> - Medical Decision Making Was patient admitted / discharged? Hospital course, mention meds given and route, prescriptions, significant lab abnormalities, going to OR and other pertinent info. @ -Patient had an ultrasound and it showed a 5 x 2-1/2 x 2 cm area that was consistent with abscess. I spoke with Dr. Doherty. Dr. Fagan just wanted to be on consult for this patient and he was going to take the patient to surgery for an I&D. I spoke with Dr. Calderón he agreed admit the patient admit the patient wrote admitting orders Undiagnosed new problem with uncertain prognosis? @ -No Drug Therapy requiring intensive monitoring for toxicity (Heparin, Nitro, Insulin, Cardizem)? @ -No Were any procedures done? @ -No Diagnosis/symptom? @ -Perineum abscess Acute, or Chronic, or Acute on Chronic? @ -Acute Uncomplicated (without systemic symptoms) or Complicated (systemic symptoms)? @ -Comp Side effects of treatment? @ -No Exacerbation, Progression, or Severe Exacerbation? @ -No Poses a threat to life or bodily function? How? (Chest pain, [place], [place], pneumonia, PE, COPD, DKA, ARF, appy, cholecystitis, CVA, Diverticulitis, Homicidal, Suicidal, threat to staff... and all critical care pts) @ -This could lead to sepsis and endorgan dysfunction (Luke Arias) Was pt. sent in by a medical professional or institution (, PA, PRESS SHOP SUPERVISOR, urgent care, hospital, or correction...) When possible be specific @ -No Did you speak to anyone other than the patient for history (EMS, parent, family, police, friend...)? What history was obtained from this source @ -Spoke with for history Did you review nursing and triage notes (agree or disagree)? Why? @ -I reviewed and agree with nursing and triage notes Were old charts reviewed (outside hosp., previous admission, EMS record, old EKG, old radiological studies, urgent care reports/EKG's, correction records)? Report findings @ -I reviewed the chart from the Saturday where patient was seen in the emergency department for same complaint Differential Diagnosis (chest pain, altered mental status, abdominal pain women, abdominal pain men, vaginal bleeding, weakness, fever, dyspnea, syncope, headache, dizziness, GI bleed, back pain, seizure, CVA, palpatations, mental health, musculoskeletal)? @ -Differential Abdominal Pain Men: Appendicitis, cholecystitis, diverticulosis, ischemic bowel, pancreatitis, hepatitis, UTI, gastroenteritis, AAA, incarcerated hernia, bowel obstruction, constipation, inflammatory bowel, hepatitis, peptic ulcer disease, splenic in farction, perforated viscus, testicular torsion, this is not meant to be an all- inclusive list EKG interpreted by me (3pts min.). @ -Not done X-rays interpreted by me (1pt min.). @ -None done CT interpreted by me (1pt min.). @ -None done U/S interpreted by me (1pt. min.). @ -Pending at this time What testing was considered but not performed or refused? (CT, X-rays, U/S, labs)? Why? @ -None What meds were considered but not given or refused? Why? @ -None Did you discuss the management of the patient with other professionals (professionals i.e. , PA, PRESS SHOP SUPERVISOR, lab, RT, psych nurse, child welfare social worker, chainer, teacher, credit administration officer, counseling case manager)? Give summary @ -Spoke with Dr. Arias who will take over management of the patient Was smoking cessation discussed for >3mins.? @ -No Was critical care preformed (if so, how long)? @ -No Were there social determinants of health that impacted care today? How? (Homelessness, low income, unemployed, alcoholism, drug addiction, transportation, low edu. Level, literacy, decrease access to med. care, long term, rehab)? @ -No Was there de-escalation of care discussed even if they declined (Discuss DNR or withdrawal of care, Hospice)? DNR status @ -No What co-morbidities impacted this encounter? (DM, HTN, Smoking, COPD, CAD, Cancer, CVA, ARF, Chemo, Hep., AIDS, mental health diagnosis, sleep apnea, morbid obesity)? @ -CVA Was patient admitted / discharged? Hospital course, mention meds given and route, prescriptions, significant lab abnormalities, going to OR and other pertinent info. @ -Upon arrival patient seen and evaluated in room 10. Thorough history and physical exam was performed. IV access was established. I did provide the pat ient with a dose of morphine for pain control. Laboratory studies are conducted and pending. Ultrasound ordered for the patient's groin. Case will be signed out to Dr. Arias for further management Undiagnosed new problem with uncertain prognosis? @ -No Drug Therapy requiring intensive monitoring for toxicity (Heparin, Nitro, Insulin, Cardizem)? @ -No Were any procedures done? @ -No Diagnosis/symptom? @ -Acute pyrexia, acute groin pain, groin cellulitis Acute, or Chronic, or Acute on Chronic? @ -Acute Uncomplicated (without systemic symptoms) or Complicated (systemic symptoms)? @ -complicate Side effects of treatment? @ -No Exacerbation, Progression, or Severe Exacerbation? @ -No Poses a threat to life or bodily function? How? (Chest pain, [place], [place], pneumonia, PE, COPD, DKA, ARF, appy, cholecystitis, CVA, Diverticulitis, Homicidal, Suicidal, threat to staff... and all critical care pts) @ -No (Lizabeth Sanon) - Lab Data Lab Results 03/24/24 03/24/24 03/24/24 Range/Units 06:12 06:50 06:50 WBC 7.6 (3.8-10.6) k/uL RBC 5.31 (4.30-5.90) m/uL Hgb 15.6 (13.0-17.5) gm/dL Hct 46.8 (39.0-53.0) % MCV 88.2 (80.0-100.0) fL MCH 29.3 (25.0-35.0) pg MCHC 33.3 (31.0-37.0) g/dL RDW 14.0 (11.5-15.5) % Plt Count 270 (150-450) k/uL MPV 7.7 Neutrophils % 90 % Lymphocytes % 4 % Monocytes % 6 % Eosinophils % 1 % Basophils % 0 % Neutrophils # 6.8 (1.3-7.7) k/uL Lymphocytes # 0.3 L (1.0-4.8) k/uL Monocytes # 0.4 (0-1.0) k/uL Eosinophils # 0.1 (0-0.7) k/uL Basophils # 0.0 (0-0.2) k/uL Sodium 135 L (137-145) mmol/L Potassium 4.4 (3.5-5.1) mmol/L Chloride 103 (98-107) mmol/L Carbon Dioxide 22 (22-30) mmol/L Anion Gap 10 mmol/L BUN 10 (9-20) mg/dL Creatinine 1.25 (0.66-1.25) mg/dL Est GFR (CKD-EPI)AfAm 73 (>60 ml/min/1.73 sqM) Est GFR (CKD-EPI)NonAf 64 (>60 ml/min/1.73 sqM) Glucose 95 (74-99) mg/dL Plasma Lactic Acid Mp (0.7-2.0) mmol/L Calcium 8.8 (8.4-10.2) mg/dL Total Bilirubin 0.7 (0.2-1.3) mg/dL AST 28 (17-59) U/L ALT 18 (4-49) U/L Alkaline Phosphatase 35 L (38-126) U/L Total Protein 6.4 (6.3-8.2) g/dL Albumin 3.7 (3.5-5.0) g/dL Urine Color Urine Appearance (Clear) Urine pH (5.0-8.0) Ur Specific Gary (1.001-1.035) Urine Protein (Negative) Urine Glucose (UA) (Negative) Urine Ketones (Negative) Urine Blood (Negative) Urine Nitrite (Negative) Urine Bilirubin (Negative) Urine Urobilinogen (<2.0) mg/dL Ur Leukocyte Esterase (Negative) Urine RBC (0-5) /hpf Urine WBC (0-5) /hpf Ur Squamous Epith Cells (0-4) /hpf Urine Mucus (None) /hpf Influenza Type A (PCR) Not Detected (Not Detectd) Influenza Type B (PCR) Not Detected (Not Detectd) RSV (PCR) Not Detected (Not Detectd) SARS-CoV-2 (PCR) Detected A (Not Detectd) 03/24/24 03/24/24 Range/Units 06:50 09:22 WBC (3.8-10.6) k/uL RBC (4.30-5.90) m/uL Hgb (13.0-17.5) gm/dL Hct (39.0-53.0) % MCV (80.0-100.0) fL MCH (25.0-35.0) pg MCHC (31.0-37.0) g/dL RDW (11.5-15.5) % Plt Count (150-450) k/uL MPV Neutrophils % % Lymphocytes % % Monocytes % % Eosinophils % % Basophils % % Neutrophils # (1.3-7.7) k/uL Lymphocytes # (1.0-4.8) k/uL Monocytes # (0-1.0) k/uL Eosinophils # (0-0.7) k/uL Basophils # (0-0.2) k/uL Sodium (137-145) mmol/L Potassium (3.5-5.1) mmol/L Chloride (98-107) mmol/L Carbon Dioxide (22-30) mmol/L Anion Gap mmol/L BUN (9-20) mg/dL Creatinine (0.66-1.25) mg/dL Est GFR (CKD-EPI)AfAm (>60 ml/min/1.73 sqM) Est GFR (CKD-EPI)NonAf (>60 ml/min/1.73 sqM) Glucose (74-99) mg/dL Plasma Lactic Acid Mp 1.3 (0.7-2.0) mmol/L Calcium (8.4-10.2) mg/dL Total Bilirubin (0.2-1.3) mg/dL AST (17-59) U/L ALT (4-49) U/L Alkaline Phosphatase (38-126) U/L Total Protein (6.3-8.2) g/dL Albumin (3.5-5.0) g/dL Urine Color Yellow Urine Appearance Clear (Clear) Urine pH 6.0 (5.0-8.0) Ur Specific Gary 1.012 (1.001-1.035) Urine Protein Negative (Negative) Urine Glucose (UA) Negative (Negative) Urine Ketones Negative (Negative) Urine Blood Negative (Negative) Urine Nitrite Negative (Negative) Urine Bilirubin Negative (Negative) Urine Urobilinogen <2.0 (<2.0) mg/dL Ur Leukocyte Esterase Trace H (Negative) Urine RBC <1 (0-5) /hpf Urine WBC 3 (0-5) /hpf Ur Squamous Epith Cells <1 (0-4) /hpf Urine Mucus Many H (None) /hpf Influenza Type A (PCR) (Not Detectd) Influenza Type B (PCR) (Not Detectd) RSV (PCR) (Not Detectd) SARS-CoV-2 (PCR) (Not Detectd) Disposition Time of Disposition: 10:13 <Luke Arias - Last Filed: 03/24/24 10:13> <Lizabeth Sanon - Last Filed: 03/28/24 15:55> Clinical Impression: Abscess, perineum Disposition: ADMITTED IP TO THIS HOSP
[2024-03-24] MEDS: MORPHINE SULFATE 4 MG/ML SYRINGE IVP STA ×2 (06:56→09:15)
[2024-03-24] MEDS: SODIUM CHLORIDE 0.9% 1,000 ML IV STA (06:56)
[2024-03-24] MEDS: LACTATED RINGERS 1,000 ML IV ONE (07:00)
[2024-03-24 07:11] LABS: Basophils % (A) 0 %; Eosinophils # (A) 0.1 k/uL (0-0.7); Eosinophils % (A) 1 %; HCT 46.8 % (39.0-53.0); HGB 15.6 gm/dL (13.0-17.5); Lymphocytes # (A) 0.3 k/uL (1.0-4.8); Lymphocytes % (A) 4 %; MCH 29.3 pg (25.0-35.0); MCHC 33.3 g/dL (31.0-37.0); MCV 88.2 fL (80.0-100.0); Mean Platelet Volume 7.7; Monocytes # (A) 0.4 k/uL (0-1.0); Monocytes % (A) 6 %; Neutrophils # (A) 6.8 k/uL (1.3-7.7); Neutrophils % (A) 90 %; Platelet Count 270 k/uL (150-450); RBC 5.31 m/uL (4.30-5.90); WBC 7.6 k/uL (3.8-10.6)
--- NOTE | 2024-03-24 07:26 | XR ---
EXAMINATION TYPE: XR chest 2V DATE OF EXAM: 03/24/2024 7:12 AM COMPARISON: 09/19/2023 CLINICAL INDICATION: Male, 58 years old with history of Weakness, , TECHNIQUE: PA and lateral views FINDINGS: Loop recorder device projects over the left side of the heart. Heart upper limits of normal in size. Some strandy atelectasis in the lower lungs. No consolidation or pleural effusion. IMPRESSION: Borderline heart size. Otherwise, no definite acute process. [facility], , 03/24/2024 7:24 AM
--- NOTE | 2024-03-24 07:28 | XR ---
EXAMINATION TYPE: XR KUB DATE OF EXAM: 03/24/2024 7:12 AM COMPARISON: None CLINICAL INDICATION: Male, 58 years old with history of constipation, , FINDINGS: Gassy bowel loops. Some small bowel appears to be dilated up to 4.2 cm. However, scattered air remain s within the colon with mild stool particularly in the right side of the abdomen. No evidence for brenda e intraperitoneal air. IMPRESSION: Dilated small bowel loops measuring up to 4.2 cm. Diffuse ileus or developing small bowel obstruction are both in the differential. No free air. Mild stool burden. [facility], , 03/24/2024 7:26 AM
[2024-03-24 07:30] LABS: ALT 18 U/L (4-49); AST 28 U/L (17-59); African American GFR (CKD) 73 (>60 ml/min/1.73 sqM); Albumin 3.7 g/dL (3.5-5.0); Alkaline Phosphatase 35 U/L (38-126); Anion Gap 10 mmol/L; Blood Urea Nitrogen 10 mg/dL (9-20); Calcium 8.8 mg/dL (8.4-10.2); Carbon Dioxide 22 mmol/L (22-30); Chloride 103 mmol/L (98-107); Glucose 95 mg/dL (74-99); Non-African American GFR(CKD) 64 (>60 ml/min/1.73 sqM); Potassium 4.4 mmol/L (3.5-5.1); Sodium 135 mmol/L (137-145); Total Bilirubin 0.7 mg/dL (0.2-1.3); Total Protein 6.4 g/dL (6.3-8.2)
--- NOTE | 2024-03-24 07:43 | US ---
EXAMINATION TYPE: US groin RT DATE OF EXAM: 03/24/2024 COMPARISON: CT 03/21/2024 CLINICAL INDICATION: Male, 58 years old with history of pain; Pain, lump/swelling in perineum since S unday. TECHNIQUE: Scanned perineum at area of concern. FINDINGS: Sonographic note: Complex oval area seen = 5.1 x 2.3 x 2.2 cm. IMPRESSION: Complex oval collection along the peritoneum at the area of concern. Abscess is favored i n the differential. [facility], , 03/24/2024 7:40 AM
[2024-03-24 09:52] LABS: Appearance,Urine Clear (Clear); Bilirubin,Urine Negative (Negative); Blood,Urine Negative (Negative); Color,Urine Yellow; Glucose,Urine (UA) Negative (Negative); Ketones,Urine Negative (Negative); Leukocyte Esterase,Urine Trace (Negative); Mucus,Urine Many /hpf; Nitrite,Urine Negative (Negative); Protein,Urine Negative (Negative); RBC,Urine <1 /hpf (0-5); Specific Gravity,Urine 1.012 (1.001-1.035); Squamous Epithelial Cell,Urine <1 /hpf (0-4); Urobilinogen,Urine <2.0 mg/dL (<2.0); WBC,Urine 3 /hpf (0-5)
[2024-03-24] MEDS ORDERED: VANCOMYCIN IV PER PHARMACY 1 EACH MISC MISCELLANE PRN (09:57)
[2024-03-24] MEDS: PIPERACILLIN-TAZOBACTAM 3.375 GM in SODIUM CHLORIDE 0.9% 100 ML IVPB STA (10:42)
[2024-03-24] MEDS: VANCOMYCIN 1,750 MG in SODIUM CHLORIDE 0.9% 500 ML 500 ML IVPB ONE (11:27)
[2024-03-24] MEDS: SODIUM CHLORIDE 0.9% 1,000 ML IV ONE (11:38)
--- NOTE | 2024-03-24 12:44 | P.GSCN ---
History of Present Illness Consult date: 03/24/24 Reason for Consult: Perineal abscess Requesting physician: William Calderón History of present illness: The patient is a 58-year-old white male with a history of perirectal abscess, which has required drainage on 2 occasions. He now presents with fever and right sided perineal pain and swelling, which is worsening despite being treated with oral Flagyl and Levaquin since he was initially seen in the ER in March 21, 2024. CT scan at that time showed scrotal wall thickening, greater on the right side. He returned to the ER this morning and underwent ultrasound, which revealed a 2 x 2 x 5 cm oval complex collection. Review of Systems - Constitutional Reports fever - Cardiovascular Reports high blood pressure Past Medical History Past Medical History: Atrial Fibrillation, Chest Pain / Angina, CVA/TIA, Hearing Disorder / Deafness, Hyperlipidemia, Hypertension, Memory Impairment, Myocardial Infarction ([place]), Pneumonia, Syncope Additional Past Medical History / Comment(s): Recent CVA-July w/left sided weakness, weakness in hand and leg. CVA 12/23/18 with right side weakness. Hx CVA 2009 with R sided weakness and numbness upper and lower extremities and short term memory loss, MIs X3, chronic low back pain, R shoulder and R ankle pain, seasonal allergies, sinus problems. Slightly Hard of Hearing. "I passed multiple times out years ago." Last Myocardial Infarction Date:: 2005, 2010,2011 History of Any Multi-Drug Resistant Organisms: None Reported Past Surgical History: Cardiac Ablation, Heart Catheterization, Tonsillectomy Additional Past Surgical History / Comment(s): Cardiac ablation-unsuccessful per pt, loop recorders X3 one in currenty-02/22/2019-pt states battery has , colonoscopy/benign polypectomy, cyst removed from buttock/anal area 2018;left shoulder cyst removed 12/04/2022. Had Sebaceous cyst removed from back. Last cardiac cath 2018, [facility] August 2023 Past Anesthesia/Blood Transfusion Reactions: No Reported Reaction Additional Past Anesthesia/Blood Transfusion Reaction / Comm: No hx of transfusion. Type of Cardiac Device: Loop Device Placement Date:: 03/10/2019 Past Psychological History: Anxiety Smoking Status: Former smoker Past Alcohol Use History: Occasional Past Drug Use History: None Reported - Past Family History Father Family Medical History: COPD, Deep Vein Thrombosis (DVT), Hyperlipidemia, Hypertension, Myocardial Infarction (PR) Additional Family Medical History / Comment(s): Father had MIs with the first one being when he was about 65 yrs old. He had coronary stents. He at the age of 83 yrs. Mother Family Medical History: Cancer, Dementia, Thyroid Disorder Additional Family Medical History / Comment(s): Mother had breast cancer, diverticulitis, thyroid disease and from dementia at the age of 80 yrs. Sister(s) Family Medical History: Cancer Additional Family Medical History / Comment(s): Pancreatic cancer. Medications and Allergies Home Medications Medication Instructions Recorded Confirmed Type Atorvastatin [Lipitor] 80 mg PO HS 12/05/22 03/24/24 History atenoloL [Tenormin] 25 mg PO HS 12/05/22 03/24/24 History Apixaban [Eliquis] 5 mg PO BID 11/01/23 03/24/24 History Aspirin 81 mg PO DAILY 11/01/23 03/24/24 History Fenofibrate Nanocrystallized 145 mg PO DAILY 11/01/23 03/24/24 History [Fenofibrate] Fluticasone Nasal [place] [Flonase 1 spr EA NOSTRIL BID PRN 11/01/23 03/24/24 History Nasal [place]] Magnesium Oxide [Magnesium] 500 mg PO DAILY 11/01/23 03/24/24 History Multivitamins, Thera [Multivitamin 1 tab PO BID 11/01/23 03/24/24 History (formulary)] metFORMIN HCL ER [Glucophage XR] 500 mg PO HS 11/01/23 03/24/24 History HYDROcodone/APAP 7.5-325MG [[place] 1 tab PO Q6HR PRN 3 Days #12 tab 03/21/24 Rx 7.5-325] Levofloxacin [Levaquin] 750 mg PO DAILY 1 Days #7 tab 03/21/24 03/24/24 Rx metroNIDAZOLE [Flagyl] 500 mg PO TID #21 tab 03/21/24 03/24/24 Rx Gabapentin [Neurontin] 400 mg PO TID 03/24/24 03/24/24 History Psyllium Husk [Fiber Capsule] 0.4 gm PO BID 03/24/24 03/24/24 History Tirzepatide [Mounjaro] 15 mg SQ WICK 03/24/24 03/24/24 History Allergies Allergy/AdvReac Type Severity Reaction Status Date / Time bee venom protein (honey bee) Allergy Swelling Verified 03/24/24 09:51 Surgical - Exam Vital Signs Temp Pulse Resp BP Pulse Ox 99.8 F H 99 18 105/80 100 03/24/24 05:46 03/24/24 05:46 03/24/24 05:46 03/24/24 05:46 03/24/24 05:46 - General well developed, well nourished, no distress - Respiratory normal respiratory effort - Abdomen Abdomen: soft, non tender, no guarding, no rigid, no rebound - Genitourinary Normal phallus, normal testes. There is an area of raised induration within the perineum to the right of the midline. The patient is exquisitely tender, and thus it is difficult to determine whether or not there is evidence of fluctu ance. There is also a 1-1.5 cm inflammatory lesion on the left medial thigh with minimal drainage, which appears to be fluctuant. - Psychiatric oriented to time, oriented to person, oriented to place, speech is normal, memory intact Results - Labs 03/24/24 06:50 03/24/24 06:50 Abnormal Lab Results - Last 24 Hours (Table) 03/24/24 03/24/24 03/24/24 Range/Units 06:12 06:50 06:50 Lymphocytes # 0.3 L (1.0-4.8) k/uL Sodium 135 L (137-145) mmol/L Alkaline Phosphatase 35 L (38-126) U/L Ur Leukocyte Esterase (Negative) Urine Mucus (None) /hpf SARS-CoV-2 (PCR) Detected A (Not Detectd) 03/24/24 Range/Units 09:22 Lymphocytes # (1.0-4.8) k/uL Sodium (137-145) mmol/L Alkaline Phosphatase (38-126) U/L Ur Leukocyte Esterase Trace H (Negative) Urine Mucus Many H (None) /hpf SARS-CoV-2 (PCR) (Not Detectd) Diabetes panel 03/24/24 Range/Units 06:50 Sodium 135 L (137-145) mmol/L Potassium 4.4 (3.5-5.1) mmol/L Chloride 103 (98-107) mmol/L Carbon Dioxide 22 (22-30) mmol/L BUN 10 (9-20) mg/dL Creatinine 1.25 (0.66-1.25) mg/dL Glucose 95 (74-99) mg/dL Calcium 8.8 (8.4-10.2) mg/dL AST 28 (17-59) U/L ALT 18 (4-49) U/L Alkaline Phosphatase 35 L (38-126) U/L Total Protein 6.4 (6.3-8.2) g/dL Albumin 3.7 (3.5-5.0) g/dL Calcium panel 03/24/24 Range/Units 06:50 Calcium 8.8 (8.4-10.2) mg/dL Albumin 3.7 (3.5-5.0) g/dL Pituitary panel 03/24/24 Range/Units 06:50 Sodium 135 L (137-145) mmol/L Potassium 4.4 (3.5-5.1) mmol/L Chloride 103 (98-107) mmol/L Carbon Dioxide 22 (22-30) mmol/L BUN 10 (9-20) mg/dL Creatinine 1.25 (0.66-1.25) mg/dL Glucose 95 (74-99) mg/dL Calcium 8.8 (8.4-10.2) mg/dL Adrenal panel 03/24/24 Range/Units 06:50 Sodium 135 L (137-145) mmol/L Potassium 4.4 (3.5-5.1) mmol/L Chloride 103 (98-107) mmol/L Carbon Dioxide 22 (22-30) mmol/L BUN 10 (9-20) mg/dL Creatinine 1.25 (0.66-1.25) mg/dL Glucose 95 (74-99) mg/dL Calcium 8.8 (8.4-10.2) mg/dL Total Bilirubin 0.7 (0.2-1.3) mg/dL AST 28 (17-59) U/L ALT 18 (4-49) U/L Alkaline Phosphatase 35 L (38-126) U/L Total Protein 6.4 (6.3-8.2) g/dL Albumin 3.7 (3.5-5.0) g/dL - Imaging CT scan - pelvis: report reviewed, image reviewed Assessment and Plan (1) Abscess, perineum Current Visit: Yes Status: Acute Code(s): L02.215 - CUTANEOUS ABSCESS OF PERINEUM SNOMED Code(s): 92866294 Plan: The patient appears to have a right sided perineal abscess. He is being treated with Zosyn and vancomycin. It is difficult to determine whether there might be a component of perirectal abscess, as the patient is tender and difficult to examine. Ultrasound suggests the presence of a fluid collection. I have advi sed the patient to undergo I&D of the perineal abscess, along with a smaller abscess on the left medial thigh. Examination under anesthesia will be performed at that time to determine whether the there is any evidence of a perirectal abscess. Risks include anesthesia, bleeding, infection, and the possible need for a secondary procedure. Time with Patient: Greater than 30
[2024-03-24] MEDS: HYDROcodone/APAP 7.5-325MG 1 EACH TAB PO PRN (13:35)
[2024-03-24] MEDS: GABAPENTIN 400 MG CAP PO SCH (15:14)
[2024-03-24] MEDS: PIPERACILLIN-TAZOBACTAM 3.375 GM in SODIUM CHLORIDE 0.9% 100 ML IVPB SCH (15:14)
[2024-03-24] MEDS: HYDROmorphone 0.5 MG/0.5 ML SYRINGE IVP PRN (15:33)
[2024-03-24] MEDS: metFORMIN 500 MG TAB PO SCH (16:44)
--- NOTE | 2024-03-24 17:16 | P.HPIM ---
History of Present Illness H&P Date: 03/24/24 Chief Complaint: Perineal abscess This is a pleasant 58-year-old patient who follows with Dr. Chad Baron. Chronic stable medical conditions include atrial fibrillation, hard of hearing, hypertension, hyperlipidemia some cognitive impairment. He has had loop rec order's x 3 and also has had unsuccessful cardiac ablation. stroke in 2009 that left him with some right arm and left leg weakness and some numbness. Some memory loss. Patient also had a stroke on July 24, 2023 where he was taken to [facility]. That left him with some weakness on the left si de. Patient speech is also affected but had recovered to certain degree. Outside he does use a rolling walker. Patient is accompanied by his in the ER. 3 days ago he started noticing some pain and swelling in the perianal area. Below the scrotum and the rectum. Symptoms got progressively worse the following day. He came to the ER. ER was busy was discharged home on antibiotics. Symptoms getting worse. Becoming very tender. Spiked a fever. Denies any respiratory symptoms. Tested positive COVID in the ER. Patient had previous abscess in the right groin and on the left shoulder. Review of systems: GEN.: Tired febrile EYES: None HEENT: None NECK: None RESPIRATORY: None CARDIOVASCULAR: None GASTROINTESTINAL: No BM for last 2 days. Normally has a bowel movement every day GENITOURINARY: Decreased urine stream MUSCULOSKELETAL: None LYMPHATICS: None HEMATOLOGICAL: None PSYCHIATRY: A bit forgetful NEUROLOGICAL: See above] Social history: Patient smoked since the age of 19, 1 pack a week stopped in 2005. Alcohol occasionally. Lives with . Retired from [employer]. Physical examination: VITAL SIGNS: 101.4, 101, 18, 109 x 63, 99% room air GENERAL: BMI 31.9, reclining in bed EYES: Pupils equal. Conjunctiva katharine l. HEENT: External appearance of nose and ears normal, oral cavity grossly normal. Decreased hearing NECK: JVD not raised; masses not palpable. HEART: First and second heart sounds are normal; no edema. LUNGS: Respiratory rate normal; distant breath sounds. ABDOMEN: Soft, nontender, liver spleen not palpable, no masses palpable. Area of localized tenderness between the base of the scrotum and the perianal area. A bit fluctuant PSYCH: Alert and oriented x3; mood and affect katharine l. MUSCULOSKELETAL:No Clubbing/cyanosis;muscles-grossly intact NEUROLOGICAL: Power sensation grossly intact LYMPHATICS: No lymph nodes palpable in the axilla and neck INVESTIGATIONS, reviewed in the clinical context: March 24: White count 7.6 hemoglobin 15.6 platelets 270 sodium 135 potassium 4.4 creatinine 1.25 COVID-19 detected Chest x-ray film personally reviewed by me-lungs clear Assessment plan: -Perineal abscess. Between the base of the scrotum and the rectal area. Fluctuant. Causing sepsis Dr. Doherty from urology consulted. For I&D. ID consulted. IV vancomycin, IV Zosyn. Blood culture. -Baseline patient had a stroke in 2009 left him with some right-sided weakness both arm and leg some numbness. Also patient had a stroke on July 24, 2023 went to [facility]. With some residual left-sided weakness. The left-sided weakness especially in the arm is much weak now. -Chronic right-sided weakness and chronic left-sided weakness from prior strokes At baseline uses a cane inside the house and four-wheel walker outside the house -Diabetes mellitus type 2 Metformin. Mounjaro. -Hyperlipidemia Lipitor 80 mg a day fenofibrate. -Diabetic peripheral neuropathy and some chronic low back pain Neurontin 300 mg twice daily -Essential hypertension Zestril 10 mg a day atenolol 25 mg a day -Obesity BMI 38.3 Weight loss measures -Full code Discussed with patient . Patient will be scheduled to the OR. Home medication resumed. ID urology consulted. Past Medical History Past Medical History: Atrial Fibrillation, Chest Pain / Angina, CVA/TIA, Hearing Disorder / Deafness, Hyperlipidemia, Hypertension, Memory Impairment, Myocardial Infarction ([place]), Pneumonia, Syncope Additional Past Medical History / Comment(s): Recent CVA-July w/left sided weakness, weakness in hand and leg. CVA 12/23/18 with right side weakness. Hx CVA 2009 with R sided weakness and numbness upper and lower extremities and short term memory loss, MIs X3, chronic low back pain, R shoulder and R ankle pain, seasonal allergies, sinus problems. Slightly Hard of Hearing. "I passed multiple times out years ago." Last Myocardial Infarction Date:: 2005, 2010,2011 History of Any Multi-Drug Resistant Organisms: None Reported Past Surgical History: Cardiac Ablation, Heart Catheterization, Tonsillectomy Additional Past Surgical History / Comment(s): Cardiac ablation-unsuccessful per pt, loop recorders X3 one in currenty-02/22/2019-pt states battery has , colonoscopy/benign polypectomy, cyst removed from buttock/anal area 2018;left shoulder cyst removed 12/04/2022. Had Sebaceous cyst removed from back. Last cardiac cath 2018, [facility] August 2023 Past Anesthesia/Blood Transfusion Reactions: No Reported Reaction Additional Past Anesthesia/Blood Transfusion Reaction / Comment(s): No hx of transfusion. Type of Cardiac Device: Loop Device Placement Date:: 03/10/2019 Past Psychological History: Anxiety Smoking Status: Former smoker Past Alcohol Use History: Occasional Past Drug Use History: None Reported - Past Family History Father Family Medical History: COPD, Deep Vein Thrombosis (DVT), Hyperlipidemia, Hypertension, Myocardial Infarction (AL) Additional Family Medical History / Comment(s): Father had MIs with the first one being when he was about 65 yrs old. He had coronary stents. He at the age of 83 yrs. Mother Family Medical History: Cancer, Dementia, Thyroid Disorder Additional Family Medical History / Comment(s): Mother had breast cancer, diverticulitis, thyroid disease and from dementia at the age of 80 yrs. Sister(s) Family Medical History: Cancer Additional Family Medical History / Comment(s): Pancreatic cancer. Medications and Allergies Home Medications Medication Instructions Recorded Confirmed Type Atorvastatin [Lipitor] 80 mg PO HS 12/05/22 03/24/24 History atenoloL [Tenormin] 25 mg PO HS 12/05/22 03/24/24 History Apixaban [Eliquis] 5 mg PO BID 11/01/23 03/24/24 History Aspirin 81 mg PO DAILY 11/01/23 03/24/24 History Fenofibrate Nanocrystallized 145 mg PO DAILY 11/01/23 03/24/24 History [Fenofibrate] Fluticasone Nasal [place] [Flonase 1 spr EA NOSTRIL BID PRN 11/01/23 03/24/24 History Nasal [place]] Magnesium Oxide [Magnesium] 500 mg PO DAILY 11/01/23 03/24/24 History Multivitamins, Thera [Multivitamin 1 tab PO BID 11/01/23 03/24/24 History (formulary)] metFORMIN HCL ER [Glucophage XR] 500 mg PO HS 11/01/23 03/24/24 History HYDROcodone/APAP 7.5-325MG [[place] 1 tab PO Q6HR PRN 3 Days #12 tab 03/21/24 03/24/24 Rx 7.5-325] Levofloxacin [Levaquin] 750 mg PO DAILY 1 Days #7 tab 03/21/24 03/24/24 Rx metroNIDAZOLE [Flagyl] 500 mg PO TID #21 tab 03/21/24 03/24/24 Rx Gabapentin [Neurontin] 400 mg PO TID 03/24/24 03/24/24 History Psyllium Husk [Fiber Capsule] 0.4 gm PO BID 03/24/24 03/24/24 History Tirzepatide [Mounjaro] 15 mg SQ WICK 03/24/24 03/24/24 History Allergies Allergy/AdvReac Type Severity Reaction Status Date / Time bee venom protein (honey bee) Allergy Swelling Verified 03/24/24 09:51 Physical Exam Vitals: Vital Signs Temp Pulse Resp BP Pulse Ox 03/24/24 16:29 100.6 F H 68 18 106/66 97 03/24/24 15:31 101 H 18 109/63 99 03/24/24 14:46 101.4 F H 100 18 109/63 98 03/24/24 13:22 101 F H 97 18 109/66 97 03/24/24 12:26 99.0 F 96 18 108/60 97 03/24/24 10:38 100.3 F H 98 18 94/58 97 03/24/24 05:46 99.8 F H 99 18 105/80 100 Intake and Output 03/24/24 03/24/24 03/24/24 06:59 14:59 22:59 Other: Weight 106.594 kg Results CBC & Chem 7: 03/24/24 06:50 03/24/24 06:50 Labs: Abnormal Lab Results - Last 24 Hours (Table) 03/24/24 03/24/24 03/24/24 Range/Units 06:12 06:50 06:50 Lymphocytes # 0.3 L (1.0-4.8) k/uL Sodium 135 L (137-145) mmol/L Alkaline Phosphatase 35 L (38-126) U/L Ur Leukocyte Esterase (Negative) Urine Mucus (None) /hpf SARS-CoV-2 (PCR) Detected A (Not Detectd) 03/24/24 Range/Units 09:22 Lymphocytes # (1.0-4.8) k/uL Sodium (137-145) mmol/L Alkaline Phosphatase (38-126) U/L Ur Leukocyte Esterase Trace H (Negative) Urine Mucus Many H (None) /hpf SARS-CoV-2 (PCR) (Not Detectd)
[2024-03-24] MEDS ORDERED: fentaNYL (PF) 50 MCG/ML 2 ML AMP ONE (19:00)
[2024-03-24] MEDS ORDERED: ROCURONIUM 10 MG/ML (5 ML VIAL) IV ONE (19:00)
[2024-03-24] MEDS ORDERED: MIDAZOLAM 2 MG/2 ML VIAL ONE (19:00)
[2024-03-24] MEDS ORDERED: PHENYLEPHRINE-0.9% NACL SYG 1,000 MCG/10 ML SYRINGE ONE (19:00)
[2024-03-24] MEDS ORDERED: SUGAMMADEX SODIUM 100 MG/ML SYR IV ONE (19:00)
[2024-03-24] MEDS ORDERED: HYDROmorphone (PF) 1 MG/ML ONE (19:00)
[2024-03-24] MEDS ORDERED: PROPOFOL 10 MG/ML 20 ML VIAL IV ONE (19:00)
[2024-03-24] MEDS ORDERED: LIDOCAINE 1% INJ 10MG/ML (20 ML MDV) ONE (19:00)
--- NOTE | 2024-03-24 19:45 | P.OP ---
Date of Procedure: 03/24/24 Preoperative Diagnosis: Perineal abscess Postoperative Diagnosis: Same Procedure(s) Performed: I&D of perineal abscess Anesthesia: MILES Surgeon: Cesario Doherty Estimated Blood Loss (ml): 20 IV fluids (ml): 600 Pathology: none sent Condition: stable Disposition: PACU Indications for Procedure: The patient is a 58-year-old white male with a history of perirectal abscess, which has required drainage on 2 occasions. He now presents with fever and right sided perineal pain and swelling, which is worsening despite being treated with oral Flagyl and Levaquin since he was initially seen in the ER in March 21, 2024. CT scan at that time showed scrotal wall thickening, greater on the right side. He returned to the ER this morning and underwent ultrasound, which revealed a 2 x 2 x 5 cm oval complex collection. He has been admitted and is receiving IV antibiotics. He now comes for I&D of a suspected perineal abscess. Operative Findings: Right sided perineal abscess. The abscess cavity measures approximately 3 x 4 cm in size. There does not appear to be any perirectal involvement. Aerobic and anaerobic cultures were sent. Description of Procedure: The patient was taken to the operating room and placed in the dorsolithotomy position, with his legs supported in Erwin stirrups. Digital rectal examination was performed. The perineal abscess appeared to be confined to the perineum, with no perirectal involvement. The perineum, external genitalia, and thighs were then prepped and draped sterilely. A syringe with a 22-gauge needle was passed through the area of induration within the right perineum. Bloody purulent fluid was aspirated. Aerobic and anaerobic cultures were sent. The scalpel was then used to make a 2.5 cm vertical incision over the abscess. The abscess cavity was digitally probed. It appeared to be contained. The abscess cavity was thoroughly irrigated with warm normal saline. Bleeders were controlled with electrocautery. The abscess cavity was then packed with half- inch iodoform gauze. Attention was then paid to the carbuncle noted on the left medial thigh. There did not appear to be any fluctuance, and I was unable to express any purulence. A new needle was passed into this area, but no purulence was aspirated and therefore nothing further was done. Surgical fluffs were placed over the perineum, followed by scrotal support. The patient tolerated the procedure well.
[2024-03-24] MEDS: ATORVASTATIN 80 MG TAB PO SCH (20:34)
[2024-03-24] MEDS: atenoloL 25 MG TAB PO SCH (20:34)
[2024-03-24] MEDS: MULTIVITAMINS, THERA 1 EACH TAB PO SCH (20:34)
[2024-03-24] MEDS: PSYLLIUM HUSK 100% 6 GM PACKET PO SCH (20:35)
--- NOTE | 2024-03-24 23:04 | P.CONS ---
History of Present Illness - Reason for Consult Consult date: 03/24/24 Fever Requesting physician: William Calderón - Chief Complaint Painful lump to the perineal area x 3 days - History of Present Illness Patient is a 58-year-old male with a past medical history significant for hypertension hyperlipidemia CVA TIA atrial fibrillation memory impairment did have a history of recurrent skin soft tissue infection patient presented to the hospital concerning for painful swelling to the right side of the perineal area that apparently started about 3 days ago patient mention he was seen in the ER for the same problem on Saturday patient was discharged home on 2 different oral antibiotic with the patient took however the patient did not have any relief did have worsening pain swelling and redness for the patient presented to hospital patient describing the pain to be sharp almost 10 out of 10 in severity without any radiation with associated swelling as well no drainage patient did have some chills but denies high-grade fever on presentation to the hospital patient did have low-grade fever 100.8 subsequently spiked temperature of 101 F patient was tachycardic but not hypotensive or hypoxic patient did have a white count of 7.6 creat is 1.25 electrolytes are normal liver enzymes are normal urine is negative patient also tested positive for COVID-19 he did have a chest x-ray no definite acute process groin ultrasound complex overall collection following the area of concern for abscess is fever in differential he was start ed on vancomycin and Zosyn infectious disease was consulted for further management of antibiotic therapy patient has been evaluated by urology and is planned for drainage of this abscess this evening Review of Systems Positive point and negatives has been mentioned in the HPI, complete review of systems was performed and all other systems are negative Past Medical History Past Medical History: Atrial Fibrillation, Chest Pain / Angina, CVA/TIA, Hearing Disorder / Deafness, Hyperlipidemia, Hypertension, Memory Impairment, Myocardial Infarction (ND), Pneumonia, Syncope Additional Past Medical History / Comment(s): Recent CVA-July w/left sided weakness, weakness in hand and leg. CVA 12/23/18 with right side weakness. Hx CVA 2009 with R sided weakness and numbness upper and lower extremities and short term memory loss, MIs X3, chronic low back pain, R shoulder and R ankle pain, seasonal allergies, sinus problems. Slightly Hard of Hearing. "I passed multiple times out years ago." Last Myocardial Infarction Date:: 2005, 2010,2011 History of Any Multi-Drug Resistant Organisms: None Reported Past Surgical History: Cardiac Ablation, Heart Catheterization, Tonsillectomy Additional Past Surgical History / Comment(s): Cardiac ablation-unsuccessful per pt, loop recorders X3 one in currenty-02/22/2019-pt states battery has , colonoscopy/benign polypectomy, cyst removed from buttock/anal area 2018;left shoulder cyst removed 12/04/2022. Had Sebaceous cyst removed from back. Last cardiac cath 2018, [facility] August 2023 Past Anesthesia/Blood Transfusion Reactions: No Reported Reaction Additional Past Anesthesia/Blood Transfusion Reaction / Comm: No hx of transfusion. Type of Cardiac Device: Loop Device Placement Date:: 03/10/2019 Past Psychological History: Anxiety Smoking Status: Former smoker Past Alcohol Use History: Occasional Past Drug Use History: None Reported - Past Family History Father Family Medical History: COPD, Deep Vein Thrombosis (DVT), Hyperlipidemia, Hypertension, Myocardial Infarction (ND) Additional Family Medical History / Comment(s): Father had MIs with the first one being when he was about 65 yrs old. He had coronary stents. He at the age of 83 yrs. Mother Family Medical History: Cancer, Dementia, Thyroid Disorder Additional Family Medical History / Comment(s): Mother had breast cancer, diverticulitis, thyroid disease and from dementia at the age of 80 yrs. Sister(s) Family Medical History: Cancer Additional Family Medical History / Comment(s): Pancreatic cancer. Medications and Allergies Home Medications Medication Instructions Recorded Confirmed Type Atorvastatin [Lipitor] 80 mg PO HS 12/05/22 03/24/24 History atenoloL [Tenormin] 25 mg PO HS 12/05/22 03/24/24 History Apixaban [Eliquis] 5 mg PO BID 11/01/23 03/24/24 History Aspirin 81 mg PO DAILY 11/01/23 03/24/24 History Fenofibrate Nanocrystallized 145 mg PO DAILY 11/01/23 03/24/24 History [Fenofibrate] Fluticasone Nasal Roberts [Flonase 1 spr EA NOSTRIL BID PRN 11/01/23 03/24/24 History Nasal Roberts] Magnesium Oxide [Magnesium] 500 mg PO DAILY 11/01/23 03/24/24 History Multivitamins, Thera [Multivitamin 1 tab PO BID 11/01/23 03/24/24 History (formulary)] metFORMIN HCL ER [Glucophage XR] 500 mg PO HS 11/01/23 03/24/24 History HYDROcodone/APAP 7.5-325MG [[place] 1 tab PO Q6HR PRN 3 Days #12 tab 03/21/24 03/24/24 Rx 7.5-325] Levofloxacin [Levaquin] 750 mg PO DAILY 1 Days #7 tab 03/21/24 03/24/24 Rx metroNIDAZOLE [Flagyl] 500 mg PO TID #21 tab 03/21/24 03/24/24 Rx Gabapentin [Neurontin] 400 mg PO TID 03/24/24 03/24/24 History Psyllium Husk [Fiber Capsule] 0.4 gm PO BID 03/24/24 03/24/24 History Tirzepatide [Mounjaro] 15 mg SQ WICK 03/24/24 03/24/24 History Allergies Allergy/AdvReac Type Severity Reaction Status Date / Time bee venom protein (honey bee) Allergy Swelling Verified 03/24/24 09:51 Physical Exam Vitals: Vital Signs Temp Pulse Resp BP Pulse Ox 03/24/24 14:46 101.4 F H 100 18 109/63 98 03/24/24 13:22 101 F H 97 18 109/66 97 03/24/24 12:26 99.0 F 96 18 108/60 97 03/24/24 10:38 100.3 F H 98 18 94/58 97 03/24/24 05:46 99.8 F H 99 18 105/80 100 Intake and Output 03/24/24 03/24/24 03/24/24 06:59 14:59 22:59 Other: Weight 106.594 kg GENERAL DESCRIPTION: Middle-aged male lying in bed, no distress. No tachypnea or accessory muscle of respiration use. HEENT: Shows Pallor , no scleral icterus. Oral mucous membrane is dry. No pharyngeal erythema or thrush NECK: Trachea central, no thyromegaly. LUNGS: Unlabored breathing. Clear to auscultation anteriorly. No wheeze or crackle. HEART: S1, S2, regular rate and rhythm. No loud murmur ABDOMEN: Soft, no tenderness , guarding or rigidity, : Patient did have an area of induration tenderness to right side of the perineum but no drainage EXTREMITIES: No edema of feet. SKIN: No rash, no masses palpable. NEUROLOGICAL: The patient is awake, alert, oriented x3, mood and affect normal. Results CBC & Chem 7: 03/24/24 06:50 03/24/24 06:50 Labs: Abnormal Lab Results - Last 24 Hours (Table) 03/24/24 03/24/24 03/24/24 Range/Units 06:12 06:50 06:50 Lymphocytes # 0.3 L (1.0-4.8) k/uL Sodium 135 L (137-145) mmol/L Alkaline Phosphatase 35 L (38-126) U/L Ur Leukocyte Esterase (Negative) Urine Mucus (None) /hpf SARS-CoV-2 (PCR) Detected A (Not Detectd) 03/24/24 Range/Units 09:22 Lymphocytes # (1.0-4.8) k/uL Sodium (137-145) mmol/L Alkaline Phosphatase (38-126) U/L Ur Leukocyte Esterase Trace H (Negative) Urine Mucus Many H (None) /hpf SARS-CoV-2 (PCR) (Not Detectd) Assessment and Plan (1) Sepsis Current Visit: Yes Status: Acute Code(s): A41.9 - SEPSIS, UNSPECIFIED ORGANI SM SNOMED Code(s): 77494266 (2) COVID-19 Current Visit: Yes Status: Acute Code(s): U07.1 - COVID-19 SNOMED Code(s): 725950933 (3) Abscess, perineum Current Visit: Yes Status: Acute Code(s): L02.215 - CUTANEOUS ABSCESS OF PERINEUM SNOMED Code(s): 04013898 Plan: 1patient presented to hospital with sepsis this patient who did have a fever tachycardia meeting currently for SIRS cirrhosis perineal abscess and high clinic suspicious for staphylococcal infection with a question of possible MRSA versus MSSA 2-patient also tested for COVID-19 however he did not have any respiratory symptoms patient not hypoxic and no evidence of pneumonia on the chest x-ray possible incidental finding as not behaving as acute COVID-19 infection 3-we will continue the patient on vancomycin pharmacy to dose while watching his kidney function closely however switch Zosyn to Unasyn to decrease risk of nephrotoxicity We will follow on clinical condition and cultures to further adjust medication if needed Thank you for this consultation we will follow the patient along with you Dictation was produced using [employer] dictation software. please excuse any grammatical, word or spelling errors. Time with Patient: Greater than 30
[2024-03-24] MEDS: VANCOMYCIN 1,750 MG in SODIUM CHLORIDE 0.9% 500 ML 500 ML IVPB SCH (23:45)
[2024-03-24] MEDS: AMPICILLIN-SULBACTAM 3 GM in SODIUM CHLORIDE 0.9% 100 ML IVPB SCH (23:45)
[2024-03-25 04:46] LABS: African American GFR (CKD) 86 (>60 ml/min/1.73 sqM); Non-African American GFR(CKD) 75 (>60 ml/min/1.73 sqM)
[2024-03-25] MEDS: APIXABAN 5 MG TAB PO SCH (09:07)
[2024-03-25] MEDS: MAGNESIUM OXIDE 400 MG TAB PO SCH (09:07)
[2024-03-25] MEDS: FENOFIBRATE 160 MG TAB PO SCH (09:53)
[2024-03-25] MEDS ORDERED: DEXTROSE 50% SYRINGE 50 ML IVP PRN ×2 (10:51)
--- NOTE | 2024-03-25 11:32 | P.PN ---
Subjective Progress Note Date: 03/25/24 Principal diagnosis: Perineal abscess The patient presented with a fever. He has tested positive for COVID. He underwent I&D of a perineal abscess on March 24, 2024. He is receiving Unasyn and vancomycin, pending wound culture results. He states that his perineal discomfort is improved. Objective - Vital Signs Vital signs: Vital Signs Temp 98.4 F 03/25/24 00:04 Pulse 83 03/25/24 00:04 Resp 15 03/25/24 00:04 BP 136/90 03/25/24 00:04 Pulse Ox 96 03/25/24 00:04 FiO2 Intake & Output 03/24/24 03/24/24 03/25/24 06:59 18:59 06:59 Intake Total 600 Output Total 30 Balance 600 -30 Weight 106.594 kg 106.594 kg Intake: IV 600 Output: Estimated Blood Loss 30 Other: # Voids 3 - Constitutional General appearance: Present: average body habitus, cooperative, no acute distress - Genitourinary Genitourinary Comment(s): Minimal drainage noted from perineal abscess cavity. No surrounding cellulitis or fluctuance. No purulence. - Psychiatric Psychiatric: Present: A&O x's 3 - Labs CBC & Chem 7: 03/24/24 06:50 03/25/24 04:05 Labs: Abnormal Lab Results - Last 24 Hours (Table) 03/24/24 03/24/24 03/24/24 Range/Units 06:12 06:50 06:50 Lymphocytes # 0.3 L (1.0-4.8) k/uL Sodium 135 L (137-145) mmol/L Alkaline Phosphatase 35 L (38-126) U/L Ur Leukocyte Esterase (Negative) Urine Mucus (None) /hpf SARS-CoV-2 (PCR) Detected A (Not Detectd) 03/24/24 Range/Units 09:22 Lymphocytes # (1.0-4.8) k/uL Sodium (137-145) mmol/L Alkaline Phosphatase (38-126) U/L Ur Leukocyte Esterase Trace H (Negative) Urine Mucus Many H (None) /hpf SARS-CoV-2 (PCR) (Not Detectd) Microbiology - Last 24 Hours (Table) 03/24/24 19:25 Gram Stain - Preliminary Other - Other 12/03/24 19:25 Gram Stain - Preliminary Other - Other Assessment and Plan (1) Abscess, perineum Current Visit: Yes Status: Acute Code(s): L02.215 - CUTANEOUS ABSCESS OF PERINEUM SNOMED Code(s): 06575772 Plan: - Dressing change twice daily. is to be taught to perform dressing changes. - Continue antibiotics, pending culture results.
[2024-03-25 12:29] LABS: Glucose,Whole Blood 82 mg/dL (70-110)
[2024-03-25] MEDS: INSULIN ASPART (NovoLOG) 100 UNIT/ML VIAL SQ SCH (12:33)
[2024-03-25 17:22] LABS: Glucose,Whole Blood 97 mg/dL (70-110)
[2024-03-25 19:56] LABS: Glucose,Whole Blood 93 mg/dL (70-110)
--- NOTE | 2024-03-25 20:17 | P.PN ---
Progress Note - Text Progress Note Date: 03/25/24 Chief Complaint: Perineal abscess This is a pleasant 58-year-old patient who follows with Dr. Chad Baron. Chronic stable medical conditions include atrial fibrillation, hard of hearing, hypertension, hyperlipidemia some cognitive impairment. He has had loop recorder's x 3 and also has had unsuccessful cardiac ablation. stroke in 2009 that left him with some right arm and left leg weakness and some numbness. Some memory loss. Patient also had a stroke on July 24, 2023 where he was taken to [facility]. That left him with some weakness on the left side. Patient speech is also affected but had recovered to certain degree. Outside he does use a rolling walker. Patient is accompanied by his in the ER. 3 days ago he started noticing some pain and swelling in the perianal area. Below the scrotum and the rectum. Symptoms got progressively worse the following day. He came to the ER. ER was busy was discharged home on antibiotics. Symptoms getting worse. Becoming very tender. Spiked a fever. Denies any respiratory symptoms. Tested positive COVID in the ER. Patient had previous abscess in the right groin and on the left shoulder. March 25: Patient underwent I&D of a perianal abscess by Dr. Doherty yesterday. Mucopurulent pus was obtained. Iodine packing was done. This morning patient lying in bed. Some pain is present. Tolerating a diet. Getting Dilaudid for pain. Pain medication discussed. Has been out of bed. at the bedside. Active Medications Apixaban (Apixaban 5 Mg Tab) 5 mg PO BID [facility]; Protocol Last Admin: 03/25/24 20:07 Dose: 5 mg Atenolol (Atenolol 25 Mg Tab) 25 mg PO HS [facility] Last Admin: 03/25/24 20:07 Dose: 25 mg Atorvastatin Calcium (Atorvastatin 80 Mg Tab) 80 mg PO HS [facility] Last Admin: 03/25/24 20:07 Dose: 80 mg Dextrose/Water (Dextrose 50% Syringe 50 Ml) 25 ml IVP PER PROTOCOL PRN; Protocol PRN Reason: Hypoglycemia Dextrose/Water (Dextrose 50% Syringe 50 Ml) 50 ml IVP PER PROTOCOL PRN; Protocol PRN Reason: Hypoglycemia Fenofibrate (Fenofibrate 160 Mg Tab) 160 mg PO DAILY [facility] Last Admin: 03/25/24 09:53 Dose: 160 mg Gabapentin (Gabapentin 400 Mg Cap) 400 mg PO TID [facility] Last Admin: 03/25/24 20:10 Dose: 400 mg Hydromorphone HCl (Hydromorphone 0.5 Mg/0.5 Ml Syringe) 0.5 mg IVP Q4HR PRN PRN Reason: Pain Last Admin: 03/25/24 15:45 Dose: 0.5 mg Vancomycin HCl 1,750 mg/ (Sodium Chloride) 500 mls @ 167 mls/hr IVPB Q12H [facility] Last Admin: 03/25/24 14:12 Dose: 167 mls/hr Ampicillin Sodium/Sulbactam (Sodium 3 gm/ Sodium Chloride) 100 mls @ 200 mls/hr IVPB Q6HR [facility]; Protocol Last Admin: 03/25/24 18:45 Dose: 200 mls/hr Insulin Aspart (Insulin Aspart (Novolog) 100 Unit/Ml Vial) 0 unit SQ AC-TID [facility]; Protocol Last Admin: 03/25/24 18:35 Dose: Not Given Magnesium Oxide (Magnesium Oxide 400 Mg Tab) 400 mg PO DAILY [facility] Last Admin: 03/25/24 09:07 Dose: 400 mg Metformin HCl (Metformin 500 Mg Tab) 250 mg PO BID-W/MEALS [facility] Last Admin: 03/25/24 18:46 Dose: 250 mg Miscellaneous Information (Vancomycin Trough Due 1 Each Misc) 1 each MISCELLANE ONCE ONE Stop: 03/26/24 11:01 Multivitamins (Multivitamins, Thera 1 Each Tab) 1 each PO BID [facility] Last Admin: 03/25/24 20:07 Dose: 1 each Non-Formulary Medication (Tirzepatide [Mounjaro]) 15 mg SQ WICK [facility] Psyllium Hydrophilic Mucilloid (Psyllium Husk 100% 6 Gm Packet) 6 gm PO BID [facility] Last Admin: 03/25/24 20:12 Dose: Not Given Social history: Patient smoked since the age of 19, 1 pack a week stopped in 2005. Alcohol occasionally. Lives with . Retired from [employer]. Physical examination: VITAL SIGNS: 99.5, 92, 16, 121 x 79, 94% room air GENERAL: BMI 31.9, resting bed, comfortable EYES: Pupils equal. Conjunctiva katharine l. HEENT: External appearance of nose and ears normal, oral cavity grossly normal. Decreased hearing NECK: JVD not raised; masses not palpable. HEART: First and second heart sounds are normal; no edema. LUNGS: Respiratory rate normal; distant breath sounds. ABDOMEN: Soft, nontender, liver spleen not palpable, no masses palpable. Dressing over the incision site PSYCH: Alert and oriented x3; mood and affect katharine l. MUSCULOSKELETAL:No Clubbing/cyanosis;muscles-grossly intact INVESTIGATIONS, reviewed in the clinical context: March 25: Creatinine 1.09 March 24: White count 7.6 hemoglobin 15.6 platelets 270 sodium 135 potassium 4.4 creatinine 1.25 COVID-19 detected Chest x-ray film personally reviewed by me-lungs clear Assessment plan: -Perineal abscess. Between the base of the scrotum and the rectal area. Fluctuant. Causing sepsis Dr. Doherty from urology-I&D carried out March 24 with iodine packing. IV vancomycin,. Blood culture. Wound culture pending -Baseline patient had a stroke in 2009 left him with some right-sided weakness both arm and leg some numbness. Also patient had a stroke on July 24, 2023 went to [facility]. With some residual left-sided weakness. The left-sided weakness especially in the arm is much weak now. -Chronic right-sided weakness and chronic left-sided weakness from prior strokes At baseline uses a cane inside the house and four-wheel walker outside the house -Diabetes mellitus type 2 Metformin. Mounjaro. -Hyperlipidemia Lipitor 80 mg a day fenofibrate. -Diabetic peripheral neuropathy and some chronic low back pain Neurontin 300 mg twice daily -Essential hypertension Zestril 10 mg a day atenolol 25 mg a day -Obesity BMI 38.3 Weight loss measures -COVID-19, asymptomatic -Full code New current medication treatment plan. Including antibiotics. Cultures pending. Increase activity. Past Medical History Past Medical History: Atrial Fibrillation, Chest Pain / Angina, CVA/TIA, Hearing Disorder / Deafness, Hyperlipidemia, Hypertension, Memory Impairment, Myocardial Infarction ([place]), Pneumonia, Syncope Additional Past Medical History / Comment(s): Recent CVA-July w/left sided weakness, weakness in hand and leg. CVA 12/23/18 with right side weakness. Hx CVA 2009 with R sided weakness and numbness upper and lower extremities and short term memory loss, MIs X3, chronic low back pain, R shoulder and R ankle pain, seasonal allergies, sinus problems. Slightly Hard of Hearing. "I passed multiple times out years ago." Last Myocardial Infarction Date:: 2005, 2010,2011 History of Any Multi-Drug Resistant Organisms: None Reported Past Surgical History: Cardiac Ablation, Heart Catheterization, Tonsillectomy Additional Past Surgical History / Comment(s): Cardiac ablation-unsuccessful per pt, loop recorders X3 one in currenty-02/22/2019-pt states battery has , colonoscopy/benign polypectomy, cyst removed from buttock/anal area 2018;left shoulder cyst removed 12/04/2022. Had Sebaceous cyst removed from back. Last cardiac cath 2018, [facility] August 2023 Past Anesthesia/Blood Transfusion Reactions: No Reported Reaction Additional Past Anesthesia/Blood Transfusion Reaction / Comment(s): No hx of transfusion. Type of Cardiac Device: Loop Device Placement Date:: 03/10/2019 Past Psychological History: Anxiety Smoking Status: Former smoker Past Alcohol Use History: Occasional Past Drug Use History: None Reported
--- NOTE | 2024-03-25 23:12 | P.PN ---
Subjective Progress Note Date: 03/25/24 Principal diagnosis: Reason for follow-up is perineal abscess Patient is a 58-year-old male with a past medical history significant for hypertension hyperlipidemia CVA TIA atrial fibrillation memory impairment did have a history of recurrent skin soft tissue infection patient presented to the hospital concerning for painful swelling to the right side of the perineal area, has been diagnosed with an abscess status post surgical drainage by urology. On today's evaluation that is 03/25/2024,the patient did have resolution of his fever and denies any fever or any chills, patient is breathing comfortably on room air, the patient denies chest pain shortness of breath and no significant cough, patient denies abdominal pain, no nausea vomiting or diarrhea. Still co mplaining of some pain to the perineal area to decrease in intensity. Patient did have a negative UA creatinine 1.09 cultures are currently pending Objective - Vital Signs Vital signs: Vital Signs Temp 97.9 F 03/25/24 08:00 Pulse 86 03/25/24 08:00 Resp 16 03/25/24 08:00 BP 118/74 03/25/24 08:00 Pulse Ox 99 03/25/24 08:00 FiO2 Intake & Output 03/24/24 03/25/24 03/25/24 18:59 06:59 18:59 Intake Total 600 Output Total 30 Balance 600 -30 Weight 106.594 kg Intake: IV 600 Output: Estimated Blood Loss 30 Other: # Voids 3 - Exam GENERAL DESCRIPTION: Middle-age male lying in bed in no distress RESPIRATORY SYSTEM: Unlabored breathing , decreased breath sounds at bases HEART: S1 S2 regular rate and rhythm , ABDOMEN: Soft , no tenderness EXTREMITIES: No edema feet - Labs CBC & Chem 7: 03/24/24 06:50 03/25/24 04:05 Labs: Microbiology - Last 24 Hours (Table) 03/24/24 19:25 Gram Stain - Preliminary Other - Other 03/24/24 19:25 Gram Stain - Preliminary Other - Other Assessment and Plan (1) Sepsis Current Visit: Yes Status: Acute Code(s): A41.9 - SEPSIS, UNSPECIFIED ORGANISM SNOMED Code(s): 03495762 (2) COVID-19 Current Visit: Yes Status: Acute Code(s): U07.1 - COVID-19 SNOMED Code(s): 892282885 (3) Abscess, perineum Current Visit: Yes Status: Acute Code(s): L02.215 - CUTANEOUS ABSCESS OF PERINEUM SNOMED Code(s): 14805705 Plan: 1patient presented to hospital with sepsis this patient who did have a fever tachycardia meeting currently for SIRS cirrhosis perineal abscess and high clinic suspicious for staphylococcal infection with a question of possible MRSA versus MSSA 2-patient also tested for COVID-19 however he did not have any respiratory symptoms patient not hypoxic and no evidence of pneumonia on the chest x-ray possible incidental finding as not behaving as acute COVID-19 infection 3-patient will be treated with vancomycin pharmacy to dose along with Unasyn while waiting for the culture to finalize Dictation was produced using [employer] dictation software. please excuse any grammatical, word or spelling errors. Time with Patient: Less than 30
[2024-03-26 06:03] LABS: Glucose,Whole Blood 93 mg/dL (70-110)
[2024-03-26 12:27] LABS: Glucose,Whole Blood 79 mg/dL (70-110)
[2024-03-26 12:48] LABS: African American GFR (CKD) >90 (>60 ml/min/1.73 sqM); Non-African American GFR(CKD) 83 (>60 ml/min/1.73 sqM)
[2024-03-26] MEDS: VANCOMYCIN TROUGH DUE 1 EACH MISC MISCELLANE ONE (13:06)
--- NOTE | 2024-03-26 15:52 | P.PN ---
Subjective Progress Note Date: 03/26/24 Principal diagnosis: Reason for follow-up is perineal abscess Patient is a 58-year-old male with a past medical history significant for hypertension hyperlipidemia CVA TIA atrial fibrillation memory impairment did have a history of recurrent skin soft tissue infection patient presented to the hospital concerning for painful swelling to the right side of the perineal area, has been diagnosed with an abscess status post surgical drainage by urology. On today's evaluation that is 03/26/2024,the patient remains to be afebrile, patient is on room air not requiring supplemental oxygen and denies any shortness of breath no chest pain or cough.Patient denies having any nausea or vomiting, no abdominal pain and no diarrhea, pain to the perineal area has decreased in intensity. Patient did have a creatinine 1.0 Vanco trough is 14.5 cultures are pending Objective - Vital Signs Vital signs: Vital Signs Temp 98.1 F 03/26/24 07:35 Pulse 77 03/26/24 07:35 Resp 16 03/26/24 07:35 BP 122/84 03/26/24 07:35 Pulse Ox 98 03/26/24 07:35 FiO2 Intake & Output 03/25/24 03/26/24 03/26/24 18:59 06:59 18:59 Intake Total 480 1200 360 Balance 480 1200 360 Intake: Oral 480 1200 360 Other: Voiding Method Toilet # Voids 2 2 # Bowel Movements 1 - Exam GENERAL DESCRIPTION: Middle-age male lying in bed in no distress RESPIRATORY SYSTEM: Unlabored breathing , decreased breath sounds at bases HEART: S1 S2 regular rate and rhythm , ABDOMEN: Soft , no tenderness EXTREMITIES: No edema feet - Labs CBC & Chem 7: 03/24/24 06:50 03/26/24 12:23 Labs: Microbiology - Last 24 Hours (Table) 03/24/24 19:25 Gram Stain - Preliminary Other - Other 03/24/24 19:25 Gram Stain - Preliminary Other - Other Assessment and Plan (1) Sepsis Current Visit: Yes Status: Acute Code(s): A41.9 - SEPSIS, UNSPECIFIED ORGANISM SNOMED Code(s): 94538580 (2) COVID-19 Current Visit: Yes Status: Acute Code(s): U07.1 - COVID-19 SNOMED Code(s): 152564173 (3) Abscess, perineum Current Visit: Yes Status: Acute Code(s): L02.215 - CUTANEOUS ABSCESS OF PERINEUM SNOMED Code(s): 97425980 Plan: 1patient presented to hospital with sepsis this patient who did have a fever tachycardia meeting currently for SIRS cirrhosis perineal abscess and high clinic suspicious for staphylococcal infection with a question of possible MRSA versus MSSA 2-patient also tested for COVID-19 however he did not have any respiratory symptoms patient not hypoxic and no evidence of pneumonia on the chest x-ray possible incidental finding as not behaving as acute COVID-19 infection 3-patient is getting and vancomycin pharmacy to dose Unasyn while waiting for the culture to finalize to determine his discharge antibiotics Dictation was produced using [employer] dictation software. please excuse any grammatical, word or spelling errors. Time with Patient: Less than 30
[2024-03-26] MEDS: traMADol 50 MG TAB PO STA (16:07)
[2024-03-26] MEDS: LORATADINE 10 MG TAB PO SCH (16:08)
[2024-03-26 17:06] LABS: Glucose,Whole Blood 93 mg/dL (70-110)
--- NOTE | 2024-03-26 18:04 | P.PN ---
Progress Note - Text Progress Note Date: 03/26/24 Chief Complaint: Perineal abscess This is a pleasant 58-year-old patient who follows with Dr. Chad Baron. Chronic stable medical conditions include atrial fibrillation, hard of hearing, hypertension, hyperlipidemia some cognitive impairment. He has had loop recorder's x 3 and also has had unsuccessful cardiac ablation. stroke in 2009 that left him with some right arm and left leg weakness and some numbness. Some memory loss. Patient also had a stroke on July 24, 2023 where he was taken to [facility]. That left him with some weakness on the left side. Patient speech is also affected but had recovered to certain degree. Outside he does use a rolling walker. Patient is accompanied by his in the ER. 3 days ago he started noticing some pain and swelling in the perianal area. Below the scrotum and the rectum. Symptoms got progressively worse the following day. He came to the ER. ER was busy was discharged home on antibiotics. Symptoms getting worse. Becoming very tender. Spiked a fever. Denies any respiratory symptoms. Tested positive COVID in the ER. Patient had previous abscess in the right groin and on the left shoulder. March 25: Patient underwent I&D of a perianal abscess by Dr. Doherty yesterday. Mucopurulent pus was obtained. Iodine packing was done. This morning patient lying in bed. Some pain is present. Tolerating a diet. Getting Dilaudid for pain. Pain medication discussed. Has been out of bed. at the bedside. March 26: Getting dressing changes. Cultures pending. Remains on IV vancomycin and IV Unasyn. Did ambulate. Oral intake fair. Pain much better. DC Dilaudid. Active Medications Apixaban (Apixaban 5 Mg Tab) 5 mg PO BID [facility]; Protocol Last Admin: 03/26/24 08:12 Dose: 5 mg Atenolol (Atenolol 25 Mg Tab) 25 mg PO [facility] Last Admin: 03/25/24 20:07 Dose: 25 mg Atorvastatin Calcium (Atorvastatin 80 Mg Tab) 80 mg PO [facility] Last Admin: 03/25/24 20:07 Dose: 80 mg Dextrose/Water (Dextrose 50% Syringe 50 Ml) 25 ml IVP PER PROTOCOL PRN; Protocol PRN Reason: Hypoglycemia Dextrose/Water (Dextrose 50% Syringe 50 Ml) 50 ml IVP PER PROTOCOL PRN; Protocol PRN Reason: Hypoglycemia Fenofibrate (Fenofibrate 160 Mg Tab) 160 mg PO DAILY [facility] Last Admin: 03/26/24 08:12 Dose: 160 mg Gabapentin (Gabapentin 400 Mg Cap) 400 mg PO TID [facility] Last Admin: 03/26/24 16:53 Dose: 400 mg Vancomycin HCl 1,750 mg/ (Sodium Chloride) 500 mls @ 167 mls/hr IVPB Q12H [facility] Last Admin: 03/26/24 13:14 Dose: 167 mls/hr Ampicillin Sodium/Sulbactam (Sodium 3 gm/ Sodium Chloride) 100 mls @ 200 mls/hr IVPB Q6HR [facility]; Protocol Last Admin: 03/26/24 17:46 Dose: 200 mls/hr Insulin Aspart (Insulin Aspart (Novolog) 100 Unit/Ml Vial) 0 unit SQ AC-TID [facility]; Protocol Last Admin: 03/26/24 17:26 Dose: Not Given Loratadine (Loratadine 10 Mg Tab) 10 mg PO DAILY [facility] Last Admin: 03/26/24 16:08 Dose: 10 mg Magnesium Oxide (Magnesium Oxide 400 Mg Tab) 400 mg PO DAILY [facility] Last Admin: 03/26/24 08:12 Dose: 400 mg Metformin HCl (Metformin 500 Mg Tab) 250 mg PO BID-W/MEALS [facility] Last Admin: 03/26/24 17:46 Dose: 250 mg Multivitamins (Multivitamins, Thera 1 Each Tab) 1 each PO BID [facility] Last Admin: 03/26/24 08:12 Dose: 1 each Non-Formulary Medication (Tirzepatide [Mounjaro]) 15 mg SQ WICK [facility] Psyllium Hydrophilic Mucilloid (Psyllium Husk 100% 6 Gm Packet) 6 gm PO BID [facility] Last Admin: 03/26/24 08:13 Dose: 6 gm Social history: Patient smoked since the age of 19, 1 pack a week stopped in 2005. Alcohol occasionally. Lives with . Retired from [employer]. Physical examination: VITAL SIGNS: 98.5, 79, 16, 125 x 79, 94% room air GENERAL: BMI 31.9, resting bed, comfortable EYES: Pupils equal. Conjunctiva katharine l. HEENT: External appearance of nose and ears normal, oral cavity grossly normal. Decreased hearing NECK: JVD not raised; masses not palpable. HEART: First and second heart sounds are normal; no edema. LUNGS: Respiratory rate normal; distant breath sounds. ABDOMEN: Soft, nontender, liver spleen not palpable, no masses palpable. Dressing over the incision site PSYCH: Alert and oriented x3; mood and affect katharine l. MUSCULOSKELETAL:No Clubbing/cyanosis;muscles-grossly intact INVESTIGATIONS, reviewed in the clinical context: March 25: Creatinine 1.09 March 24: White count 7.6 hemoglobin 15.6 platelets 270 sodium 135 potassium 4.4 creatinine 1.25 COVID-19 detected Chest x-ray film personally reviewed by me-lungs clear Assessment plan: -Perineal abscess. Between the base of the scrotum and the rectal area. Fluctuant. Causing sepsis: Improving Dr. Doherty from urology-I&D carried out March 24 with iodine packing. IV vancomycin,. Blood culture. Wound culture pending -Baseline patient had a stroke in 2009 left him with some right-sided weakness both arm and leg some numbness. Also patient had a stroke on July 24, 2023 went to [facility]. With some residual left-sided weakness. The left-sided weakness especially in the arm is much weak now. -Chronic right-sided weakness and chronic left-sided weakness from prior strokes At baseline uses a cane inside the house and four-wheel walker outside the house -Diabetes mellitus type 2 Metformin. Madiunpachecoro. -Hyperlipidemia Lipitor 80 mg a day fenofibrate. -Diabetic peripheral neuropathy and some chronic low back pain Neurontin 300 mg twice daily -Essential hypertension Zestril 10 mg a day atenolol 25 mg a day -Obesity BMI 38.3 Weight loss measures -COVID-19, asymptomatic -Full code Continue antibiotics. Cultures pending. Increase activity. Past Medical History Past Medical History: Atrial Fibrillation, Chest Pain / Angina, CVA/TIA, Hearing Disorder / Deafness, Hyperlipidemia, Hypertension, Memory Impairment, Myocardial Infarction ([place]), Pneumonia, Syncope Additional Past Medical History / Comment(s): Recent CVA-July w/left sided weakness, weakness in hand and leg. CVA 12/23/18 with right side weakness. Hx CVA 2009 with R sided weakness and numbness upper and lower extremities and short term memory loss, MIs X3, chronic low back pain, R shoulder and R ankle pain, seasonal allergies, sinus problems. Slightly Hard of Hearing. "I passed multiple times out years ago." Last Myocardial Infarction Date:: 2005, 2010,2011 History of Any Multi-Drug Resistant Organisms: None Reported Past Surgical History: Cardiac Ablation, Heart Catheterization, Tonsillectomy Additional Past Surgical History / Comment(s): Cardiac ablation-unsuccessful per pt, loop recorders X3 one in currenty-02/22/2019-pt states battery has , colonoscopy/benign polypectomy, cyst removed from buttock/anal area 2018;left shoulder cyst removed 12/04/2022. Had Sebaceous cyst removed from back. Last cardiac cath 2018, [facility] August 2023 Past Anesthesia/Blood Transfusion Reactions: No Reported Reaction Additional Past Anesthesia/Blood Transfusion Reaction / Comment(s): No hx of transfusion. Type of Cardiac Device: Loop Device Placement Date:: 03/10/2019 Past Psychological History: Anxiety Smoking Status: Former smoker Past Alcohol Use History: Occasional Past Drug Use History: None Reported
[2024-03-26 20:10] LABS: Glucose,Whole Blood 96 mg/dL (70-110)
--- NOTE | 2024-03-26 21:59 | P.PN ---
Subjective Progress Note Date: 03/26/24 Principal diagnosis: Perineal abscess The patient presented with a fever. He has tested positive for COVID. He underwent I&D of a perineal abscess on March 24, 2024. He is receiving Unasyn and vancomycin, pending wound culture results. He states that his perineal discomfort continues to improve. Objective - Vital Signs Vital signs: Vital Signs Temp 98.2 F 03/26/24 19:56 Pulse 81 03/26/24 19:56 Resp 18 03/26/24 19:56 BP 105/46 03/26/24 19:56 Pulse Ox 95 03/26/24 19:56 FiO2 Intake & Output 03/26/24 03/26/24 03/27/24 06:59 18:59 06:59 Intake Total 1200 720 Balance 1200 720 Intake: Oral 1200 720 Other: Voiding Method Toilet # Voids 2 3 - Constitutional General appearance: Present: average body habitus, cooperative, no acute distress - Genitourinary Genitourinary Comment(s): Normal phallus, normal testes. The right perineal wound is clean. Mild serosanguineous drainage is noted, no purulence. - Psychiatric Psychiatric: Present: A&O x's 3 - Labs CBC & Chem 7: 03/24/24 06:50 03/26/24 12:23 Labs: Microbiology - Last 24 Hours (Table) 03/24/24 19:25 Gram Stain - Preliminary Other - Other Wound Culture - Preliminary 03/24/24 19:25 Gram Stain - Preliminary Other - Other Wound Culture - Preliminary Assessment and Plan Assessment: Wound Gram stain showed polymicrobia. Aerobic and anaerobic cultures are negative at 24 hours. (1) Abscess, perineum Current Visit: Yes Status: Acute Code(s): L02.215 - CUTANEOUS ABSCESS OF PERINEUM SNOMED Code(s): 04630620 Plan: - Dressing change twice daily. has been taught to perform dressing changes. - Continue antibiotics, pending culture results.
[2024-03-26] MEDS: traMADol 50 MG TAB PO PRN (22:35)
[2024-03-27 01:16] VITALS: TEMP 98.3
[2024-03-27 05:47] LABS: Glucose,Whole Blood 98 mg/dL (70-110)
[2024-03-27 07:13] VITALS: BP 101/69; PULSE 86; RESP 17
--- NOTE | 2024-03-27 12:49 | P.PN ---
Subjective Progress Note Date: 03/27/24 Principal diagnosis: Reason for follow-up is perineal abscess Patient is a 58-year-old male with a past medical history significant for hypertension hyperlipidemia CVA TIA atrial fibrillation memory impairment did have a history of recurrent skin soft tissue infection patient presented to the hospital concerning for painful swelling to the right side of the perineal area, has been diagnosed with an abscess status post surgical drainage by urology. On today's evaluation that is 03/27/2024, the patient continues to be afebrile, the patient is on room air and breathing comfortably, the Pt denies having any chest pain or cough, the patient denies having any abdominal pain no vomiting or any diarrhea, patient mention over improvement of the perineal area and wants to go home. No new lab has been obtained today culture have been negative so far Objective - Vital Signs Vital signs: Vital Signs Temp 98.3 F 03/27/24 07:12 Pulse 86 03/27/24 07:12 Resp 17 03/27/24 07:12 BP 101/69 03/27/24 07:12 Pulse Ox 94 L 03/27/24 07:12 FiO2 Intake & Output 03/26/24 03/27/24 03/27/24 18:59 06:59 18:59 Intake Total 720 560 460 Balance 720 560 460 Intake: Oral 720 560 460 Other: # Voids 3 3 - Exam GENERAL DESCRIPTION: Middle-age male lying in bed in no distress RESPIRATORY SYSTEM: Unlabored breathing , decreased breath sounds at bases HEART: S1 S2 regular rate and rhythm , ABDOMEN: Soft , no tenderness EXTREMITIES: No edema feet - Labs CBC & Chem 7: 03/24/24 06:50 03/26/24 12:23 Labs: Microbiology - Last 24 Hours (Table) 03/24/24 19:25 Gram Stain - Final Other - Other Wound Culture - Final 03/24/24 19:25 Gram Stain - Preliminary Other - Other Wound Culture - Preliminary Assessment and Plan (1) Sepsis Status: Acute Code(s): A41.9 - SEPSIS, UNSPECIFIED ORGANISM SNOMED Code(s): 29727834 (2) COVID-19 Status: Acute Code(s): U07.1 - COVID-19 SNOMED Code(s): 101718012 (3) Abscess, perineum Status: Acute Code(s): L02.215 - CUTANEOUS ABSCESS OF PERINEUM SNOMED Code(s): 18862513 Plan: 1patient presented to hospital with sepsis this patient who did have a fever tachycardia meeting currently for SIRS cirrhosis perineal abscess and high clinic suspicious for staphylococcal infection with a question of possible MRSA versus MSSA 2-patient also tested for COVID-19 however he did not have any respiratory symptoms patient not hypoxic and no evidence of pneumonia on the chest x-ray possible incidental finding as not behaving as acute COVID-19 infection 3-patient local culture have been negative so far patient has been stable going home per discussion with the admitting physician he will be given a 10-day course of oral Augmentin on discharge and close outpatient follow-up Dictation was produced using [employer] dictation software. please excuse any grammatical, word or spelling errors. Time with Patient: Less than 30
--- NOTE | 2024-03-27 18:24 | P.DS ---
Providers Date of admission: 03/24/24 10:15 Expected date of discharge: 03/27/24 Attending physician: William Calderón Consults: 03/24/24 10:13 Consult Physician Urgent Consulting Provider: Cesario Doherty Consult Reason/Comments: Abscess perineum Do you want consulting provider notified?: Already Contacted 03/24/24 15:03 Consult Physician Urgent Consulting Provider: Marcio Connell Consult Reason/Comments: Fever Do you want consulting provider notified?: Yes Primary care physician: Jayme Baron [facility] Hospital Course: Chief Complaint: Perineal abscess This is a pleasant 58-year-old patient who follows with Dr. Chad Baron. Chronic stable medical conditions include atrial fibrillation, hard of hearing, hypertension, hyperlipidemia some cognitive impairment. He has had loop recorder's x 3 and also has had unsuccessful cardiac ablation. stroke in 2009 that left him with some right arm and left leg weakness and some numbness. Some memory loss. Patient also had a stroke on July 24, 2023 where he was taken to [facility]. That left him with some weakness on the left side. Patient speech is also affected but had recovered to certain degree. Outside he does use a rolling walker. Patient is accompanied by his in the ER. 3 days ago he started noticing some pain and swelling in the perianal area. Below the scrotum and the rectum. Symptoms got progressively worse the following day. He came to the ER. ER was busy was discharged home on antibiotics. Symptoms getting worse. Becoming very tender. Spiked a fever. Denies any respiratory symptoms. Tested positive COVID in the ER. Patient had previous abscess in the right groin and on the left shoulder. March 25: Patient underwent I&D of a perianal abscess by Dr. Doherty yesterday. Mucopurulent pus was obtained. Iodine packing was done. This morning patient lying in bed. Some pain is present. Tolerating a diet. Getting Dilaudid for pain. Pain medication discussed. Has been out of bed. at the bedside. March 26: Getting dressing changes. Cultures pending. Remains on IV vancomycin and IV Unasyn. Did ambulate. Oral intake fair. Pain much better. DC Dilaudid. March 27: Doing much better. Pain much better controlled. Cultures are nonspecific. Light growth of some different organism. Discussed with ID # on the phone. Okay to discharge on Augmentin. Okay to follow-up. Discussed with patient at the bedside. Will also follow-up with Dr. Doherty Social history: Patient smoked since the age of 19, 1 pack a week stopped in 2005. Alcohol occasionally. Lives with . Retired from [email or web address]. Physical examination: VITAL SIGNS: 98.3, 86, 16, 101 x 69, 94% room air GENERAL: Comfortable EYES: Pupils equal. Conjunctiva katharine l. HEENT: External appearance of nose and ears normal, oral cavity grossly normal. Decreased hearing NECK: JVD not raised; masses not palpable. HEART: First and second heart sounds are normal; no edema. LUNGS: Respiratory rate normal; distant breath sounds. ABDOMEN: Soft, nontender, liver spleen not palpable, no masses palpable. Dressing over the incision site PSYCH: Alert and oriented x3; mood and affect katharine l. MUSCULOSKELETAL:No Clubbing/cyanosis;muscles-grossly intact INVESTIGATIONS, reviewed in the clinical context: March 25: Creatinine 1.09 March 24: White count 7.6 hemoglobin 15.6 platelets 270 sodium 135 potassium 4.4 creatinine 1.25 COVID-19 detected Chest x-ray film personally reviewed by me-lungs clear Assessment plan: -Perineal abscess. Between the base of the scrotum and the rectal area. Fluctuant. Causing sepsis: Much improved clinically Dr. Doherty from urology-I&D carried out March 24 with iodine packing. IV vancomycin,. Blood culture. Wound culture nonspecific Discharge on Augmentin 875 twice daily for 7 days Follow-up with ID and Dr. Doherty outpatient -Baseline patient had a stroke in 2009 left him with some right-sided weakness both arm and leg some numbness. Also patient had a stroke on July 24, 2023 went to [facility]. With some residual left-sided weakness. The left-sided weakness especially in the arm is much weak now. -Chronic right-sided weakness and chronic left-sided weakness from prior strokes At baseline uses a cane inside the house and four-wheel walker outside the house -Diabetes mellitus type 2 Metformin. Mounjaro. -Hyperlipidemia Lipitor 80 mg a day fenofibrate. -Diabetic peripheral neuropathy and some chronic low back pain Neurontin 300 mg twice daily -Essential hypertension Zestril 10 mg a day atenolol 25 mg a day -Obesity BMI 38.3 Weight loss measures -COVID-19, asymptomatic -Full code Disposition: Home Past Medical History Past Medical History: Atrial Fibrillation, Chest Pain / Angina, CVA/TIA, Hearing Disorder / Deafness, Hyperlipidemia, Hypertension, Memory Impairment, Myocardial Infarction ([place]), Pneumonia, Syncope Additional Past Medical History / Comment(s): Recent CVA-July w/left sided weakness, weakness in hand and leg. CVA 12/23/18 with right side weakness. Hx CVA 2009 with R sided weakness and numbness upper and lower extremities and short term memory loss, MIs X3, chronic low back pain, R shoulder and R ankle pain, seasonal allergies, sinus problems. Slightly Hard of Hearing. "I passed multiple times out years ago." Last Myocardial Infarction Date:: 2005, 2010,2011 History of Any Multi-Drug Resistant Organisms: None Reported Past Surgical History: Cardiac Ablation, Heart Catheterization, Tonsillectomy Additional Past Surgical History / Comment(s): Cardiac ablation-unsuccessful per pt, loop recorders X3 one in currenty-02/22/2019-pt states battery has , colonoscopy/benign polypectomy, cyst removed from buttock/anal area 2018;left shoulder cyst removed 12/04/2022. Had Sebaceous cyst removed from back. Last cardiac cath 2018, [facility] August 2023 Past Anesthesia/Blood Transfusion Reactions: No Reported Reaction Additional Past Anesthesia/Blood Transfusion Reaction / Comment(s): No hx of transfusion. Type of Cardiac Device: Loop Device Placement Date:: 03/10/2019 Past Psychological History: Anxiety Smoking Status: Former smoker Past Alcohol Use History: Occasional Past Drug Use History: None Reported Plan - Discharge Summary Discharge Rx Participant: No New Discharge Prescriptions: New Amoxic-Pot Clav 875-125Mg [Augmentin 875-125] 1 tab PO Q12HR #14 tab Continue atenoloL [Tenormin] 25 mg PO HS Atorvastatin [Lipitor] 80 mg PO HS Multivitamins, Thera [Multivitamin (formulary)] 1 tab PO BID Fluticasone Nasal Pride [Flonase Nasal Pride] 1 spr EA NOSTRIL BID PRN PRN Reason: Allergy Symptoms Gabapentin [Neurontin] 400 mg PO TID Magnesium Oxide [Magnesium] 500 mg PO DAILY Fenofibrate Nanocrystallized [Fenofibrate] 145 mg PO DAILY metFORMIN HCL ER [Glucophage XR] 500 mg PO HS Aspirin 81 mg PO DAILY Apixaban [Eliquis] 5 mg PO BID HYDROcodone/APAP 7.5-325MG [[place] 7.5-325] 1 tab PO Q6HR PRN 3 Days #12 tab PRN Reason: Pain Tirzepatide [Mounjaro] 15 mg SQ WICK Psyllium Husk [Fiber Capsule] 0.4 gm PO BID Discontinued metroNIDAZOLE [Flagyl] 500 mg PO TID #21 tab Levofloxacin [Levaquin] 750 mg PO DAILY 1 Days #7 tab Discharge Medication List Atorvastatin [Lipitor] 80 mg PO HS 12/05/22 [History] atenoloL [Tenormin] 25 mg PO HS 12/05/22 [History] Apixaban [Eliquis] 5 mg PO BID 11/01/23 [History] Aspirin 81 mg PO DAILY 11/01/23 [History] Fenofibrate Nanocrystallized [Fenofibrate] 145 mg PO DAILY 11/01/23 [History] Fluticasone Nasal Pride [Flonase Nasal Pride] 1 spr EA NOSTRIL BID PRN 11/01/23 [History] Magnesium Oxide [Magnesium] 500 mg PO DAILY 11/01/23 [History] Multivitamins, Thera [Multivitamin (formulary)] 1 tab PO BID 11/01/23 [History] metFORMIN HCL ER [Glucophage XR] 500 mg PO HS 11/01/23 [History] HYDROcodone/APAP 7.5-325MG [[place] 7.5-325] 1 tab PO Q6HR PRN 3 Days #12 tab 03/21/24 [Rx] Gabapentin [Neurontin] 400 mg PO TID 03/24/24 [History] Psyllium Husk [Fiber Capsule] 0.4 gm PO BID 03/24/24 [History] Tirzepatide [Mounjaro] 15 mg SQ WICK 03/24/24 [History] Amoxic-Pot Clav 875-125Mg [Augmentin 875-125] 1 tab PO Q12HR #14 tab 03/27/24 [Rx] Follow up Appointment(s)/Referral(s): Cesario Doherty MD [STAFF PHYSICIAN] - 10 Days (Office will call patient with date and time of appointment) Jayme Baron MD [Primary Care Provider] - 1-2 days Marcio Connell MD [STAFF PHYSICIAN] - 10 Days [facility] Visiting Nurse, [NON-STAFF] - As Needed Activity/Diet/Wound Care/Special Instructions: dressing changes per dr doherty Discharge Disposition: HOME SELF-CARE
[2024-03-29] MEDS ORDERED: NON FORMULARY DRUG (Tirzepatide [Mounjaro] 15 MG/0.5 ML Pen.Injctr) SQ SCH (09:00)
== END 2024-03-27 10:58 | disposition home or self-care (01) | DRG 871 ==
LOC: EC 05:39 → 5NMEDONC 10:15 → 4SSUR 10:18 → 6NMEDSUR 15:55
PROVIDERS: ADMIT Hospitalist; ATTEND Hospitalist
PROC: 0W9M0ZZ Drainage of Male Perineum, Open Approach (ICD-10-PCS; principal; 2024-03-24 12:05)
DX: A41.9 Sepsis, unspecified organism (principal); U07.1 COVID-19; L02.215 Cutaneous abscess of perineum; I69.351 Hemiplegia and hemiparesis following cerebral infarction affecting right dominant side; I69.354 Hemiplegia and hemiparesis following cerebral infarction affecting left non-dominant side; N49.2 Inflammatory disorders of scrotum; G89.29 Other chronic pain; I48.91 Unspecified atrial fibrillation; E78.5 Hyperlipidemia, unspecified; K59.00 Constipation, unspecified; E11.42 Type 2 diabetes mellitus with diabetic polyneuropathy; E66.9 Obesity, unspecified; F41.9 Anxiety disorder, unspecified; M54.50 Low back pain, unspecified; H91.90 Unspecified hearing loss, unspecified ear; I10 Essential (primary) hypertension; I25.2 Old myocardial infarction; Z68.38 Body mass index [BMI] 38.0-38.9, adult; I69.311 Memory deficit following cerebral infarction; Z87.891 Personal history of nicotine dependence; Z79.01 Long term (current) use of anticoagulants; Z79.82 Long term (current) use of aspirin; Z79.84 Long term (current) use of oral hypoglycemic drugs; Z79.899 Other long term (current) drug therapy; Z87.01 Personal history of pneumonia (recurrent); Z79.85 Long-term (current) use of injectable non-insulin antidiabetic drugs
CPT/HCPCS: 36415; 51798; 71046; 74018; 80053; 80202; 81001; 82565; 83605; 85025; 87070; 87075; 87205; 87636; 96361; 96365; 96366; 96375; 96376; 99285

== ENCOUNTER 2024-09-10 13:59 | Emergency (ER) | payer OTHER, MEDICARE ==
--- NOTE | 2024-09-10 14:39 | ED ---
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 Patient states he awoke this morning with frontal head pressure that worsened to 10/10 pain at 0600. Patient states he went to bed at 2130 last night with no new symptoms. Patient's went to PCP due to headache who had patient transported to ER via EMS due to increased right-sided weakness, slurred speech and dragging of right foot more than usual. Patient states frontal headache has been slowly resolving and is now 2/10 without intervention. States he normally does not get headaches except with past CVAs. Endorses CVA years ago with significant right-sided deficits and 3 CVAs last year in July, August and September 2023 with minor left sided deficits. Patient also endorses affected peripheral vision, memory, speech and reading difficulties from prior CVAs. Endorses daily use of Eliquis and ASA81. Time: 04:00 Last Observed Normal: 21:30 Location: speech, left face, dysarthria, right arm, right leg, ataxia History of same: Yes Place: home Quality: weak, numb, tingling Improves With: time On Anticoagulants: Yes (Eliquis) Context: gradual onset Treatments Prior to Arrival: none - Related Data Home Medications: Home Medications Medication Instructions Recorded Confirmed Atorvastatin [Lipitor] 80 mg PO HS 12/05/22 03/24/24 atenoloL [Tenormin] 25 mg PO HS 12/05/22 03/24/24 Apixaban [Eliquis] 5 mg PO BID 11/01/23 03/24/24 Aspirin 81 mg PO DAILY 11/01/23 03/24/24 Fenofibrate Nanocrystallized 145 mg PO DAILY 11/01/23 03/24/24 [Fenofibrate] Fluticasone Nasal Morris [Flonase 1 spr EA NOSTRIL BID PRN 11/01/23 03/24/24 Nasal Morris] Magnesium Oxide [Magnesium] 500 mg PO DAILY 11/01/23 03/24/24 Multivitamins, Thera [Multivitamin 1 tab PO BID 11/01/23 03/24/24 (formulary)] metFORMIN HCL ER [Glucophage XR] 500 mg PO HS 11/01/23 03/24/24 Gabapentin [Neurontin] 400 mg PO TID 03/24/24 03/24/24 Psyllium Husk [Fiber Capsule] 0.4 gm PO BID 03/24/24 03/24/24 Tirzepatide [Mounjaro] 15 mg SQ WICK 03/24/24 03/24/24 Previous Rx's Medication Instructions Recorded HYDROcodone/APAP 7.5-325MG [[place] 1 tab PO Q6HR PRN 3 Days #12 tab 03/21/24 7.5-325] Amoxic-Pot Clav 875-125Mg 1 tab PO Q12HR #14 tab 03/27/24 [Augmentin 875-125] Allergies/Adverse Reactions: Allergies Allergy/AdvReac Type Severity Reaction Status Date / Time bee venom protein (honey bee) Allergy Swelling Verified 09/10/24 14:10 Review of Systems ROS Statement: Those systems with pertinent positive or pertinent negative responses have been documented in the HPI. ROS Other: All systems not noted in ROS Statement are negative. General Exam Limitations: no limitations General appearance: alert, in no apparent distress Head exam: Present: atraumatic, normocephalic, normal inspection Eye exam: Present: normal appearance, PERRL, EOMI. Absent: scleral icterus, conjunctival injection, nystagmus, periorbital swelling Pupils: Present: normal accommodation ENT exam: Present: normal exam, mucous membranes moist Neck exam: Present: normal inspection. Absent: tenderness, meningismus, lymphadenopathy Respiratory exam: Present: normal lung sounds bilaterally. Absent: respiratory distress, wheezes, rales, rhonchi, stridor, accessory muscle use, decreased breath sounds, prolonged expiratory Cardiovascular Exam: Present: regular rate, normal rhythm, systolic murmur (2/6). Absent: diastolic murmur, rubs, gallop, clicks GI/Abdominal exam: Present: soft, normal bowel sounds. Absent: distended, tenderness, guarding, rebound, rigid Extremities exam: Present: normal inspection, normal capillary refill. Absent: tenderness, pedal edema, joint swelling, calf tenderness Back exam: Present: normal inspection Neurological exam: Present: alert, oriented X3, CN II-XII intact, other (Alto stroke shows right upper extremity weakness, unable to hold at shoulder level. RLE weakness - patient has history of residual right-sided weakness. Some left facial droop when smiling. Negative dysphasia, dysarthria. Abnormal cerebellar test including [id number], JENNIFER, [id number]) Psychiatric exam: Present: normal affect, normal mood Skin exam: Present: warm, dry, intact, normal color. Absent: rash Stroke MDM - Lab Data Result diagrams: 09/10/24 14:59 09/10/24 14:59 Lab Results 09/10/24 09/10/24 09/10/24 Range/Units 14:59 14:59 14:59 WBC 4.66 (4.50-10.00) 10*3/uL RBC 4.85 (4.40-5.60) 10*6/uL Hgb 14.7 (13.0-17.0) g/dL Hct 42.6 (39.6-50.0) % MCV 87.8 (80.0-97.0) fL MCH 30.3 (27.0-32.0) pg MCHC 34.5 (32.0-37.0) g/dL Plt Count 282 (140-440) 10*3/uL MPV 10.3 (9.5-12.2) fL Immature Gran % (Auto) 0 % Neutrophils % 67.1 % Lymphocytes % 23.0 % Monocytes % 7.5 % Eosinophils % 1.5 % Basophils % 0.9 % Immature Gran # 0.00 (0.00-0.04) 10*3/uL Neutrophils # 3.13 (1.80-7.70) 10*3/uL Lymphocytes # 1.07 (0.90-5.00) 10*3/uL Monocytes # 0.35 (0.20-1.00) 10*3/uL Eosinophils # 0.07 (0.04-0.35) 10*3/uL Basophils # 0.04 (0.00-0.10) 10*3/uL PT 11.5 (10.0-12.5) sec INR 1.0 (<1.2) APTT 24.5 (22.0-30.0) sec Sodium 139 (137-145) mmol/L Potassium 3.9 (3.5-5.1) mmol/L Chloride 105 (98-107) mmol/L Carbon Dioxide 24 (22-30) mmol/L Anion Gap 10 mmol/L BUN 22 H (9-20) mg/dL Creatinine 1.08 (0.66-1.25) mg/dL Est GFR (CKD-EPI)AfAm 87 (>60 ml/min/1.73 sqM) Est GFR (CKD-EPI)NonAf 75 (>60 ml/min/1.73 sqM) Glucose 145 H (74-99) mg/dL Calcium 9.2 (8.4-10.2) mg/dL Total Bilirubin 0.6 (0.2-1.3) mg/dL AST 34 (17-59) U/L ALT 25 (4-49) U/L Alkaline Phosphatase 38 (38-126) U/L Total Protein 6.0 L (6.3-8.2) g/dL Albumin 3.7 (3.5-5.0) g/dL - NIH Stroke Scale 1a. Level of Consciousness: (0) alert 1b. LOC Questions: (0) answers correctly 1c. LOC Commands: (0) performs tasks correctly 2. Best Gaze: (1) partial gaze palsy 3. Visual: (0) no visual loss 4. Facial Palsy: (1) minor paralysis 5a. Motor Arm Left: (0) no drift 5b. Motor Arm Right: (2) some gravity effort 6a. Motor Leg Left: (0) no drift 6b. Motor Leg Right: (1) drift 7. Limb Ataxia: (1) present 1 limb 8. Sensory: (0) normal 9. Best Language: (0) no aphasia 10. Dysarthria: (1) mild/moderate dysarthria 11. Extinction/Inattention: (0) no abnormality - Thrombolytic Inclusion/Exclusion Thrombolytic Exclusion Criteria: Symptom Onset > 4.5 Hours Thrombolytic Contraindications: Patient on Anticoagulants - Medical Decision Making Was pt. sent in by a medical professional or institution (, PA, [employer], urgent care, hospital, or jail...) When possible be specific @ -[No] Did you speak to anyone other than the patient for history (EMS, parent, family, police, friend...)? What history was obtained from this source @ -[No] Did you review nursing and triage notes (agree or disagree)? Why? @ -[I reviewed and agree with nursing and triage notes] Were old charts reviewed (outside hosp., previous admission, EMS record, old EKG, old radiological studies, urgent care reports/EKG's, jail records)? Report findings @ -[No old charts were reviewed] Differential Diagnosis (chest pain, altered mental status, abdominal pain women, abdominal pain men, vaginal bleeding, weakness, fever, dyspnea, syncope, headache, dizziness, GI bleed, back pain, seizure, CVA, palpatations, mental health, musculoskeletal)? @ -Differential CVA Ischemic stroke, hemorrhagic stroke, brain tumor, atypical migraine, Wernicke's encephalopathy, seizure, multiple sclerosis, meningitis, encephalitis, hypoglycemia, Guillain-Albarado, electrolytes disturbance, myasthenia gravis.... This is not meant to be an all-inclusive list EKG interpreted by me (3pts min.). @ -Sinus rhythm without ST deviation or T wave inversion. Ventricular rate 72 bpm, WICHO 163 ms, QRS 104 ms, QTc 384 ms. X-rays interpreted by me (1pt min.). @ -CXR shows mild cardiomegaly without acute pulmonary process, airspace opacity, pleural effusion or pneumothorax. CT interpreted by me (1pt min.). @ -Brain CT shows mild to moderate diffuse ventricular sulcal prominence, old right parietal lobe infarct, old medial inferior left occipital lobe infarct. Otherwise no acute intracranial hemorrhage or midline shift. Head/neck CTA shows no acute intracranial or carotid/vertebral artery stenosis, occlusion, aneurysm. U/S interpreted by me (1pt. min.). @ -[None done] What testing was considered but not performed or refused? (CT, X-rays, U/S, labs)? Why? @ -[None] What meds were considered but not given or refused? Why? @ -[None] Did you discuss the management of the patient with other professionals (professionals i.e. , PA, [employer], lab, RT, psych nurse, mental health social worker, narcotics and/or vice detective, teacher, real estate officer, trading manager)? Give summary @ -Spoke to Dr. Ragland and advised of current HPI and physical exam findings shortly after code stroke was activated. Advised that patient's symptoms started more than 4.5 hours prior to arrival and is currently taking Eliquis. Was smoking cessation discussed for >3mins.? @ -[No] Was critical care preformed (if so, how long)? @ -[No] Were there social determinants of health that impacted care today? How? (Homelessness, low income, unemployed, alcoholism, drug addiction, transportation, low edu. Level, literacy, decrease access to med. care, care home, rehab)? @ -[No] Was there de-escalation of care discussed even if they declined (Discuss DNR or withdrawal of care, Hospice)? DNR status @ -[No] What co-morbidities impacted this encounter? (DM, HTN, Smoking, COPD, CAD, Cancer, CVA, ARF, Chemo, Hep., AIDS, mental health diagnosis, sleep apnea, morbid obesity)? @ -Prior CVA deficits Was patient admitted / discharged? Hospital course, mention meds given and route, prescriptions, significant lab abnormalities, going to OR and other pertinent info. @ -After obtaining HPI and conducting physical exam, code stroke was activated due to concerning physical exam findings and concurrent headache which often precipitated past CVAs. Spoke to Dr. Ragland and advised of current HPI and physical exam findings shortly after code stroke was activated. Advised that patient's symptoms started more than 4.5 hours prior to arrival and is currently taking Eliquis. Patient endorses severe claustrophobia, expressing anxiety and is requesting medication to reduce anxiety prior to CT scan. IV Valium ordered but not provided prior to patient going through CT scan. Brain CT shows mild to moderate diffuse ventricular sulcal prominence, old right parietal lobe infarct, old medial inferior left occipital lobe infarct. Otherwise no acute intracranial hemorrhage or midline shift. Head/neck CTA shows no acute intracranial or carotid/vertebral artery stenosis, occlusion, aneurysm. CXR shows mild cardiomegaly without acute pulmonary process, airspace opacity, pleural effusion or pneumothorax. Undiagnosed new problem with uncertain prognosis? @ -[No] Drug Therapy requiring intensive monitoring for toxicity (Heparin, Nitro, Insulin, Cardizem)? @ -[No] Were any procedures done? @ -[No] Diagnosis/symptom? @ -TIA, headache Acute, or Chronic, or Acute on Chronic? @ -Acute Uncomplicated (without systemic symptoms) or Complicated (systemic symptoms)? @ -Complicated Side effects of treatment? @ -[No] Exacerbation, Progression, or Severe Exacerbation? @ -[No] Poses a threat to life or bodily function? How? (Chest pain, USA, LA, pneumonia, PE, COPD, DKA, ARF, appy, cholecystitis, CVA, Diverticulitis, Homicidal, Suicidal, threat to staff... and all critical care pts) @ -CVA/TIA Past Medical History Past Medical History: Atrial Fibrillation, Chest Pain / Angina, CVA/TIA, Hearing Disorder / Deafness, Hyperlipidemia, Hypertension, Memory Impairment, Myocardial Infarction (LA), Pneumonia, Syncope Additional Past Medical History / Comment(s): Recent CVA-July w/left sided weakness, weakness in hand and leg. CVA 12/23/18 with right side weakness. Hx CVA 2009 with R sided weakness and numbness upper and lower extremities and short term memory loss, MIs X3, chronic low back pain, R shoulder and R ankle pain, seasonal allergies, sinus problems. Slightly Hard of Hearing. "I passed multiple times out years ago." Last Myocardial Infarction Date:: 2005, 2010,2011 History of Any Multi-Drug Resistant Organisms: None Reported Past Surgical History: Cardiac Ablation, Heart Catheterization, Tonsillectomy Additional Past Surgical History / Comment(s): Cardiac ablation-unsuccessful per pt, loop recorders X3 one in currenty-02/22/2019-pt states battery has , colonoscopy/benign polypectomy, cyst removed from buttock/anal area 2018;left shoulder cyst removed 12/04/2022. Had Sebaceous cyst removed from back. Last cardiac cath 2018, [place] August 2023 Past Anesthesia/Blood Transfusion Reactions: No Reported Reaction Additional Past Anesthesia/Blood Transfusion Reaction / Comment(s): No hx of transfusion. Type of Cardiac Device: Loop Device Placement Date:: 03/10/2019 Past Psychological History: Anxiety Smoking Status: Former smoker Past Alcohol Use History: Occasional Past Drug Use History: None Reported - Past Family History Father Family Medical History: COPD, Deep Vein Thrombosis (DVT), Hyperlipidemia, Hypertension, Myocardial Infarction (LA) Additional Family Medical History / Comment(s): Father had MIs with the first one being when he was about 65 yrs old. He had coronary stents. He at the age of 83 yrs. Mother Family Medical History: Cancer, Dementia, Thyroid Disorder Additional Family Medical History / Comment(s): Mother had breast cancer, diverticulitis, thyroid disease and from dementia at the age of 80 yrs. Sister(s) Family Medical History: Cancer Additional Family Medical History / Comment(s): Pancreatic cancer. Course Vital Signs 09/10/24 09/10/24 09/10/24 14:01 14:30 16:00 Temperature 99.2 F Pulse Rate 75 74 73 Respiratory 18 16 18 Rate Blood Pressure 124/66 139/64 112/70 O2 Sat by Pulse 100 99 98 Oximetry 09/10/24 09/10/24 16:05 17:03 Temperature 99.0 F Pulse Rate 73 77 Respiratory 16 20 Rate Blood Pressure 110/85 114/67 O2 Sat by Pulse 98 100 Oximetry Disposition Clinical Impression: TIA (transient ischemic attack), Headache Disposition: HOME SELF-CARE Condition: Fair Instructions (If sedation given, give patient instructions): Transient Ischemic Attack (ED) Additional Instructions: Hold on this evening's Eliquis and aspirin use. Follow-up with neurology in the next 24 hours for further evaluation. Call 911/return to ER if experiencing any worsening headache, weakness or numbness. Is patient prescribed a controlled substance at d/c from ED?: No Referrals: Jayme Baron MD [Primary Care Provider] - 1-2 days Piper Black MD [STAFF PHYSICIAN] - 1-2 days Time of Disposition: 16:29
--- NOTE | 2024-09-10 14:58 | CT ---
EXAMINATION TYPE: CT brain wo con DATE OF EXAM: 09/10/2024 COMPARISON: CT brain November 01, 2023 CLINICAL INDICATION: Male, 58 years old with history of Headache, right hemiplegia, dysphasia, Code s troke. Headache, right hemiplegia, dysphasia. TECHNIQUE: CT scan of the head is performed without contrast. CT DLP: 1174.6 mGycm. Automated Exposure Control for Dose Reduction was Utilized. FINDINGS: There is no acute intracranial hemorrhage or midline shift identified. There is mild-to-m oderate diffuse ventricular and sulcal prominence redemonstrated. There is now old infarct right par ietal lobe posterior watershed region axial image 33. Old infarct medial inferior left occipital lobe axial image 25 is redemonstrated. Soft tissue density thought to reflect cerumen is now seen in the bilateral external auditory canals. The globes are intact bilaterally. A small mucous retention cys t or polyp in the right maxillary sinus is redemonstrated. IMPRESSION: No acute intracranial hemorrhage or midline shift. There is old infarct inferior medial left occipital lobe redemonstrated. There is Old right parietal lobe posterior watershed infarct now seen. If clinical concern for acute stroke persist further investigation with MRI study would be warranted. [facility], , 09/10/2024 2:56 PM
[2024-09-10 15:04] LABS: Basophils # (A) 0.04 10*3/uL (0.00-0.10); Basophils % (A) 0.9 %; Eosinophils # (A) 0.07 10*3/uL (0.04-0.35); Eosinophils % (A) 1.5 %; HCT 42.6 % (39.6-50.0); HGB 14.7 g/dL (13.0-17.0); Lymphocytes # (A) 1.07 10*3/uL (0.90-5.00); MCH 30.3 pg (27.0-32.0); MCHC 34.5 g/dL (32.0-37.0); MCV 87.8 fL (80.0-97.0); Mean Platelet Volume 10.3 fL (9.5-12.2); Monocytes # (A) 0.35 10*3/uL (0.20-1.00); Monocytes % (A) 7.5 %; Neutrophils # (A) 3.13 10*3/uL (1.80-7.70); Neutrophils % (A) 67.1 %; Platelet Count 282 10*3/uL (140-440); RBC 4.85 10*6/uL (4.40-5.60); RDW 14.2 % (11.5-14.5); WBC 4.66 10*3/uL (4.50-10.00)
[2024-09-10 15:11] LABS: ALT 25 U/L (4-49); AST 34 U/L (17-59); African American GFR (CKD) 87 (>60 ml/min/1.73 sqM); Albumin 3.7 g/dL (3.5-5.0); Alkaline Phosphatase 38 U/L (38-126); Anion Gap 10 mmol/L; Blood Urea Nitrogen 22 mg/dL (9-20); Calcium 9.2 mg/dL (8.4-10.2); Carbon Dioxide 24 mmol/L (22-30); Chloride 105 mmol/L (98-107); Glucose 145 mg/dL (74-99); Non-African American GFR(CKD) 75 (>60 ml/min/1.73 sqM); Potassium 3.9 mmol/L (3.5-5.1); Sodium 139 mmol/L (137-145); Total Bilirubin 0.6 mg/dL (0.2-1.3)
--- NOTE | 2024-09-10 15:15 | CT ---
EXAMINATION TYPE: CT angio head neck DATE OF EXAM: 09/10/2024 COMPARISON: 11/01/2023 CLINICAL INDICATION: Male, 58 years old with history of Headache, right hemiplegia, dysphasia; PHH, H eadache, right hemiplegia, dysphasia. hx of strokes TECHNIQUE: CTA scan of the head and neck is performed with IV Contrast, patient injected with 100ml mL of Isovue 370, axial images are obtained, coronal and sagittal reformatted images are reviewed. 3D reconstructed images are created on an independent workstation and reviewed. CT DLP: 596.[address] CTDI: mGy Automated exposure control for dose reduction was used. NASCET criteria was used in interpretation of this exam? FINDINGS: The brachiocephalic origins are widely patent and no significant stenosis. There is no significant stenosis of the common or internal carotid arteries within the neck. There is no stenosis of the vertebral arteries. Intracranially, there is no stenosis, segmental occlusion, sizable aneurysm sac or vascular malformat ion. IMPRESSION:. No significant abnormality seen. NASCET criteria was used in interpretation of this exam? [facility], , 09/10/2024 3:12 PM
[2024-09-10 15:21] LABS: Partial Thromboplastin Time 24.5 sec (22.0-30.0); Prothrombin Time 11.5 sec (10.0-12.5)
--- NOTE | 2024-09-10 15:50 | XR ---
EXAMINATION TYPE: XR chest 2V DATE OF EXAM: 09/10/2024 CLINICAL INDICATION: Male, 58 years old with history of altered mental status, TECHNIQUE: Frontal and lateral views of the chest are obtained. COMPARISON: Chest x-ray March 24, 2024 FINDINGS: There is no focal air space opacity, pleural effusion, or pneumothorax seen. The cardiac silhouette size is stable and mildly enlarged. Overlying loop recorder is redemonstrated. Dextroconve x scoliosis centered in the lower thoracic spine is redemonstrated. Mild diffuse tracheal narrowing i s redemonstrated. IMPRESSION: Mild cardiomegaly without acute pulmonary process. No significant change from most recent prior. [facility], , 09/10/2024 3:48 PM
[2024-09-10] MEDS: ASPIRIN 325 MG TAB PO STA (16:53)
[2024-09-10 17:05] VITALS: BP 114/67; PULSE 77; RESP 20; TEMP 99
== END 2024-09-10 17:05 | disposition home or self-care (01) ==
LOC: EC 13:59
DX: R51.9 Headache, unspecified (principal); G45.9 Transient cerebral ischemic attack, unspecified; Z87.891 Personal history of nicotine dependence; Z91.030 Bee allergy status
CPT/HCPCS: 36415; 93005; 80053; 85025; 85610; 85730; 71046; 70496; 70450; 70498; 99285; Q9967